=== PATIENT | female | born 1955 | race African-American/Black ===

== ENCOUNTER 2021-03-12 15:23 | Inpatient (IN) | payer OTHER, SELFPAY ==
[2021-03-12] VITALS (17 sets, daily range): BP systolic 103–144; BP diastolic 71–94; PULSE 89–109; RESP 20–36; TEMP 36.9–37.3; O2SAT 86–98; BMI 31.1
--- NOTE | ~2021-03-12 | US_ITS ---
EXAMINATION: US venous doppler UE DATE: 03/16/2021 15:08 INDICATION: Arm swelling TECHNIQUE: King scale images with and without compression and Doppler images of the right and left up per extremity veins were obtained. COMPARISON: None. FINDINGS: The internal jugular vein, subclavian vein, axillary vein, brachial veins, basilic vein, cephalic vei n, radial vein, and ulnar vein are patent.] IMPRESSION: 1. Patent bilateral upper extremity veins. No evidence of deep venous thrombosis. Reviewed, dictated and finalized at location A. IMPRESSION: 1. Patent bilateral upper extremity veins. No evidence of deep venous thrombosi s.
--- NOTE | ~2021-03-12 | XR_ITS ---
XR chest 1V portable 04/05/2021 06:33 Indication: Respiratory failure Procedure: AP portable chest Comparison: Comparison to multiple prior studies sequentially, with oldest reviewed study dated 03/30. Findings: Progression of diffuse bilateral airspace disease. Endotracheal tube tip 3.8 cm above the c compa. NG tube in the stomach. Right IJ central line tip mass cc. Small pleural effusions. No pneumot horax. No acute osseous abnormality. Impression: 1: Progression of diffuse bilateral airspace disease which may represent pneumonia and/or edema. Reviewed, dictated and finalized at location A. Impression: 1: Progression of diffuse bilateral airspace disease which may represent pneumo kasey and/or edema.
--- NOTE | ~2021-03-12 | XR_ITS ---
XR chest 1V portable 04/07/2021 06:36 Indication: Respiratory failure Procedure: AP portable chest Comparison: Comparison to multiple prior studies sequentially, with oldest reviewed study dated 04/02. Findings: 3.1 cm above the milton. NG tube in the stomach. Right IJ central line tip in the SVC. Prog ression of diffuse bilateral airspace disease. No significant effusion. No pneumothorax. Impression: 1: Progression of diffuse bilateral airspace disease which may represent pneumonia, edema and/or ARDS . Reviewed, dictated and finalized at location A. Impression: 1: Progression of diffuse bilateral airspace disease which may represent pneumo kasey, edema and/or ARDS.
--- NOTE | ~2021-03-12 | XR_ITS ---
XR chest 1V portable DATE: 04/02/2021 05:58 INDICATION: Acute respiratory failure TECHNIQUE: Portable AP chest on 04/02/2021 at 0535 hours COMPARISON: 03/31/2021 portable AP chest at 0522 hours FINDINGS: ET tube in satisfactory position 4.7 cm above milton. NG tube in stomach. Right internal jugular central venous catheter tip overlies the lower aspect of the superior vena cav a. No evidence of pneumothorax. Normal heart size. There is aortic unfolding. Diffuse bilateral pulmonary infiltrates relatively sparing the apices. The infiltrates are mildly imp roved since 03/31/2021. No pleural effusion or pneumothorax. IMPRESSION: Extensive bilateral pulmonary infiltrates, mildly improved since 03/31/2021 Reviewed, dictated and finalized at location A. IMPRESSION: Extensive bilateral pulmonary infiltrates, mildly improved since 06/2021
--- NOTE | ~2021-03-12 | XR_ITS ---
EXAMINATION: XR chest 1V portable DATE: 04/26/2021 09:38 INDICATION: Intubated. COVID pneumonia. TECHNIQUE: frontal view of the chest was obtained. COMPARISON: Chest radiograph dated 04/25/2021 FINDINGS: Endotracheal tube tip 4.4 cm above the milton. Nasogastric tube extends below the left hemidiaphragm with distal tip collimated off the study. Right internal jugular central venous catheter with distal tip at the cephalad superior vena cava. Again seen are airspace opacities throughout both lungs relative sparing the apices with some improve ment in aeration of both lungs. No pleural effusion or pneumothorax. The cardiomediastinal silhouette is within normal limits for AP technique. Calcified left hilar lymph node consistent with old granul omatous disease.. IMPRESSION: 1. Diffuse bilateral lung disease with some improvement in aeration of both lungs. Differential inclu jud pneumonia, pulmonary edema, ARDS or some combination thereof. Reviewed, dictated and finalized at location A. IMPRESSION: 1. Diffuse bilateral lung disease with some improvement in aeration of both glenna gs. Differential includes pneumonia, pulmonary edema, ARDS or some combination thereof.
--- NOTE | ~2021-03-12 | XR_ITS ---
EXAMINATION: XR chest 1V portable DATE: 03/22/2021 06:00 INDICATION: Respiratory failure. TECHNIQUE: frontal view of the chest was obtained. COMPARISON: Chest radiograph dated 03/21/2021 FINDINGS: Endotracheal tube tip 3.5 cm above the milton. Nasogastric tube extends below the left hemidiaphragm with distal tip collimated off the study. Right internal jugular central venous catheter with distal tip at the midsuperior vena cava. Unchanged diffuse groundglass opacities and increased interstitial pattern in the bilateral mid and l ower lung zones. No pleural effusion or pneumothorax. The cardiomediastinal silhouette is normal. Keenan cified left hilar lymph nodes consistent with old granulomatous disease. IMPRESSION: 1. Unchanged diffuse bilateral lung disease relatively sparing the apices with differential including pneumonia such as COVID pneumonia or pulmonary edema. Reviewed, dictated and finalized at location A.
--- NOTE | ~2021-03-12 | XR_ITS ---
EXAMINATION: XR chest 1V portable INDICATION: Cardiopulmonary arrest TECHNIQUE: Portable AP chest at 1720 hours COMPARISON: 0524 hours FINDINGS: The endotracheal tube ends approximately 1.6 cm above the milton. The nasogastric tube is f ollowed as far as the stomach. Its tip is beyond the inferior margin of the radiograph. A right inter nal jugular central venous catheter ends in the proximal superior vena cava. Diffuse opacities persis t throughout all lung zones without significant change. The cardiomediastinal silhouette is stable. N o pleural effusion or pneumothorax is identified. A calcified left hilar lymph nodes consistent with old granulomatous disease. IMPRESSION: 1. Stable diffuse lung disease, consistent with pneumonia and/or pulmonary edema and/or acute respira tory distress syndrome (ARDS). Reviewed, dictated and finalized at location A. IMPRESSION: 1. Stable diffuse lung disease, consistent with pneumonia and/or pulmonary madeline a and/or acute respiratory distress syndrome (ARDS).
--- NOTE | ~2021-03-12 | XR_ITS ---
EXAMINATION: XR chest 1V portable DATE: 04/12/2021 09:10 INDICATION: COVID. Intubation. TECHNIQUE: frontal view of the chest was obtained. COMPARISON: Chest radiograph dated 04/11/2021 FINDINGS: Endotracheal tube tip 3.3 cm above the milton. Right internal jugular central venous catheter with di stal tip in the midsuperior vena cava. Again seen are diffuse bilateral airspace opacities throughout both lungs relatively sparing the apic es. No pleural effusion or pneumothorax. The cardiomediastinal silhouette is normal. Large calcified left hilar lymph node consistent with old granulomatous disease. IMPRESSION: 1. Unchanged diffuse bilateral lung disease consistent with COVID pneumonia with differential includi ng pulmonary edema. Reviewed, dictated and finalized at location B. IMPRESSION: 1. Unchanged diffuse bilateral lung disease consistent with COVID pneumonia wit h differential including pulmonary edema.
--- NOTE | ~2021-03-12 | XR_ITS ---
XR chest 1V portable 03/16/2021 12:46 Indication: CovidPneumonia Procedure: AP portable chest Comparison: Comparison to multiple prior studies sequentially, with oldest reviewed study dated 02/08. Findings: Cardiomegaly. Diffuse bilateral airspace disease mid and lower lungs. Possible small left e ffusion. No pneumothorax. Calcified left infrahilar lymph node, consistent with chronic granulomatous infection. Impression: 1: Progression of diffuse bilateral airspace disease, consistent with pneumonia. Reviewed, dictated and finalized at location A. Impression: 1: Progression of diffuse bilateral airspace disease, consistent with pneumonia .
--- NOTE | ~2021-03-12 | XR_ITS ---
XR chest 1V portable 04/08/2021 05:34 Indication: Respiratory failure Procedure: AP portable chest Comparison: Comparison to multiple prior studies sequentially, with oldest reviewed study dated 04/04. Findings: Endotracheal tube tip 5.2 cm above the milton. Right IJ central line tip in SVC. NG tube in the stomach. No pneumothorax. Persistent diffuse bilateral airspace disease without significant connelly ge. Impression: 1: Persistent diffuse bilateral airspace disease without significant change, compatible with pneumoni a versus edema. Reviewed, dictated and finalized at location A. Impression: 1: Persistent diffuse bilateral airspace disease without significant change, co mpatible with pneumonia versus edema.
--- NOTE | ~2021-03-12 | XR_ITS ---
EXAMINATION: XR chest 1V portable DATE: 03/26/2021 05:50 INDICATION: Respiratory failure TECHNIQUE: frontal view of the chest was obtained. COMPARISON: Chest radiograph dated 03/25/2021 FINDINGS: Endotracheal tube tip 5.2 cm above the milton. Nasogastric tube extends below the left hemidiaphragm with distal tip collimated off the study. Right internal jugular central venous catheter with distal tip at the midsuperior vena cava. No significant change in diffuse groundglass opacities and increased interstitial pattern throughout both lungs relatively sparing the apices. No pleural effusion or pneumothorax. The cardiomediastinal silhouette is normal. Calcified left hilar lymph node consistent with old granulomatous disease. IMPRESSION: 1. No interval change in diffuse bilateral lung disease consistent with pneumonia, pulmonary edema, A RDS or some combination thereof. Reviewed, dictated and finalized at location A. IMPRESSION: 1. No interval change in diffuse bilateral lung disease consistent with pneumon ia, pulmonary edema, ARDS or some combination thereof.
--- NOTE | ~2021-03-12 | XR_ITS ---
XR chest 1V portable 04/06/2021 06:08 Indication: Respiratory failure Procedure: AP portable chest Comparison: Comparison to multiple prior studies sequentially, with oldest reviewed study dated 03/31. Findings: Endotracheal tube tip 4.5 cm above the milton. Right IJ central line tip in the SVC. NG tub e tip in the stomach. Diffuse bilateral airspace disease is unchanged. No pneumothorax. Impression: 1: Stable diffuse bilateral airspace disease compared with 04/05/2021. Differential diagnosis includes pneumonia, edema and/or ARDS. Reviewed, dictated and finalized at location A. Impression: 1: Stable diffuse bilateral airspace disease compared with 04/05/2021. Different ial diagnosis includes pneumonia, edema and/or ARDS.
--- NOTE | ~2021-03-12 | US_ITS ---
EXAMINATION: US renal BI EXAM DATE: 05/06/2021 15:05 INDICATION: Acute kidney injury. TECHNIQUE: Multiple grayscale and Doppler images of the kidneys were obtained (by a technologist who performed the scan) and subsequently reviewed. Comparison is made to prior examination from 02/08/2013 . FINDINGS: Right kidney: There is normal contour and echogenicity. It measures 11.6 x 6.0 x 5.6 centimeters. Th ere is anechoic lesion in the superior pole of this kidney with increased through transmission, consi stent with cyst measuring up to 5.5 cm. There is no hydronephrosis. Left kidney: There is normal contour and echogenicity. It measures 10.6 x 4.3 x 5.9 centimeters. Th ere are no focal renal lesions identified. There is no hydronephrosis. Bladder unremarkable. IMPRESSION: 1. Right renal cyst. 2. No hydronephrosis. Reviewed, dictated and finalized at location B.
--- NOTE | ~2021-03-12 | US_ITS ---
EXAMINATION:US venous doppler LE BI INDICATION:Leg swelling TECHNIQUE: Multiple grayscale, color flow and Doppler images of the right and left lower extremity de ep venous systems were obtained and reviewed. COMPARISON:No prior studies for comparison. FINDINGS: The common femoral, superficial femoral and popliteal veins demonstrate normal respiratory variation, augmentation and compressibility. Color flow is also seen within the posterior tibial, pe roneal, greater saphenous and profunda veins. IMPRESSION: 1: No lower extremity deep venous thrombosis. Reviewed, dictated and finalized at location A.
--- NOTE | ~2021-03-12 | XR_ITS ---
XR chest 1V portable 03/28/2021 05:37 Indication: Pneumonia. Acute respiratory failure. Procedure: AP portable chest Comparison: Comparison to multiple prior studies sequentially, with oldest reviewed study dated 11/2020. Findings: Endotracheal tube tip 2.6 cm above the milton. NG tube in the stomach. Right IJ central ana laura e tip in the SVC. Unchanged diffuse bilateral airspace disease. No significant effusion or pneumothor ax. Impression: 1: Stable diffuse bilateral airspace disease, compatible with pneumonia. Edema cannot be excluded. Reviewed, dictated and finalized at location A. Impression: 1: Stable diffuse bilateral airspace disease, compatible with pneumonia. Edema cannot be excluded.
--- NOTE | ~2021-03-12 | XR_ITS ---
EXAMINATION: XR chest 1V portable DATE: 04/18/2021 05:53 INDICATION: Respiratory failure TECHNIQUE: frontal view of the chest was obtained. COMPARISON: Chest radiograph dated 04/17/2021 FINDINGS: Endotracheal tube tip 4.6 cm above the milton. Nasogastric tube extends below the left hemidiaphragm with distal tip collimated off the study. Right internal jugular central venous catheter with distal tip in the region of the contents of the right brachiocephalic vein and superior vena cava. Diffuse bilateral indistinct interstitial and airspace opacities relatively sparing the apices. No pn eumothorax or pleural effusion. Cardiomegaly. Calcified left hilar lymph node consistent with old gra nulomatous disease. IMPRESSION: 1. No interval change in diffuse bilateral lung disease which could represent pneumonia, pulmonary ed elaine, ARDS or some combination thereof. Reviewed, dictated and finalized at location A. IMPRESSION: 1. No interval change in diffuse bilateral lung disease which could represent p neumonia, pulmonary edema, ARDS or some combination thereof.
--- NOTE | ~2021-03-12 | XR_ITS ---
EXAMINATION: XR chest 1V portable INDICATION: Respiratory failure TECHNIQUE: Portable AP chest at 0011 hours COMPARISON: 04/22/2021 FINDINGS: The endotracheal tube ends approximately 2.8 cm above the milton. The nasogastric tube is f ollowed as far as the stomach. Its tip is beyond the inferior margin of the radiograph. A right inter nal jugular catheter ends with its tip in the proximal superior vena cava. Diffuse airspace opacities persist in all lung zones with slight improvement. The cardiomediastinal silhouette is stable. No pl eural effusion or pneumothorax is identified. IMPRESSION: 1. Diffuse lung disease with interval improvement, consistent with pneumonia and/or pulmonary edema a nd/or acute respiratory distress syndrome (ARDS). Reviewed, dictated and finalized at location A. IMPRESSION: 1. Diffuse lung disease with interval improvement, consistent with pneumonia an d/or pulmonary edema and/or acute respiratory distress syndrome (ARDS).
--- NOTE | ~2021-03-12 | XR_ITS ---
EXAMINATION: XR chest 1V portable INDICATION: Respiratory failure TECHNIQUE: Portable AP chest at 0450 hours COMPARISON: 04/21/2021 FINDINGS: The endotracheal tube ends approximately 4.1 cm above the milton. The nasogastric tube is f ollowed as far as the stomach. Its tip is beyond the inferior margin of the radiograph. A right inter nal jugular catheter ends with its tip in the proximal superior vena cava. Diffuse opacities persist throughout all lung zones with interval worsening. No definite pleural effusion or pneumothorax is id entified. The cardiomediastinal silhouette is stable. IMPRESSION: 1. Diffuse lung disease with interval worsening, consistent with pneumonia and/or pulmonary edema and /or acute respiratory distress syndrome (ARDS). Reviewed, dictated and finalized at location A. IMPRESSION: 1. Diffuse lung disease with interval worsening, consistent with pneumonia and/ or pulmonary edema and/or acute respiratory distress syndrome (ARDS).
--- NOTE | ~2021-03-12 | XR_ITS ---
EXAMINATION: XR chest 1V portable DATE: 05/03/2021 05:56 INDICATION: Respiratory failure. COVID pneumonia. TECHNIQUE: frontal view of the chest was obtained. COMPARISON: Chest radiograph dated 05/02/21 FINDINGS: Endotracheal tube tip 5.9 cm above the milton. Nasogastric tube extends below the left hemidiaphragm with distal tip collimated off the study. Right internal jugular central venous catheter with distal tip at the cephalad superior vena cava. No significant interval change in diffuse bilateral airspace opacities. No pneumothorax or definitive pleural effusion. The right iliac silhouette is largely obscured but does not appear enlarged accoun ting for AP technique. Large calcified left hilar lymph node consistent with old granulomatous diseas e. IMPRESSION: 1. No significant change in diffuse bilateral lung disease which could represent pneumonia, pulmonary edema and/or ARDS. Reviewed, dictated and finalized at location A. IMPRESSION: 1. No significant change in diffuse bilateral lung disease which could represen t pneumonia, pulmonary edema and/or ARDS.
--- NOTE | ~2021-03-12 | XR_ITS ---
EXAMINATION: XR chest 1V portable INDICATION: Respiratory failure TECHNIQUE: Portable AP chest at 0453 hours COMPARISON: 04/20/2021 FINDINGS: The endotracheal tube ends approximately 2.9 cm above the milton. The nasogastric tube is f ollowed as far as the stomach. Its tip is beyond the inferior margin of the radiograph. A right inter nal jugular central venous catheter ends with its tip in the proximal superior vena cava. Diffuse opa cities persist in all lung zones with slight improvement in the upper lung zones. There is no pleural effusion or pneumothorax. The cardiomediastinal silhouette is stable. IMPRESSION: 1. Diffuse lung disease with interval improvement, consistent with pneumonia and/or pulmonary edema a nd/or acute respiratory distress syndrome (ARDS). Reviewed, dictated and finalized at location A. IMPRESSION: 1. Diffuse lung disease with interval improvement, consistent with pneumonia an d/or pulmonary edema and/or acute respiratory distress syndrome (ARDS).
--- NOTE | ~2021-03-12 | US_ITS ---
EXAMINATION: US venous doppler [facility] DATE: 04/14/2021 14:52 INDICATION: Lower limb edema. TECHNIQUE: Grayscale ultrasound images without and with compression and Doppler ultrasound images of the bilateral lower extremity veins were obtained. COMPARISON: Ultrasound 03/16/2021 FINDINGS: The visualized portions of right common femoral vein, profunda (deep) femoral vein, femoral vein, pop liteal vein, peroneal veins, posterior tibial veins, and greater saphenous vein outflow are patent. The visualized portions of left common femoral vein, profunda femoral vein, femoral vein, popliteal v ein, peroneal veins, posterior tibial veins, and greater saphenous vein outflow are patent. IMPRESSION: 1. No deep venous thrombosis. Reviewed, dictated and finalized at location A.
--- NOTE | ~2021-03-12 | XR_ITS ---
EXAMINATION: XR chest 1V portable EXAM DATE: 04/14/2021 05:53 INDICATION: Respiratory Failure TECHNIQUE: Portable AP frontal chest x-ray was obtained. Comparison is made to prior examination from 04/13, 04/12. FINDINGS: Endotracheal tube tip is 4 centimeters above the milton. There is a nasogastric tube seen with tip collimated off the study, but below the left hemidiaphragm. There is a right IJ venous line. Diffuse bilateral airspace disease consistent with COVID pneumonia, relative sparing of the left uppe r lobe. There are no sizable pleural effusions. There is no pneumothorax suspected. The cardiome diastinal silhouette is prominent but magnified on this AP technique. The bones and soft tissues ar e unremarkable. There is no significant interval change compared to prior exam. IMPRESSION: 1. Line and tube(s) in position. 2. Extensive COVID pneumonia. Reviewed, dictated and finalized at location A.
--- NOTE | ~2021-03-12 | XR_ITS ---
EXAMINATION: XR chest 1V portable INDICATION: Respiratory failure TECHNIQUE: Portable AP chest at 0847 hours COMPARISON: 04/26/2021 FINDINGS: A monitoring lead overlies the tip of the endotracheal tube. The tube appears and approxima tely 5.1 cm above the milton. The nasogastric tube is followed as far as the stomach. Its tip is beyo nd the inferior margin of the radiograph. A right internal jugular central venous catheter ends with its tip in the proximal superior vena cava. Diffuse opacities persist throughout all lung zones with interval worsening. There is no pleural effusion or pneumothorax. The cardiomediastinal silhouette is stable. IMPRESSION: 1. Diffuse lung disease with interval worsening, consistent with pneumonia and/or pulmonary edema and /or acute respiratory distress syndrome (ARDS). Reviewed, dictated and finalized at location B. IMPRESSION: 1. Diffuse lung disease with interval worsening, consistent with pneumonia and/ or pulmonary edema and/or acute respiratory distress syndrome (ARDS).
--- NOTE | ~2021-03-12 | XR_ITS ---
EXAMINATION: XR chest 1V portable DATE: 05/06/2021 05:45 INDICATION: Hypoxic respiratory failure. COVID. TECHNIQUE: frontal view of the chest was obtained. COMPARISON: Chest radiograph dated 05/05/2021 FINDINGS: Endotracheal tube tip 4.3 cm above the milton. Nasogastric tube extends below the left hemidiaphragm with distal tip collimated off the study. Right internal jugular central venous catheter with distal tip at the right brachiocephalic vein. Extensive bilateral airspace opacities. No pneumothorax or definitive pleural effusion. Cardiac silho uette is largely obscured. Densely calcified left hilar lymph node consistent with old granulomatous disease. IMPRESSION: 1. No significant change in diffuse bilateral lung disease which could represent pneumonia, pulmonary edema, ARDS or some combination thereof. Reviewed, dictated and finalized at location A. IMPRESSION: 1. No significant change in diffuse bilateral lung disease which could represen t pneumonia, pulmonary edema, ARDS or some combination thereof.
--- NOTE | ~2021-03-12 | CT_ITS ---
EXAMINATION: CTA chest PE protocol DATE: 03/18/2021 14:38 INDICATION: COVID pneumonia. Respiratory failure with hypoxia. TECHNIQUE: Computed tomography (CT) pulmonary angiogram of the chest was performed with 100 mL Omnipa que-350 intravenous contrast. Additional 3D reconstructions utilizing coronal maximum intensity proje ction (MIP) were performed. Automated exposure control and iterative reconstruction technique were em ployed. The dose-length product was 498.75 mGy-cm. COMPARISON: None FINDINGS: Excellent contrast opacification of the pulmonary arteries. There is mild streak artifact from dense contrast in the superior vena cava and right atrium. Mild scattered respiratory motion artifact. No p ulmonary embolism. Mild emphysema the apices of the lungs. There are extensive groundglass opacities throughout both lungs with a few scattered nodular and more focal subsegmental regions of more dense consolidation dominantly in the bilateral lower lobes, right middle lobe and lingula. Appearance woul d be most consistent with pneumonia particularly COVID pneumonia. Mild bronchiectatic changes throug hout both lungs with lower lobe predominance. No pleural effusion or pneumothorax. Borderline heart s ize. No pericardial effusion. Thoracic aorta is normal in caliber with no dissection. Enlargement of the central pulmonary arteries consistent with pulmonary arterial hypertension. Large calcified left hilar lymph node consistent with old granulomatous disease. No pathologically enlarged thoracic lymph adenopathy. Incompletely visualized at least 5.2 cm cyst at the upper pole of the right kidney. Mild thoracic spondylosis. IMPRESSION: 1. No pulmonary embolism. 2. Diffuse bilateral lung disease with appearance favoring pneumonia particularly COVID pneumonia. 3. Mild emphysema and diffuse mild bronchiectasis. 4. Borderline heart size and enlargement of the central pulmonary arteries the latter consistent with pulmonary arterial hypertension. Reviewed, dictated and finalized at location A. IMPRESSION: 1. No pulmonary embolism. 2. Diffuse bilateral lung disease with appearance favoring pneumonia particular ly COVID pneumonia. 3. Mild emphysema and diffuse mild bronchiectasis. 4. Borderline heart size and enlargement of the central pulmonary arteries the latter consistent with pulmonary arterial hypertension.
--- NOTE | ~2021-03-12 | US_ITS ---
EXAMINATION: US venous doppler UE DATE: 04/14/2021 14:51 INDICATION: Upper limb edema. TECHNIQUE: Grayscale ultrasound images without and with compression and Doppler ultrasound images of the bilateral upper extremity veins were obtained. COMPARISON: Ultrasound 03/16/2021 FINDINGS: The visualized portions of the right internal jugular vein, subclavian vein, axillary vein, brachial veins, basilic vein, cephalic vein, radial vein, and ulnar vein are patent. The visualized portions of the left internal jugular vein, subclavian vein, axillary vein, brachial v eins, basilic vein, cephalic vein, radial vein, and ulnar vein are patent. IMPRESSION: 1. No deep venous thrombosis. Reviewed, dictated and finalized at location A.
--- NOTE | ~2021-03-12 | XR_ITS ---
EXAMINATION: XR chest 1V portable INDICATION: Respiratory failure TECHNIQUE: Portable AP chest at 0509 hours COMPARISON: 04/19/2021 FINDINGS: The endotracheal tube ends approximately 2.5 cm above the milton. The nasogastric tube is f ollowed as far as the stomach. Its tip is beyond the inferior margin of the radiograph. A right inter nal jugular catheter ends in the proximal superior vena cava. Diffuse opacities persist in all lung z ones with interval worsening. There is no pleural effusion or pneumothorax. The cardiomediastinal lobito houette is stable. IMPRESSION: 1. Diffuse lung disease with interval worsening, consistent with pneumonia and/or pulmonary edema and /or acute respiratory distress syndrome (ARDS). Reviewed, dictated and finalized at location A. IMPRESSION: 1. Diffuse lung disease with interval worsening, consistent with pneumonia and/ or pulmonary edema and/or acute respiratory distress syndrome (ARDS).
--- NOTE | ~2021-03-12 | XR_ITS ---
EXAMINATION: XR chest 1V portable EXAM DATE: 04/16/2021 05:33 INDICATION: Respiratory failure. TECHNIQUE: Portable AP frontal chest x-ray was obtained. Comparison is made to prior examination from 04/14, 04/15. FINDINGS: Endotracheal tube tip is 5 centimeters above the milton. There is a nasogastric tube seen with tip collimated off the study, but below the left hemidiaphragm. There is a right IJ venous line. Diffuse bilateral airspace disease consistent with COVID pneumonia, relative sparing of the left uppe r lobe. There are no sizable pleural effusions. There is no pneumothorax suspected. The cardiome diastinal silhouette is prominent but magnified on this AP technique. The bones and soft tissues ar e unremarkable. There is no significant interval change compared to prior exam. IMPRESSION: 1. Line and tube(s) in position. 2. Extensive COVID pneumonia. Reviewed, dictated and finalized at location A.
--- NOTE | ~2021-03-12 | XR_ITS ---
EXAMINATION: XR chest 1V portable DATE: 04/24/2021 05:12 INDICATION: Respiratory failure TECHNIQUE: frontal view of the chest was obtained. COMPARISON: Chest radiograph dated 04/23/2021 FINDINGS: Endotracheal tube is retracted slightly with distal tip now 5.2 cm above the milton. Nasogastric tube with proximal side-port in the proximal body of the stomach and distal tip collimated off the study . Right internal jugular central venous catheter with distal tip at the proximal superior vena cava. No significant interval change in diffuse airspace opacities throughout both lungs. No pleural effusi on or pneumothorax. Cardiac silhouette is partially obscured but does not appear enlarged for AP tech nique and accounting for some rightward rotation of the patient. Calcified left hilar lymph node cons istent with old granulomatous disease. IMPRESSION: 1. No interval change in diffuse bilateral lung disease which could represent pneumonia, pulmonary ed elaine, ARDS or some combination thereof. Reviewed, dictated and finalized at location A. IMPRESSION: 1. No interval change in diffuse bilateral lung disease which could represent p neumonia, pulmonary edema, ARDS or some combination thereof.
--- NOTE | ~2021-03-12 | XR_ITS ---
EXAMINATION: XR chest 1V portable DATE: 05/04/2021 06:04 INDICATION: COVID. Hypoxic respiratory failure. TECHNIQUE: frontal view of the chest was obtained. COMPARISON: Chest radiograph dated 05/03/21 FINDINGS: Endotracheal tube tip 2.7 cm above the milton. Nasogastric tube extends below the left hemidiaphragm with distal tip collimated off the study. Right internal jugular central venous catheter with distal tip in the midsuperior vena cava. Extensive diffuse bilateral airspace opacities relatively sparing the apices of the lungs. No pleural effusion or pneumothorax. Cardiomediastinal silhouette is partially obscured but appears normal. Keenan cified left hilar lymph nodes consistent with old granulomatous disease. IMPRESSION: 1. No significant change in diffuse bilateral lung disease which could represent pneumonia, pulmonary edema and/or ARDS. Reviewed, dictated and finalized at location A. IMPRESSION: 1. No significant change in diffuse bilateral lung disease which could represen t pneumonia, pulmonary edema and/or ARDS.
--- NOTE | ~2021-03-12 | XR_ITS ---
EXAMINATION: XR chest 1V portable DATE: 04/17/2021 05:23 INDICATION: Respiratory failure TECHNIQUE: frontal view of the chest was obtained. COMPARISON: Chest radiograph dated 04/16/2021 FINDINGS: Endotracheal tube tip 4.5 cm above the milton. Nasogastric tube with proximal side-port in the proxi mal body of the stomach and distal tip collimated off the study. Right internal jugular central venou s catheter with distal tip at the cephalad-most superior vena cava. No significant interval change in diffuse interstitial and airspace opacities throughout both lungs r elatively sparing the apices. No pneumothorax or evident pleural effusion. The cardiomediastinal silh ouette is normal. Large calcified left hilar lymph node consistent with old granulomatous disease. IMPRESSION: 1. No interval change in diffuse bilateral lung disease which could represent pneumonia, pulmonary ed elaine, ARDS or some combination thereof. Reviewed, dictated and finalized at location A. IMPRESSION: 1. No interval change in diffuse bilateral lung disease which could represent p neumonia, pulmonary edema, ARDS or some combination thereof.
--- NOTE | ~2021-03-12 | XR_ITS ---
EXAMINATION: XR chest 1V portable DATE: 03/23/2021 05:45 INDICATION: Respiratory failure TECHNIQUE: frontal view of the chest was obtained. COMPARISON: Chest radiograph dated 03/22/2021 FINDINGS: Endotracheal tube tip 3.8 cm above the milton. Nasogastric tube tip in the body of the stomach. Right internal jugular central venous catheter with distal tip in the midsuperior vena cava. Diffuse groundglass opacities and increased interstitial pattern throughout both lungs which appears slightly increased since the prior study. No pleural effusion or pneumothorax. The cardiomediastinal silhouette is normal. Calcified left hilar lymph nodes consistent with old granulomatous disease. IMPRESSION: 1. Worsening diffuse bilateral lung disease which could represent pneumonia, pulmonary edema, ARDS or some combination thereof. Reviewed, dictated and finalized at location A. IMPRESSION: 1. Worsening diffuse bilateral lung disease which could represent pneumonia, pu lmonary edema, ARDS or some combination thereof.
--- NOTE | ~2021-03-12 | XR_ITS ---
EXAMINATION: XR chest port-a-cath/central DATE: 03/21/2021 13:20 INDICATION: Central line placement TECHNIQUE: frontal view of the chest was obtained. COMPARISON: Chest radiograph dated 03/21/2021 at 9:36 AM FINDINGS: New right internal jugular central venous catheter with distal tip at the caudal superior vena cava. Endotracheal tube tip 4.5 cm above the milton. Nasogastric tube extends below the left hemidiaphragm with distal tip collimated off the study. Unchanged diffuse groundglass opacities in the bilateral mid and lower lung zones consistent with pne umonia. No pleural effusion or pneumothorax. Calcified left hilar lymph node consistent with old gran ulomatous disease. The cardiomediastinal silhouette is normal. IMPRESSION: 1. New right internal jugular central venous catheter tip in the caudal superior vena cava. 2. Unchanged diffuse bilateral lung disease probably sparing the apices with differential including p neumonia such as computed pneumonia or pulmonary edema. Reviewed, dictated and finalized at location A. IMPRESSION: 1. New right internal jugular central venous catheter tip in the caudal superio r vena cava. 2. Unchanged diffuse bilateral lung disease probably sparing the apices with di fferential including pneumonia such as computed pneumonia or pulmonary edema.
--- NOTE | ~2021-03-12 | XR_ITS ---
XR chest 1V portable DATE: 04/11/2021 05:32 INDICATION: Covid pneumonia TECHNIQUE: Portable AP chest on 04/11/2021 at 0509 hours COMPARISON: 04/10/2021 portable AP chest at 0526 hours FINDINGS: ET tube in satisfactory position 4.5 cm above milton. NG tube in stomach. Right internal ju gular central venous catheter tip overlies the superior vena cava. No pneumothorax. There are extensive bilateral patchy consolidating pulmonary infiltrates, increased on the right sinc e 04/10/2021. Heart size is not optimally evaluated on AP projection because of medication. There is aortic arch ca lcification. IMPRESSION: Severe bilateral pulmonary infiltrates, increased on the right since 04/10/2021 Reviewed, dictated and finalized at location A. IMPRESSION: Severe bilateral pulmonary infiltrates, increased on the right sinc e 04/10/2021
--- NOTE | ~2021-03-12 | XR_ITS ---
EXAMINATION: XR chest 1V portable DATE: 04/30/2021 06:01 INDICATION: Respiratory failure. COVID-19 pneumonia. TECHNIQUE: A single frontal view of the chest was obtained. COMPARISON: Chest single view 04/29/2021 FINDINGS: The patient is rotated to her left. There are airspace opacities throughout the lungs bilat erally. No pleural effusion or pneumothorax. Calcified left hilar lymph nodes are consistent with old granulomatous disease. The heart size is obscured by the lung disease. The endotracheal tube tip is 6.3 cm above the milton. A right internal jugular central venous catheter is seen with tip in the rig ht brachiocephalic vein. The nasogastric tube tip is beyond the inferior margin of the radiograph, bu t at least to the stomach. IMPRESSION: 1. Worsened diffuse lung disease, consistent with pneumonia versus pulmonary edema versus acute respi ratory distress syndrome (ARDS). Reviewed, dictated and finalized at location A. IMPRESSION: 1. Worsened diffuse lung disease, consistent with pneumonia versus pulmonary ed elaine versus acute respiratory distress syndrome (ARDS).
--- NOTE | ~2021-03-12 | XR_ITS ---
EXAMINATION: XR chest 1V portable DATE: 03/21/2021 08:19 INDICATION: Respiratory failure TECHNIQUE: frontal view of the chest was obtained. COMPARISON: Chest radiograph dated 03/16/[address] dated 03/18/2021 FINDINGS: Again seen are diffuse groundglass opacities throughout both lungs relatively sparing the apices. The re is increased lucency and architectural distortion at the apices consistent with underlying emphyse ma. No pleural effusion or pneumothorax. Cardiomediastinal silhouette is within normal limits account ing for AP technique and some rightward rotation of the patient. Calcified left hilar lymph node cons istent with old granulomatous disease. IMPRESSION: 1. No significant change in diffuse groundglass opacities throughout both lungs most likely related t o COVID pneumonia with differential including other atypical pneumonia or mild pulmonary edema. 2. Mild emphysema. Reviewed, dictated and finalized at location A. IMPRESSION: 1. No significant change in diffuse groundglass opacities throughout both lungs most likely related to COVID pneumonia with differential including other atypi elizabeth pneumonia or mild pulmonary edema. 2. Mild emphysema.
--- NOTE | ~2021-03-12 | XR_ITS ---
EXAMINATION: XR chest 1V portable DATE: 05/05/2021 06:09 INDICATION: Hypoxic respiratory failure. COVID. TECHNIQUE: frontal view of the chest was obtained. COMPARISON: Chest radiograph dated 05/04/2021 FINDINGS: Endotracheal tube tip 4.9 cm above the milton. Nasogastric tube extends below the left hemidiaphragm with distal tip collimated off the study. Right internal jugular central venous catheter which appea rs to have withdrawn slightly with distal tip at the right brachiocephalic vein. No significant interval change in extensive bilateral interstitial and airspace opacities relatively sparing the apices. No pleural effusion or pneumothorax. The cardiac silhouette is largely obscured b ut does not appear definitively enlarged. Large calcified left hilar lymph node consistent with old g ranulomatous disease. IMPRESSION: 1. No significant change in diffuse bilateral lung disease which could represent pneumonia, pulmonary edema, ARDS or some combination thereof. Reviewed, dictated and finalized at location A. IMPRESSION: 1. No significant change in diffuse bilateral lung disease which could represen t pneumonia, pulmonary edema, ARDS or some combination thereof.
--- NOTE | ~2021-03-12 | XR_ITS ---
EXAMINATION: XR chest 1V portable EXAM DATE: 04/13/2021 05:39 INDICATION: COVID intubation. TECHNIQUE: Portable AP frontal chest x-ray was obtained. Comparison is made to prior examination from 04/12, 04/11, 04/10. FINDINGS: Endotracheal tube tip is 4 centimeters above the milton. There is a nasogastric tube seen with tip collimated off the study, but below the left hemidiaphragm. There is a right IJ venous line. Bilateral airspace disease consistent with COVID pneumonia, relative sparing of the left upper lobe. There are no sizable pleural effusions. There is no pneumothorax suspected. The cardiomediastina l silhouette is prominent but magnified on this AP technique. The bones and soft tissues are unrema rkable. There is no significant interval change compared to prior exam. IMPRESSION: 1. Line and tube(s) in position. 2. Extensive COVID pneumonia. Reviewed, dictated and finalized at location A.
--- NOTE | ~2021-03-12 | XR_ITS ---
EXAMINATION: XR chest 1V portable INDICATION: Respiratory failure TECHNIQUE: Portable AP chest at 0347 hours COMPARISON: 04/02/2021 FINDINGS: The endotracheal tube ends approximately 3.6 cm above the milton. The nasogastric tube is f ollowed as far as the stomach. Its tip is beyond the inferior margin of the radiograph. A right inter nal jugular catheter ends with its tip in the superior vena cava. Diffuse opacities persist in all pan ng zones without significant change. There is no pleural effusion or pneumothorax. The cardiomediasti nal silhouette is stable. IMPRESSION: 1. Stable diffuse lung disease, consistent with pneumonia and/or pulmonary edema and/or acute respira tory distress syndrome (ARDS). Reviewed, dictated and finalized at location A. IMPRESSION: 1. Stable diffuse lung disease, consistent with pneumonia and/or pulmonary madeline a and/or acute respiratory distress syndrome (ARDS).
--- NOTE | ~2021-03-12 | XR_ITS ---
EXAMINATION: XR chest 1V portable DATE: 04/15/2021 09:09 INDICATION: Respiratory failure. TECHNIQUE: A single frontal view of the chest was obtained. COMPARISON: Chest single view 04/14/2021, chest CT 03/18/2021 FINDINGS: There are airspace and interstitial opacities throughout the lungs bilaterally. No pleural effusion or pneumothorax. The heart size is normal. A calcified left hilar lymph node is consistent w ith old granulomatous disease. The endotracheal tube tip is 5.5 cm above the milton. The central line tip is in superior vena cava. The nasogastric tube tip is beyond the inferior margin of the radiogra ph, but at least to the stomach. IMPRESSION: 1. Stable diffuse lung disease, consistent with pneumonia versus acute respiratory distress syndrome (ARDS). Reviewed, dictated and finalized at location A. IMPRESSION: 1. Stable diffuse lung disease, consistent with pneumonia versus acute respirat ory distress syndrome (ARDS).
--- NOTE | ~2021-03-12 | XR_ITS ---
XR chest 1V portable 05/02/2021 17:53 Indication: Evaluate endotracheal tube placement. Respiratory failure. Procedure: AP portable view of the chest Comparison: Comparison to multiple prior studies sequentially, with oldest reviewed study dated 04/2021. Findings: Endotracheal tube tip 4.7 cm above the milton. NG tube in the stomach. Right IJ central ana laura e tip in the SVC. No pneumothorax identified. Extensive bilateral airspace consolidation. Impression: 1: Persistent extensive bilateral airspace consolidation which may represent pneumonia, edema and/or ARDS. Reviewed, dictated and finalized at location A. Impression: 1: Persistent extensive bilateral airspace consolidation which may represent pn eumonia, edema and/or ARDS.
--- NOTE | ~2021-03-12 | XR_ITS ---
EXAMINATION: XR chest 1V portable DATE: 03/25/2021 05:54 INDICATION: Respiratory failure TECHNIQUE: frontal view of the chest was obtained. COMPARISON: Chest radiograph dated 03/24/2021 FINDINGS: Endotracheal tube tip 4.5 cm above the milton. Right internal jugular central venous catheter with di stal tip at the midsuperior vena cava. Nasogastric tube extends below the left hemidiaphragm with di stal tip collimated off the study. Interval improvement in now less dense diffuse groundglass opacities throughout both lungs relatively sparing the apices. No pneumothorax or definitive pleural effusion. The cardiomediastinal silhouette is normal. Is calcified left hilar lymph node consistent with old granulomatous disease. IMPRESSION: 1. Interval decrease in the diffuse bilateral airspace opacities consistent with improving pneumonia, pulmonary edema, ARDS or some combination thereof. Reviewed, dictated and finalized at location A. IMPRESSION: 1. Interval decrease in the diffuse bilateral airspace opacities consistent wit h improving pneumonia, pulmonary edema, ARDS or some combination thereof.
--- NOTE | ~2021-03-12 | XR_ITS ---
XR chest 1V portable DATE: 03/14/2021 11:12 INDICATION: Dyspnea. Respiratory failure. TECHNIQUE: Portable upright AP chest on 03/14/2021 at 1103 hours COMPARISON: 03/12/2021 portable upright AP chest FINDINGS: There are increased bilateral pulmonary infiltrates since 03/12/2021, involving particularly the mid and lower lung zones. Cardiomegaly. Aortic unfolding. IMPRESSION: Prominent bilateral pulmonary infiltrates, increased since 03/12/2021 Cardiomegaly, aortic atherosclerosis Reviewed, dictated and finalized at location A. IMPRESSION: Prominent bilateral pulmonary infiltrates, increased since Cardiomegaly, aortic atherosclerosis
--- NOTE | ~2021-03-12 | XR_ITS ---
EXAMINATION: XR chest ET placement, XR abdomen NG/feed tube insert DATE: 03/21/2021 09:44 INDICATION: Intubation. Orogastric tube placement TECHNIQUE: 1. frontal view of the chest was obtained. 2. AP view of the abdomen was obtained. COMPARISON: Chest CT dated 03/18/2021 FINDINGS: CHEST: Endotracheal tube tip 3.3 cm above the milton. Unchanged diffuse groundglass opacities in the bilater al mid and lower lung zones consistent with pneumonia. No pleural effusion or pneumothorax. Calcified left hilar lymph node consistent with old granulomatous disease. The cardiomediastinal silhouette is normal. ABDOMEN: Orogastric tube tip in proximal side port in the body of the stomach. No dilated loops of gas-filled bowel to suggest obstruction. IMPRESSION: 1. Endotracheal tube and orogastric tube in expected positions. 2. Diffuse bilateral lung disease relative sparing the apices differential including pneumonia partic ularly COVID pneumonia or pulmonary edema. Reviewed, dictated and finalized at location A. IMPRESSION: 1. Endotracheal tube and orogastric tube in expected positions. 2. Diffuse bilateral lung disease relative sparing the apices differential incl uding pneumonia particularly COVID pneumonia or pulmonary edema.
--- NOTE | ~2021-03-12 | XR_ITS ---
EXAMINATION: XR chest 1V portable EXAM DATE: 03/12/2021 16:16 INDICATION: Fatigue, fever, cough and sob since monMarch 10. TECHNIQUE: Portable AP frontal chest x-ray was obtained. Comparison is made to prior examination from 12/20/2013. FINDINGS: Moderate amount of bilateral pneumonia or edema. Please clinically correlate. No pneumothor ax or pleural effusion. The cardiomediastinal silhouette is prominent but magnified on this AP techni que. There are no osseous abnormalities identified. IMPRESSION: 1. Moderate amount of bilateral pneumonia or edema. Reviewed, dictated and finalized at location A.
--- NOTE | ~2021-03-12 | XR_ITS ---
XR chest 1V portable 03/27/2021 05:59 Indication: Pneumonia. Acute respiratory failure. Procedure: AP portable chest Comparison: Comparison to multiple prior studies sequentially, with oldest reviewed study dated 10/2020. Findings: Endotracheal tube 4.5 cm above the milton. NG tube in the stomach. Right IJ central line ti p in the SVC. Diffuse bilateral airspace disease. No significant effusion or pneumothorax. No acute o sseous abnormality. Impression: 1: Unchanged diffuse bilateral airspace disease which may represent edema or pneumonia. Reviewed, dictated and finalized at location A. Impression: 1: Unchanged diffuse bilateral airspace disease which may represent edema or pn eumonia.
--- NOTE | ~2021-03-12 | XR_ITS ---
XR chest 1V portable DATE: 03/30/2021 05:59 INDICATION: Acute respiratory failure. Pneumonia. TECHNIQUE: Portable AP chest on at 0535 hours COMPARISON: 03/29/2021 portable AP chest at 0527 hours FINDINGS: There are extensive bilateral pulmonary infiltrates relatively sparing only the apices, wit h increased infiltrate or atelectasis at the right lung base and left lung since 03/29/2021. There is m inimal if any pleural effusion. No pneumothorax. ET tube 3.7 cm above milton. NG tube in stomach. Right internal jugular central venous catheter tip o verlies the superior vena cava. IMPRESSION: Increased bilateral infiltrates since 03/29/2021 Reviewed, dictated and finalized at location A.
--- NOTE | ~2021-03-12 | XR_ITS ---
XR chest 1V portable DATE: 03/31/2021 05:38 INDICATION: Acute respiratory failure. Covid 19 pneumonia. TECHNIQUE: Portable AP chest on 03/31/2021 0522 hours COMPARISON: 03/30/2021 portable AP chest at 0535 hours FINDINGS: ET tube is 1.7 cm above milton; ideal range is 2-5 cm. NG tube in stomach. Right internal jugular central venous catheter tip overlies the superior vena cava. No pneumothorax. There are persistent extensive diffuse bilateral pulmonary infiltrates with relative sparing only of the apices, most prominent in the lower lung zones, mildly increased since 03/30/2021. No pneumothorax . Heart size appears within normal range. Is aortic calcification and unfolding. Diffuse osteopenia. IMPRESSION: Persistent extensive bilateral pulmonary infiltrates, mildly increased since 03/30/2021. Reviewed, dictated and finalized at location A. IMPRESSION: Persistent extensive bilateral pulmonary infiltrates, mildly increa sed since 03/30/2021.
--- NOTE | ~2021-03-12 | XR_ITS ---
EXAMINATION: XR chest 1V portable EXAM DATE: 04/19/2021 08:58 INDICATION: Respiratory failure. TECHNIQUE: Portable AP frontal chest x-ray was obtained. Comparison is made to prior examination from 04/18/2021. FINDINGS: Endotracheal tube tip is 3 centimeters above the milton. There is a right-sided IJ central venous line. There is a nasogastric tube seen with tip collimated off the study, but below the left hemidiaphragm. Again there is diffuse bilateral ill-defined airspace disease, pneumonia and/or edema. Left hilar elizabeth cified granuloma. There are no sizable pleural effusions. There is no pneumothorax suspected. Th e cardiomediastinal silhouette is prominent but magnified on this AP technique. The bones and soft tissues are unremarkable. There is no significant interval change compared to prior exam. IMPRESSION: 1. Line and tube(s) in position. 2. Diffuse pneumonia and/or edema. Reviewed, dictated and finalized at location B.
--- NOTE | ~2021-03-12 | XR_ITS ---
EXAMINATION: XR chest 1V portable INDICATION: Respiratory failure, COVID pneumonia TECHNIQUE: Portable AP chest at 0936 hours COMPARISON: 04/28/2021 FINDINGS: The endotracheal tube ends approximately 3.7 cm above the milton. The nasogastric tube is f ollowed as far as the stomach. Its tip is beyond the inferior margin of the radiograph. A right inter nal jugular central venous catheter ends with its tip in the proximal superior vena cava. Diffuse opa cities persist throughout all lung zones without significant change. The cardiac silhouette is obscur ed. There is no pleural effusion or pneumothorax. IMPRESSION: 1. Stable diffuse lung disease, consistent with pneumonia and/or pulmonary edema and/or acute respira tory distress syndrome (ARDS). Reviewed, dictated and finalized at location B. IMPRESSION: 1. Stable diffuse lung disease, consistent with pneumonia and/or pulmonary madeline a and/or acute respiratory distress syndrome (ARDS).
--- NOTE | ~2021-03-12 | XR_ITS ---
EXAMINATION: XR chest 1V portable EXAM DATE: 05/01/2021 05:40 INDICATION: Respiratory failure, Covid pneumonia. TECHNIQUE: Portable AP frontal chest x-ray was obtained. Comparison is made to prior examination from 04/30/2021. FINDINGS: Endotracheal tube tip is 6 centimeters above the milton. There is a nasogastric tube seen with tip collimated off the study, but below the left hemidiaphragm. There is a right IJ venous line. Extensive bilateral acute airspace disease consistent with COVID pneumonia. There are no sizable ple ural effusions. There is no pneumothorax suspected. The cardiomediastinal silhouette is prominent but magnified on this AP technique. The bones and soft tissues are unremarkable. There is no significant interval change compared to prior exam. IMPRESSION: 1. Line and tube(s) in position. 2. Extensive COVID pneumonia unchanged. Reviewed, dictated and finalized at location A.
--- NOTE | ~2021-03-12 | XR_ITS ---
XR chest 1V portable DATE: 04/10/2021 05:43 INDICATION: Covid pneumonia. TECHNIQUE: Portable AP chest on 04/10/2021 at 0526 hours COMPARISON: 04/09/2021 portable AP chest at 0239 hours FINDINGS: ET tube tip in satisfactory position 5 cm above milton. NG tube in stomach. Right internal jugular central venous catheter tip overlies the proximal superior vena cava. No pneum othorax. There are diffuse patchy bilateral pulmonary infiltrates which appear relatively stable on the right, increased in severity in the left mid and lower lung zones. No pleural effusion or pneumothorax. IMPRESSION: Extensive bilateral pulmonary infiltrates Increased left-sided infiltrates since 04/09/2021 Reviewed, dictated and finalized at location A.
--- NOTE | ~2021-03-12 | XR_ITS ---
EXAMINATION: XR chest 1V portable DATE: 04/25/2021 08:35 INDICATION: Intubated TECHNIQUE: frontal view of the chest was obtained. COMPARISON: Chest radiograph dated 04/24/2021 FINDINGS: Endotracheal tube tip 4.0 cm above the milton. Nasogastric tube extends below the left hemidiaphragm with distal tip collimated off the study. Right internal jugular central venous catheter with distal tip at the cephalad superior vena cava. Diffuse bilateral lung disease relatively sparing the apices which is without significant interval ch judi attending for differences in technique. No pneumothorax or definitive pleural effusion. Cardiac silhouette remains large obscured but does not appear enlarged. Calcified left hilar lymph nodes cons istent with old granulomatous disease. IMPRESSION: 1. No interval change in diffuse bilateral lung disease which could represent pneumonia, pulmonary ed elaine, ARDS or some combination thereof. Reviewed, dictated and finalized at location A. IMPRESSION: 1. No interval change in diffuse bilateral lung disease which could represent p neumonia, pulmonary edema, ARDS or some combination thereof.
--- NOTE | ~2021-03-12 | XR_ITS ---
EXAMINATION: XR chest 1V portable EXAM DATE: 05/02/2021 06:05 INDICATION: Respiratory failure, COVID pneumonia. TECHNIQUE: Portable AP frontal chest x-ray was obtained. Comparison is made to prior examination [facility] 05/01/2021. FINDINGS: Endotracheal tube tip is 6.6 centimeters above the milton, just above the clavicular head l evel. There is a nasogastric tube seen with tip collimated off the study, but below the left hemidia phragm. There is a right IJ venous line. Extensive bilateral acute airspace disease consistent with COVID pneumonia. There are no sizable ple ural effusions. There is no pneumothorax suspected. Difficult to evaluate cardiac silhouette/hear t size due to the airspace disease. The bones and soft tissues are unremarkable. There is no significant interval change compared to prior exam. IMPRESSION: 1. ET tube could be safely advanced 2 cm. 2. Extensive COVID pneumonia unchanged. I discussed endotracheal tube position with with ICU nurse Judy at 05/02/2021 08:27 CDT Reviewed, dictated and finalized at location A. IMPRESSION: 1. ET tube could be safely advanced 2 cm. 2. Extensive COVID pneumonia unchanged. I discussed endotracheal tube position with with ICU nurse Judy at 05/02/2021 08: 27 CDT
--- NOTE | ~2021-03-12 | XR_ITS ---
XR chest 1V portable 04/09/2021 02:52 Indication: Respiratory distress. Pneumonia. Procedure: AP portable chest Comparison: Comparison to multiple prior studies sequentially, with oldest reviewed study dated 04/05. Findings: Endotracheal tube tip 3.6 cm above the milton. NG tube in the stomach. Right IJ central ana laura e tip in the SVC. Diffuse bilateral airspace disease, compatible with pneumonia. No significant effus ion. No pneumothorax. Impression: 1: No significant change to diffuse bilateral airspace disease, compatible with pneumonia. Edema less favored. Reviewed, dictated and finalized at location A. Impression: 1: No significant change to diffuse bilateral airspace disease, compatible with pneumonia. Edema less favored.
--- NOTE | ~2021-03-12 | XR_ITS ---
EXAMINATION: XR chest 1V portable DATE: 03/24/2021 05:49 INDICATION: Respiratory failure TECHNIQUE: frontal view of the chest was obtained. COMPARISON: Chest radiograph dated 03/23/2021 FINDINGS: Endotracheal tube tip 2.4 cm above the milton. Right internal jugular central venous catheter with di stal tip at the midsuperior vena cava. Nasogastric tube extends below the left hemidiaphragm with di stal tip collimated off the study. Patient is rotated towards the right. Significant interval increase in diffuse, now relatively dense groundglass opacities throughout both lungs. No pneumothorax or definitive pleural effusion. Cardiome diastinal silhouette is largely obscured with normal heart size. Calcified left hilar lymph nodes con sistent with old granulomatous disease. IMPRESSION: 1. Significant increase in diffuse bilateral lung disease consistent with pneumonia, pulmonary edema, ARDS or some combination thereof. Reviewed, dictated and finalized at location A. IMPRESSION: 1. Significant increase in diffuse bilateral lung disease consistent with pneum onia, pulmonary edema, ARDS or some combination thereof.
--- NOTE | ~2021-03-12 | XR_ITS ---
XR chest 1V portable DATE: 03/29/2021 05:55 INDICATION: Acute respiratory failure. Pneumonia. TECHNIQUE: Portable AP chest on 04/08/2021 at 0527 hours COMPARISON: 03/28/2021 portable AP chest at 0520 hours FINDINGS: ET tube 4.7 cm above milton. NG tube in stomach. Right internal jugular central venous catheter tip overlies the superior vena cava. Heart size is within normal range. There is aortic calcification and unfolding. There are diffuse interstitial infiltrates throughout the lungs with least involvement of the apices. IMPRESSION: Persistent diffuse bilateral pulmonary interstitial infiltrates, with little interval mi nge since 03/28/2021 Reviewed, dictated and finalized at location A. IMPRESSION: Persistent diffuse bilateral pulmonary interstitial infiltrates, wi th little interval change since 03/28/2021
--- NOTE | 2021-03-12 15:26 | ECG_ITS ---
Measurements Intervals [place] Rate: 100 P: 26 RI: 144 QRS: -20 QRSD: 93 T: 4 QT: 342 QTc: 442 Interpretive Statements SINUS TACHYCARDIA INFERIOR INFARCT, AGE INDETERMINATE BASELINE ARTIFACT- V4 ABNORMAL ECG Electronically Signed On 03-12-2021 16:41:09 CDT by Richard White D.O.
[2021-03-12 16:00] LABS: Alanine Aminotransferase 13 U/L (4-35); Albumin Level 4.1 g/dL (3.5-5.1); Alkaline Phosphatase 98 U/L (38-126); Anion Gap 13 mmol/L (8-16); Aspartate Amino Transferase 37 U/L (14-36); Bilirubin,Total 0.9 mg/dL (0.2-1.3); Blood Urea Nitrogen 24 mg/dL (7-17); Calcium 8.4 mg/dL (8.4-10.2); Carbon Dioxide 24 mmol/L (22-30); Chloride 95 mmol/L (98-107); Estimated CRCL calculation 47 ml/min; Estimated Glomerular Filt Rate 60; Glucose 445 mg/dL (65-110); Potassium 3.4 mmol/L (3.4-5.0); Sodium 132 mmol/L (137-145)
[2021-03-12 16:35] LABS: Basophils Percent Auto 0.2 % (0.2-1.2); Hematocrit 41.1 % (37.0-47.0); Hemoglobin 13.3 g/dL (12.0-15.0); Immature Granulocyte Absolute 0.01 K/mm3 (0.00-0.031); Immature Granulocyte Percent A 0.2 % (0-0.5); Lymphocytes Absolute Auto 0.74 K/mm3 (0.9-3.2); Lymphocytes Percent Auto 14.1 % (18.3-44.2); Mean Corpuscular HGB Conc 32.4 g/dl (32-36); Mean Corpuscular Hemoglobin 26.5 pg (26-34); Mean Corpuscular Volume 81.9 fl (80-100); Mean Platelet Volume 10.7 fl (7.4-10.4); Monocytes Absolute Auto 0.5 K/mm3 (0.1-0.6); Monocytes Percent Auto 10.1 % (2.6-8.5); Neutrophils Absolute Auto 3.9 K/mm3 (1.3-6.7); Neutrophils Percent Auto 75.4 % (45.5-73.1); Platelet Count Result 248 k/mm3 (150-375); Red Blood Count 5.02 M/mm3 (4.2-5.4); Red Cell Distribution Width 13.2 % (11.5-14.5); White Blood Count 5.2 K/mm3 (4.5-10.0)
[2021-03-12 18:06] LABS: Base Excess ABG 1.9 mEq/l (+/-2.0); Fractional Inspired Oxygen 44 %; HCO3 ABG 25.4 mEq/l (22.0-26.0); Oxygen Content ABG 17.5 %vol (16.0-22.0); Oxygen Saturation ABG 93.1 % (95.0-100.0); Oxyhemoglobin 90.7 % THb (90.0-100.0); PCO2 ABG 35.9 mmHg (35.0-45.0); PO2 ABG 61.8 mmHg (80.0-100.0); Total Hemoglobin 13.7 g/dL (12.0-18.0); pH ABG 7.467 (7.350-7.450)
[2021-03-12 18:07] LABS: Device NASAL CANNULA; Modified Allen's Test Pass; Site Drawn LEFT RADIAL
[2021-03-12] MEDS: SODIUM CHLORIDE 0.9% IV 1,000 ML 999 ML IV CONT ×2 (18:08→18:11)
[2021-03-12] MEDS: INSULIN HUMAN REGULAR (*BKC) 100 UNITS/ML 8 UNITS IV PUSH (18:09)
[2021-03-12 18:15] LABS: Beta-Hydroxybutyrate/Acetoacetate 0.55 mmol/L (0.02-0.27)
[2021-03-12 18:27] LABS: Magnesium 1.8 mg/dL (1.6-2.3); Phosphorus 3.8 mg/dL (2.5-4.5)
[2021-03-12 18:35] LABS: Add Urine Microscopic? YES; Appearance Urine Clear (Clear); Bacteria Urine Trace /hpf; Bilirubin Urine Negative (Negative); Blood Urine 1+ (Negative); Color Urine Yellow (Yellow); Glucose Urine UA 3+ mg/dL (Negative); Ketones Urine Trace mg/dL (Negative); Leukocyte Esterase Ur Negative LEU/UL (Negative); Mucus Urine Rare /lpf; Nitrate Urine Negative (Negative); Protein Urine 2+ mg/dL (Negative); Specific Grav Ur 1.022 (1.001-1.035); Squamous Epithelial Cell Urine Moderate /hpf (Few)
--- NOTE | 2021-03-12 18:49 | ED.GENADULT ---
HPI - General Adult General Chief complaint: Weakness Stated complaint: weakness Time Seen by Provider: 03/12/21 16:39 Source: patient and RN notes reviewed Limitations: no limitations History of Present Illness HPI narrative: Patient is 65 years old -B[place] female presented to the ED with with weakness, shaking, talking funny, in the last 24 hours. Patient lives alone, denies any history of COVID-19 infection or vaccination. Patient does not smoke or drink or uses drugs. Patient denies any fever, chills, nausea, vomiting, chest pain, shortness of breath. Patient denies exposure to anybody not having COVID-19. Patient reports nobody in the family have Covid symptoms. Related Data Home Medications Medication Instructions Recorded Confirmed amlodipine 03/12/21 losartan-hydrochlorothiazide tablet 03/12/21 montelukast mg 03/12/21 03/12/21 pravastatin 03/12/21 Allergies Allergy/AdvReac Type Severity Reaction Status Date / Time No Known Allergies Allergy Unknown Verified 05/21/17 13:18 Review of Systems Review of Systems: Narrative: CONSTITUTIONAL: Denies fever, chills, or sweats. EYES: Denies visual changes, redness, or discharge. ENT: Denies rhinorrhea, congestion, sore throat, or otalgia. CARDIOVASCULAR: Denies chest pain, palpitations, or edema. RESPIRATORY: Denies cough or dyspnea. GASTROINTESTINAL: Denies abdominal pain, nausea, vomiting, or diarrhea. GENITOURINARY: Denies dysuria or hematuria. SKIN: Denies rash or itching. MUSCULOSKELETAL: Denies back pain, joint pain, or myalgia. NEUROLOGIC: General weakness PSYCHIATRIC: Denies anxiety or depression. PMFSH Social History Social History Gender identity (if verbalized by the patient): Female Exam Narrative: Exam Narrative: General appearance: Well-developed, well-nourished Skin: Normal color Head: Normocephalic, nontraumatic Eyes: Clear conjunctiva ENT: Oropharynx normal, ears normal, nose normal Neck: Supple, nontender Chest and respiratory: Airway patent, no respiratory distress, no accessory muscle use Heart: Regular rate/rhythm Abdomen: Soft, nontender, no organomegaly, quiet bowel sounds Vascular: Normal peripheral pulses, normal capillary refill. Neurologic: Alert and oriented ?3, HVAC SERVICE MANAGER is normal as tested, no gross motor deficit Course Course Emergency Course: Stable Vital Signs Vital signs: Vital Signs Temperature 37.3 C 03/12/21 15:29 Pulse Rate 103 H 03/12/21 15:29 Respiratory Rate 20 03/12/21 15:29 Blood Pressure 128/71 03/12/21 15:29 Pulse Oximetry 86 L 03/12/21 15:29 Temperature 37.3 C 03/12/21 15:29 Pulse Rate 91 03/12/21 18:22 Respiratory Rate 34 H 03/12/21 16:14 Blood Pressure 128/73 03/12/21 18:22 Pulse Oximetry 98 03/12/21 18:22 Medical Decision Making MDM Narrative Medical decision making narrative: Patient presents with shaking and weakness, infection is a possibility. Labs, chest x-ray, UA ordered. Work-up showed pneumonia, Covid cannot be excluded at this time, Covid test ordered, diabetic hyperglycemia, high likely secondary to infection. Normal saline 2 L ordered, 8 units of insulin IV ordered, Rocephin and Zithromax IV ordered, currently patient on 6 L of oxygen by nasal cannula with saturation 93.2%. Differential Diagnosis Differential Diagnosis: Pneumonia, urinary tract infection, electrolyte imbalance, viral infection Vital Signs Vital Signs: Vital Signs Temperature 37.3 C 03/12/21 15:29 Pulse Rate 103 H 03/12/21 15:29 Respiratory Rate 20 03/12/21 15:29 Blood Pressure 128/71 03/12/21 15:29 Pulse Oximetry 86 L 03/12/21 15:29
[2021-03-12 19:08] LABS: Glucose Point of Care 321 mg/dl (65-105)
[2021-03-12 19:10] LABS: D Dimer 0.88 ug/mL (<0.48)
[2021-03-12] MEDS: SODIUM CHLORIDE 0.9% IV 1,000 ML 150 ML IV CONT (20:09)
--- NOTE | 2021-03-12 22:00 | PM.IMHP ---
H&P: HPI History of Present Illness Date/Time: 03/12/21 22:00 Chief Complaint: Cough and shortness of breath. Narrative: This is a 65-year-old female with hypertension, hyperlipidemia, diabetes, and asthma who presented to the emergency department earlier today via private vehicle from home for evaluation of cough and shortness of breath. She has not been feeling well for the past couple of days with cough occasionally productive of clear phlegm, myalgias, weakness, and shortness of breath with exertion. Family members report that she started acting funny the past 24 hours and brought her in for evaluation. She was hypoxic on arrival to the emergency department with an SpO2 of 86% and a chest x-ray showed a moderate amount of bilateral pneumonia or edema. With further questioning she mentions that either a nephew or grand nephew had cold symptoms last week and she spent some time with him. She has not had any other sick contacts to her knowledge. She was not vaccinated for COVID-19. She does not believe she has had fever and she also denies chills, sweats, sinus congestion, rhinorrhea, otalgia, odynophagia, chest pain, pleuritic pain, palpitations, nausea, vomiting, dysgeusia, anosmia, diarrhea, and dysuria. Review of Systems Review of Systems: Narrative: Twelve systems were reviewed with pertinent positives and negatives as per HPI. It looks like she was recently started on metformin but she does not check her glucose at home. Random glucose today was 445. no blurry vision, polydipsia, or polyuria. Except as documented, all other systems were reviewed and are negative. [facility] Past Medical History Medical History (Updated 03/12/21 @ 23:48 by Letty Cavazos PA-C) Asthma Hyperlipidemia Hypertension Type 2 diabetes mellitus Surgical History Surgical History (Updated 03/12/21 @ 23:42 by Letty Cavazos PA-C) History of appendectomy History of laparoscopy Removal of a benign tumor per patient report. Family History Family History (Updated 03/12/21 @ 23:42 by Letty Cavazos PA-C) Other Diabetes mellitus Hypertension Social History Social History (Updated 03/12/21 @ 23:43 by Letty Cavazos PA-C) Social History: Surrogate decision maker: Roxie Cam, daughter. Code status: Full code. Smoking status: Former smoker Second hand tobacco smoke exposure: No Alcohol intake: former Substance use: never Additional living arrangements comments: The patient lives alone in [place]. Additional occupation/education comments: Raised 4 children. Meds Home Medications and Allergies Home Medications Medication Instructions Recorded Confirmed Type amlodipine 03/12/21 History losartan-hydrochlorothiazide tablet 03/12/21 History montelukast mg 03/12/21 03/12/21 History pravastatin 03/12/21 History Allergies Allergy/AdvReac Type Severity Reaction Status Date / Time No Known Allergies Allergy Unknown Verified 05/21/17 13:18 Vital Signs Vital Signs - 24 hr 03/12/21 15:29 03/12/21 15:35 03/12/21 15:40 Temperature 99.2 F Pulse Rate 103 H Respiratory Rate 20 Blood Pressure 128/71 Pulse Oximetry 86 L 86 L 94 03/12/21 16:14 03/12/21 16:50 03/12/21 17:16 Temperature Pulse Rate 102 H 100 109 H Respiratory Rate 34 H 26 H Blood Pressure 129/71 122/86 Pulse Oximetry 86 L 92 03/12/21 17:31 03/12/21 17:46 03/12/21 18:09 Temperature Pulse Rate 101 H 94 96 Respiratory Rate 20 36 H 33 H Blood Pressure 136/77 144/83 H 124/77 Pulse Oximetry 93 92 93 03/12/21 18:16 03/12/21 18:22 03/12/21 18:24 Temperature Pulse Rate 98 91 99 Respiratory Rate 35 H 31 H Blood Pressure 130/84 128/73 128/73 Pulse Oximetry 93 98 93 03/12/21 18:31 03/12/21 20:25 03/12/21 21:00 Temperature 98.5 F Pulse Rate 98 91 89 Respiratory Rate 27 H 27 H 20 Blood Pressure 137/74 142/94 H 103/87 Pulse Oximetry 92 91 92 Exam Narrative: Exam Narrative:
--- NOTE | 2021-03-12 22:02 | ADMGEN ---
This patient, Unique Cam, was admitted to [facility] Surg Room 303-01. Patient/family oriented to hospital policies and general routines including ID bracelet, bed and alarms, visiting hours, pain management, procedures, bathroom and other care routines, personal items, smoking policy, room service/diet, and visiting hours. Information on how to activate the Rapid Response Team has been discussed. Patient/Family are encouraged to report perceived risks to care and to ask questions if they do not understand what they are told or what they should do.
[2021-03-13] VITALS (19 sets, daily range): BP systolic 118–149; BP diastolic 50–69; PULSE 93–114; RESP 20–32; TEMP 36.6–38.7; O2SAT 79–100
[2021-03-13] MEDS: SODIUM CHLORIDE 0.9% IV 1,000 ML 100 ML IV CONT (04:47)
[2021-03-13] MEDS: SODIUM CHLORIDE 0.9% IV 1,000 ML 150 ML IV CONT (04:48)
[2021-03-13 06:15] LABS: Basophils Percent Auto 0.2 % (0.2-1.2); Hematocrit 38.7 % (37.0-47.0); Hemoglobin 12.2 g/dL (12.0-15.0); Immature Granulocyte Absolute 0.03 K/mm3 (0.00-0.031); Immature Granulocyte Percent A 0.6 % (0-0.5); Lymphocytes Absolute Auto 0.71 K/mm3 (0.9-3.2); Lymphocytes Percent Auto 14.3 % (18.3-44.2); Mean Corpuscular HGB Conc 31.5 g/dl (32-36); Mean Corpuscular Hemoglobin 26.5 pg (26-34); Mean Corpuscular Volume 83.9 fl (80-100); Mean Platelet Volume 10.7 fl (7.4-10.4); Monocytes Absolute Auto 0.4 K/mm3 (0.1-0.6); Monocytes Percent Auto 7.3 % (2.6-8.5); Neutrophils Absolute Auto 3.8 K/mm3 (1.3-6.7); Neutrophils Percent Auto 77.6 % (45.5-73.1); Platelet Count Result 215 k/mm3 (150-375); Red Blood Count 4.61 M/mm3 (4.2-5.4); Red Cell Distribution Width 13.2 % (11.5-14.5)
[2021-03-13 06:32] LABS: Hemoglobin A1C 12.8 % (<5.7)
[2021-03-13 06:39] LABS: Alanine Aminotransferase 10 U/L (4-35); Albumin Level 3.5 g/dL (3.5-5.1); Alkaline Phosphatase 91 U/L (38-126); Anion Gap 11 mmol/L (8-16); Aspartate Amino Transferase 34 U/L (14-36); Bilirubin,Total 0.6 mg/dL (0.2-1.3); Blood Urea Nitrogen 16 mg/dL (7-17); Calcium 8.3 mg/dL (8.4-10.2); Carbon Dioxide 25 mmol/L (22-30); Chloride 100 mmol/L (98-107); Estimated CRCL calculation 57 ml/min; Estimated Glomerular Filt Rate > 60; Glucose 356 mg/dL (65-110); Lactate Dehydrogenase 671 U/L (313-618); Magnesium 1.8 mg/dL (1.6-2.3); Potassium 3.2 mmol/L (3.4-5.0); Sodium 136 mmol/L (137-145)
[2021-03-13 08:15] LABS: Glucose Point of Care 314 mg/dl (65-105)
[2021-03-13] MEDS: ALBUTEROL SULFATE NEB 2.5 MG/0.5 ML INH INHALATION (08:32)
[2021-03-13] MEDS: IPRATROPIUM BR 0.02% INH SOLN 0.5 MG/2.5 ML VIAL INHALATION (08:32)
[2021-03-13] MEDS: INSULIN ASPART (*BKC) 100 UNITS/ML SUB-Q ×3 (08:47→17:55)
[2021-03-13] MEDS: FUROSEMIDE INJ 40 MG/4 ML VIAL IV PUSH (08:47)
[2021-03-13] MEDS: PRAVASTATIN SODIUM 20 MG TABLET 40 MG PO (08:48)
[2021-03-13] MEDS: hydroCHLOROthiazide 12.5 MG CAPSULE PO (08:48)
[2021-03-13] MEDS: LOSARTAN POTASSIUM 100 MG TABLET PO (08:48)
--- NOTE | 2021-03-13 09:35 | PC.NURSE ---
Patient transferred via bed to IMU at 0935. Report given to LISA Field
--- NOTE | 2021-03-13 09:46 | PC.NURSE ---
This patient, Unique Cam, was received from [[id number] ] on 03/13/21 at 0935. Patient/family oriented to unit policies and routines
[2021-03-13] MEDS: amLODIPine BESYLATE 5 MG TABLET 10 MG PO (13:02)
[2021-03-13] MEDS: ENOXAPARIN 40 MG/0.4 ML SYRINGE SUB-Q (13:03)
[2021-03-13] MEDS: MONTELUKAST SODIUM 10 MG TABLET PO (13:03)
--- NOTE | 2021-03-13 13:12 | PM.IMPN ---
Progress Note: A&P Assessment and Plan (1) Acute respiratory failure with hypoxia: Code(s): J96.01 - Acute respiratory failure with hypoxia Status: Acute Assessment and Plan: TRANSFERRED TO IMU CONTINUE SUPPLEMENTAL OXYGEN BY NASAL CANNULA Continue to monitor (2) Pneumonia: Qualifiers: Laterality: bilateral Lung location: lower lobe of lung Pneumonia type: due to unspecified organism Qualified Code(s): J18.9 - Pneumonia, unspecified organism Code(s): J18.9 - Pneumonia, unspecified organism Status: Acute Assessment and Plan: On Rocephin and Zithromax. Awaiting COVID 19 PCR (3) Person under investigation for COVID-19: Code(s): Z20.822 - Contact with and (suspected) exposure to COVID-19 Status: Acute Assessment and Plan: awaiting PCR results (4) Elevated serum creatinine: Code(s): R79.89 - Other specified abnormal findings of blood chemistry Status: Acute Assessment and Plan: Improved (5) Type 2 diabetes mellitus with hyperglycemia: Code(s): E11.65 - Type 2 diabetes mellitus with hyperglycemia Status: Acute Assessment and Plan: CONTINUE TO MONITOR INSULIN SLIDING SCALE NEEDED (6) Hypertension: Code(s): I10 - Essential (primary) hypertension Status: Acute Assessment and Plan: CONTINUE HOME MEDS CONTINUE TO MONITOR NORMAL HIGH (7) Hyperlipidemia: Code(s): E78.5 - Hyperlipidemia, unspecified Status: Acute Assessment and Plan: ON PRAVASTATIN (8) Asthma: Code(s): J45.909 - Unspecified asthma, uncomplicated Status: Acute Assessment and Plan: BREATHING TREATMENTS Additional Plan The patient presented today for evaluation of cough and shortness of breath over the last 2 days. She was found to have pneumonia on chest x-ray and she has been started on antibiotics. She was also swabbed for COVID-19 and she will remain in isolation pending those results. Currently she is requiring 6 L nasal cannula to maintain oxygen saturations above 90%. D-dimer is only mildly elevated and by her history pulmonary embolism seems less likely though if she continues to have increasing oxygen requirements it may be prudent to obtain a chest CTA. No acute issues with regards to her asthma, no evidence of bronchospasm. Her serum creatinine level is a bit elevated, though I do not know her baseline. She looks perhaps a bit dry on exam thus will give her a L of normal saline overnight. Hydrochlorothiazide has been placed on hold for now.Sputum to be attempted for culture. Her glucose was 445 on arrival to the emergency department and that will be monitored closely. Check hemoglobin A1c in a.m. Initiate sliding scale insulin, Accu-Cheks, and hypoglycemic protocol. Blood pressures were reviewed and they are well controlled. Subjective Date/time seen: 03/13/21 13:12 I feel okay Exam Narrative: Exam Narrative: Patient is sitting in bed Const: General: comfortable, well developed, alert, awake, acute distress mild and ill appearing acutely Nutritional Appearance: average body habitus Orientation/consciousness: patient oriented x3 HENMT: Head: normal to inspection, normocephalic and atraumatic Ears: hearing grossly normal bilaterally Face and sinus: normal facial exam Eyes: General: appearance normal, both eyes and all related structures Pupils: Equal, round and reactive pupils present EOM: EOMs intact bilaterally Neck: Neck: full ROM, no lymphadenopathy and no JVD Thyroid: thyroid normal Lymphatic: no lymphadenopathy noted Resp: Effort & Inspection: normal respiratory effort and respiratory distress ( TACHYPNEIC) Auscultation: diminished lung sounds Cardio: Jugular venous distension: no JVD Rate: regular rate Rhythm: regular rhythm Heart sounds: S1 normal heart sound present and S2 normal heart sound present GI: GI Palp: Yes Soft to palpation and Yes No hepatosple
[2021-03-13 13:26] LABS: Glucose Point of Care 381 mg/dl (65-105)
[2021-03-13 16:43] LABS: SARS-CoV-2 RNA PCR Positive
[2021-03-13 18:46] LABS: Glucose Point of Care 376 mg/dl (65-105)
[2021-03-13 20:35] LABS: Glucose Point of Care 332 mg/dl (65-105)
[2021-03-14] VITALS (20 sets, daily range): BP systolic 98–133; BP diastolic 67–77; PULSE 80–106; RESP 20–36; TEMP 36.1–37.2; O2SAT 86–98
--- NOTE | 2021-03-14 04:55 | PM.EVENT ---
Event Note Event Note Event Note: Nursing staff called to notify me that the patient is now on Airvo maxed out with 15 L non-rebreather to maintain oxygen saturations between 88 and 91%. The patient is COVID testing returned positive late last night. Nursing staff does notified me of the positive COVID results. That started the patient on Decadron, Remdesivir and IL6 Inhibitor. I went to evaluate the patient and updated her as to her test results and plan of care. The patient verbalized understanding. She does not appear to be in any overt distress. She is mildly tachypneic. At the time my evaluation her sats were 93%. She is alert and oriented, speech is clear. The patient's glucoses are also markedly elevated. She is on moderate dose sliding scale insulin. Will add Lantus 15 units daily 1st dose now. Expression in the setting of addition of IV steroid therapy with Decadron. 30 minutes spent in critical care activities. This case had a high probability of a clinically significant, sudden, or life threatening deterioration of this patient's condition which required my full and direct attention, intervention and personal management.
[2021-03-14] MEDS: DEXAMETHASONE SOD PHOS INJ 4 MG/ML VIAL 6 MG IV PUSH (05:10)
[2021-03-14] MEDS: INSULIN GLARGINE (*BKC) 100 UNITS/ML 13 UNITS SUB-Q ×2 (05:11→20:14)
[2021-03-14 05:53] LABS: Hematocrit 38.6 % (37.0-47.0); Hemoglobin 12.3 g/dL (12.0-15.0); Mean Corpuscular HGB Conc 31.9 g/dl (32-36); Mean Corpuscular Hemoglobin 26.2 pg (26-34); Mean Corpuscular Volume 82.3 fl (80-100); Mean Platelet Volume 11.1 fl (7.4-10.4); Platelet Count Result 278 k/mm3 (150-375); Red Blood Count 4.69 M/mm3 (4.2-5.4); Red Cell Distribution Width 13.2 % (11.5-14.5); White Blood Count 5.5 K/mm3 (4.5-10.0)
[2021-03-14 06:01] LABS: Prothrombin Time 13.4 Seconds (11.1-14.7)
[2021-03-14 06:06] LABS: Alanine Aminotransferase 10 U/L (4-35); Albumin Level 3.7 g/dL (3.5-5.1); Alkaline Phosphatase 89 U/L (38-126); Anion Gap 11 mmol/L (8-16); Aspartate Amino Transferase 41 U/L (14-36); Bilirubin,Total 0.8 mg/dL (0.2-1.3); Blood Urea Nitrogen 16 mg/dL (7-17); Calcium 8.7 mg/dL (8.4-10.2); Carbon Dioxide 29 mmol/L (22-30); Chloride 94 mmol/L (98-107); Estimated CRCL calculation 57 ml/min; Estimated Glomerular Filt Rate > 60; Glucose 353 mg/dL (65-110); Lactate Dehydrogenase 875 U/L (313-618); Potassium 2.9 mmol/L (3.4-5.0); Sodium 134 mmol/L (137-145)
[2021-03-14] MEDS: REMDESIVIR 200 MG/NS 250 ML 200 MG/250 ML BAG 250 MG IVPB (07:52)
[2021-03-14] MEDS: amLODIPine BESYLATE 5 MG TABLET 10 MG PO (09:01)
[2021-03-14] MEDS: ENOXAPARIN 40 MG/0.4 ML SYRINGE SUB-Q ×2 (09:02→20:14)
[2021-03-14] MEDS: hydroCHLOROthiazide 12.5 MG CAPSULE PO (09:02)
[2021-03-14] MEDS: PRAVASTATIN SODIUM 20 MG TABLET 40 MG PO (09:02)
[2021-03-14] MEDS: MONTELUKAST SODIUM 10 MG TABLET PO (09:02)
[2021-03-14] MEDS: LOSARTAN POTASSIUM 100 MG TABLET PO (09:02)
[2021-03-14] MEDS: INSULIN ASPART (*BKC) 100 UNITS/ML SUB-Q ×5 (09:03→16:07)
[2021-03-14 09:10] LABS: Glucose Point of Care 365 mg/dl (65-105)
--- NOTE | 2021-03-14 12:13 | PM.IMPN ---
Progress Note: A&P Assessment and Plan (1) Acute respiratory failure with hypoxia: Code(s): J96.01 - Acute respiratory failure with hypoxia Status: Acute Assessment and Plan: WORSENING ON BIPAP CONTINUOUS WILL OBTAIN ABG (2) Pneumonia: Qualifiers: Laterality: bilateral Lung location: lower lobe of lung Pneumonia type: due to unspecified organism Qualified Code(s): J18.9 - Pneumonia, unspecified organism Code(s): J18.9 - Pneumonia, unspecified organism Status: Acute Assessment and Plan: On Rocephin and Zithromax. POSITIVE FOR COVID-19 REMDESIVIR AND DEXAMETHASONE CHEST X-RAY WITH WORSENING INFILTRATE (3) Person under investigation for COVID-19: Code(s): Z20.822 - Contact with and (suspected) exposure to COVID-19 Status: Acute Assessment and Plan: PCR POSITIVE FOR COVID-19 (4) Elevated serum creatinine: Code(s): R79.89 - Other specified abnormal findings of blood chemistry Status: Acute Assessment and Plan: Improved (5) Type 2 diabetes mellitus with hyperglycemia: Code(s): E11.65 - Type 2 diabetes mellitus with hyperglycemia Status: Acute Assessment and Plan: CONTINUE TO MONITOR INSULIN SLIDING SCALE NEEDED (6) Hypertension: Code(s): I10 - Essential (primary) hypertension Status: Acute Assessment and Plan: CONTINUE HOME MEDS CONTINUE TO MONITOR NORMAL HIGH (7) Hyperlipidemia: Code(s): E78.5 - Hyperlipidemia, unspecified Status: Acute Assessment and Plan: ON PRAVASTATIN (8) Asthma: Code(s): J45.909 - Unspecified asthma, uncomplicated Status: Acute Assessment and Plan: BREATHING TREATMENTS Additional Plan PATIENT WORSENING RESPIRATORY FAILURE PLACED ON AIRVO HIGH-FLOW NASAL CAN CURRENTLY ON BIPAP The patient presented today for evaluation of cough and shortness of breath over the last 2 days. She was found to have pneumonia on chest x-ray and she has been started on antibiotics. She was also swabbed for COVID-19 and she will remain in isolation pending those results. Currently she is requiring 6 L nasal cannula to maintain oxygen saturations above 90%. D-dimer is only mildly elevated and by her history pulmonary embolism seems less likely though if she continues to have increasing oxygen requirements it may be prudent to obtain a chest CTA. No acute issues with regards to her asthma, no evidence of bronchospasm. Her serum creatinine level is a bit elevated, though I do not know her baseline. She looks perhaps a bit dry on exam thus will give her a L of normal saline overnight. Hydrochlorothiazide has been placed on hold for now.Sputum to be attempted for culture. Her glucose was 445 on arrival to the emergency department and that will be monitored closely. Check hemoglobin A1c in a.m. Initiate sliding scale insulin, Accu-Cheks, and hypoglycemic protocol. Blood pressures were reviewed and they are well controlled. Subjective Date/time seen: 03/14/21 12:13 I FEEL OKAY Review of Systems Review of Systems: ROS unobtainable: Yes unobtainable due to medical condition ( RESPIRATORY FAILURE) Exam Narrative: Exam Narrative: Patient is sitting in bed Const: General: comfortable, well developed, alert, awake, acute distress mild and ill appearing acutely Nutritional Appearance: average body habitus Orientation/consciousness: patient oriented x3 HENMT: Head: normal to inspection, normocephalic and atraumatic Ears: hearing grossly normal bilaterally Face and sinus: normal facial exam Eyes: General: appearance normal, both eyes and all related structures Pupils: Equal, round and reactive pupils present EOM: EOMs intact bilaterally Neck: Neck: full ROM, no lymphadenopathy and no JVD Thyroid: thyroid normal Lymphatic: no lymphadenopathy noted Resp: Effort & Inspection: normal respiratory effort and respiratory distress ( TAC
[2021-03-14] MEDS: FUROSEMIDE INJ 40 MG/4 ML VIAL IV PUSH (12:21)
[2021-03-14 12:23] LABS: Glucose Point of Care 459 mg/dl (65-105)
[2021-03-14 14:23] LABS: Alveolar/Arterial O2 Gradient 581.2 mmHg; Base Excess ABG 4.2 mEq/l (+/-2.0); Fractional Inspired Oxygen 100 %; HCO3 ABG 28.1 mEq/l (22.0-26.0); Oxygen Content ABG 19.1 %vol (16.0-22.0); Oxygen Saturation ABG 97.5 % (95.0-100.0); PCO2 ABG 39.7 mmHg (35.0-45.0); PO2 ABG 92.1 mmHg (80.0-100.0); PO2 FiO2 Ratio Arterial Blood 0.92 %; Total Hemoglobin 14.1 g/dL (12.0-18.0); pH ABG 7.468 (7.350-7.450)
[2021-03-14 14:24] LABS: Device NON-INVASIVE VENT; Modified Allen's Test Pass; Site Drawn RIGHT RADIAL
[2021-03-14 14:25] LABS: Non-Invasive Expiratory Pressure 10 CMH2O; Non-Invasive Inspiratory Pressure 20 CMH2O; Non-Invasive Vent Rate 16 /MIN
[2021-03-14] MEDS: INSULIN ASPART (*BKC) 100 UNITS/ML 6 UNITS SUB-Q (16:11)
[2021-03-14 16:45] LABS: Glucose Point of Care 462 mg/dl (65-105)
[2021-03-14 20:11] LABS: Glucose Point of Care 334 mg/dl (65-105)
[2021-03-15] VITALS (29 sets, daily range): BP systolic 114–131; BP diastolic 60–77; PULSE 69–89; RESP 16–35; TEMP 36.5–37.2; O2SAT 86–98
[2021-03-15 05:54] LABS: Prothrombin Time 13.4 Seconds (11.1-14.7)
[2021-03-15 05:58] LABS: Alanine Aminotransferase 17 U/L (4-35); Estimated CRCL calculation 52 ml/min; Estimated Glomerular Filt Rate > 60
[2021-03-15 08:15] LABS: Glucose Point of Care 372 mg/dl (65-105)
[2021-03-15] MEDS: LOSARTAN POTASSIUM 100 MG TABLET PO (09:23)
[2021-03-15] MEDS: amLODIPine BESYLATE 5 MG TABLET 10 MG PO (09:23)
[2021-03-15] MEDS: DEXAMETHASONE SOD PHOS INJ 4 MG/ML VIAL 6 MG IV PUSH (09:23)
[2021-03-15] MEDS: hydroCHLOROthiazide 12.5 MG CAPSULE PO (09:23)
[2021-03-15] MEDS: ENOXAPARIN 40 MG/0.4 ML SYRINGE SUB-Q ×2 (09:23→20:50)
[2021-03-15] MEDS: PRAVASTATIN SODIUM 20 MG TABLET 40 MG PO (09:24)
[2021-03-15] MEDS: INSULIN ASPART (*BKC) 100 UNITS/ML SUB-Q ×3 (09:24→17:50)
[2021-03-15] MEDS: MONTELUKAST SODIUM 10 MG TABLET PO (09:24)
[2021-03-15] MEDS: REMDESIVIR 100 MG/NS 250 ML 100 MG/250 ML BAG 250 MG IVPB (10:08)
--- NOTE | 2021-03-15 11:32 | PM.IMPN ---
Progress Note: A&P Assessment and Plan (1) Acute respiratory failure with hypoxia: Code(s): J96.01 - Acute respiratory failure with hypoxia Status: Acute Assessment and Plan: O2 requirment worsened to 60L but has been stable on this regiment now past 24 hours. FiO2 decreased from 100% to 85% now. Continue supportive care. (2) Pneumonia due to COVID-19 virus: Code(s): U07.1 - COVID-19; J12.82 - Pneumonia due to coronavirus disease 2019 Status: Acute Assessment and Plan: Patient exposed to her nephew. She was unvaccinated. She presents with SOB with CXR showing moderate amount of bilateral pneumonia or edema. Lasix 40mg IV given once 03/13 and again 03/14. Started on Rocephin and Zithromax. CXR 03/14 showing worsening pulmonary infiltrates. COVID swab returned positive and Remdesivir and Dexamethasone started 03/14 (Day 2). Tocilizumab given once 03/14. Add neb treatments. Continue supportive care. (3) Type 2 diabetes mellitus with hyperglycemia: Code(s): E11.65 - Type 2 diabetes mellitus with hyperglycemia Status: Acute Assessment and Plan: A1c 12.8 to show poor control prior to admission. The patient's blood glucose was reviewed on 03/15 Glucose remains poorly controlled. [place] related to the steroids. Continue AccuCheks covering with sliding scale. Hypoglycemia protocol available as needed. Advance Lantus and Novolog (4) Hypertension: Code(s): I10 - Essential (primary) hypertension Status: Acute Assessment and Plan: Patient's blood pressure was reviewed on 03/15 Blood pressure remains well controlled. Will continue current medications with HCTZ, Cozaar and Norvasc. (5) Hyperlipidemia: Code(s): E78.5 - Hyperlipidemia, unspecified Status: Acute Assessment and Plan: LFTs normal. Continue Pravastatin. Monitor LFTs while on Remdesivir. (6) Asthma: Code(s): J45.909 - Unspecified asthma, uncomplicated Status: Acute Assessment and Plan: No wheezing. As above. (7) DVT prophylaxis: Code(s): Z29.9 - Encounter for prophylactic measures, unspecified Status: Acute Assessment and Plan: Lovenox Subjective Date/time seen: 03/15/21 11:32 Interval history: 65yo female with HTN, DM and asthma her for cough and SOB and found to be in acute respiratory failure from COVID PNA. assuming care. Chart reviewed. Patient has not been vaccinated. She was exposed by her nephew cold symptoms nausea vomiting. She denies any chest pain. She feels her shortness of breath is better. She was able to cough up significant amount of sputum which appeared to have improved her oxygenation. Currently on 60 L at 88%. Sputum is yellow in color. Exam Narrative: Exam Narrative: AF 97.8 123/70 86 22 90% 60L Gen - NARD Sitting up in bed Chest - bibasilar inspiratory crackles. Normal respiratory rate. CV - RRR S1/S2. Telemetry showing no significant dysrhythmias Abd - Soft, NT/ND, Positive BS Ext - No pedal edema. 2+ DP pulses bilaterally. Neuro - Alert, pleasant and cooperative Psych - Nml mood and affect Skin - Warm and dry Objective Data Vital Signs Vital Signs: Vital Signs - 24 hr 03/14/21 12:00 03/14/21 14:00 03/14/21 14:20 Temperature 98.2 F Pulse Rate 92 93 90 Respiratory Rate 24 H 35 H Blood Pressure 118/68 Pulse Oximetry 88 L 97 03/14/21 14:30 03/14/21 15:52 03/14/21 16:00 Temperature 97.2 F L Pulse Rate 91 90 Respiratory Rate 24 H Blood Pressure 98/77 L Pulse Oximetry 94 90 94 03/14/21 18:00 03/14/21 20:00 03/14/21 20:56 Temperature 97.0 F L Pulse Rate 91 88 94 Respiratory Rate 24 H 24 H Blood Pressure 125/73 Pulse Oximetry 90 96 03/14/21 22:00 03/14/21 23:57 03/15/21 00:00 Temperature 97.8 F Pulse Rate 82 80 79 Respiratory Rate 22 H Blood Pressure 129/73 Pulse Oximetry 91 91 03/15/21 00:17 03/15/21 02
[2021-03-15 11:52] LABS: Glucose Point of Care > 500 mg/dl (65-105)
[2021-03-15] MEDS: INSULIN ASPART (*BKC) 100 UNITS/ML 8 UNITS SUB-Q ×3 (12:49→17:50)
[2021-03-15] MEDS: ALBUTEROL SULFATE NEB 2.5 MG/0.5 ML INH INHALATION ×2 (14:24→20:55)
[2021-03-15] MEDS: IPRATROPIUM BR 0.02% INH SOLN 0.5 MG/2.5 ML VIAL INHALATION ×2 (14:24→20:55)
[2021-03-15 15:52] LABS: Glucose Point of Care 328 mg/dl (65-105)
[2021-03-15] MEDS: INSULIN GLARGINE (*BKC) 100 UNITS/ML 25 UNITS SUB-Q (20:49)
[2021-03-15 21:00] LABS: Glucose Point of Care 234 mg/dl (65-105)
[2021-03-16] VITALS (27 sets, daily range): BP systolic 109–132; BP diastolic 58–77; PULSE 71–91; RESP 12–28; TEMP 36.5–37.2; O2SAT 91–97
--- NOTE | 2021-03-16 | ECHO_ITS ---
Patient Info Name: Unique Cam Age: 65 years : 1955 Gender: Female Ht: 65 in Wt: 185 lbs BSA: 1.99 m2 HR: 87 bpm BP: 121 / 76 mmHg Heart Rhythm: Sinus Rhythm Exam Date: 03/16/2021 12:48 PM Exam Location: [facility] Patient Status: Inpatient Admit Date: 03/12/2021 Staff Ordering Physician: Kevin Fatima MD Trim Crew Supervisor: Remi Young RDCS, RT Attending Provider: Elie Gifford MD Referring Physician: Kushal BOSS; Exam Type: CA echo doppler color flow Study Info Indications J96.90 - Respiratory failure, unspecified, unspecified whether with hypoxia or hypercapnia Complete two-dimensional, color flow and Doppler transthoracic echocardiogram is performed. Strain analysis performed. Summary 1. Complete two-dimensional, color flow and Doppler transthoracic echocardiogram is performed. 2. Normal left ventricular size and thickness. Overall contractility of the left ventricle is hyperdynamic with a calculated ejection fraction of 74%. However in two views there appears to be hypokinesis of the basal inferior wall. Normal diastolic function. Global longitudinal strain is slightly diminished at-17% suggesting a degree of systolic dysfunction. 3. No significant valve disease. 4. Normal sinus rhythm. Left Ventricle Left ventricular chamber dimension is normal. Left ventricular systolic function is hyperdynamic, estimated at >70%. There is no increased left ventricular wall thickness. Left ventricular septal wall motion is normal. The left ventricular diastolic function is normal. Global longitudinal strain is mildly elevated at 17 %. Right Ventricle Right ventricular chamber dimension is normal. Right ventricular systolic function is normal. Left Atria Left atrial chamber dimension is normal. Right Atria Right atrial chamber dimension is normal. Aortic Valve The aortic valve is trileaflet. There is no aortic valve sclerosis. There is no aortic valve stenosis. There is no aortic valve regurgitation. Pulmonic Valve The pulmonic valve is normal. There is no pulmonic valve stenosis. There is no pulmonic regurgitation. Mitral Valve The mitral valve has normal leaflets. There is no mitral valve stenosis. There is trace mitral valve regurgitation. Tricuspid Valve The tricuspid valve leaflets are normal. There is no significant tricuspid valve stenosis. There is trace tricuspid valve regurgitation. No pulmonary hypertension, estimated pulmonary arterial systolic pressure is Empty. Pericardium/Pleural The pericardium appears normal. There is no pericardial effusion. Inferior Vena Cava Normal inferior vena cava with >50% collapse upon inspiration consistent with Empty right atrial pressure, Empty. Aorta The aortic root size at the sinus of Valsalva is normal. The prox ascending aorta size is normal. Left Ventricular Outflow Tract Name Value Normal LVOT 2D LVOT Diameter 2.0 cm LVOT Doppler LVOT Peak Gradient 4 mmHg LVOT Mean Gradient 2 mmHg LVOT VTI 16 cm
[2021-03-16] MEDS: IPRATROPIUM BR 0.02% INH SOLN 0.5 MG/2.5 ML VIAL INHALATION ×4 (02:11→21:04)
[2021-03-16] MEDS: ALBUTEROL SULFATE NEB 2.5 MG/0.5 ML INH INHALATION ×4 (02:11→21:04)
[2021-03-16 05:41] LABS: Basophils Percent Auto 0.3 % (0.2-1.2); Hematocrit 41.2 % (37.0-47.0); Hemoglobin 13.2 g/dL (12.0-15.0); Immature Granulocyte Absolute 0.01 K/mm3 (0.00-0.031); Immature Granulocyte Percent A 0.3 % (0-0.5); Lymphocytes Absolute Auto 0.51 K/mm3 (0.9-3.2); Mean Corpuscular Hemoglobin 26.6 pg (26-34); Mean Corpuscular Volume 82.9 fl (80-100); Mean Platelet Volume 10.7 fl (7.4-10.4); Monocytes Absolute Auto 0.7 K/mm3 (0.1-0.6); Monocytes Percent Auto 19.5 % (2.6-8.5); Neutrophils Absolute Auto 2.2 K/mm3 (1.3-6.7); Neutrophils Percent Auto 64.9 % (45.5-73.1); Platelet Count Result 446 k/mm3 (150-375); Red Blood Count 4.97 M/mm3 (4.2-5.4); Red Cell Distribution Width 13.2 % (11.5-14.5); White Blood Count 3.4 K/mm3 (4.5-10.0)
[2021-03-16 05:50] LABS: Prothrombin Time 13.5 Seconds (11.1-14.7)
[2021-03-16 05:57] LABS: Alanine Aminotransferase 13 U/L (4-35); Albumin Level 3.3 g/dL (3.5-5.1); Alkaline Phosphatase 86 U/L (38-126); Anion Gap 12 mmol/L (8-16); Aspartate Amino Transferase 34 U/L (14-36); Bilirubin,Total 0.6 mg/dL (0.2-1.3); Blood Urea Nitrogen 50 mg/dL (7-17); Calcium 9.1 mg/dL (8.4-10.2); Carbon Dioxide 28 mmol/L (22-30); Chloride 97 mmol/L (98-107); Estimated CRCL calculation 38 ml/min; Estimated Glomerular Filt Rate 45; Glucose 310 mg/dL (65-110); Magnesium 2.2 mg/dL (1.6-2.3); Phosphorus 5.4 mg/dL (2.5-4.5); Potassium 3.9 mmol/L (3.4-5.0); Sodium 137 mmol/L (137-145)
[2021-03-16 09:07] LABS: Glucose Point of Care 323 mg/dl (65-105)
[2021-03-16] MEDS: INSULIN ASPART (*BKC) 100 UNITS/ML SUB-Q ×2 (09:07→17:01)
[2021-03-16] MEDS: INSULIN ASPART (*BKC) 100 UNITS/ML 8 UNITS SUB-Q (09:07)
[2021-03-16] MEDS: LOSARTAN POTASSIUM 100 MG TABLET PO (09:08)
[2021-03-16] MEDS: ENOXAPARIN 40 MG/0.4 ML SYRINGE SUB-Q ×2 (09:08→20:46)
[2021-03-16] MEDS: hydroCHLOROthiazide 12.5 MG CAPSULE PO (09:08)
[2021-03-16] MEDS: DEXAMETHASONE SOD PHOS INJ 4 MG/ML VIAL 6 MG IV PUSH (09:08)
[2021-03-16] MEDS: amLODIPine BESYLATE 5 MG TABLET 10 MG PO (09:08)
[2021-03-16] MEDS: PRAVASTATIN SODIUM 20 MG TABLET 40 MG PO (09:08)
[2021-03-16] MEDS: MONTELUKAST SODIUM 10 MG TABLET PO (09:09)
[2021-03-16] MEDS: REMDESIVIR 100 MG/NS 250 ML 100 MG/250 ML BAG 250 MG IVPB (10:47)
--- NOTE | 2021-03-16 11:10 | PM.IMPN ---
Progress Note: A&P Assessment and Plan (1) Acute respiratory failure with hypoxia: Code(s): J96.01 - Acute respiratory failure with hypoxia Status: Acute Assessment and Plan: O2 requirement worse overnight but back to baseline this morning. Continue Airvo and wean as toelrated. Encourage incentive spirometry use. Continue supportive care. (2) Pneumonia due to COVID-19 virus: Code(s): U07.1 - COVID-19; J12.82 - Pneumonia due to coronavirus disease 2019 Status: Acute Assessment and Plan: Patient exposed to her nephew who was ill. She was unvaccinated. She presents with SOB with CXR showing moderate amount of bilateral pneumonia or edema. Lasix 40mg IV given once 03/13 and again 03/14. Started on Rocephin and Zithromax. CXR 03/14 showing worsening pulmonary infiltrates. COVID swab returned positive and Remdesivir and Dexamethasone started 03/14 (Day 3). Tocilizumab given once 03/14. WBC dropping from virus, possibly from meds. Continue neb treatments. Continue supportive care. Pulmonary consult. Monitor WBC. (3) [place] (acute kidney injury): Code(s): N17.9 - Acute kidney failure, unspecified Status: Acute Assessment and Plan: Cr slightly elevated at 1.1 on admission but improved despite lasix. Cr back up today at 1.4. Kaveh hold HCTZ and monitor. Start maintenance IV fluids since now eating much at all (4) Type 2 diabetes mellitus with hyperglycemia: Code(s): E11.65 - Type 2 diabetes mellitus with hyperglycemia Status: Acute Assessment and Plan: A1c 12.8 to show poor control prior to admission. The patient's blood glucose was reviewed on 03/16 Glucose remains poorly controlled related to the steroids and baseline poor control prior to admisison. Continue AccuCheks covering with sliding scale. Hypoglycemia protocol available as needed. Advance Lantus and Novolog again (5) Hypertension: Code(s): I10 - Essential (primary) hypertension Status: Acute Assessment and Plan: Patient's blood pressure was reviewed on 03/16 Blood pressure remains well controlled past 2 days. Will continue current medications with Cozaar and Norvasc. Stop HCTZ (6) Hyperlipidemia: Code(s): E78.5 - Hyperlipidemia, unspecified Status: Acute Assessment and Plan: LFTs normal. Continue Pravastatin. Monitor LFTs while on Remdesivir. (7) Asthma: Code(s): J45.909 - Unspecified asthma, uncomplicated Status: Acute Assessment and Plan: No wheezing. As above. (8) DVT prophylaxis: Code(s): Z29.9 - Encounter for prophylactic measures, unspecified Status: Acute Assessment and Plan: Lovenox Subjective Date/time seen: 03/16/21 11:10 Interval history: 65yo female with HTN, DM and asthma her for cough and SOB and found to be in acute respiratory failure from COVID PNA. More SOB overnight while on BiPAP but better this morning. She states she received a neb treatment that helped. She did wear the NIV overnight. Cough no change. No CP. Was able to get her to AirVo this morning. Exam Narrative: Exam Narrative: AF 98.7 121/76 87 26 93% bipap Gen - NARD lying semi-recumbent in bed on BiPAP Chest - faint bibasilar inspiratory crackles CV - RRR S1/S2. Telemetry showing no significant dysrhythmias but evidence of hypoxia Abd - Soft, NT/ND, Positive BS - [place] secured draining clear yellow urine Ext - No pedal edema. Psych - Nml mood and affect Skin - Warm and dry Objective Data Vital Signs Vital Signs: Vital Signs - 24 hr 03/15/21 12:00 03/15/21 13:30 03/15/21 13:32 Temperature 97.9 F Pulse Rate 88 84 Respiratory Rate 17 35 H Blood Pressure 117/72 Pulse Oximetry 91 86 L 90 03/15/21 14:00 03/15/21 14:32 03/15/21 14:33 Temperature Pulse Rate 77 77 77 Respiratory Rate 35 H 35 H Blood Pressure Pulse Oximetry 93 03/15/21 15:57 03/15/21
--- NOTE | 2021-03-16 12:12 | PM.CNPUL ---
Assessment and Plan Assessment and plan (1) Pneumonia due to COVID-19 virus: Code(s): U07.1 - COVID-19; J12.82 - Pneumonia due to coronavirus disease 2019 Status: Acute Assessment and Plan: Patient tested positive for COVID-19 on 03/12 and started on remdesivir, dexamethasone and taclizumab on 03/14. Convalescent plasma ordered 03/16. Emperically started on ceftriaxone and azithromycin started 03/12. - Remdesivir for 10 days Unless she should recover and tolerate room air with rest, ambulation and while sleeping. - Dexamethasone 6 mg IV for 10 days - Continuous pulse oximetry - Prone positioning as tolerated. - Avoid any fluid overload. Check BNP in morning - emperic azihtromycin and ceftraixone for CAP. Will DC As she has received 5 days and her blood cultures are negative. No evidence of a bacterial infection currently.. - Patient with asthma and I would continue albuterol and ipratropium nebulizers Q 6 hours scheduled. No wheezing currently. - I will check echocardiogram to assess LV function. - I will check upper and lower extremity Dopplers to exclude DVT at this time. 03/16 patient on BiPAp and high flow oxygen intermittantly. Goal saturations are 90-94% and will utilize high-flow oxygen, BiPAP, or mechanical ventilation. I discussed level of resuscitation with patient and she wishes to be full code including mechanical ventilation if she should need it at this time. Will follow with you. (2) Acute respiratory failure with hypoxia: Code(s): J96.01 - Acute respiratory failure with hypoxia Status: Acute Assessment and Plan: Etiology of hypoxic respiratory failure is likely COVID pneumonia. I will check an echocardiogram to ensure normal LV function and normal aortic valve function. 03/14 10:52 ABG pH of 7.47/40/92 on BiPAP 20/10 100% 03/16 08:00 BiPAP 20/10 60% with sats 93% 03/16 12:30 Airvo 60 L 94% plus 15 L NRB mask sats 95% History of Present Illness History of Present Illness Consult date: 03/16/21 Requesting physician: Paolo Ireland MD Reason for consult: hypoxemia and other (COVID pneumonia) Chief complaint: Pneumonia, Diabetic Hyperglycemia Narrative: This is a new pulmonary consult for COVID pneumonia with hypoxemic respiratory failure 65-year-old woman with a history of hypertension, hyperlipidemia, diabetes, asthma and now COVID pneumonia with hypoxemic respiratory failure. Patient presented to the emergency department on 03/12/2021 with 2-3 days history of URI symptoms and was found to have COVID pneumonia. Patient is on vaccinated. Patient was started on ceftriaxone and azithromycin on 03/12 for possible community-acquired pneumonia. Patient was started on Remdesivir, dexamethasone and taclizumab on 03/14. Patient had worsening hypoxemia requiring high-flow oxygen and subsequently BiPAP. I was consulted on 03/16. 03/16 Patient tells me that she feels better than she did when she arrived to the hospital and that her breathing is better. Patient is currently on high-flow nasal cannula 60 L at 94% with an overlying 15 L non-rebreather face mask with saturations of 95%. She wore BiPAP rate of 16, 20/10 and 60% last night. She does complain that the BiPAP mask hurts her face. Patient denies any chest pain or hemoptysis at this time. I have ordered convalescent plasma. Review of Systems Review of Systems: All systems reviewed & are unremarkable except as noted in HPI and below Eyes: Eyes: Reports no additional eye complaints ENT: Reports system reviewed and no additional complaints, except as documented Cardiovascular: Cardiovascular: Reports no additional cardiovascular complaints Respiratory: Respiratory: Reports no additional respiratory complaints Gastrointestinal: Gastrointestinal: Reports no additional gastrointestinal complaints Musculoskeletal: Musculoskeletal: Reports no additional musculoskeletal complaints Integumentary/Breasts: Skin/[place]
[2021-03-16] MEDS: DEXTROSE 5%/0.9% SOD CHL 1,000 ML 70 ML IV CONT ×2 (12:13→20:47)
[2021-03-16] MEDS: INSULIN ASPART (*BKC) 100 UNITS/ML 12 UNITS SUB-Q ×2 (12:19→17:02)
[2021-03-16 12:38] LABS: Glucose Point of Care 437 mg/dl (65-105)
[2021-03-16 17:41] LABS: Glucose Point of Care 370 mg/dl (65-105)
[2021-03-16] MEDS: SODIUM CHLORIDE 0.9% IV 250 ML 30 ML IV CONT (18:45)
[2021-03-16 20:20] LABS: Glucose Point of Care 338 mg/dl (65-105)
[2021-03-16] MEDS: INSULIN GLARGINE (*BKC) 100 UNITS/ML 32 UNITS SUB-Q (20:49)
[2021-03-17] VITALS (22 sets, daily range): BP systolic 125–146; BP diastolic 65–76; PULSE 66–92; RESP 16–26; TEMP 36.2–37.2; O2SAT 91–95
[2021-03-17] MEDS: ALBUTEROL SULFATE NEB 2.5 MG/0.5 ML INH INHALATION ×4 (02:58→20:40)
[2021-03-17] MEDS: IPRATROPIUM BR 0.02% INH SOLN 0.5 MG/2.5 ML VIAL INHALATION ×4 (02:58→20:40)
[2021-03-17 03:46] LABS: Basophils Percent Auto 0.3 % (0.2-1.2); Hematocrit 39.4 % (37.0-47.0); Hemoglobin 12.2 g/dL (12.0-15.0); Immature Granulocyte Absolute 0.02 K/mm3 (0.00-0.031); Immature Granulocyte Percent A 0.5 % (0-0.5); Lymphocytes Absolute Auto 0.51 K/mm3 (0.9-3.2); Lymphocytes Percent Auto 12.8 % (18.3-44.2); Mean Corpuscular Hemoglobin 26.1 pg (26-34); Mean Corpuscular Volume 84.4 fl (80-100); Mean Platelet Volume 10.5 fl (7.4-10.4); Monocytes Absolute Auto 0.7 K/mm3 (0.1-0.6); Neutrophils Absolute Auto 2.7 K/mm3 (1.3-6.7); Neutrophils Percent Auto 68.4 % (45.5-73.1); Platelet Count Result 447 k/mm3 (150-375); Red Blood Count 4.67 M/mm3 (4.2-5.4); Red Cell Distribution Width 13.2 % (11.5-14.5)
[2021-03-17 03:58] LABS: Albumin Level 3.3 g/dL (3.5-5.1); Anion Gap 7 mmol/L (8-16); Blood Urea Nitrogen 49 mg/dL (7-17); Calcium 8.8 mg/dL (8.4-10.2); Carbon Dioxide 30 mmol/L (22-30); Chloride 102 mmol/L (98-107); Estimated CRCL calculation 40 ml/min; Estimated Glomerular Filt Rate 50; Glucose 313 mg/dL (65-110); Magnesium 2.3 mg/dL (1.6-2.3); Phosphorus 3.8 mg/dL (2.5-4.5); Potassium 3.4 mmol/L (3.4-5.0); Sodium 139 mmol/L (137-145)
[2021-03-17 04:22] LABS: INR 1.1; Prothrombin Time 13.6 Seconds (11.1-14.7)
[2021-03-17 07:29] LABS: Alanine Aminotransferase 18 U/L (4-35)
[2021-03-17 09:10] LABS: Glucose Point of Care 260 mg/dl (65-105)
[2021-03-17] MEDS: INSULIN ASPART (*BKC) 100 UNITS/ML 12 UNITS SUB-Q (09:22)
[2021-03-17] MEDS: INSULIN ASPART (*BKC) 100 UNITS/ML SUB-Q ×3 (09:22→17:23)
[2021-03-17] MEDS: PRAVASTATIN SODIUM 20 MG TABLET 40 MG PO (09:23)
[2021-03-17] MEDS: ENOXAPARIN 40 MG/0.4 ML SYRINGE SUB-Q ×2 (09:23→20:18)
[2021-03-17] MEDS: amLODIPine BESYLATE 5 MG TABLET 10 MG PO (09:23)
[2021-03-17] MEDS: DEXAMETHASONE SOD PHOS INJ 4 MG/ML VIAL 6 MG IV PUSH (09:23)
[2021-03-17] MEDS: MONTELUKAST SODIUM 10 MG TABLET PO (09:24)
[2021-03-17] MEDS: LOSARTAN POTASSIUM 100 MG TABLET PO (09:24)
--- NOTE | 2021-03-17 09:41 | PM.PNPUL ---
Progress Note: A&P Assessment and Plan (1) Pneumonia due to COVID-19 virus: Code(s): U07.1 - COVID-19; J12.82 - Pneumonia due to coronavirus disease 2019 Status: Acute Assessment and Plan: Patient tested positive for COVID-19 on 03/12 and started on remdesivir, dexamethasone and taclizumab on 03/14. Convalescent plasma given 03/16. Emperically started on ceftriaxone and azithromycin started 03/12 and DC 03/17. . - Remdesivir for 10 days Unless she should recover and tolerate room air with rest, ambulation and while sleeping. - Dexamethasone 6 mg IV for 10 days - Continuous pulse oximetry - Prone positioning as tolerated. - Avoid any fluid overload. - emperic azihtromycin and ceftraixone for CAP. Will DC As she has received 5 days and her blood cultures are negative. No evidence of a bacterial infection currently.. - Patient with asthma and I would continue albuterol and ipratropium nebulizers Q 6 hours scheduled. No wheezing currently. - 03/16 echocardiogram with nl LV function, no valve abnoramlities, normal RA and RV size. - 03/16 negative upper and lower extremity Dopplers. 03/16 patient on BiPAp and high flow oxygen intermittantly. Goal saturations are 90-94% and will utilize high-flow oxygen, BiPAP, or mechanical ventilation. I discussed level of resuscitation with patient and she wishes to be full code including mechanical ventilation if she should need it at this time. 03/17 Patient denies BiPAP overnight. Will follow with you. (2) Acute respiratory failure with hypoxia: Code(s): J96.01 - Acute respiratory failure with hypoxia Status: Acute Assessment and Plan: Etiology of hypoxic respiratory failure is likely COVID pneumonia. I will check an echocardiogram to ensure normal LV function and normal aortic valve function. 03/14 10:52 ABG pH of 7.47/40/92 on BiPAP 20/10 100% 03/15 13:30 BiPAP 20/10 and 60% sats 90% 03/16 08:00 BiPAP 20/10 60% with sats 93% 03/16 12:30 Airvo 60 L 94% plus 15 L NRB mask sats 95% 03/17 08:00 Airvo 60 L 94% plus 15 L NRB mask sats 92% Subjective Date/time seen: 03/17/21 09:41 Interval history: 03/16 This is a new pulmonary consult for COVID pneumonia with hypoxemic respiratory failure 65-year-old woman with a history of hypertension, hyperlipidemia, diabetes, asthma and now COVID pneumonia with hypoxemic respiratory failure. Patient presented to the emergency department on 03/12/2021 with 2-3 days history of URI symptoms and was found to have COVID pneumonia. Patient is on vaccinated. Patient was started on ceftriaxone and azithromycin on 03/12 for possible community-acquired pneumonia. Patient was started on Remdesivir, dexamethasone and taclizumab on 03/14. Patient had worsening hypoxemia requiring high-flow oxygen and subsequently BiPAP. I was consulted on 03/16. 03/16 Patient tells me that she feels better than she did when she arrived to the hospital and that her breathing is better. Patient is currently on high-flow nasal cannula 60 L at 94% with an overlying 15 L non-rebreather face mask with saturations of 95%. She wore BiPAP rate of 16, 20/10 and 60% last night. She does complain that the BiPAP mask hurts her face. Patient denies any chest pain or hemoptysis at this time. S/P convalescent plasma. Upper and lower extremiyt dopplers negative. [place] ith EF 75%, normla RA and RV size, trace TR and no PASP given. 03/17 Patient says she is slowly improving since admission and denies any dyspnea on exertion at rest. Patient remains severely hypoxemic requiring high-flow nasal cannula at 60 L and 94% along with a 15 L non-rebreather mask to maintain saturations at 92%. Ceftraixone and azithromycin DC. DATA 03/16 Negative upper and lower extremity diopplers 03/16/21 Echo Summary 1. Complete two-dimensional, color flow and Doppler transthoracic echocardiogram is performed. 2. Normal left ventricular size a
--- NOTE | 2021-03-17 11:31 | PM.IMPN ---
Progress Note: A&P Assessment and Plan (1) Acute respiratory failure with hypoxia: Code(s): J96.01 - Acute respiratory failure with hypoxia Status: Acute Assessment and Plan: Patient presents with hypoxia with accelerating O2 requirement. CXR on admission showing moderate amount of bilateral pneumonia or edema. Echo with EF 74% and normal diastoic function. Venous doppler of all 4 extremities negative for DVT. Continue Airvo and wean as tolerated. Encourage incentive spirometry use. Continue supportive care. (2) Pneumonia due to COVID-19 virus: Code(s): U07.1 - COVID-19; J12.82 - Pneumonia due to coronavirus disease 2018 Status: Acute Assessment and Plan: Patient exposed to her nephew who was ill. She was unvaccinated. She presents with SOB with CXR showing moderate amount of bilateral pneumonia or edema. Lasix 40mg IV given once 03/13 and again 03/14. Started on Rocephin and Zithromax. CXR 03/14 showing worsening pulmonary infiltrates. COVID swab returned positive and Remdesivir and Dexamethasone started 03/14 (Day 4). Tocilizumab given once 03/14. WBC dropped from virus, possibly from meds. Abx stopped after 5 days of treatment. Continue neb treatments, Remdesivir and Dexamethasone. Continue supportive care. Pulmonary consulted and appreciate their input. (3) BROOKE (acute kidney injury): Code(s): N17.9 - Acute kidney failure, unspecified Status: Acute Assessment and Plan: Cr slightly elevated at 1.1 on admission but improved despite Lasix. Cr increased to 1.4 so we held HCTZ and started IV fluids since concern she is getting dehydrated from poor oral intake. Cr better today. Follow (4) Type 2 diabetes mellitus with hyperglycemia: Code(s): E11.65 - Type 2 diabetes mellitus with hyperglycemia Status: Acute Assessment and Plan: A1c 12.8 to show poor control prior to admission. The patient's blood glucose was reviewed on 03/17 Glucose remains poorly controlled related to the steroids and baseline poor control prior to admission. Continue AccuCheks covering with sliding scale. Hypoglycemia protocol available as needed. Continue to advance Lantus and Novolog (5) Hypertension: Code(s): I10 - Essential (primary) hypertension Status: Acute Assessment and Plan: Patient's blood pressure was reviewed on 03/17 Blood pressure remains well controlled. Will continue current medications with Cozaar and Norvasc. (6) Hyperlipidemia: Code(s): E78.5 - Hyperlipidemia, unspecified Status: Acute Assessment and Plan: LFTs normal. Continue Pravastatin. Monitor LFTs while on Remdesivir. (7) Asthma: Code(s): J45.909 - Unspecified asthma, uncomplicated Status: Acute Assessment and Plan: No wheezing. Continue nebs. As above. (8) DVT prophylaxis: Code(s): Z29.9 - Encounter for prophylactic measures, unspecified Status: Acute Assessment and Plan: Lovenox Subjective Date/time seen: 03/17/21 11:31 Interval history: 65yo female with HTN, DM and asthma her for cough and SOB and found to be in acute respiratory failure from COVID PNA. Did not wear BiPAP last night but wore Airvo and NRB. She denies feeling SOB. No CP. No n/v. No cough. Eating but only small amounts. Exam Narrative: Exam Narrative: AF 98.9 146/67 86 22 95% 60L/min at 90% FiO2 Gen - NARD lying semi-recumbent in bed Chest - faint bibasilar inspiratory crackles. no conversational dyspnea CV - RRR S1/S2. Telemetry showing no significant dysrhythmias Abd - Soft, NT/ND, Positive BS - Manriquez secured draining clear yellow urine Ext - No pedal edema. Psych - Nml mood and affect Skin - Warm and dry Objective Data Vital Signs Vital Signs: Vital Signs - 24 hr 03/16/21 12:00 03/16/21 14:00 03/16/21 15:45 Temperature 98.9 F Pulse Rate 89 80 89 Respiratory Rate 22 H 28 H Blood
[2021-03-17] MEDS: REMDESIVIR 100 MG/NS 250 ML 100 MG/250 ML BAG 250 MG IVPB (11:34)
[2021-03-17 13:23] LABS: Glucose Point of Care 226 mg/dl (65-105)
[2021-03-17] MEDS: INSULIN ASPART (*BKC) 100 UNITS/ML 17 UNITS SUB-Q ×2 (13:30→17:23)
[2021-03-17 17:12] LABS: Glucose Point of Care 306 mg/dl (65-105)
[2021-03-17] MEDS: DEXTROSE 5%/0.9% SOD CHL 1,000 ML 70 ML IV CONT (20:17)
[2021-03-17] MEDS: INSULIN GLARGINE (*BKC) 100 UNITS/ML 45 UNITS SUB-Q (20:19)
[2021-03-17 20:31] LABS: Glucose Point of Care 256 mg/dl (65-105)
[2021-03-18] VITALS (21 sets, daily range): BP systolic 120–142; BP diastolic 71–81; PULSE 74–98; RESP 15–31; TEMP 36.1–37.1; O2SAT 90–100
[2021-03-18 05:05] LABS: INR 1.1; Prothrombin Time 13.9 Seconds (11.1-14.7)
[2021-03-18 05:07] LABS: D Dimer 0.51 ug/mL (<0.48)
[2021-03-18 05:33] LABS: Alanine Aminotransferase 17 U/L (4-35); Albumin Level 2.6 g/dL (3.5-5.1); Alkaline Phosphatase 70 U/L (38-126); Anion Gap 9 mmol/L (8-16); Aspartate Amino Transferase 42 U/L (14-36); Bilirubin,Total 0.5 mg/dL (0.2-1.3); Blood Urea Nitrogen 29 mg/dL (7-17); CRP 2.6 mg/dL (<1.0); Calcium 8.1 mg/dL (8.4-10.2); Carbon Dioxide 26 mmol/L (22-30); Chloride 107 mmol/L (98-107); Estimated CRCL calculation 66 ml/min; Estimated Glomerular Filt Rate > 60; Glucose 543 mg/dL (65-110); Lactate Dehydrogenase 719 U/L (313-618); Potassium 3.1 mmol/L (3.4-5.0); Sodium 142 mmol/L (137-145)
[2021-03-18] MEDS: ALBUTEROL SULFATE NEB 2.5 MG/0.5 ML INH INHALATION ×3 (08:35→20:30)
[2021-03-18] MEDS: IPRATROPIUM BR 0.02% INH SOLN 0.5 MG/2.5 ML VIAL INHALATION ×2 (08:36→14:50)
--- NOTE | 2021-03-18 09:10 | PM.PNPUL ---
Progress Note: A&P Assessment and Plan (1) Pneumonia due to COVID-19 virus: Code(s): U07.1 - COVID-19; J12.82 - Pneumonia due to coronavirus disease 2019 Status: Acute Assessment and Plan: Patient tested positive for COVID-19 on 03/12 and started on remdesivir, dexamethasone and taclizumab on 03/14. Convalescent plasma given 03/16. Emperically started on ceftriaxone and azithromycin started 03/12 and DC 03/17. - Remdesivir for 10 days Unless she should recover and tolerate room air with rest, ambulation and while sleeping. - Dexamethasone 6 mg IV for 10 days - Continuous pulse oximetry - Prone positioning as tolerated. - Avoid any fluid overload. - emperic azihtromycin and ceftraixone for CAP. Will DC As she has received 5 days and her blood cultures are negative. No evidence of a bacterial infection currently.. - Patient with asthma and I would continue albuterol and ipratropium nebulizers Q 6 hours scheduled. No wheezing currently. on dexamethasone. - 03/16 echocardiogram with nl LV function, no valve abnoramlities, normal RA and RV size. - 03/16 negative upper and lower extremity Dopplers. 03/16 patient on BiPAp and high flow oxygen intermittantly. Goal saturations are 90-94% and will utilize high-flow oxygen, BiPAP, or mechanical ventilation. I discussed level of resuscitation with patient and she wishes to be full code including mechanical ventilation if she should need it at this time. 03/17 Patient off BiPAP since 03/16 16:00 03/18 D Dimer remains high 0.51 and creatinine 0.8, will perform CT angiogram to exclude PE. Will follow with you. (2) Acute respiratory failure with hypoxia: Code(s): J96.01 - Acute respiratory failure with hypoxia Status: Acute Assessment and Plan: Etiology of hypoxic respiratory failure is likely COVID pneumonia. Echocardiogram 03/16 with normal function and normal valve function. 03/14 10:52 ABG pH of 7.47/40/92 on BiPAP 20/10 100% 03/15 13:30 BiPAP 20/10 and 60% sats 90% 03/16 08:00 BiPAP 20/10 60% with sats 93% 03/16 12:30 Airvo 60 L 94% plus 15 L NRB mask sats 95% 03/17 08:00 Airvo 60 L 94% plus 15 L NRB mask sats 92% 03/18 08:00 Airvo 60 L 91% sats 93%. Subjective Date/time seen: 03/18/21 09:10 Interval history: 03/16 This is a new pulmonary consult for COVID pneumonia with hypoxemic respiratory failure 65-year-old woman with a history of hypertension, hyperlipidemia, diabetes, asthma and now COVID pneumonia with hypoxemic respiratory failure. Patient presented to the emergency department on 03/12/2021 with 2-3 days history of URI symptoms and was found to have COVID pneumonia. Patient is on vaccinated. Patient was started on ceftriaxone and azithromycin on 03/12 for possible community-acquired pneumonia. Patient was started on Remdesivir, dexamethasone and taclizumab on 03/14. Patient had worsening hypoxemia requiring high-flow oxygen and subsequently BiPAP. I was consulted on 03/16. 03/16 Patient tells me that she feels better than she did when she arrived to the hospital and that her breathing is better. Patient is currently on high-flow nasal cannula 60 L at 94% with an overlying 15 L non-rebreather face mask with saturations of 95%. She wore BiPAP rate of 16, 20/10 and 60% last night. She does complain that the BiPAP mask hurts her face. Patient denies any chest pain or hemoptysis at this time. S/P convalescent plasma. Upper and lower extremiyt dopplers negative. Echow ith EF 75%, normla RA and RV size, trace TR and no PASP given. 03/17 Patient says she is slowly improving since admission and denies any dyspnea on exertion at rest. Patient remains severely hypoxemic requiring high-flow nasal cannula at 60 L and 94% along with a 15 L non-rebreather mask to maintain saturations at 92%. Ceftraixone and azithromycin DC. 03/18 Patient continues to state she is slowly getting better and denies any dyspnea on exertion at rest. On arrival to the room
--- NOTE | 2021-03-18 09:22 | PM.IMPN ---
Progress Note: A&P Assessment and Plan (1) Acute respiratory failure with hypoxia: Code(s): J96.01 - Acute respiratory failure with hypoxia Status: Acute Assessment and Plan: Patient presents with hypoxia with accelerating O2 requirement. CXR on admission showing moderate amount of bilateral pneumonia or edema. Echo with EF 74%, normal diastolic function and no valvular disease. Venous doppler of all 4 extremities negative for DVT. Continue Nebs. Continue Airvo and wean as tolerated. Encourage incentive spirometry use. Continue supportive care. (2) Pneumonia due to COVID-19 virus: Code(s): U07.1 - COVID-19; J12.82 - Pneumonia due to coronavirus disease 2018 Status: Acute Assessment and Plan: Patient exposed to her nephew who was ill. She was unvaccinated. She presents with SOB with CXR showing moderate amount of bilateral pneumonia or edema. Started on Rocephin and Zithromax. Lasix 40mg IV given once 03/13 and again 03/14. CXR 03/14 showing worsening pulmonary infiltrates. COVID swab returned positive and Remdesivir and Dexamethasone started 03/14 (Day 5). Tocilizumab given once 03/14. WBC dropped from virus, possibly from meds. Abx were stopped after 5 days of treatment. Still with high O2 requirement. LDH, DDimer and Ferritin better. Continue neb treatments, Remdesivir and Dexamethasone. Remdesivir will be continued for another 5 days. Continue supportive care. Pulmonary consulted and appreciate their input. Try to have her up to a chair today (3) BROOKE (acute kidney injury): Code(s): N17.9 - Acute kidney failure, unspecified Status: Acute Assessment and Plan: Cr slightly elevated at 1.1 on admission but improved despite Lasix. Cr increased to 1.4 so we held HCTZ and started IV fluids since concern she is getting dehydrated from poor oral intake. Cr normal now. Stop IVF. Follow. Potassium at 3.1 so will replace. (4) Type 2 diabetes mellitus with hyperglycemia: Code(s): E11.65 - Type 2 diabetes mellitus with hyperglycemia Status: Acute Assessment and Plan: A1c 12.8 to show poor control prior to admission. The patient's blood glucose was reviewed on 03/18 Glucose remains poorly controlled related to the steroids and baseline poor control prior to admission. She is on D5NS due to poor oral intake and continues to eat only 5-25% of her meals. Continue AccuCheks covering with sliding scale. Hypoglycemia protocol available as needed. Continue Lantus and Novolog. Stop D5NS. (5) Hypertension: Code(s): I10 - Essential (primary) hypertension Status: Acute Assessment and Plan: Patient's blood pressure was reviewed on 03/18 Blood pressure remains well controlled. Continue current medications with Cozaar and Norvasc. (6) Hyperlipidemia: Code(s): E78.5 - Hyperlipidemia, unspecified Status: Acute Assessment and Plan: LFTs mostly normal with mild increase in AST at 42. TP 6.0 with Albumin 2.6 related to poor oral intake. Continue Pravastatin. Monitor LFTs while on Remdesivir. (7) Asthma: Code(s): J45.909 - Unspecified asthma, uncomplicated Status: Acute Assessment and Plan: No wheezing. Continue nebs. As above. (8) DVT prophylaxis: Code(s): Z29.9 - Encounter for prophylactic measures, unspecified Status: Acute Assessment and Plan: Lovenox Subjective Date/time seen: 03/18/21 09:22 Interval history: 65yo female with HTN, DM and asthma her for cough and SOB and found to be in acute respiratory failure from COVID PNA. Wore Airvo and NRB mask overnight and able to come off NRB this morning. SOB 'okay'. No CP or abd pain. No n/v but has decreased appetite. She has not being using the IS (this was encouraged). Minimal cough Exam Narrative: AF 98.8 142/79 84 20 93% 60L/min at 92% FiO2 Gen - NARD lying semi-recumbent in bed Chest - faint biba
[2021-03-18] MEDS: amLODIPine BESYLATE 5 MG TABLET 10 MG PO (09:50)
[2021-03-18] MEDS: POTASSIUM CHLORIDE 20 MEQ TABLET 40 MEQ PO (09:50)
[2021-03-18] MEDS: PRAVASTATIN SODIUM 20 MG TABLET 40 MG PO (09:51)
[2021-03-18] MEDS: LOSARTAN POTASSIUM 100 MG TABLET PO (09:51)
[2021-03-18] MEDS: ENOXAPARIN 40 MG/0.4 ML SYRINGE SUB-Q ×2 (09:51→20:41)
[2021-03-18] MEDS: MONTELUKAST SODIUM 10 MG TABLET PO (09:51)
[2021-03-18] MEDS: DEXAMETHASONE SOD PHOS INJ 4 MG/ML VIAL 6 MG IV PUSH (09:52)
[2021-03-18] MEDS: REMDESIVIR 100 MG/NS 250 ML 100 MG/250 ML BAG 250 MG IVPB (09:58)
[2021-03-18 10:10] LABS: Glucose Point of Care 126 mg/dl (65-105)
[2021-03-18] MEDS: INSULIN ASPART (*BKC) 100 UNITS/ML 17 UNITS SUB-Q ×2 (10:15→19:10)
[2021-03-18 11:46] LABS: Glucose Point of Care 117 mg/dl (65-105)
[2021-03-18] MEDS: SODIUM CHLORIDE 0.9% IV 1,000 ML 70 ML IV CONT (13:34)
[2021-03-18 16:34] LABS: Glucose Point of Care 88 mg/dl (65-105)
[2021-03-18] MEDS: ALBUTEROL SULFATE NEB 2.5 MG/0.5 ML INH (20:21)
[2021-03-18] MEDS: IPRATROPIUM BR 0.02% INH SOLN 0.5 MG/2.5 ML VIAL (20:22)
[2021-03-18 20:42] LABS: Glucose Point of Care 211 mg/dl (65-105)
[2021-03-18] MEDS: INSULIN GLARGINE (*BKC) 100 UNITS/ML 45 UNITS SUB-Q (20:44)
[2021-03-19] VITALS (21 sets, daily range): BP systolic 125–149; BP diastolic 49–88; PULSE 72–96; RESP 18–32; TEMP 36.1–36.4; O2SAT 86–94; BMI 26.9
[2021-03-19] MEDS: IPRATROPIUM BR 0.02% INH SOLN 0.5 MG/2.5 ML VIAL INHALATION ×5 (02:40→22:57)
[2021-03-19] MEDS: ALBUTEROL SULFATE NEB 2.5 MG/0.5 ML INH INHALATION ×4 (02:41→22:57)
[2021-03-19 05:19] LABS: Hematocrit 46.5 % (37.0-47.0); Hemoglobin 14.2 g/dL (12.0-15.0); Mean Corpuscular HGB Conc 30.5 g/dl (32-36); Mean Corpuscular Hemoglobin 26.5 pg (26-34); Mean Corpuscular Volume 86.8 fl (80-100); Mean Platelet Volume 10.3 fl (7.4-10.4); Platelet Count Result 332 k/mm3 (150-375); Red Blood Count 5.36 M/mm3 (4.2-5.4); Red Cell Distribution Width 13.5 % (11.5-14.5); White Blood Count 5.2 K/mm3 (4.5-10.0)
[2021-03-19 05:36] LABS: Alanine Aminotransferase 22 U/L (4-35); Albumin Level 3.3 g/dL (3.5-5.1); Alkaline Phosphatase 79 U/L (38-126); Anion Gap 11 mmol/L (8-16); Aspartate Amino Transferase 56 U/L (14-36); Bilirubin,Total 0.7 mg/dL (0.2-1.3); Blood Urea Nitrogen 31 mg/dL (7-17); Calcium 9.6 mg/dL (8.4-10.2); Carbon Dioxide 28 mmol/L (22-30); Chloride 103 mmol/L (98-107); Estimated CRCL calculation 53 ml/min; Estimated Glomerular Filt Rate > 60; Glucose 72 mg/dL (65-110); Sodium 142 mmol/L (137-145)
[2021-03-19 06:50] LABS: INR 1.1; Prothrombin Time 13.8 Seconds (11.1-14.7)
--- NOTE | 2021-03-19 08:06 | PM.PNPUL ---
Progress Note: A&P Assessment and Plan (1) Pneumonia due to COVID-19 virus: Code(s): U07.1 - COVID-19; J12.82 - Pneumonia due to coronavirus disease 2019 Status: Acute Assessment and Plan: Patient tested positive for COVID-19 on 03/12 and started on remdesivir, dexamethasone and taclizumab on 03/14. Convalescent plasma given 03/16. Emperically started on ceftriaxone and azithromycin started 03/12 and DC 03/17. - Remdesivir for 10 days Unless she should recover and tolerate room air with rest, ambulation and while sleeping. - Dexamethasone 6 mg IV for 10 days - Continuous pulse oximetry - Prone positioning as tolerated. - Avoid any fluid overload. - emperic azihtromycin and ceftraixone for CAP. Will DC As she has received 5 days and her blood cultures are negative. No evidence of a bacterial infection currently.. - Patient with asthma and I would continue albuterol and ipratropium nebulizers Q 6 hours scheduled. No wheezing currently. on dexamethasone. - 03/16 echocardiogram with nl LV function, no valve abnoramlities, normal RA and RV size. - 03/16 negative upper and lower extremity Dopplers. 03/16 patient on BiPAp and high flow oxygen intermittantly. Goal saturations are 90-94% and will utilize high-flow oxygen, BiPAP, or mechanical ventilation. I discussed level of resuscitation with patient and she wishes to be full code including mechanical ventilation if she should need it at this time. 03/17 Patient off BiPAP since 03/16 16:00 03/18 Off combination of high flow NC and NRB at 15L D Dimer remains high 0.51 and creatinine 0.8, CT angiogram negative for PE. 03/19 On just high flow NC now. (2) Acute respiratory failure with hypoxia: Code(s): J96.01 - Acute respiratory failure with hypoxia Status: Acute Assessment and Plan: Etiology of hypoxic respiratory failure is likely COVID pneumonia. Echocardiogram 03/16 with normal function and normal valve function. 03/14 10:52 ABG pH of 7.47/40/92 on BiPAP 20/10 100% 03/15 13:30 BiPAP 20/10 and 60% sats 90% 03/16 08:00 BiPAP 20/10 60% with sats 93% 03/16 12:30 Airvo 60 L 94% plus 15 L NRB mask sats 95% 03/16 16:00 last BiPAP use 03/17 08:00 Airvo 60 L 94% plus 15 L NRB mask sats 92% 03/18 08:00 Airvo 60 L 91% sats 93%. 03/19 08:00 Airvo 60 L 93% sats 91% I will resume in-patient follow up on 03/22 if needed otherwise call for any questions. Subjective Date/time seen: 03/19/21 08:06 Interval history: 03/16 This is a new pulmonary consult for COVID pneumonia with hypoxemic respiratory failure 65-year-old woman with a history of hypertension, hyperlipidemia, diabetes, asthma and now COVID pneumonia with hypoxemic respiratory failure. Patient presented to the emergency department on 03/12/2021 with 2-3 days history of URI symptoms and was found to have COVID pneumonia. Patient is on vaccinated. Patient was started on ceftriaxone and azithromycin on 03/12 for possible community-acquired pneumonia. Patient was started on Remdesivir, dexamethasone and taclizumab on 03/14. Patient had worsening hypoxemia requiring high-flow oxygen and subsequently BiPAP. I was consulted on 03/16. 03/16 Patient tells me that she feels better than she did when she arrived to the hospital and that her breathing is better. Patient is currently on high-flow nasal cannula 60 L at 94% with an overlying 15 L non-rebreather face mask with saturations of 95%. She wore BiPAP rate of 16, 20/10 and 60% last night. She does complain that the BiPAP mask hurts her face. Patient denies any chest pain or hemoptysis at this time. S/P convalescent plasma. Upper and lower extremiyt dopplers negative. Echow ith EF 75%, normla RA and RV size, trace TR and no PASP given. 03/17 Patient says she is slowly improving since admission and denies any dyspnea on exertion at rest. Patient remains severely hypoxemic requiring high-flow nasal cannula at 60 L and 94% along with a 15 L non-rebreather mask to barbara
[2021-03-19 08:58] LABS: Glucose Point of Care 87 mg/dl (65-105)
[2021-03-19] MEDS: MONTELUKAST SODIUM 10 MG TABLET PO (09:28)
[2021-03-19] MEDS: REMDESIVIR 100 MG/NS 250 ML 100 MG/250 ML BAG 250 MG IVPB (09:28)
[2021-03-19] MEDS: ENOXAPARIN 40 MG/0.4 ML SYRINGE SUB-Q ×2 (09:28→21:04)
[2021-03-19] MEDS: DEXAMETHASONE SOD PHOS INJ 4 MG/ML VIAL 6 MG IV PUSH (09:28)
[2021-03-19] MEDS: amLODIPine BESYLATE 5 MG TABLET 10 MG PO (09:28)
[2021-03-19] MEDS: LOSARTAN POTASSIUM 100 MG TABLET PO (09:28)
[2021-03-19] MEDS: INSULIN ASPART (*BKC) 100 UNITS/ML 12 UNITS SUB-Q ×3 (09:28→18:08)
[2021-03-19] MEDS: PRAVASTATIN SODIUM 20 MG TABLET 40 MG PO (09:28)
--- NOTE | 2021-03-19 10:01 | PM.IMPN ---
Progress Note: A&P Assessment and Plan (1) Acute respiratory failure with hypoxia: Code(s): J96.01 - Acute respiratory failure with hypoxia Status: Acute Assessment and Plan: Patient presents with hypoxia with accelerating O2 requirement. CXR on admission showing moderate amount of bilateral pneumonia or edema. Echo with EF 74%, normal diastolic function and no valvular disease. Venous doppler of all 4 extremities negative for DVT. CTA Chest negative for PE. Continue Nebs. Continue Airvo and wean as tolerated. Encourage incentive spirometry use. Continue supportive care. (2) Pneumonia due to COVID-19 virus: Code(s): U07.1 - COVID-19; J12.82 - Pneumonia due to coronavirus disease 2018 Status: Acute Assessment and Plan: Patient exposed to her nephew who was ill. She was unvaccinated. She presents with SOB with CXR showing moderate amount of bilateral pneumonia or edema. Started on Rocephin and Zithromax. Lasix 40mg IV given once 03/13 and again 03/14. CXR 03/14 showing worsening pulmonary infiltrates. COVID swab returned positive and Remdesivir and Dexamethasone started 03/14 (Day 6). Tocilizumab given once 03/14. WBC dropped from virus, possibly from meds but normal now. Abx were stopped after 5 days of treatment. Still with high O2 requirement. LDH, DDimer and Ferritin better yesterday. Continue neb treatments, Remdesivir and Dexamethasone. Remdesivir will be continued for another 5 days. Continue supportive care. Pulmonary consulted and appreciate their input. Increase activity as she tolerates. (3) BROOKE (acute kidney injury): Code(s): N17.9 - Acute kidney failure, unspecified Status: Acute Assessment and Plan: Cr slightly elevated at 1.1 on admission but improved despite Lasix. Cr increased to 1.4 so we held HCTZ and started IV fluids since concern she is getting dehydrated from poor oral intake. Cr normal now. Follow. (4) Type 2 diabetes mellitus with hyperglycemia: Code(s): E11.65 - Type 2 diabetes mellitus with hyperglycemia Status: Acute Assessment and Plan: A1c 12.8 to show poor control prior to admission. The patient's blood glucose was reviewed on 03/19 Glucose much better controlled. Hyperglycemia related to the steroids and baseline poor control prior to admission. She is eating only 5-25% of her meals (50% yesterday for breakfast but nothing else listed). Continue AccuCheks covering with sliding scale. Hypoglycemia protocol available as needed. Continue Lantus and Novolog but will decrease doses. (5) Hypertension: Code(s): I10 - Essential (primary) hypertension Status: Acute Assessment and Plan: Patient's blood pressure was reviewed on 03/19 Blood pressure remains well controlled. Continue current medications with Cozaar and Norvasc. (6) Hyperlipidemia: Code(s): E78.5 - Hyperlipidemia, unspecified Status: Acute Assessment and Plan: LFTs mostly normal with mild increase in AST at 56. Continue Pravastatin. Monitor LFTs while on Remdesivir. (7) Asthma: Code(s): J45.909 - Unspecified asthma, uncomplicated Status: Acute Assessment and Plan: No wheezing. Continue nebs. As above. (8) DVT prophylaxis: Code(s): Z29.9 - Encounter for prophylactic measures, unspecified Status: Acute Assessment and Plan: Lovenox Subjective Date/time seen: 03/19/21 10:01 Interval history: 65yo female with HTN, DM and asthma her for cough and SOB and found to be in acute respiratory failure from COVID PNA. no complaints of chest pain. Slept well last night. She only used the Airvo overnight. Did not require the non-rebreather. Denies feeling short of breath. She has not been out of bed yet. Exam Narrative: AF 97.2 143/72 82 22 92% HFNC 60L/min at 94% FiO2 Gen - NARD lying semi-recumbent in bed Chest - few bibasilar inspiratory crackles. no conv
[2021-03-19 12:24] LABS: Glucose Point of Care 119 mg/dl (65-105)
[2021-03-19 17:41] LABS: Glucose Point of Care 149 mg/dl (65-105)
[2021-03-19 20:01] LABS: Glucose Point of Care 181 mg/dl (65-105)
[2021-03-19] MEDS: INSULIN GLARGINE (*BKC) 100 UNITS/ML 40 UNITS SUB-Q (21:04)
[2021-03-20] VITALS (24 sets, daily range): BP systolic 134–150; BP diastolic 65–95; PULSE 71–98; RESP 16–36; TEMP 35.8–36.4; O2SAT 87–97
[2021-03-20] MEDS: IPRATROPIUM BR 0.02% INH SOLN 0.5 MG/2.5 ML VIAL INHALATION ×5 (03:03→21:00)
[2021-03-20] MEDS: ALBUTEROL SULFATE NEB 2.5 MG/0.5 ML INH INHALATION ×5 (03:03→21:00)
[2021-03-20 05:39] LABS: INR 1.1; Prothrombin Time 13.9 Seconds (11.1-14.7)
[2021-03-20 05:51] LABS: Alanine Aminotransferase 23 U/L (4-35); Anion Gap 11 mmol/L (8-16); Blood Urea Nitrogen 34 mg/dL (7-17); CRP 1.3 mg/dL (<1.0); Calcium 9.7 mg/dL (8.4-10.2); Carbon Dioxide 28 mmol/L (22-30); Chloride 101 mmol/L (98-107); Estimated CRCL calculation 54 ml/min; Estimated Glomerular Filt Rate > 60; Glucose 220 mg/dL (65-110); Lactate Dehydrogenase 960 U/L (313-618); Potassium 4.1 mmol/L (3.4-5.0); Sodium 140 mmol/L (137-145)
--- NOTE | 2021-03-20 07:56 | PM.IMPN ---
Progress Note: A&P Assessment and Plan (1) Acute respiratory failure with hypoxia: Code(s): J96.01 - Acute respiratory failure with hypoxia Status: Acute Assessment and Plan: Patient presents with hypoxia with accelerating O2 requirement. CXR on admission showing moderate amount of bilateral airspace disease. Echo with EF 74%, normal diastolic function and no valvular disease. Venous doppler of all 4 extremities negative for DVT. CTA Chest negative for PE. Continue Nebs. Continue Airvo and wean as tolerated. Encourage incentive spirometry use. Continue supportive care. BiPAP at nighttime and on p.r.n. basis has been ordered. She will be transferred to ICU for close monitoring and intubation / mechanical ventilation if with further worsening respiratory status and hypoxia. (2) Pneumonia due to COVID-19 virus: Code(s): U07.1 - COVID-19; J12.82 - Pneumonia due to coronavirus disease 2018 Status: Acute Assessment and Plan: Patient exposed to her nephew who was ill. She was unvaccinated. She presents with SOB with CXR showing Bilateral airspace disease.. Started on Rocephin and Zithromax. Lasix 40mg IV given once 03/13 and again 03/14. CXR 03/14 showing worsening pulmonary infiltrates. COVID swab returned positive and Remdesivir and Dexamethasone started 03/14 (Day 7). Tocilizumab given once 03/14. WBC dropped from virus, possibly from meds but normal now. Abx were stopped after 5 days of treatment. Still with high O2 requirement. LDH, DDimer and Ferritin better yesterday. Continue neb treatments, Remdesivir and Dexamethasone. I willincrease the dose of dexamethasone to 20 mg IV once a day for 5 days and taper the dose to 10 mg IV once a day for further 5 days. Stop remdisivir As she has received it for 7 days already with no good evidence to continue it beyond 5 days.. Continue supportive care. Pulmonary consulted and appreciate their input. (3) BROOKE (acute kidney injury): Code(s): N17.9 - Acute kidney failure, unspecified Status: Acute Assessment and Plan: Cr slightly elevated at 1.1 on admission but improved despite Lasix. Cr increased to 1.4 so we held HCTZ and started IV fluids since concern she is getting dehydrated from poor oral intake. Cr normal now. stop IV fluids. Strict intake output record and daily weight. Continue to monitor renal parameters and electrolytes. (4) Type 2 diabetes mellitus with hyperglycemia: Code(s): E11.65 - Type 2 diabetes mellitus with hyperglycemia Status: Acute Assessment and Plan: A1c 12.8 to show poor control prior to admission. The patient's blood glucose was reviewed on 03/20 Glucose much better controlled. Hyperglycemia related to the steroids and baseline poor control prior to admission. She is eating only 5-25% of her meals.. Continue AccuCheks covering with sliding scale. Hypoglycemia protocol available as needed. Continue Lantus and Novolog (5) Hypertension: Code(s): I10 - Essential (primary) hypertension Status: Acute Assessment and Plan: Patient's blood pressure was reviewed on 03/20 Blood pressure remains well controlled. Continue current medications with Cozaar and Norvasc. (6) Hyperlipidemia: Code(s): E78.5 - Hyperlipidemia, unspecified Status: Acute Assessment and Plan: LFTs mostly normal with mild increase in AST at 56. Continue Pravastatin. (7) Asthma: Code(s): J45.909 - Unspecified asthma, uncomplicated Status: Acute Assessment and Plan: No wheezing. Continue nebs. As above. (8) DVT prophylaxis: Code(s): Z29.9 - Encounter for prophylactic measures, unspecified Status: Acute Assessment and Plan: Lovenox Additional Plan Patient with worsening respiratory status. She will be transferred to ICU for close monitoring and intubation/ mechanical ventilation if with further worsening of respira
[2021-03-20] MEDS: INSULIN ASPART (*BKC) 100 UNITS/ML 12 UNITS SUB-Q (09:31)
[2021-03-20] MEDS: INSULIN ASPART (*BKC) 100 UNITS/ML SUB-Q ×2 (09:32→17:41)
[2021-03-20] MEDS: PRAVASTATIN SODIUM 20 MG TABLET 40 MG PO (09:35)
[2021-03-20] MEDS: LOSARTAN POTASSIUM 100 MG TABLET PO (09:35)
[2021-03-20] MEDS: amLODIPine BESYLATE 5 MG TABLET 10 MG PO (09:35)
[2021-03-20] MEDS: ENOXAPARIN 40 MG/0.4 ML SYRINGE SUB-Q ×2 (09:35→20:09)
[2021-03-20] MEDS: MONTELUKAST SODIUM 10 MG TABLET PO (09:36)
[2021-03-20 11:20] LABS: Glucose Point of Care 225 mg/dl (65-105)
--- NOTE | 2021-03-20 11:59 | WPDCNINT ---
Assessment and Plan Assessment and plan (1) Acute respiratory failure with hypoxia: Code(s): J96.01 - Acute respiratory failure with hypoxia Status: Acute Assessment and Plan: Acute respiratory failure secondary to COVID-19 pneumonia This morning patient desaturated on Airvo and was placed on BiPAP. her sats remained low until staff recognized that oxygen was not connected to the wall. once oxygen connection was secured her sats improved into 90. currently she is on BiPAP with saturation 92% respiratory rate is 26. She is alert awake and not in any distress I will continue BiPAP at this time and see if patient can be transitioned back to Airvo She will need intubation if deteriorates or becomes BiPAP dependent Echo with EF 74%, normal diastolic function and no valvular disease. Venous doppler of all 4 extremities negative for DVT. CTA Chest negative for PE. Continue Nebs. Encourage incentive spirometry use. Continue supportive care. (2) Pneumonia due to COVID-19 virus: Code(s): U07.1 - COVID-19; J12.82 - Pneumonia due to coronavirus disease 2018 Status: Acute Assessment and Plan: She was unvaccinated. Remdesivir and Dexamethasone started 03/14. Tocilizumab given once 03/14. Rocephin and azithromycin were stopped after 5 days of treatment. continue to monitor inflammatory markers (3) BROOKE (acute kidney injury): Code(s): N17.9 - Acute kidney failure, unspecified Status: Acute Assessment and Plan: Cr slightly elevated at 1.1 on admission but improved despite Lasix. Cr normal now. Follow. DC HCTZ (4) Type 2 diabetes mellitus with hyperglycemia: Code(s): E11.65 - Type 2 diabetes mellitus with hyperglycemia Status: Acute Assessment and Plan: A1c 12.8 to show poor control prior to admission. Hyperglycemia related to the steroids and baseline poor control prior to admission. Continue AccuCheks covering with sliding scale. Hypoglycemia protocol available as needed. Continue Lantus and sliding scale (5) Hypertension: Code(s): I10 - Essential (primary) hypertension Status: Acute Assessment and Plan: Continue current medications with Cozaar and Norvasc. hold HCTZ (6) Hyperlipidemia: Code(s): E78.5 - Hyperlipidemia, unspecified Status: Acute Assessment and Plan: LFTs mostly normal with mild increase in AST at 56. Continue Pravastatin. Monitor LFTs while on Remdesivir. (7) Asthma: Code(s): J45.909 - Unspecified asthma, uncomplicated Status: Acute Assessment and Plan: No wheezing. Continue nebs and steroids As above. (8) DVT prophylaxis: Code(s): Z29.9 - Encounter for prophylactic measures, unspecified Status: Acute Assessment and Plan: Lovenox Additional Plan DVT prophylaxis - Lovenox Stress ulcer prophylaxis - add PPI Nutrition - diet as tolerated Code Status - patient requests to be Full Code . She is okay with mechanical ventilation if needed. She wants us to contact her daughter Yarelis if she is unable to make decisions for herself. Total Critical Care Time - 35 minutes Due to a high probability of clinically significant, life threatening deterioration, the patient required my highest level of preparedness to intervene emergently and I personally spent this critical care time directly and personally managing the patient. This critical care time included obtaining a history; examining the patient; pulse oximetry; ordering and review of studies; arranging urgent treatment with development of a management plan; evaluation of patient's response to treatment; frequent reassessment; and discussions with other providers. It was exclusive of separately billable procedures and treating other patients and teaching time. Please see Assessment and Plan section and the rest of the note for further information on patient assessment a
--- NOTE | 2021-03-20 12:34 | PC.NURSE ---
This patient, Unique Cam, was transferred to [ ICU 7 ] on 03/20/21 at 1220. Personal belongings sent with patient. Report given to [ LISA Olivier. ]. Appropriate documentation sent with patient.
[2021-03-20 12:43] LABS: Glucose Point of Care 130 mg/dl (65-105)
--- NOTE | 2021-03-20 13:59 | PC.NURSE ---
This nurse called both daughters Leatha and Yarelis to notify them of their mothers transfer to ICU 7. Unable to speak to daughters, voicemail left with Yarelis, awaiting call back.
[2021-03-20 16:41] LABS: Glucose Point of Care 233 mg/dl (65-105)
[2021-03-20] MEDS: INSULIN GLARGINE (*BKC) 100 UNITS/ML 40 UNITS SUB-Q (20:09)
[2021-03-20 23:13] LABS: Glucose Point of Care 261 mg/dl (65-105)
[2021-03-21] VITALS (32 sets, daily range): BP systolic 57–161; BP diastolic 39–95; PULSE 61–97; RESP 20–28; TEMP 35.8–36.6; O2SAT 92–100
[2021-03-21] MEDS: IPRATROPIUM BR 0.02% INH SOLN 0.5 MG/2.5 ML VIAL INHALATION ×4 (01:53→20:14)
[2021-03-21] MEDS: ALBUTEROL SULFATE NEB 2.5 MG/0.5 ML INH INHALATION ×4 (01:53→20:14)
[2021-03-21 05:59] LABS: Basophils Percent Auto 0.3 % (0.2-1.2); Hematocrit 44.5 % (37.0-47.0); Hemoglobin 13.7 g/dL (12.0-15.0); Immature Granulocyte Absolute 0.21 K/mm3 (0.00-0.031); Immature Granulocyte Percent A 2.3 % (0-0.5); Lymphocytes Absolute Auto 0.62 K/mm3 (0.9-3.2); Lymphocytes Percent Auto 6.8 % (18.3-44.2); Mean Corpuscular HGB Conc 30.8 g/dl (32-36); Mean Corpuscular Hemoglobin 26.2 pg (26-34); Mean Corpuscular Volume 85.2 fl (80-100); Mean Platelet Volume 10.1 fl (7.4-10.4); Monocytes Absolute Auto 0.9 K/mm3 (0.1-0.6); Monocytes Percent Auto 9.6 % (2.6-8.5); Neutrophils Absolute Auto 7.4 K/mm3 (1.3-6.7); Platelet Count Result 563 k/mm3 (150-375); Red Blood Count 5.22 M/mm3 (4.2-5.4); Red Cell Distribution Width 13.5 % (11.5-14.5); White Blood Count 9.1 K/mm3 (4.5-10.0)
[2021-03-21 06:09] LABS: INR 1.1
[2021-03-21 06:14] LABS: Anion Gap 9 mmol/L (8-16); Blood Urea Nitrogen 32 mg/dL (7-17); Calcium 9.7 mg/dL (8.4-10.2); Carbon Dioxide 29 mmol/L (22-30); Chloride 104 mmol/L (98-107); Estimated CRCL calculation 71 ml/min; Estimated Glomerular Filt Rate > 60; Glucose 235 mg/dL (65-110); Magnesium 1.9 mg/dL (1.6-2.3); Potassium 4.6 mmol/L (3.4-5.0); Sodium 142 mmol/L (137-145)
[2021-03-21] MEDS: MIDAZOLAM 100MG/NS 100ML(*CRX) 100 MG/100 ML BAG IV CONT (09:30)
[2021-03-21] MEDS: MIDAZOLAM 100MG/NS 100ML(*CRX) 100 MG/100 ML BAG (09:30)
[2021-03-21] MEDS: FENTANYL 2,500MCG/NS250ML(*CRX 2,500 MCG/250 ML BAG 100 MCG (09:30)
[2021-03-21] MEDS: FENTANYL 2,500MCG/NS250ML(*CRX 2,500 MCG/250 ML BAG 10 MCG IV CONT (09:30)
--- NOTE | 2021-03-21 09:51 | WPDPROCEDUR ---
Procedures Intubation Intubation Date: 03/21/21 Intubation Time: 09:00 Consent: Verbal consent was obtained from patient. A pre-procedural Time-Out was completed immediately before starting the procedure and confirmed: Patient Identification, Site, Procedure, Patient Position and the Availability of Requisite Equipment: Yes Sedative: etomidate Mg given: 20 Paralytic: succinylcholine Mg given: 100 Laryngoscope: fiber optic video scope Assist device used: fiber optic device ET tube size: 7.5 Tube secured depth (cm): 24 Tube secured location: teeth Tube placement confirmation: visualized tube passing through cords, equal breath sounds bilaterally, no breath sounds over epigastrium and confirmation by capnometry Patient tolerated procedure: well Intubation complications: none Additional comments: patient was given 4 mg of Versed prior to procedure for anxiety. post intubation patient was bucking the ventilator and coughing and desaturating. she was given 100 mg of propofol bolus followed by 50 mg of rocuronium. And was started on Versed and fentanyl infusions.
--- NOTE | 2021-03-21 09:52 | WPDINTPN ---
Progress Note: A&P Assessment and Plan (1) Acute respiratory failure with hypoxia: Code(s): J96.01 - Acute respiratory failure with hypoxia Status: Acute Assessment and Plan: Acute respiratory failure secondary to COVID-19 pneumonia 03/12 Admitted 03/15 Intermittent Bipap 03/20 Bipap dependent 03/21 Intubated As above mentioned patient had become BiPAP dependent. Patient was intubated and placed on mechanical ventilation chest x-ray reviewed ABG pending Versed and fentanyl infusion for sedation low tidal volume ventilation once stabilized will plan to place patient in prone position today Echo with EF 74%, normal diastolic function and no valvular disease. Venous doppler of all 4 extremities negative for DVT. CTA Chest negative for PE. Continue Nebs. (2) Pneumonia due to COVID-19 virus: Code(s): U07.1 - COVID-19; J12.82 - Pneumonia due to coronavirus disease 2019 Status: Acute Assessment and Plan: She was unvaccinated. Remdesivir and Dexamethasone started 03/14. Tocilizumab given once 03/14. Rocephin and azithromycin were stopped after 5 days of treatment. continue to monitor inflammatory markers (3) BROOKE (acute kidney injury): Code(s): N17.9 - Acute kidney failure, unspecified Status: Acute Assessment and Plan: Cr slightly elevated at 1.1 on admission but improved despite Lasix. Cr normal now. Follow. DC HCTZ (4) Type 2 diabetes mellitus with hyperglycemia: Code(s): E11.65 - Type 2 diabetes mellitus with hyperglycemia Status: Acute Assessment and Plan: A1c 12.8 to show poor control prior to admission. Hyperglycemia related to the steroids and baseline poor control prior to admission. Continue AccuCheks covering with sliding scale. Hypoglycemia protocol available as needed. Continue Lantus and sliding scale (5) Hypertension: Code(s): I10 - Essential (primary) hypertension Status: Acute Assessment and Plan: hold p.o. medications at this time (6) Hyperlipidemia: Code(s): E78.5 - Hyperlipidemia, unspecified Status: Acute Assessment and Plan: LFTs mostly normal with mild increase in AST at 56. Continue Pravastatin. Monitor LFTs while on Remdesivir. (7) Asthma: Code(s): J45.909 - Unspecified asthma, uncomplicated Status: Acute Assessment and Plan: No wheezing. Continue nebs and steroids As above. (8) DVT prophylaxis: Code(s): Z29.9 - Encounter for prophylactic measures, unspecified Status: Acute Assessment and Plan: Lovenox Additional Plan DVT prophylaxis - Lovenox Stress ulcer prophylaxis - add PPI Nutrition - start tube feeds Code Status - patient requests to be Full Code . I again revisited this issue with her this morning. she was resistant but agreeable to intubation and CPR if the. She is okay with mechanical ventilation if needed. She wants us to contact her daughter Yarelis if she is unable to make decisions for herself. . I called and left voicemail on to Yarelis phone number yesterday and today. Also [facility] Total Critical Care Time - 45 minutes Due to a high probability of clinically significant, life threatening deterioration, the patient required my highest level of preparedness to intervene emergently and I personally spent this critical care time directly and personally managing the patient. This critical care time included obtaining a history; examining the patient; pulse oximetry; ordering and review of studies; arranging urgent treatment with development of a management plan; evaluation of patient's response to treatment; frequent reassessment; and discussions with other providers. It was exclusive of separately billable procedures and treating other patients and teaching time. Please see Assessment and Plan section and the rest of the note for further informati
[2021-03-21] MEDS: INSULIN GLARGINE (*BKC) 100 UNITS/ML 10 UNITS SUB-Q (10:07)
[2021-03-21] MEDS: ENOXAPARIN 40 MG/0.4 ML SYRINGE SUB-Q ×2 (10:08→20:34)
[2021-03-21] MEDS: INSULIN ASPART (*BKC) 100 UNITS/ML SUB-Q ×3 (10:08→20:47)
[2021-03-21] MEDS: RAPID SEQUENCE INTUBATION KIT 1 EACH (10:09)
[2021-03-21] MEDS: PANTOPRAZOLE SODIUM IV 40 MG VIAL IV PUSH (10:15)
[2021-03-21 11:29] LABS: Alveolar/Arterial O2 Gradient 573.9 mmHg; Base Excess ABG 2.7 mEq/l (+/-2.0); Fractional Inspired Oxygen 100 %; HCO3 ABG 28.1 mEq/l (22.0-26.0); Oxygen Content ABG 18.9 %vol (16.0-22.0); Oxygen Saturation ABG 97.1 % (95.0-100.0); Oxyhemoglobin 95.7 % THb (90.0-100.0); PCO2 ABG 45.8 mmHg (35.0-45.0); PO2 ABG 93.3 mmHg (80.0-100.0); PO2 FiO2 Ratio Arterial Blood 0.93 %; pH ABG 7.405 (7.350-7.450)
[2021-03-21 11:31] LABS: Device VENTILATOR; Site Drawn RIGHT BRACHIAL
[2021-03-21] MEDS: ROCURONIUM BROMIDE 50 MG/5 ML VIAL IV PUSH (11:31)
[2021-03-21] MEDS: PROPOFOL IV EMULSION 100 ML 2.43 MG IV CONT (11:31)
[2021-03-21 11:32] LABS: Arterial Blood Gas PEEP 12 cmH2O; Arterial Blood Gas Pressure Support 0 cmH2O; Arterial Blood Gas Tidal Volume 360 ml; Arterial Blood Gas Vent Mode CMV; Arterial Blood Gas Ventilator rate 22 /MIN; Peak Inspiratory Pressure 0 cmH2O
[2021-03-21] MEDS: MINERAL OIL/WHITE PETROLATUM OINTMENT 1 APPLIC EACH EYE ×2 (12:19→20:42)
[2021-03-21] MEDS: SODIUM CHLORIDE 0.9% IV 1,000 ML 999 ML IV CONT (12:20)
[2021-03-21] MEDS: ROCURONIUM BROMIDE 50 MG/5 ML VIAL (12:30)
[2021-03-21] MEDS: NOREPINEPHRINE 8 MG/D5W 250 ML 8 MG/250 ML BAG 9.38 MG IV CONT (12:34)
--- NOTE | 2021-03-21 12:48 | PC.NURSE ---
pt was tried on an arvo with oxygen maxed on it and her oxygen sats only came up to mid 80's, then placed on 100% NRB mask along with it and no changes in oxygen level, pt was then intubated and put on ventilator and og tube placed, verified placement of all, Dr. Shah intubated and ordered fentany and versed gtts and started at 100 and 5 per his orders, later hers sats was falling mid 80's, and over breathing the vent, propofol started then blood pressure dropped to sbp in 50's, bolous given and central line place at this time
[2021-03-21 13:24] LABS: Glucose Point of Care 250 mg/dl (65-105)
--- NOTE | 2021-03-21 13:37 | WPDPROCEDUR ---
Procedures Central Line Placement Right IJ: Central Line Date: 03/21/21 Central Line Time: 12:30 Performed Emergently - Given emergent patient condition, temporal constraints may have precluded informed consent.: Yes Consent: Patient was intubated became hypotensive. She had only peripheral IV 22 gauge. Patient was started on IV fluid bolus and sedation was held per blood pressure was not recovered. due to small peripheral IV IV fluid bolus was going in slow. Patient also was started on Levophed. Emergent right IJ central venous catheter was placed to obtain a central and secured access Time Out Performed: Yes Patient Position: supine Patient placed on monitor/pulse ox: Yes Provider Prep: mask, sterile gown, sterile gloves, Max. sterile barrier precautions and cap Central line prep: 2% Chlorhexidine scrub Sterile US Technique with sterile gel/sterile probe covers: Yes Central line lumen inserted: triple Length (cm): 16 Depth of Insertion (cm): 16 Post Procedure: sutured in place, good blood return, all ports aspirated, flushed, capped, transparent dressing, hemostatic product, antimicrobial product and aseptic technique maintained throughout procedure Post procedure x-ray: tip of catheter in good position and no pneumothorax seen Patient tolerated procedure: well Complications: none Additional comments: procedure required multiple attempts as patient wean was collapsing with breathing. Multiple times I was able to get flash in syringe but it would go away quickly or unable to advance guidewire
--- NOTE | 2021-03-21 13:53 | PM.IMPN ---
Progress Note: A&P Assessment and Plan (1) Acute respiratory failure with hypoxia: Code(s): J96.01 - Acute respiratory failure with hypoxia Status: Acute Assessment and Plan: Patient presents with hypoxia with accelerating O2 requirement. CXR on admission showing Significant bilateral airspace disease. Echo with EF 74%, normal diastolic function and no valvular disease. Venous doppler of all 4 extremities negative for DVT. CTA Chest negative for PE. She was alternating between BiPAP and high-flow oxygen but could not tolerate high-flow oxygen today. She was intubated today on 03/21. Continue mechanical ventilation with current settings. Wean FiO2 and PEEP tolerated. Low tidal volume strategies. Sedated with fentanyl and Versed. Daily sedation vacation trial. Follow chest x-ray and ABG. Wire Drawing Machine Operator following. Appreciate their inputs. (2) Pneumonia due to COVID-19 virus: Code(s): U07.1 - COVID-19; J12.82 - Pneumonia due to coronavirus disease 2018 Status: Acute Assessment and Plan: Patient exposed to her nephew who was ill. She was unvaccinated. She presents with SOB with CXR showing Bilateral airspace disease.. Started on Rocephin and Zithromax. Lasix 40mg IV given once 03/13 and again 03/14. CXR 03/14 showing worsening pulmonary infiltrates. COVID swab returned positive and Remdesivir and Dexamethasone started 03/14. Tocilizumab given once 03/14. WBC dropped from virus, possibly from meds but normal now. Abx were stopped after 5 days of treatment. Still with high O2 requirement. Continue dexamethasone to 20 mg IV once a day for 5 days and taper the dose to 10 mg IV once a day for further 5 days. Remdisivir was stopped after 7 days as there is no good evidence to continue it beyond 5 days. Continue supportive care. Pulmonary service is following. Appreciates their inputs. (3) BROOKE (acute kidney injury): Code(s): N17.9 - Acute kidney failure, unspecified Status: Acute Assessment and Plan: Cr slightly elevated at 1.1 on admission but improved despite Lasix. Cr increased to 1.4 so we held HCT was started on IV fluids. Strict intake output record and daily weight. Continue to monitor renal parameters and electrolytes. Judicious use of Lasix as per her fluid status to keep her euvolemic. (4) Type 2 diabetes mellitus with hyperglycemia: Code(s): E11.65 - Type 2 diabetes mellitus with hyperglycemia Status: Acute Assessment and Plan: A1c 12.8 to show poor control prior to admission. The patient's blood glucose was reviewed on 03/21 Hyperglycemia related to the steroids and baseline poor control prior to admission. Continue AccuCheks covering with sliding scale. Hypoglycemia protocol available as needed. Continue Lantus With dose increased today to 50 units and Novolog She will likely be started on tube feed in the a.m. if she remains stable from hemodynamic and respiratory perspective. (5) Hypertension: Code(s): I10 - Essential (primary) hypertension Status: Acute Assessment and Plan: Patient's blood pressure was reviewed on 03/21 Amlodipine and Cozaar will be put on hold is she is now intubated and will be on sedatives. Continue to monitor hemodynamics closely. (6) Hyperlipidemia: Code(s): E78.5 - Hyperlipidemia, unspecified Status: Acute Assessment and Plan: LFTs mostly normal with mild increase in AST at 56. Continue Pravastatin. (7) Asthma: Code(s): J45.909 - Unspecified asthma, uncomplicated Status: Acute Assessment and Plan: No wheezing. Continue nebs. As above. (8) DVT prophylaxis: Code(s): Z29.9 - Encounter for prophylactic measures, unspecified Status: Acute Assessment and Plan: Lovenox Additional Plan She was intubated today in the ICU. She agreed for intubation and mechanical ventilation.
[2021-03-21] MEDS: CENTRAL LINE FLUSH 10 ML IV PUSH ×3 (14:06→20:48)
[2021-03-21 17:28] LABS: Glucose Point of Care 197 mg/dl (65-105)
[2021-03-21] MEDS: INSULIN GLARGINE (*BKC) 100 UNITS/ML 50 UNITS SUB-Q (20:42)
[2021-03-21 21:38] LABS: Glucose Point of Care 213 mg/dl (65-105)
[2021-03-21 23:40] LABS: Glucose Point of Care 205 mg/dl (65-105)
[2021-03-22] VITALS (42 sets, daily range): BP systolic 90–141; BP diastolic 59–77; PULSE 52–86; RESP 22–26; TEMP 36.4–36.7; O2SAT 94–100; BMI 30.4
[2021-03-22] MEDS: MIDAZOLAM 100MG/NS 100ML(*CRX) 100 MG/100 ML BAG IV CONT (01:27)
[2021-03-22] MEDS: INSULIN ASPART (*BKC) 100 UNITS/ML SUB-Q ×7 (01:28→23:47)
[2021-03-22 02:11] LABS: Glucose Point of Care 232 mg/dl (65-105)
[2021-03-22] MEDS: IPRATROPIUM BR 0.02% INH SOLN 0.5 MG/2.5 ML VIAL INHALATION ×4 (02:16→21:16)
[2021-03-22] MEDS: ALBUTEROL SULFATE NEB 2.5 MG/0.5 ML INH INHALATION ×4 (02:19→21:15)
[2021-03-22] MEDS: NOREPINEPHRINE 8 MG/D5W 250 ML 8 MG/250 ML BAG 15 MG IV CONT (02:58)
[2021-03-22 05:59] LABS: Alveolar/Arterial O2 Gradient 335.6 mmHg; Base Excess ABG 0.4 mEq/l (+/-2.0); Carboxyhemoglobin 0.3 % THb (0-2.0); Fractional Inspired Oxygen 60 %; HCO3 ABG 26.6 mEq/l (22.0-26.0); Methemoglobin ABG 0.1 %THb (0-1.5); Oxygen Content ABG 11.7 %vol (16.0-22.0); Oxyhemoglobin 64.5 % THb (90.0-100.0); PCO2 ABG 49.3 mmHg (35.0-45.0); PO2 FiO2 Ratio Arterial Blood 0.63 %; Reduced Hemoglobin 35.1 %THb (0-5.0); Total Hemoglobin 12.9 g/dL (12.0-18.0)
[2021-03-22 06:03] LABS: Arterial Blood Gas Vent Mode CMV; Arterial Blood Gas Ventilator rate 22 /MIN; Device VENTILATOR; Oxygen Saturation ABG 68.8 % (95.0-100.0); Site Drawn RIGHT BRACHIAL
[2021-03-22 06:04] LABS: Arterial Blood Gas PEEP 12 cmH2O; Arterial Blood Gas Tidal Volume 360 ml
[2021-03-22] MEDS: FENTANYL 2,500MCG/NS250ML(*CRX 2,500 MCG/250 ML BAG 12.5 MCG IV CONT (06:33)
[2021-03-22] MEDS: CENTRAL LINE FLUSH 10 ML IV PUSH ×4 (06:35→22:20)
[2021-03-22 06:51] LABS: Glucose Point of Care 233 mg/dl (65-105)
[2021-03-22 06:53] LABS: Hematocrit 39.7 % (37.0-47.0); Hemoglobin 11.9 g/dL (12.0-15.0); Mean Corpuscular Hemoglobin 26.6 pg (26-34); Mean Corpuscular Volume 88.6 fl (80-100); Mean Platelet Volume 10.3 fl (7.4-10.4); Platelet Count Result 672 k/mm3 (150-375); Red Blood Count 4.48 M/mm3 (4.2-5.4); Red Cell Distribution Width 14.3 % (11.5-14.5); White Blood Count 12.1 K/mm3 (4.5-10.0)
[2021-03-22 07:14] LABS: INR 1.1; Prothrombin Time 14.1 Seconds (11.1-14.7)
[2021-03-22 07:17] LABS: Alanine Aminotransferase 18 U/L (4-35); Albumin Level 2.8 g/dL (3.5-5.1); Alkaline Phosphatase 80 U/L (38-126); Anion Gap 7 mmol/L (8-16); Aspartate Amino Transferase 31 U/L (14-36); Bilirubin,Total 0.4 mg/dL (0.2-1.3); Blood Urea Nitrogen 54 mg/dL (7-17); Carbon Dioxide 27 mmol/L (22-30); Chloride 106 mmol/L (98-107); Estimated CRCL calculation 21 ml/min; Estimated Glomerular Filt Rate 23; Glucose 234 mg/dL (65-110); Magnesium 2.2 mg/dL (1.6-2.3); Potassium 4.5 mmol/L (3.4-5.0); Sodium 140 mmol/L (137-145)
[2021-03-22] MEDS: SODIUM CHLORIDE 0.9% IV 500 ML IV CONT (09:14)
[2021-03-22] MEDS: MINERAL OIL/WHITE PETROLATUM OINTMENT 1 APPLIC EACH EYE ×2 (09:15→20:25)
[2021-03-22] MEDS: PANTOPRAZOLE SODIUM IV 40 MG VIAL IV PUSH (09:16)
[2021-03-22] MEDS: ENOXAPARIN 40 MG/0.4 ML SYRINGE SUB-Q ×2 (09:16→20:24)
[2021-03-22] MEDS: PRAVASTATIN SODIUM 20 MG TABLET 40 MG PO (09:16)
--- NOTE | 2021-03-22 09:28 | PM.IMPN ---
Progress Note: A&P Assessment and Plan (1) Acute respiratory failure with hypoxia: Code(s): J96.01 - Acute respiratory failure with hypoxia Status: Acute Assessment and Plan: Patient presents with hypoxia with accelerating O2 requirement. CXR on admission showing significant bilateral airspace disease. Echo with EF 74%, normal diastolic function and no valvular disease. Venous doppler of all 4 extremities negative for DVT. CTA Chest negative for PE. She was alternating between BiPAP and high-flow oxygen but could not tolerate high-flow oxygen requiring intubation on 03/21/21. Continue mechanical ventilation with current settings. Wean FiO2 and PEEP as tolerated. Low tidal volume strategies. Sedated with fentanyl and Versed. Daily sedation vacation trial. Follow chest x-ray and ABG. Commercial Lines Account Manager following. Appreciate their inputs. (2) Pneumonia due to COVID-19 virus: Code(s): U07.1 - COVID-19; J12.82 - Pneumonia due to coronavirus disease 2018 Status: Acute Assessment and Plan: Patient exposed to her nephew who was ill. She was unvaccinated. She presents with SOB with CXR showing bilateral airspace disease.. Started on Rocephin and Zithromax. Lasix 40mg IV given once 03/13 and again 03/14. CXR 03/14 showing worsening pulmonary infiltrates. COVID swab returned positive and Remdesivir and Dexamethasone started 03/14. Tocilizumab given once 03/14. WBC dropped from virus, possibly from meds but normal now. Abx were stopped after 5 days of treatment. Still with high O2 requirement and now intubated. Continue dexamethasone (now at 20 mg IV once a day for 5 days) and taper the dose to 10 mg IV once a day for further 5 days. Remdisivir was stopped after 7 days as there is no good evidence to continue it beyond 5 days. Continue supportive care. Pulmonary service is following and appreciates their inputs. (3) BROOKE (acute kidney injury): Code(s): N17.9 - Acute kidney failure, unspecified Status: Acute Assessment and Plan: Cr slightly elevated at 1.1 on admission but improved despite Lasix. Cr increased to 1.4 so we held HCT was started on IV fluids. Cr normallized and IV fluids stopped. Today, Cr up to 2.5. Probably related to dehydration from poor oral intake priro to intubation. Did receive contrast on 03/18 and was briefly HoTN. Strict intake output record and daily weight. Continue to monitor renal parameters and electrolytes. Continue IV fluids. (4) Type 2 diabetes mellitus with hyperglycemia: Code(s): E11.65 - Type 2 diabetes mellitus with hyperglycemia Status: Acute Assessment and Plan: A1c 12.8 to show poor control prior to admission. The patient's blood glucose was reviewed on 03/22. Hyperglycemia persistent related to the steroids and baseline poor control prior to admission. Continue AccuCheks covering with sliding scale. Hypoglycemia protocol available as needed. Lantus advanced. She will continue tube feedings. (5) Hypertension: Code(s): I10 - Essential (primary) hypertension Status: Acute Assessment and Plan: Patient's blood pressure was reviewed on 03/22. Amlodipine and Cozaar stopped. Continue to monitor hemodynamics closely. (6) Hyperlipidemia: Code(s): E78.5 - Hyperlipidemia, unspecified Status: Acute Assessment and Plan: LFTs normal. Continue Pravastatin. (7) Asthma: Code(s): J45.909 - Unspecified asthma, uncomplicated Status: Acute Assessment and Plan: No wheezing. Continue nebs. As above. (8) DVT prophylaxis: Code(s): Z29.9 - Encounter for prophylactic measures, unspecified Status: Acute Assessment and Plan: Lovenox Subjective Date/time seen: 03/22/21 09:28 Interval history: 65yo female with HTN, DM and asthma her for cough and SOB and found to be in acute respiratory failure from COVID PNA. She was intubated on 03/21 with worsening respirat
[2021-03-22 09:34] LABS: Glucose Point of Care 245 mg/dl (65-105)
[2021-03-22] MEDS: SODIUM CHLORIDE 0.45% 1,000 ML 100 ML IV CONT ×2 (10:29→20:29)
--- NOTE | 2021-03-22 11:18 | PCDIET ---
Nutrition Follow-Up Complete: Nutrition Diagnosis: Inadequate oral intake related to decreased appetite as evidenced by intakes 50% or less at most meals x 1 week. Nutrition Goal: Patient to meet estimated nutritional needs. Goal in progress. Patient tolerating Glucerna 1.2 at 40mL/hr which has been advancing toward goal of 50mL/hr. Given 22 hour daily infusion, this will provide 1320kcal, 66g protein and 885mL free water. Patient receiving IV fluids and 30mL water flush every 4 hours. Last recorded weight is 83.1 kg which is increased from last review. -I/O. Bowel Motility: Last documented BM on 03/21/21. Labs Reviewed: WBC (12.1), Hgb (11.9), Glu (234), BUN (54), Cr (2.5), Alb (2.8) Meds Noted: Albumin, Fentanyl, Novolog, Versed, Levophed, Protonix, Albuterol, Decadron, Lantus, Atrovent, 0.45NaCl at 100mL/hr Additional Notes: Additional 500mL NS bolus noted. No documented skin breakdown. Will continue to monitor with same goal. Nutrition Monitoring and Evaluation: Follow up every Monday/Monday.
[2021-03-22] MEDS: ROCURONIUM BROMIDE 50 MG/5 ML VIAL IV PUSH (11:59)
[2021-03-22 12:36] LABS: Glucose Point of Care 244 mg/dl (65-105)
--- NOTE | 2021-03-22 12:54 | WPDINTPN ---
Progress Note: A&P Assessment and Plan (1) Acute respiratory failure with hypoxia: Code(s): J96.01 - Acute respiratory failure with hypoxia Status: Acute Assessment and Plan: Acute respiratory failure secondary to COVID-19 pneumonia 03/12 Admitted 03/15 Intermittent Bipap 03/20 Bipap dependent 03/21 Intubated As above mentioned patient had become BiPAP dependent. Patient was intubated and placed on mechanical ventilation chest x-ray and ABG reviewed Versed and fentanyl infusion for sedation low tidal volume ventilation once stabilized will plan to place patient in prone position today Echo with EF 74%, normal diastolic function and no valvular disease. Venous doppler of all 4 extremities negative for DVT. CTA Chest negative for PE. Continue Nebs. (2) Pneumonia due to COVID-19 virus: Code(s): U07.1 - COVID-19; J12.82 - Pneumonia due to coronavirus disease 2019 Status: Acute Assessment and Plan: She was unvaccinated. Remdesivir was discontinued after 7 days Dexamethasone started 03/14. Tocilizumab given once 03/14. Rocephin and azithromycin were stopped after 5 days of treatment. continue to monitor inflammatory markers (3) Shock: Code(s): R57.9 - Shock, unspecified Status: Acute Assessment and Plan: patient became hypotensive post intubation likely secondary to sedation and hypovolemia conservative IV fluids continue Levophed titration (4) BROOKE (acute kidney injury): Code(s): N17.9 - Acute kidney failure, unspecified Status: Acute Assessment and Plan: Cr increase overnight to 2.5 patient appears to be intravascularly dry I did give her 1 L bolus yesterday started on Levophed will give additional IV fluids today as cautious add albumin (5) Type 2 diabetes mellitus with hyperglycemia: Code(s): E11.65 - Type 2 diabetes mellitus with hyperglycemia Status: Acute Assessment and Plan: A1c 12.8 to show poor control prior to admission. Hyperglycemia related to the steroids and baseline poor control prior to admission. Continue AccuCheks covering with sliding scale. Hypoglycemia protocol available as needed. Continue Lantus and sliding scale Increase Lantus dose (6) Hyperlipidemia: Code(s): E78.5 - Hyperlipidemia, unspecified Status: Acute Assessment and Plan: LFTs mostly normal with mild increase in AST at 56. Continue Pravastatin. Monitor LFTs while on Remdesivir. (7) Asthma: Code(s): J45.909 - Unspecified asthma, uncomplicated Status: Acute Assessment and Plan: No wheezing. Continue nebs and steroids As above. (8) DVT prophylaxis: Code(s): Z29.9 - Encounter for prophylactic measures, unspecified Status: Acute Assessment and Plan: Lovenox Additional Plan DVT prophylaxis - Lovenox Stress ulcer prophylaxis - add PPI Nutrition - Continue tube feeds Code Status - full code Total Critical Care Time - 355 minutes Due to a high probability of clinically significant, life threatening deterioration, the patient required my highest level of preparedness to intervene emergently and I personally spent this critical care time directly and personally managing the patient. This critical care time included obtaining a history; examining the patient; pulse oximetry; ordering and review of studies; arranging urgent treatment with development of a management plan; evaluation of patient's response to treatment; frequent reassessment; and discussions with other providers. It was exclusive of separately billable procedures and treating other patients and teaching time. Please see Assessment and Plan section and the rest of the note for further information on patient assessment and treatment Subjective Date/time seen: 03/22/21 12:54 Overnight events reviewed. Afebrile Continues to be on mechanical ventilation Continues to be
[2021-03-22] MEDS: PROPOFOL IV EMULSION 100 ML 14.6 MG IV CONT ×2 (17:03→23:51)
[2021-03-22] MEDS: ALBUMIN HUMAN 25% 25 GM/100 ML 100 ML IVPB ×2 (17:05→23:51)
[2021-03-22 17:13] LABS: Glucose Point of Care 346 mg/dl (65-105)
[2021-03-22 19:41] LABS: CRP 1.2 mg/dL (<1.0); Lactate Dehydrogenase 786 U/L (313-618)
[2021-03-22] MEDS: INSULIN GLARGINE (*BKC) 100 UNITS/ML 60 UNITS SUB-Q (20:25)
[2021-03-22] MEDS: FENTANYL 2,500MCG/NS250ML(*CRX 2,500 MCG/250 ML BAG 20 MCG IV CONT (22:10)
[2021-03-23] VITALS (58 sets, daily range): BP systolic 102–151; BP diastolic 4–79; PULSE 7–91; RESP 22–25; TEMP 35.4–36.5; O2SAT 89–98
[2021-03-23] MEDS: MIDAZOLAM 100MG/NS 100ML(*CRX) 100 MG/100 ML BAG IV CONT (00:23)
[2021-03-23 01:07] LABS: Glucose Point of Care 362 mg/dl (65-105)
[2021-03-23 01:07] LABS: Glucose Point of Care 390 mg/dl (65-105)
[2021-03-23] MEDS: IPRATROPIUM BR 0.02% INH SOLN 0.5 MG/2.5 ML VIAL INHALATION ×4 (02:11→20:25)
[2021-03-23] MEDS: ALBUTEROL SULFATE NEB 2.5 MG/0.5 ML INH INHALATION ×4 (02:11→20:25)
[2021-03-23] MEDS: INSULIN ASPART (*BKC) 100 UNITS/ML SUB-Q ×6 (04:55→23:37)
[2021-03-23] MEDS: PROPOFOL IV EMULSION 100 ML 14.6 MG IV CONT ×4 (04:58→23:49)
[2021-03-23] MEDS: CENTRAL LINE FLUSH 10 ML IV PUSH ×4 (05:14→22:04)
[2021-03-23 05:20] LABS: Alveolar/Arterial O2 Gradient 301.7 mmHg; Base Excess ABG -2.3 mEq/l (+/-2.0); Carboxyhemoglobin 0.2 % THb (0-2.0); Fractional Inspired Oxygen 60 %; HCO3 ABG 24.2 mEq/l (22.0-26.0); Methemoglobin ABG 0.3 %THb (0-1.5); Oxygen Content ABG 13.7 %vol (16.0-22.0); PO2 ABG 72.2 mmHg (80.0-100.0); Reduced Hemoglobin 7.5 %THb (0-5.0); Total Hemoglobin 10.5 g/dL (12.0-18.0); pH ABG 7.311 (7.350-7.450)
[2021-03-23 05:22] LABS: Arterial Blood Gas Ventilator rate 22 /MIN; Device VENTILATOR; Modified Allen's Test Pass; Site Drawn LEFT RADIAL
[2021-03-23 05:23] LABS: Arterial Blood Gas PEEP 12 cmH2O; Arterial Blood Gas Tidal Volume 360 ml; Arterial Blood Gas Vent Mode CMV
[2021-03-23 05:54] LABS: Alanine Aminotransferase 15 U/L (4-35); Albumin Level 3.4 g/dL (3.5-5.1); Alkaline Phosphatase 66 U/L (38-126); Anion Gap 11 mmol/L (8-16); Aspartate Amino Transferase 19 U/L (14-36); Bilirubin,Total 0.4 mg/dL (0.2-1.3); Blood Urea Nitrogen 45 mg/dL (7-17); Calcium 9.2 mg/dL (8.4-10.2); Carbon Dioxide 24 mmol/L (22-30); Chloride 105 mmol/L (98-107); Estimated CRCL calculation 43 ml/min; Estimated Glomerular Filt Rate 54; Glucose 355 mg/dL (65-110); Magnesium 2.3 mg/dL (1.6-2.3); Potassium 4.8 mmol/L (3.4-5.0); Sodium 140 mmol/L (137-145)
[2021-03-23] MEDS: ALBUMIN HUMAN 25% 25 GM/100 ML 100 ML IVPB ×4 (05:54→23:37)
[2021-03-23 05:55] LABS: Hematocrit 29.9 % (37.0-47.0); Hemoglobin 9.1 g/dL (12.0-15.0); Mean Corpuscular HGB Conc 30.4 g/dl (32-36); Mean Corpuscular Hemoglobin 26.8 pg (26-34); Mean Corpuscular Volume 87.9 fl (80-100); Mean Platelet Volume 10.7 fl (7.4-10.4); Platelet Count Result 366 k/mm3 (150-375); Red Cell Distribution Width 13.9 % (11.5-14.5); White Blood Count 6.9 K/mm3 (4.5-10.0)
[2021-03-23 06:13] LABS: Glucose Point of Care 346 mg/dl (65-105)
[2021-03-23] MEDS: ENOXAPARIN 40 MG/0.4 ML SYRINGE SUB-Q ×2 (09:18→20:02)
[2021-03-23] MEDS: PANTOPRAZOLE SODIUM IV 40 MG VIAL IV PUSH (09:18)
[2021-03-23] MEDS: MINERAL OIL/WHITE PETROLATUM OINTMENT 1 APPLIC EACH EYE ×2 (09:19→20:02)
[2021-03-23] MEDS: PRAVASTATIN SODIUM 20 MG TABLET 40 MG PO (09:19)
[2021-03-23] MEDS: FENTANYL 2,500MCG/NS250ML(*CRX 2,500 MCG/250 ML BAG 20 MCG IV CONT ×2 (09:32→22:17)
[2021-03-23] MEDS: INSULIN GLARGINE (*BKC) 100 UNITS/ML 30 UNITS SUB-Q (09:49)
[2021-03-23 10:00] LABS: Glucose Point of Care 319 mg/dl (65-105)
--- NOTE | 2021-03-23 10:39 | WPDINTPN ---
Progress Note: A&P Assessment and Plan (1) Acute respiratory failure with hypoxia: Code(s): J96.01 - Acute respiratory failure with hypoxia Status: Acute Assessment and Plan: Acute respiratory failure secondary to COVID-19 pneumonia 03/12 Admitted 03/15 Intermittent Bipap 03/20 Bipap dependent 03/21 Intubated As above mentioned patient had become BiPAP dependent. Patient was intubated and placed on mechanical ventilation chest x-ray and ABG reviewed Currently on 12 of PEEP and 60% FiO2. Peep changed to 10 Propofol Versed and fentanyl infusion for sedation low tidal volume ventilation Daily 18 hours prone ventilation as tolerated Echo with EF 74%, normal diastolic function and no valvular disease. Venous doppler of all 4 extremities negative for DVT. CTA Chest negative for PE. Continue Nebs. (2) Pneumonia due to COVID-19 virus: Code(s): U07.1 - COVID-19; J12.82 - Pneumonia due to coronavirus disease 2018 Status: Acute Assessment and Plan: She was unvaccinated. Remdesivir was discontinued after 7 days Dexamethasone started 03/14. Tocilizumab given once 03/14. Rocephin and azithromycin were stopped after 5 days of treatment. continue to monitor inflammatory markers (3) Shock: Code(s): R57.9 - Shock, unspecified Status: Acute Assessment and Plan: patient became hypotensive post intubation likely secondary to sedation and hypovolemia IV fluid bolus followed by conservative IV fluids continue Levophed titration (4) BROOKE (acute kidney injury): Code(s): N17.9 - Acute kidney failure, unspecified Status: Acute Assessment and Plan: Likely secondary to hypovolemia and hypotension Patient was given IV fluid bolus and cautious IV fluid maintenance Levophed to maintain map Albumin 25% Creatinine improved to 1.2 today Monitor urine output and electrolytes (5) Type 2 diabetes mellitus with hyperglycemia: Code(s): E11.65 - Type 2 diabetes mellitus with hyperglycemia Status: Acute Assessment and Plan: A1c 12.8 to show poor control prior to admission. Hyperglycemia related to the steroids and baseline poor control prior to admission. Continue AccuCheks covering with sliding scale. Hypoglycemia protocol available as needed. Continue Lantus and sliding scale Increase Lantus dose further today (6) Hyperlipidemia: Code(s): E78.5 - Hyperlipidemia, unspecified Status: Acute Assessment and Plan: LFTs mostly normal with mild increase in AST at 56. Continue Pravastatin. Monitor LFTs while on Remdesivir. (7) Asthma: Code(s): J45.909 - Unspecified asthma, uncomplicated Status: Acute Assessment and Plan: No wheezing. Continue nebs and steroids As above. (8) DVT prophylaxis: Code(s): Z29.9 - Encounter for prophylactic measures, unspecified Status: Acute Assessment and Plan: Lovenox Additional Plan DVT prophylaxis - Lovenox Stress ulcer prophylaxis - add PPI Nutrition - Continue tube feeds Code Status - full code Total Critical Care Time - 30 minutes Due to a high probability of clinically significant, life threatening deterioration, the patient required my highest level of preparedness to intervene emergently and I personally spent this critical care time directly and personally managing the patient. This critical care time included obtaining a history; examining the patient; pulse oximetry; ordering and review of studies; arranging urgent treatment with development of a management plan; evaluation of patient's response to treatment; frequent reassessment; and discussions with other providers. It was exclusive of separately billable procedures and treating other patients and teaching time. Please see Assessment and Plan section and the rest of the note for further information on patient assessment and treatment Subjective Date/time seen:
--- NOTE | 2021-03-23 11:37 | PCDIET ---
Nutrition Follow-Up Complete: Nutrition Diagnosis: Inadequate oral intake related to decreased appetite as evidenced by intakes 50% or less at most meals x 1 week. Nutrition Goal: Patient to meet estimated nutritional needs. Goal met. Patient tolerating Glucerna 1.2 at 50mL/hr with 30mL water flush every 4 hours. Given 22 hour daily infusion, this provides 1320kcal (1705kcal with Propofol at current rate), 66g protein and 1065mL free water. Last recorded weight is 86.6 kg which is increased from last review. +I/O. Bowel Motility: BM x 1 today. Labs Reviewed: RBC (3.40), Hgb (9.1), Hct (29.9), Glu (355), BUN (45), Cr (1.2), Alb (3.4) Meds Noted: Protonix, Albumin, Albuterol, Fentanyl, Atrovent, Versed, Zemuron, Novolog, Lantus, Levophed, Propofol (rate of 14.598mL/hr provides 385kcal per day) Additional Notes: No documented skin breakdown. Will continue to monitor with same goal. Nutrition Monitoring and Evaluation: Follow up every Monday/Monday.
[2021-03-23 15:00] LABS: Glucose Point of Care 292 mg/dl (65-105)
--- NOTE | 2021-03-23 16:00 | PM.IMPN ---
Progress Note: A&P Assessment and Plan (1) Shock: Code(s): R57.9 - Shock, unspecified Status: Acute Assessment and Plan: Patient developed HoTN around the time she was placed on MV. She may have been hypovolemic givent he poor oral intake prior to intubation and the BROOKE. Renal functiona nd BP improved with IV fluids. Able to come off of the Levophed last night. Monitor closely (2) Acute respiratory failure with hypoxia: Code(s): J96.01 - Acute respiratory failure with hypoxia Status: Acute Assessment and Plan: Patient presents with hypoxia with accelerating O2 requirement. CXR on admission showing significant bilateral airspace disease. Echo with EF 74%, normal diastolic function and no valvular disease. Venous doppler of all 4 extremities negative for DVT. CTA Chest negative for PE. She was alternating between BiPAP and high-flow oxygen but became BiPAP dependent requiring intubation on 03/21/21. Continue mechanical ventilation with current settings. Wean FiO2 and PEEP as tolerated. Low tidal volume strategies. Sedated with proprofol, fentanyl and Versed. Daily sedation vacation trial. Follow chest x-ray and ABG. Technical Artist following. Appreciate their inputs. (3) Pneumonia due to COVID-19 virus: Code(s): U07.1 - COVID-19; J12.82 - Pneumonia due to coronavirus disease 2019 Status: Acute Assessment and Plan: Patient exposed to her nephew who was ill. She was unvaccinated. She presented with SOB with CXR showing bilateral airspace disease.. Started on Rocephin and Zithromax. Lasix 40mg IV given once 03/13 and again 03/14. CXR 03/14 showing worsening pulmonary infiltrates. COVID swab returned positive and Remdesivir and Dexamethasone started 03/14. Tocilizumab given once 03/14. WBC dropped from virus, possibly from meds but WBC normal now. Abx were stopped after 5 days of treatment. Still with high O2 requirement and now intubated. Changed to dexamethasone 20 mg IV daily x 5 days with last dose today. Remdisivir was stopped after 7 days. Continue supportive care. Pulmonary service is following and appreciates their inputs. (4) BROOKE (acute kidney injury): Code(s): N17.9 - Acute kidney failure, unspecified Status: Acute Assessment and Plan: Cr slightly elevated at 1.1 on admission but improved despite Lasix. Cr increased to 1.4 so we held HCT was started on IV fluids. Cr normallized and IV fluids stopped. Today, Cr up to 2.5. Probably related to dehydration from poor oral intake prior to intubation. She did receive contrast on 03/18 and was briefly HoTN. IV fluids started and Cr better today at 1.2. Strict intake output record and daily weight. Continue to monitor renal parameters and electrolytes. IV fluids stopped. (5) Anemia: Code(s): D64.9 - Anemia, unspecified Status: Acute Assessment and Plan: Hgb has been normal in the 12-14 range since admission until today when Hgb now 9.1. Suspect lab draw error since no obvious blood loss and BP is stable. Repeat HH (6) Type 2 diabetes mellitus with hyperglycemia: Code(s): E11.65 - Type 2 diabetes mellitus with hyperglycemia Status: Acute Assessment and Plan: A1c 12.8 to show poor diabetic control prior to admission. The patient's blood glucose was reviewed on 03/23 Hyperglycemia persistent related to the steroids and baseline poor control prior to admission. Continue AccuCheks covering with sliding scale. Hypoglycemia protocol available as needed. Continue to advance Lantus as needed. Continue tube feedings. (7) Hypertension: Code(s): I10 - Essential (primary) hypertension Status: Acute Assessment and Plan: Patient's blood pressure was reviewed on 03/23. Amlodipine and Cozaar stopped due to HoTN. BP more stable now and able to come off of the Levophed. Continue to monitor hemodynamics closely. (8) Hyperlipidemia: Code(s): E78.5 - Hyp
[2021-03-23] MEDS: ROCURONIUM BROMIDE 50 MG/5 ML VIAL IV PUSH (16:37)
[2021-03-23 16:54] LABS: Hematocrit 29.6 % (37.0-47.0); Hemoglobin 8.8 g/dL (12.0-15.0)
[2021-03-23 17:10] LABS: Glucose Point of Care 264 mg/dl (65-105)
[2021-03-23 20:12] LABS: Glucose Point of Care 256 mg/dl (65-105)
[2021-03-23] MEDS: INSULIN GLARGINE (*BKC) 100 UNITS/ML 60 UNITS SUB-Q (20:24)
[2021-03-24] VITALS (49 sets, daily range): BP systolic 131–159; BP diastolic 65–80; PULSE 57–88; RESP 25–28; TEMP 34.9–37.7; O2SAT 90–99
[2021-03-24] MEDS: MIDAZOLAM 100MG/NS 100ML(*CRX) 100 MG/100 ML BAG IV CONT (01:26)
[2021-03-24] MEDS: ALBUTEROL SULFATE NEB 2.5 MG/0.5 ML INH INHALATION ×4 (02:44→21:05)
[2021-03-24] MEDS: IPRATROPIUM BR 0.02% INH SOLN 0.5 MG/2.5 ML VIAL INHALATION ×4 (02:44→21:05)
[2021-03-24] MEDS: INSULIN ASPART (*BKC) 100 UNITS/ML SUB-Q ×5 (03:28→22:34)
[2021-03-24 04:17] LABS: Hematocrit 30.1 % (37.0-47.0); Hemoglobin 8.9 g/dL (12.0-15.0); Mean Corpuscular HGB Conc 29.6 g/dl (32-36); Mean Corpuscular Hemoglobin 26.4 pg (26-34); Mean Corpuscular Volume 89.3 fl (80-100); Mean Platelet Volume 10.2 fl (7.4-10.4); Platelet Count Result 330 k/mm3 (150-375); Red Blood Count 3.37 M/mm3 (4.2-5.4); Red Cell Distribution Width 14.2 % (11.5-14.5); White Blood Count 7.7 K/mm3 (4.5-10.0)
[2021-03-24 04:59] LABS: Alanine Aminotransferase 12 U/L (4-35); Albumin Level 4.4 g/dL (3.5-5.1); Alkaline Phosphatase 64 U/L (38-126); Anion Gap 12 mmol/L (8-16); Aspartate Amino Transferase 24 U/L (14-36); Bilirubin,Total 0.3 mg/dL (0.2-1.3); Blood Urea Nitrogen 49 mg/dL (7-17); CRP 0.8 mg/dL (<1.0); Calcium 9.7 mg/dL (8.4-10.2); Carbon Dioxide 24 mmol/L (22-30); Chloride 104 mmol/L (98-107); Estimated CRCL calculation 44 ml/min; Estimated Glomerular Filt Rate 54; Glucose 245 mg/dL (65-110); Lactate Dehydrogenase 562 U/L (313-618); Magnesium 2.7 mg/dL (1.6-2.3); Potassium 4.7 mmol/L (3.4-5.0); Sodium 140 mmol/L (137-145)
[2021-03-24 05:09] LABS: Alveolar/Arterial O2 Gradient 314.1 mmHg; Base Excess ABG -1.9 mEq/l (+/-2.0); Carboxyhemoglobin 0.3 % THb (0-2.0); Fractional Inspired Oxygen 60 %; HCO3 ABG 24.8 mEq/l (22.0-26.0); Methemoglobin ABG 0.3 %THb (0-1.5); Oxygen Content ABG 14.6 %vol (16.0-22.0); Oxygen Saturation ABG 87.2 % (95.0-100.0); Oxyhemoglobin 87.2 % THb (90.0-100.0); PCO2 ABG 50.8 mmHg (35.0-45.0); PO2 ABG 57.8 mmHg (80.0-100.0); PO2 FiO2 Ratio Arterial Blood 0.96 %; Reduced Hemoglobin 12.2 %THb (0-5.0); Total Hemoglobin 11.9 g/dL (12.0-18.0); pH ABG 7.307 (7.350-7.450)
[2021-03-24 05:38] LABS: Device VENTILATOR; Modified Allen's Test Pass; Site Drawn LEFT RADIAL
[2021-03-24 05:39] LABS: Arterial Blood Gas PEEP 10 cmH2O; Arterial Blood Gas Tidal Volume 360 ml; Arterial Blood Gas Vent Mode CMV; Arterial Blood Gas Ventilator rate 25 /MIN
[2021-03-24] MEDS: CENTRAL LINE FLUSH 10 ML IV PUSH ×4 (06:08→20:33)
[2021-03-24] MEDS: ALBUMIN HUMAN 25% 25 GM/100 ML 100 ML IVPB (06:08)
[2021-03-24] MEDS: PROPOFOL IV EMULSION 100 ML 14.6 MG IV CONT ×3 (06:10→18:31)
[2021-03-24 06:22] LABS: Glucose Point of Care 267 mg/dl (65-105)
[2021-03-24 06:22] LABS: Glucose Point of Care 223 mg/dl (65-105)
[2021-03-24] MEDS: ENOXAPARIN 40 MG/0.4 ML SYRINGE SUB-Q ×2 (08:09→20:33)
[2021-03-24] MEDS: MINERAL OIL/WHITE PETROLATUM OINTMENT 1 APPLIC EACH EYE ×2 (08:10→20:33)
[2021-03-24] MEDS: PRAVASTATIN SODIUM 20 MG TABLET 40 MG PO (08:10)
[2021-03-24] MEDS: PANTOPRAZOLE SODIUM IV 40 MG VIAL IV PUSH (08:10)
[2021-03-24] MEDS: INSULIN GLARGINE (*BKC) 100 UNITS/ML 45 UNITS SUB-Q (08:14)
[2021-03-24 09:11] LABS: Glucose Point of Care 218 mg/dl (65-105)
[2021-03-24] MEDS: ROCURONIUM BROMIDE 50 MG/5 ML VIAL IV PUSH ×2 (10:02→16:38)
--- NOTE | 2021-03-24 11:31 | PCDIET ---
ICU Rounding Note: Patient tolerating Glucerna 1.2 at 50mL/hr goal rate with 30mL water flush every 4 hours. Last recorded weight is 88.5kg which is increased from last review. +I/O. Bowel Motility: Last documented BM on 03/23/21 x 1. Labs Reviewed: RBC (3.37), Hgb (8.9), Hct (30.1), Glu (245), BUN (49), Cr (1.20), Mg (2.7) Meds Noted: Albuterol, Decadron, Fentanyl, Protonix, Pravastatin, Novolog, Lantus, Atrovent, Versed, Propofol (rate of 14.6mL/hr providing 385kcal per day) Additional Notes: No documented skin breakdown. Tube feeding with Propofol at current rate providing 1705kcal per day (19kcal/kg). Following daily in ICU rounds. Assessing/reassessing every Monday/Monday.
--- NOTE | 2021-03-24 11:57 | WPDINTPN ---
Progress Note: A&P Assessment and Plan (1) Acute respiratory failure with hypoxia: Code(s): J96.01 - Acute respiratory failure with hypoxia Status: Acute Assessment and Plan: Acute respiratory failure secondary to COVID-19 pneumonia 03/12 Admitted 03/15 Intermittent Bipap 03/20 Bipap dependent 03/21 Intubated As above mentioned patient had become BiPAP dependent. Patient was intubated and placed on mechanical ventilation - chest x-ray worse this morning -ABG showed hypoxia and hypercapnia. Increased respiratory rate and FiO2. Peep of 10 Propofol Versed and fentanyl infusion for sedation low tidal volume ventilation Daily 18 hours prone ventilation as tolerated Echo with EF 74%, normal diastolic function and no valvular disease. Venous doppler of all 4 extremities negative for DVT. CTA Chest negative for PE. Continue Nebs. (2) Pneumonia due to COVID-19 virus: Code(s): U07.1 - COVID-19; J12.82 - Pneumonia due to coronavirus disease 2018 Status: Acute Assessment and Plan: She was unvaccinated. Remdesivir was discontinued after 7 days Dexamethasone 20 mg IV q.day for 5 days then dexamethasone 10 mg IV q.day for additional 5 days. Tocilizumab given once 03/14. Rocephin and azithromycin were stopped after 5 days of treatment. Inflammatory markers trending down, will continue to monitor inflammatory markers (3) Shock: Code(s): R57.9 - Shock, unspecified Status: Acute Assessment and Plan: patient became hypotensive post intubation likely secondary to sedation and hypovolemia IV fluid bolus followed by conservative IV fluids Off Levophed since 03/22/2021 (4) BROOKE (acute kidney injury): Code(s): N17.9 - Acute kidney failure, unspecified Status: Acute Assessment and Plan: Likely secondary to hypovolemia and hypotension Patient was given IV fluid bolus and cautious IV fluid maintenance Levophed to maintain map Will discontinue albumin Creatinine improved to 1.2 today Monitor urine output and electrolytes (5) Type 2 diabetes mellitus with hyperglycemia: Code(s): E11.65 - Type 2 diabetes mellitus with hyperglycemia Status: Acute Assessment and Plan: HbA1c 12.8 to show poor control prior to admission. Hyperglycemia related to the steroids and baseline poor control prior to admission. Continue AccuCheks covering with sliding scale. Hypoglycemia protocol available as needed. Continue Lantus and sliding scale Increase Lantus dose further today (6) Hyperlipidemia: Code(s): E78.5 - Hyperlipidemia, unspecified Status: Acute Assessment and Plan: LFTs mostly normal with mild increase in AST at 56. Continue Pravastatin. Monitor LFTs while on Remdesivir. (7) Asthma: Code(s): J45.909 - Unspecified asthma, uncomplicated Status: Acute Assessment and Plan: No wheezing. Continue nebs and steroids As above. (8) DVT prophylaxis: Code(s): Z29.9 - Encounter for prophylactic measures, unspecified Status: Acute Assessment and Plan: Lovenox Additional Plan DVT prophylaxis - Lovenox Stress ulcer prophylaxis - PPI Nutrition - Continue tube feeds Code Status - full code Total Critical Care Time - 35 minutes Due to a high probability of clinically significant, life threatening deterioration, the patient required my highest level of preparedness to intervene emergently and I personally spent this critical care time directly and personally managing the patient. This critical care time included obtaining a history; examining the patient; pulse oximetry; ordering and review of studies; arranging urgent treatment with development of a management plan; evaluation of patient's response to treatment; frequent reassessment; and discussions with other providers. It was exclusive of separately billable procedures and treating other patients and teaching time. Please
[2021-03-24] MEDS: FENTANYL 2,500MCG/NS250ML(*CRX 2,500 MCG/250 ML BAG 20 MCG IV CONT (12:10)
[2021-03-24 12:21] LABS: Glucose Point of Care 215 mg/dl (65-105)
[2021-03-24 12:37] LABS: Alveolar/Arterial O2 Gradient 387.9 mmHg; Base Excess ABG 0.1 mEq/l (+/-2.0); Fractional Inspired Oxygen 70 %; HCO3 ABG 24.9 mEq/l (22.0-26.0); Oxygen Content ABG 13.1 %vol (16.0-22.0); Oxygen Saturation ABG 93.4 % (95.0-100.0); Oxyhemoglobin 92.4 % THb (90.0-100.0); PCO2 ABG 41.1 mmHg (35.0-45.0); PO2 FiO2 Ratio Arterial Blood 0.96 %; pH ABG 7.401 (7.350-7.450)
[2021-03-24 12:38] LABS: Arterial Blood Gas PEEP 10 cmH2O; Arterial Blood Gas Tidal Volume 360 ml; Arterial Blood Gas Vent Mode CMV; Arterial Blood Gas Ventilator rate 28 /MIN; Device VENTILATOR; Modified Allen's Test Pass; Site Drawn LEFT RADIAL
--- NOTE | 2021-03-24 15:34 | PM.IMPN ---
Progress Note: A&P Assessment and Plan (1) Shock: Code(s): R57.9 - Shock, unspecified Status: Acute Assessment and Plan: Patient developed HoTN around the time she was placed on MV. She may have been hypovolemic givent he poor oral intake prior to intubation and the BROOKE. Renal functiona nd BP improved with IV fluids. Able to come off of the Levophed 03/22. Monitor closely (2) Acute respiratory failure with hypoxia: Code(s): J96.01 - Acute respiratory failure with hypoxia Status: Acute Assessment and Plan: Patient presents with hypoxia with accelerating O2 requirement. CXR on admission showing significant bilateral airspace disease. Echo with EF 74%, normal diastolic function and no valvular disease. Venous doppler of all 4 extremities negative for DVT. CTA Chest negative for PE. She was alternating between BiPAP and high-flow oxygen but became BiPAP dependent requiring intubation on 03/21/21. Continue mechanical ventilation with current settings. Wean FiO2 and PEEP as tolerated. Low tidal volume strategies. Sedated with proprofol, fentanyl and Versed. Daily sedation vacation trial. Follow chest x-ray and ABG. Janitorial Cleaner following. Appreciate their inputs. (3) Pneumonia due to COVID-19 virus: Code(s): U07.1 - COVID-19; J12.82 - Pneumonia due to coronavirus disease 2019 Status: Acute Assessment and Plan: Patient exposed to her nephew who was ill. She was unvaccinated. She presented with SOB with CXR showing bilateral airspace disease.. Started on Rocephin and Zithromax. Lasix 40mg IV given once 03/13 and again 03/14. CXR 03/14 showing worsening pulmonary infiltrates. COVID swab returned positive and Remdesivir and Dexamethasone started 03/14. Tocilizumab given once 03/14. WBC dropped from virus, possibly from meds but WBC normal now. Abx were stopped after 5 days of treatment. She had high O2 requirement and now intubated. Changed to dexamethasone 20 mg IV daily x 5 days then 10mg IV daily x 5 days. Remdisivir was stopped after 7 days. Continue supportive care. Pulmonary service is following and appreciates their inputs. (4) BROOKE (acute kidney injury): Code(s): N17.9 - Acute kidney failure, unspecified Status: Acute Assessment and Plan: Cr slightly elevated at 1.1 on admission but improved despite Lasix. Cr increased to 1.4 so we held HCTZ and was started on IV fluids. Cr normalized and IV fluids stopped. Cr up to 2.5 on 03/22 probably related to dehydration from poor oral intake prior to intubation. She did receive contrast on 03/18 and was briefly HoTN. IV fluids started and Cr better at 1.2. CXR worse and IV fluids stopped. Strict intake output record and daily weight. Continue to monitor renal parameters and electrolytes. (5) Anemia: Code(s): D64.9 - Anemia, unspecified Status: Acute Assessment and Plan: Hgb has been normal in the 12-14 range since admission until yesterday when Hgb dropped 9.1. Repeat HH now 8.9. No evidence of acute blood loss. Remains on lovenox. Follow closely. (6) Type 2 diabetes mellitus with hyperglycemia: Code(s): E11.65 - Type 2 diabetes mellitus with hyperglycemia Status: Acute Assessment and Plan: A1c 12.8 to show poor diabetic control prior to admission. The patient's blood glucose was reviewed on 03/24 Hyperglycemia persistent related to the steroids and baseline poor control prior to admission. Continue AccuCheks covering with sliding scale. Hypoglycemia protocol available as needed. Continue to advance Lantus as needed. Continue tube feedings. (7) Hypertension: Code(s): I10 - Essential (primary) hypertension Status: Acute Assessment and Plan: Patient's blood pressure was reviewed on 03/24. Amlodipine and Cozaar stopped due to HoTN. BP remaining stable. She was able to come off of the Levophed 03/22. Continue to monitor hemodynamics closely. (8) Hyperl
[2021-03-24 17:08] LABS: Glucose Point of Care 264 mg/dl (65-105)
[2021-03-24] MEDS: INSULIN GLARGINE (*BKC) 100 UNITS/ML 60 UNITS SUB-Q (20:33)
[2021-03-24 22:45] LABS: Glucose Point of Care 241 mg/dl (65-105)
[2021-03-25] VITALS (34 sets, daily range): BP systolic 107–182; BP diastolic 49–98; PULSE 55–92; RESP 28–258; TEMP 35.4–36.9; O2SAT 94–99
[2021-03-25] MEDS: INSULIN ASPART (*BKC) 100 UNITS/ML SUB-Q ×3 (01:03→17:01)
[2021-03-25] MEDS: PROPOFOL IV EMULSION 100 ML 14.6 MG IV CONT ×4 (01:04→18:00)
[2021-03-25] MEDS: FENTANYL 2,500MCG/NS250ML(*CRX 2,500 MCG/250 ML BAG 20 MCG IV CONT ×2 (01:05→13:32)
[2021-03-25] MEDS: MIDAZOLAM 100MG/NS 100ML(*CRX) 100 MG/100 ML BAG IV CONT (01:06)
[2021-03-25 01:12] LABS: Glucose Point of Care 250 mg/dl (65-105)
[2021-03-25] MEDS: IPRATROPIUM BR 0.02% INH SOLN 0.5 MG/2.5 ML VIAL INHALATION ×4 (03:04→19:52)
[2021-03-25] MEDS: ALBUTEROL SULFATE NEB 2.5 MG/0.5 ML INH INHALATION ×4 (03:04→19:52)
[2021-03-25] MEDS: CENTRAL LINE FLUSH 10 ML IV PUSH ×4 (05:34→21:17)
[2021-03-25 05:59] LABS: Alveolar/Arterial O2 Gradient 330.9 mmHg; Base Excess ABG 1.6 mEq/l (+/-2.0); Carboxyhemoglobin 0.3 % THb (0-2.0); Device VENTILATOR; Fractional Inspired Oxygen 65 %; HCO3 ABG 26.9 mEq/l (22.0-26.0); Methemoglobin ABG 0.2 %THb (0-1.5); Modified Allen's Test Pass; Oxygen Content ABG 13.9 %vol (16.0-22.0); Oxyhemoglobin 94.6 % THb (90.0-100.0); PCO2 ABG 45.5 mmHg (35.0-45.0); PO2 ABG 83.1 mmHg (80.0-100.0); PO2 FiO2 Ratio Arterial Blood 1.28 %; Reduced Hemoglobin 4.9 %THb (0-5.0); Site Drawn RIGHT RADIAL; Total Hemoglobin 10.4 g/dL (12.0-18.0); pH ABG 7.389 (7.350-7.450)
[2021-03-25 06:00] LABS: Arterial Blood Gas PEEP 10 cmH2O; Arterial Blood Gas Tidal Volume 360 ml; Arterial Blood Gas Vent Mode CMV; Arterial Blood Gas Ventilator rate 28 /MIN
[2021-03-25 06:18] LABS: Hematocrit 31.4 % (37.0-47.0); Hemoglobin 9.1 g/dL (12.0-15.0); Mean Corpuscular Hemoglobin 26.1 pg (26-34); Mean Platelet Volume 11.5 fl (7.4-10.4); Platelet Count Result 348 k/mm3 (150-375); Red Blood Count 3.49 M/mm3 (4.2-5.4); Red Cell Distribution Width 14.6 % (11.5-14.5); White Blood Count 9.7 K/mm3 (4.5-10.0)
[2021-03-25 06:22] LABS: Glucose Point of Care 215 mg/dl (65-105)
[2021-03-25 06:45] LABS: Alanine Aminotransferase 11 U/L (4-35); Albumin Level 3.9 g/dL (3.5-5.1); Alkaline Phosphatase 72 U/L (38-126); Anion Gap 9 mmol/L (8-16); Aspartate Amino Transferase 26 U/L (14-36); Bilirubin,Total 0.3 mg/dL (0.2-1.3); Blood Urea Nitrogen 60 mg/dL (7-17); Calcium 9.7 mg/dL (8.4-10.2); Carbon Dioxide 26 mmol/L (22-30); Chloride 106 mmol/L (98-107); Estimated CRCL calculation 47 ml/min; Estimated Glomerular Filt Rate 60; Glucose 206 mg/dL (65-110); Magnesium 2.9 mg/dL (1.6-2.3); Potassium 4.7 mmol/L (3.4-5.0); Sodium 141 mmol/L (137-145)
[2021-03-25] MEDS: FUROSEMIDE INJ 40 MG/4 ML VIAL 20 MG IV PUSH (08:38)
[2021-03-25] MEDS: INSULIN GLARGINE (*BKC) 100 UNITS/ML 45 UNITS SUB-Q (08:42)
[2021-03-25] MEDS: ENOXAPARIN 40 MG/0.4 ML SYRINGE SUB-Q ×2 (08:42→21:16)
[2021-03-25] MEDS: PRAVASTATIN SODIUM 20 MG TABLET 40 MG PO (08:44)
[2021-03-25 09:09] LABS: Glucose Point of Care 172 mg/dl (65-105)
--- NOTE | 2021-03-25 09:18 | PM.IMPN ---
Progress Note: A&P Assessment and Plan (1) Shock: Code(s): R57.9 - Shock, unspecified Status: Acute Assessment and Plan: Patient developed HoTN around the time she was placed on MV. She may have been hypovolemic givent he poor oral intake prior to intubation and the BROOKE. Renal function and BP improved with IV fluids. Able to come off of the Levophed 03/22. Monitor closely (2) Acute respiratory failure with hypoxia: Code(s): J96.01 - Acute respiratory failure with hypoxia Status: Acute Assessment and Plan: Patient presents with hypoxia with accelerating O2 requirement. CXR on admission showing significant bilateral airspace disease. Echo with EF 74%, normal diastolic function and no valvular disease. Venous doppler of all 4 extremities negative for DVT. CTA Chest negative for PE. She was alternating between BiPAP and high-flow oxygen but became BiPAP dependent requiring intubation on 03/21/21. Continue mechanical ventilation support. Wean FiO2 and PEEP as tolerated. Low tidal volume strategies. Sedated with proprofol, fentanyl and Versed. Daily sedation vacation trial. Follow chest x-ray and ABG. Minesweeping Officer following. Appreciate their inputs. (3) Pneumonia due to COVID-19 virus: Code(s): U07.1 - COVID-19; J12.82 - Pneumonia due to coronavirus disease 2019 Status: Acute Assessment and Plan: Patient exposed to her nephew who was ill. She was unvaccinated. She presented with SOB with CXR showing bilateral airspace disease.. Started on Rocephin and Zithromax. Lasix 40mg IV given once 03/13 and again 03/14. CXR 03/14 showing worsening pulmonary infiltrates. COVID swab returned positive and Remdesivir and Dexamethasone started 03/14. Tocilizumab given once 03/14. WBC dropped from virus, possibly from meds but WBC normal now. Abx were stopped after 5 days of treatment. She had high O2 requirement and now intubated. Changed to dexamethasone 20 mg IV daily x 5 days then 10mg IV daily x 5 days. Remdisivir was stopped after 7 days. Continue supportive care. Pulmonary service is following and appreciates their inputs. (4) BROOKE (acute kidney injury): Code(s): N17.9 - Acute kidney failure, unspecified Status: Acute Assessment and Plan: Cr slightly elevated at 1.1 on admission but improved despite Lasix. Cr increased to 1.4 so we held HCTZ and was started on IV fluids. Cr normalized and IV fluids stopped. Cr up to 2.5 on 03/22 probably related to dehydration from poor oral intake prior to intubation. She did receive contrast on 03/18 and was briefly HoTN. IV fluids started and Cr better at 1.2. CXR worse and IV fluids stopped. Cr remaining stable. Strict intake output record and daily weight. Continue to monitor renal parameters and electrolytes. (5) Anemia: Code(s): D64.9 - Anemia, unspecified Status: Acute Assessment and Plan: Hgb has been normal in the 12-14 range since admission until 03/23 when Hgb dropped 9.1. Repeat HH stable in the 8-9 range. No evidence of acute blood loss. Remains on lovenox. Continue Protonix. Follow closely. (6) Type 2 diabetes mellitus with hyperglycemia: Code(s): E11.65 - Type 2 diabetes mellitus with hyperglycemia Status: Acute Assessment and Plan: A1c 12.8 to show poor diabetic control prior to admission. The patient's blood glucose was reviewed on 03/25 Hyperglycemia persistent related to the steroids and baseline poor control prior to admission. Continue AccuCheks covering with sliding scale. Hypoglycemia protocol available as needed. Continue to advance Lantus as needed. Continue tube feedings. (7) Hypertension: Code(s): I10 - Essential (primary) hypertension Status: Acute Assessment and Plan: Patient's blood pressure was reviewed on 03/25. Amlodipine and Cozaar stopped due to HoTN. BP remaining stable. She was able to come off of the Levophed 03/22. Continue to monitor h
--- NOTE | 2021-03-25 12:07 | PCDIET ---
Nutrition Follow-Up Complete: Nutrition Diagnosis: Inadequate oral intake related to decreased appetite as evidenced by intakes 50% or less at most meals x 1 week. Nutrition Goal: Patient to meet estimated nutritional needs. Goal met. Patient tolerating Glucerna 1.2 at 50mL/hr goal rate with 30mL water flush every 4 hours. Last recorded weight is 83.7 kg which is down from last review. Bowel Motility: Last documented BM on 03/23/21 x 1. Labs Reviewed: RBC (3.49), Hgb (9.1), Hct (31.4), Glu (206), BUN (60), Cr (1.1) Meds Noted: Albuterol, Decadron, Atrovent, Fentanyl, Novolog, Lantus, Versed, Protonix, Pravastatin Sodium, Zemuron, Lasix, Propofol (rate of 14.6mL/hr provides 385kcal per day) Additional Notes: No documented skin breakdown. Will continue to monitor with same goal Nutrition Monitoring and Evaluation: Follow up every Monday/Monday.
[2021-03-25 12:08] LABS: Glucose Point of Care 188 mg/dl (65-105)
--- NOTE | 2021-03-25 12:58 | WPDINTPN ---
Progress Note: A&P Assessment and Plan (1) Acute respiratory failure with hypoxia: Code(s): J96.01 - Acute respiratory failure with hypoxia Status: Acute Assessment and Plan: Acute respiratory failure secondary to COVID-19 pneumonia 03/12 Admitted 03/15 Intermittent Bipap 03/20 Bipap dependent 03/21 Intubated As above mentioned patient had become BiPAP dependent. Patient was intubated and placed on mechanical ventilation -chest x-ray with slight improvement this morning, decreased bilateral diffuse airspace opacities -ABGs much improved, mean oxygen to maintain O2 sats greater than 92% -Propofol Versed and fentanyl infusion for sedation - low tidal volume ventilation Daily 16- 18 hours prone ventilation as tolerated Echo with EF 74%, normal diastolic function and no valvular disease. Venous doppler of all 4 extremities negative for DVT. CTA Chest negative for PE. Continue Nebs. -will diurese patient (2) Pneumonia due to COVID-19 virus: Code(s): U07.1 - COVID-19; J12.82 - Pneumonia due to coronavirus disease 2018 Status: Acute Assessment and Plan: She was unvaccinated. Remdesivir was discontinued after 7 days Dexamethasone 20 mg IV q.day for 5 days then dexamethasone 10 mg IV q.day for additional 5 days. Tocilizumab given once 03/14. Rocephin and azithromycin were stopped after 5 days of treatment. Inflammatory markers trending down, will continue to monitor inflammatory markers (3) Shock: Code(s): R57.9 - Shock, unspecified Status: Acute Assessment and Plan: patient became hypotensive post intubation likely secondary to sedation and hypovolemia IV fluid bolus followed by conservative IV fluids Off Levophed since 03/22/2021 (4) BROOKE (acute kidney injury): Code(s): N17.9 - Acute kidney failure, unspecified Status: Acute Assessment and Plan: Likely secondary to hypovolemia and hypotension Patient was given IV fluid bolus and cautious IV fluid maintenance Levophed to maintain map Will discontinue albumin Creatinine improved to 1.10 today Monitor urine output and electrolytes (5) Type 2 diabetes mellitus with hyperglycemia: Code(s): E11.65 - Type 2 diabetes mellitus with hyperglycemia Status: Acute Assessment and Plan: HbA1c 12.8 to show poor control prior to admission. Hyperglycemia related to the steroids and baseline poor control prior to admission. Continue AccuCheks covering with sliding scale. Hypoglycemia protocol available as needed. Continue Lantus and sliding scale Increase Lantus dose further today (6) Hyperlipidemia: Code(s): E78.5 - Hyperlipidemia, unspecified Status: Acute Assessment and Plan: LFTs mostly normal with mild increase in AST at 56. Continue Pravastatin. Monitor LFTs while on Remdesivir. (7) Asthma: Code(s): J45.909 - Unspecified asthma, uncomplicated Status: Acute Assessment and Plan: No wheezing. Continue nebs and steroids As above. (8) DVT prophylaxis: Code(s): Z29.9 - Encounter for prophylactic measures, unspecified Status: Acute Assessment and Plan: Lovenox Additional Plan DVT prophylaxis - Lovenox Stress ulcer prophylaxis - PPI Nutrition - Continue tube feeds Code Status - full code Total Critical Care Time - 33 minutes Due to a high probability of clinically significant, life threatening deterioration, the patient required my highest level of preparedness to intervene emergently and I personally spent this critical care time directly and personally managing the patient. This critical care time included obtaining a history; examining the patient; pulse oximetry; ordering and review of studies; arranging urgent treatment with development of a management plan; evaluation of patient's response to treatment; frequent reassessment; and discussions with other providers. It was exclusive of separ
[2021-03-25] MEDS: MINERAL OIL/WHITE PETROLATUM OINTMENT 1 APPLIC EACH EYE ×2 (14:00→21:17)
[2021-03-25] MEDS: PANTOPRAZOLE SODIUM IV 40 MG VIAL IV PUSH (16:58)
[2021-03-25 17:31] LABS: Glucose Point of Care 222 mg/dl (65-105)
[2021-03-25] MEDS: hydrALAZINE HCL 20 MG/ML VIAL 10 MG IV PUSH (18:05)
[2021-03-25] MEDS: INSULIN GLARGINE (*BKC) 100 UNITS/ML 60 UNITS SUB-Q (21:15)
[2021-03-25 22:18] LABS: Glucose Point of Care 175 mg/dl (65-105)
[2021-03-25] MEDS: METOCLOPRAMIDE HCL INJ 10 MG/2 ML VIAL IV PUSH (23:57)
[2021-03-26] VITALS (42 sets, daily range): BP systolic 91–112; BP diastolic 49–71; PULSE 56–86; RESP 28; TEMP 35.7–38.2; O2SAT 92–98
[2021-03-26] MEDS: MIDAZOLAM 100MG/NS 100ML(*CRX) 100 MG/100 ML BAG IV CONT (00:02)
[2021-03-26] MEDS: PROPOFOL IV EMULSION 100 ML 17.03 MG IV CONT (00:03)
[2021-03-26] MEDS: FENTANYL 2,500MCG/NS250ML(*CRX 2,500 MCG/250 ML BAG 20 MCG IV CONT ×2 (00:05→13:21)
[2021-03-26 04:42] LABS: Base Excess ABG 2.3 mEq/l (+/-2.0); HCO3 ABG 27.2 mEq/l (22.0-26.0); Oxygen Saturation ABG 92.3 % (95.0-100.0); PCO2 ABG 43.2 mmHg (35.0-45.0); PO2 ABG 62.8 mmHg (80.0-100.0); Total Hemoglobin 12.3 g/dL (12.0-18.0); pH ABG 7.417 (7.350-7.450)
[2021-03-26 04:44] LABS: Alveolar/Arterial O2 Gradient 1.1 mmHg; Carboxyhemoglobin 0.2 % THb (0-2.0); Methemoglobin ABG 0.3 %THb (0-1.5); Oxygen Content ABG 15.8 %vol (16.0-22.0); Oxyhemoglobin 12.3 % THb (90.0-100.0); Reduced Hemoglobin 8.5 %THb (0-5.0)
[2021-03-26 04:45] LABS: Device VENTILATOR; Fractional Inspired Oxygen 60 %; Modified Allen's Test Pass; Site Drawn LEFT RADIAL
[2021-03-26 04:46] LABS: Arterial Blood Gas Vent Mode CMV; Arterial Blood Gas Ventilator rate 28 /MIN
[2021-03-26 04:47] LABS: Arterial Blood Gas PEEP 10 cmH2O; Arterial Blood Gas Tidal Volume 360 ml
[2021-03-26 04:56] LABS: Glucose Point of Care 136 mg/dl (65-105)
[2021-03-26 05:02] LABS: Hematocrit 32.3 % (37.0-47.0); Hemoglobin 9.6 g/dL (12.0-15.0); Mean Corpuscular HGB Conc 29.7 g/dl (32-36); Mean Corpuscular Hemoglobin 26.8 pg (26-34); Mean Corpuscular Volume 90.2 fl (80-100); Mean Platelet Volume 10.5 fl (7.4-10.4); Platelet Count Result 329 k/mm3 (150-375); Red Blood Count 3.58 M/mm3 (4.2-5.4); White Blood Count 9.5 K/mm3 (4.5-10.0)
[2021-03-26 05:18] LABS: Alanine Aminotransferase 13 U/L (4-35); Albumin Level 3.6 g/dL (3.5-5.1); Alkaline Phosphatase 71 U/L (38-126); Anion Gap 5 mmol/L (8-16); Aspartate Amino Transferase 29 U/L (14-36); Bilirubin,Total 0.5 mg/dL (0.2-1.3); Blood Urea Nitrogen 68 mg/dL (7-17); CRP < 0.5 mg/dL (<1.0); Calcium 9.9 mg/dL (8.4-10.2); Carbon Dioxide 28 mmol/L (22-30); Chloride 111 mmol/L (98-107); Estimated CRCL calculation 40 ml/min; Estimated Glomerular Filt Rate 50; Glucose 107 mg/dL (65-110); Lactate Dehydrogenase 638 U/L (313-618); Magnesium 2.7 mg/dL (1.6-2.3); Potassium 4.4 mmol/L (3.4-5.0); Sodium 144 mmol/L (137-145)
[2021-03-26] MEDS: CENTRAL LINE FLUSH 10 ML IV PUSH ×4 (05:42→20:16)
[2021-03-26] MEDS: METOCLOPRAMIDE HCL INJ 10 MG/2 ML VIAL IV PUSH ×3 (05:42→17:07)
[2021-03-26] MEDS: PROPOFOL IV EMULSION 100 ML 14.6 MG IV CONT (05:54)
[2021-03-26] MEDS: ENOXAPARIN 40 MG/0.4 ML SYRINGE SUB-Q ×2 (08:12→20:16)
[2021-03-26] MEDS: PRAVASTATIN SODIUM 20 MG TABLET 40 MG PO (08:12)
[2021-03-26] MEDS: MINERAL OIL/WHITE PETROLATUM OINTMENT 1 APPLIC EACH EYE ×2 (08:12→20:16)
[2021-03-26] MEDS: PANTOPRAZOLE SODIUM IV 40 MG VIAL IV PUSH (08:12)
[2021-03-26 08:26] LABS: Glucose Point of Care 86 mg/dl (65-105)
[2021-03-26] MEDS: IPRATROPIUM BR 0.02% INH SOLN 0.5 MG/2.5 ML VIAL INHALATION ×3 (09:59→21:10)
[2021-03-26] MEDS: ALBUTEROL SULFATE NEB 2.5 MG/0.5 ML INH INHALATION ×3 (09:59→21:09)
--- NOTE | 2021-03-26 11:19 | PCDIET ---
Nutrition Follow-Up Complete: Nutrition Diagnosis: Inadequate oral intake related to decreased appetite as evidenced by intakes 50% or less at most meals x 1 week. Nutrition Goal: Patient to meet estimated nutritional needs. Goal in progress. Tube feedings held overnight for 250mL residual. Reglan initiated, and Glucerna 1.2 now infusing at 50mL/hr without issues. Water flush of 30mL every 4 hours continues. Last recorded weight is 83.5 kg which is stable with last review. Bowel Motility: Last documented BM on 03/23/21. Discussed during rounds. Labs Reviewed: RBC (3.58), Hgb (9.6), Hct (32.3), BUN (68), Cr (1.3) Meds Noted: Albuterol, Fentanyl, Atrovent, Reglan, Decadron, Hydralazine, Lantus, Versed, Protonix, Zemuron, Pravastatin Sodium, Propofol (rate of 14.6mL/hr provides 385kcal per day) Additional Notes: No skin breakdown reported. Patient currently proning. Will continue to monitor with same goal. No new recommendations at this time. Nutrition Monitoring and Evaluation: Follow up every Monday/Monday.
--- NOTE | 2021-03-26 12:38 | WPDINTPN ---
Progress Note: A&P Assessment and Plan (1) Acute respiratory failure with hypoxia: Code(s): J96.01 - Acute respiratory failure with hypoxia Status: Acute Assessment and Plan: Acute respiratory failure secondary to COVID-19 pneumonia 03/12 Admitted 03/15 Intermittent Bipap 03/20 Bipap dependent 03/21 Intubated -chest x-ray with slight improvement this morning, decreased bilateral diffuse airspace opacities -ABGs much improved, wean oxygen to maintain O2 sats greater than 92% -Propofol Versed and fentanyl infusion for sedation - low tidal volume ventilation Daily 16- 18 hours prone ventilation as tolerated 03/16/2021: Echo with EF 74%, normal diastolic function and no valvular disease. 03/16/2021: Venous doppler of all 4 extremities negative for DVT. 03/18/2021: CTA Chest negative for PE. - Continue bronchodilators -patient diuresed with Lasix on 03/25/2021 and responded well (2) Pneumonia due to COVID-19 virus: Code(s): U07.1 - COVID-19; J12.82 - Pneumonia due to coronavirus disease 2019 Status: Acute Assessment and Plan: She has not been vaccinated for COVID Status post Remdesivir Dexamethasone 20 mg IV q.day for 5 days then dexamethasone 10 mg IV q.day for additional 5 days. Tocilizumab given once 03/14. Rocephin and azithromycin were stopped after 5 days of treatment. Inflammatory markers trending down, will continue to monitor inflammatory markers (3) Shock: Code(s): R57.9 - Shock, unspecified Status: Acute Assessment and Plan: patient became hypotensive post intubation likely secondary to sedation and hypovolemia IV fluid bolus followed by conservative IV fluids Off Levophed since 03/22/2021 (4) BROOKE (acute kidney injury): Code(s): N17.9 - Acute kidney failure, unspecified Status: Acute Assessment and Plan: Likely secondary to hypovolemia and hypotension Patient was given IV fluid bolus and cautious IV fluid maintenance Creatinine is remains stable, will continue to monitor Monitor urine output and electrolytes (5) Type 2 diabetes mellitus with hyperglycemia: Code(s): E11.65 - Type 2 diabetes mellitus with hyperglycemia Status: Acute Assessment and Plan: HbA1c 12.8 to show poor control prior to admission. Patient had low blood sugar this morning, likely related decrease in steroids, . Continue AccuCheks covering with sliding scale. Hypoglycemia protocol available as needed. Continue sliding scale insulin -will decrease Lantus (6) Hyperlipidemia: Code(s): E78.5 - Hyperlipidemia, unspecified Status: Acute Assessment and Plan: LFTs mostly normal with mild increase in AST at 56. Continue Pravastatin. Monitor LFTs while on Remdesivir. (7) Asthma: Code(s): J45.909 - Unspecified asthma, uncomplicated Status: Acute Assessment and Plan: No wheezing. Continue nebs and steroids As above. (8) DVT prophylaxis: Code(s): Z29.9 - Encounter for prophylactic measures, unspecified Status: Acute Assessment and Plan: Lovenox Additional Plan DVT prophylaxis - Lovenox Stress ulcer prophylaxis - PPI Nutrition - Continue tube feeds Code Status - full code Total Critical Care Time - 34 minutes Due to a high probability of clinically significant, life threatening deterioration, the patient required my highest level of preparedness to intervene emergently and I personally spent this critical care time directly and personally managing the patient. This critical care time included obtaining a history; examining the patient; pulse oximetry; ordering and review of studies; arranging urgent treatment with development of a management plan; evaluation of patient's response to treatment; frequent reassessment; and discussions with other providers. It was exclusive of separately billable procedures and treating other patients and teaching ron
[2021-03-26 14:16] LABS: Glucose Point of Care 157 mg/dl (65-105)
[2021-03-26] MEDS: PROPOFOL IV EMULSION 100 ML 12.17 MG IV CONT ×2 (14:30→22:47)
--- NOTE | 2021-03-26 16:51 | P.PNIM_ITS ---
Progress Note: A&P Assessment and Plan (1) Shock: Code(s): R57.9 - Shock, unspecified Status: Acute Assessment and Plan: Patient developed HoTN around the time she was placed on MV. She may have been hypovolemic given the poor oral intake prior to intubation and the BROOKE. Renal function and BP improved with IV fluids. Able to come off of the Levophed 03/22. Monitor closely (2) Acute respiratory failure with hypoxia: Code(s): J96.01 - Acute respiratory failure with hypoxia Status: Acute Assessment and Plan: Patient presents with hypoxia with accelerating O2 requirement. CXR on admission showing significant bilateral airspace disease. Echo with EF 74%, normal diastolic function and no valvular disease. Venous doppler of all 4 extremities negative for DVT. CTA Chest negative for PE. She was alternating between BiPAP and high-flow oxygen but became BiPAP dependent requiring intubation on 03/21/21. CXR showing no change today. Continue mechanical ventilation support. Wean FiO2 and PEEP as tolerated. Low tidal volume strategies. Sedated with proprofol, fentanyl and Versed. Daily sedation vacation trial. Follow chest x-ray and ABG. Industrial Accountant following. Appreciate their inputs. (3) Pneumonia due to COVID-19 virus: Code(s): U07.1 - COVID-19; J12.82 - Pneumonia due to coronavirus disease 2019 Status: Acute Assessment and Plan: Patient exposed to her nephew who was ill. She was unvaccinated. She presented with SOB with CXR showing bilateral airspace disease.. Started on Rocephin and Zithromax. Lasix 40mg IV given once 03/13 and again 03/14. CXR 03/14 showing worsening pulmonary infiltrates. COVID swab returned positive and Remdesivir and Dexamethasone started 03/14. Tocilizumab given once 03/14. WBC dropped from virus, possibly from meds but WBC normal now. Abx were stopped after 5 days of treatment. She had high O2 requirement and now intubated. Changed to dexamethasone 20 mg IV daily x 5 days then 10mg IV daily x 5 days. Remdisivir was stopped after 7 days. Continue supportive care. Pulmonary service is following and appreciates their inputs. (4) BROOKE (acute kidney injury): Code(s): N17.9 - Acute kidney failure, unspecified Status: Acute Assessment and Plan: Cr slightly elevated at 1.1 on admission but improved despite Lasix. Cr increased to 1.4 so we held HCTZ and was started on IV fluids. Cr normalized and IV fluids stopped. Cr up to 2.5 on 03/22 probably related to dehydration from poor oral intake prior to intubation. She did receive contrast on 03/18 and was briefly HoTN. IV fluids started and Cr better at 1.2. CXR worse and IV fluids stopped. Cr remaining stable 1.1-1.3 now. Strict intake output record and daily weight. Continue to monitor renal parameters and electrolytes. (5) Anemia: Code(s): D64.9 - Anemia, unspecified Status: Acute Assessment and Plan: Hgb has been normal in the 12-14 range since admission until 03/23 when Hgb dropped 9.1. Repeat HH stable in the 8-9 range. No evidence of acute blood loss. Remains on lovenox. Continue Protonix. Follow closely. (6) Type 2 diabetes mellitus with hyperglycemia: Code(s): E11.65 - Type 2 diabetes mellitus with hyperglycemia Status: Acute Assessment and Plan: A1c 12.8 to show poor diabetic control prior to admission. The patient's blood glucose was reviewed on 03/26 Hyperglycemia better and related to the steroids and baseline poor control prior to admission. Continue AccuCheks covering with sliding scale. Hypoglycemia pro tocol available as needed. Continue Lantus at current dose. Contin
[2021-03-26] MEDS: INSULIN ASPART (*BKC) 100 UNITS/ML SUB-Q ×2 (17:08→20:14)
[2021-03-26 17:46] LABS: Glucose Point of Care 235 mg/dl (65-105)
[2021-03-26] MEDS: INSULIN GLARGINE (*BKC) 100 UNITS/ML 20 UNITS SUB-Q (20:12)
[2021-03-26 20:48] LABS: Glucose Point of Care 230 mg/dl (65-105)
[2021-03-27] VITALS (45 sets, daily range): BP systolic 94–122; BP diastolic 52–72; PULSE 8–88; RESP 16–28; TEMP 36–37.1; O2SAT 94–99
[2021-03-27] MEDS: METOCLOPRAMIDE HCL INJ 10 MG/2 ML VIAL IV PUSH ×5 (00:13→23:21)
[2021-03-27] MEDS: MIDAZOLAM 100MG/NS 100ML(*CRX) 100 MG/100 ML BAG IV CONT ×2 (00:15→23:23)
[2021-03-27 00:55] LABS: Glucose Point of Care 140 mg/dl (65-105)
[2021-03-27] MEDS: ALBUTEROL SULFATE NEB 2.5 MG/0.5 ML INH INHALATION ×4 (01:43→20:10)
[2021-03-27] MEDS: IPRATROPIUM BR 0.02% INH SOLN 0.5 MG/2.5 ML VIAL INHALATION ×4 (01:44→20:10)
[2021-03-27] MEDS: FENTANYL 2,500MCG/NS250ML(*CRX 2,500 MCG/250 ML BAG 20 MCG IV CONT ×2 (02:19→14:00)
[2021-03-27 03:56] LABS: Glucose Point of Care 149 mg/dl (65-105)
[2021-03-27 05:19] LABS: Alveolar/Arterial O2 Gradient 320.5 mmHg; Base Excess ABG 1.4 mEq/l (+/-2.0); Carboxyhemoglobin 0.3 % THb (0-2.0); Fractional Inspired Oxygen 60 %; HCO3 ABG 26.3 mEq/l (22.0-26.0); Methemoglobin ABG 0.3 %THb (0-1.5); Oxygen Saturation ABG 91.5 % (95.0-100.0); Oxyhemoglobin 89.4 % THb (90.0-100.0); PCO2 ABG 42.4 mmHg (35.0-45.0); PO2 ABG 60.7 mmHg (80.0-100.0); PO2 FiO2 Ratio Arterial Blood 1.01 %; Total Hemoglobin 11.1 g/dL (12.0-18.0)
[2021-03-27 05:20] LABS: Arterial Blood Gas Ventilator rate 28 /MIN; Device VENTILATOR; Modified Allen's Test Pass; Site Drawn LEFT RADIAL
[2021-03-27 05:21] LABS: Arterial Blood Gas PEEP 10 cmH2O; Arterial Blood Gas Tidal Volume 360 ml; Arterial Blood Gas Vent Mode CMV
[2021-03-27] MEDS: CENTRAL LINE FLUSH 10 ML IV PUSH ×4 (05:34→20:21)
[2021-03-27] MEDS: PROPOFOL IV EMULSION 100 ML 12.17 MG IV CONT ×3 (05:44→20:44)
[2021-03-27 06:08] LABS: Hematocrit 32.6 % (37.0-47.0); Hemoglobin 9.8 g/dL (12.0-15.0); Mean Corpuscular HGB Conc 30.1 g/dl (32-36); Mean Corpuscular Volume 89.8 fl (80-100); Mean Platelet Volume 11.2 fl (7.4-10.4); Platelet Count Result 273 k/mm3 (150-375); Red Blood Count 3.63 M/mm3 (4.2-5.4); Red Cell Distribution Width 15.4 % (11.5-14.5); White Blood Count 9.3 K/mm3 (4.5-10.0)
[2021-03-27 06:16] LABS: Alanine Aminotransferase 14 U/L (4-35); Albumin Level 3.2 g/dL (3.5-5.1); Alkaline Phosphatase 83 U/L (38-126); Anion Gap 7 mmol/L (8-16); Aspartate Amino Transferase 33 U/L (14-36); Bilirubin,Total 0.4 mg/dL (0.2-1.3); Blood Urea Nitrogen 76 mg/dL (7-17); Calcium 9.5 mg/dL (8.4-10.2); Carbon Dioxide 27 mmol/L (22-30); Chloride 107 mmol/L (98-107); Estimated CRCL calculation 45 ml/min; Estimated Glomerular Filt Rate 54; Glucose 150 mg/dL (65-110); Magnesium 2.7 mg/dL (1.6-2.3); Phosphorus 4.2 mg/dL (2.5-4.5); Potassium 4.1 mmol/L (3.4-5.0); Sodium 141 mmol/L (137-145)
[2021-03-27] MEDS: ENOXAPARIN 40 MG/0.4 ML SYRINGE SUB-Q ×2 (08:29→20:21)
[2021-03-27] MEDS: PRAVASTATIN SODIUM 20 MG TABLET 40 MG PO (08:30)
[2021-03-27] MEDS: PANTOPRAZOLE SODIUM IV 40 MG VIAL IV PUSH (08:30)
[2021-03-27] MEDS: INSULIN GLARGINE (*BKC) 100 UNITS/ML 10 UNITS SUB-Q (08:30)
[2021-03-27] MEDS: MINERAL OIL/WHITE PETROLATUM OINTMENT 1 APPLIC EACH EYE ×2 (08:30→20:21)
--- NOTE | 2021-03-27 09:01 | WPDINTPN ---
Progress Note: A&P Assessment and Plan (1) Acute respiratory failure with hypoxia: Code(s): J96.01 - Acute respiratory failure with hypoxia Status: Acute Assessment and Plan: Acute respiratory failure secondary to COVID-19 pneumonia 03/12 Admitted 03/15 Intermittent Bipap 03/20 Bipap dependent 03/21 Intubated -03/27: chest x-ray with no changes since yesterday -ABGs reviewed, wean oxygen to maintain O2 sats greater than 92% -Propofol Versed and fentanyl infusion for sedation - low tidal volume ventilation -Daily 16- 18 hours prone ventilation as tolerated 03/16/2021: Echo with EF 74%, normal diastolic function and no valvular disease. 03/16/2021: Venous doppler of all 4 extremities negative for DVT. 03/18/2021: CTA Chest negative for PE. - Continue bronchodilators -patient diuresed with Lasix on 03/25/2021 and responded well -will diurese again today (2) Pneumonia due to COVID-19 virus: Code(s): U07.1 - COVID-19; J12.82 - Pneumonia due to coronavirus disease 2019 Status: Acute Assessment and Plan: She has NOT been vaccinated for COVID Status post Remdesivir Dexamethasone 20 mg IV q.day for 5 days then dexamethasone 10 mg IV q.day for additional 5 days. Tocilizumab given once 03/14. Rocephin and azithromycin were stopped after 5 days of treatment. Inflammatory markers trending down, will continue to monitor inflammatory markers (3) Shock: Code(s): R57.9 - Shock, unspecified Status: Acute Assessment and Plan: patient became hypotensive post intubation likely secondary to sedation and hypovolemia IV fluid bolus followed by conservative IV fluids Off Levophed since 03/22/2021 (4) BROOKE (acute kidney injury): Code(s): N17.9 - Acute kidney failure, unspecified Status: Acute Assessment and Plan: Likely secondary to hypovolemia and hypotension Patient was given IV fluid bolus and cautious IV fluid maintenance Creatinine is remains stable, will continue to monitor Monitor urine output and electrolytes (5) Type 2 diabetes mellitus with hyperglycemia: Code(s): E11.65 - Type 2 diabetes mellitus with hyperglycemia Status: Acute Assessment and Plan: HbA1c 12.8 to show poor control prior to admission. Patient had low blood sugar this morning, likely related decrease in steroids, . Continue AccuCheks covering with sliding scale. Hypoglycemia protocol available as needed. Continue sliding scale insulin -will decrease Lantus (6) Hyperlipidemia: Code(s): E78.5 - Hyperlipidemia, unspecified Status: Acute Assessment and Plan: LFTs mostly normal with mild increase in AST at 56. Continue Pravastatin. Monitor LFTs while on Remdesivir. (7) Asthma: Code(s): J45.909 - Unspecified asthma, uncomplicated Status: Acute Assessment and Plan: No wheezing. Continue nebs and steroids As above. (8) DVT prophylaxis: Code(s): Z29.9 - Encounter for prophylactic measures, unspecified Status: Acute Assessment and Plan: Lovenox Additional Plan DVT prophylaxis - Lovenox Stress ulcer prophylaxis - PPI Nutrition - Continue tube feeds Will update family Code Status - full code Critical Care Time - 33 minutes Due to a high probability of clinically significant, life threatening deterioration, the patient required my highest level of preparedness to intervene emergently and I personally spent this critical care time directly and personally managing the patient. This critical care time included obtaining a history; examining the patient; pulse oximetry; ordering and review of studies; arranging urgent treatment with development of a management plan; evaluation of patient's response to treatment; frequent reassessment; and discussions with other providers. It was exclusive of separately billable procedures and treating other patients and teaching time. Chrissy
[2021-03-27] MEDS: FUROSEMIDE INJ 40 MG/4 ML VIAL 20 MG IV PUSH (11:27)
[2021-03-27] MEDS: INSULIN ASPART (*BKC) 100 UNITS/ML SUB-Q ×4 (11:29→23:19)
[2021-03-27 12:36] LABS: Glucose Point of Care 211 mg/dl (65-105)
--- NOTE | 2021-03-27 14:55 | PM.IMPN ---
Progress Note: A&P Assessment and Plan (1) Shock: Code(s): R57.9 - Shock, unspecified Status: Acute Assessment and Plan: Patient developed HoTN around the time she was placed on MV. She may have been hypovolemic given the poor oral intake prior to intubation and the BROOKE. Renal function and BP improved with IV fluids. Able to come off of the Levophed 03/22. Monitor closely (2) Acute respiratory failure with hypoxia: Code(s): J96.01 - Acute respiratory failure with hypoxia Status: Acute Assessment and Plan: Patient presents with hypoxia with accelerating O2 requirement. CXR on admission showing significant bilateral airspace disease. Echo with EF 74%, normal diastolic function and no valvular disease. Venous doppler of all 4 extremities negative for DVT. CTA Chest negative for PE. She was alternating between BiPAP and high-flow oxygen but became BiPAP dependent requiring intubation on 03/21/21. CXR showing no change today. Continue mechanical ventilation support. Wean FiO2 and PEEP as tolerated. Low tidal volume strategies. Sedated with proprofol, fentanyl and Versed. Daily sedation vacation trial. Follow chest x-ray and ABG. Production Control Pegboard Clerk following. Appreciate their inputs. (3) Pneumonia due to COVID-19 virus: Code(s): U07.1 - COVID-19; J12.82 - Pneumonia due to coronavirus disease 2019 Status: Acute Assessment and Plan: Patient exposed to her nephew who was ill. She was unvaccinated. She presented with SOB with CXR showing bilateral airspace disease.. Started on Rocephin and Zithromax. Lasix 40mg IV given once 03/13 and again 03/14. CXR 03/14 showing worsening pulmonary infiltrates. COVID swab returned positive and Remdesivir and Dexamethasone started 03/14. Tocilizumab given once 03/14. WBC dropped from virus, possibly from meds but WBC normal now. Abx were stopped after 5 days of treatment. She had high O2 requirement and now intubated. Changed to dexamethasone 20 mg IV daily x 5 days then 10mg IV daily x 5 days. Remdisivir was stopped after 7 days. Continue supportive care. Pulmonary service is following and appreciates their inputs. (4) BROOKE (acute kidney injury): Code(s): N17.9 - Acute kidney failure, unspecified Status: Acute Assessment and Plan: Cr slightly elevated at 1.1 on admission but improved despite Lasix. Cr increased to 1.4 so we held HCTZ and was started on IV fluids. Cr normalized and IV fluids stopped. Cr up to 2.5 on 03/22 probably related to dehydration from poor oral intake prior to intubation. She did receive contrast on 03/18 and was briefly HoTN. IV fluids started and Cr better at 1.2. CXR worse and IV fluids stopped. Cr remaining stable 1.1-1.3 now. Strict intake output record and daily weight. Continue to monitor renal parameters and electrolytes. (5) Anemia: Code(s): D64.9 - Anemia, unspecified Status: Acute Assessment and Plan: Hgb has been normal in the 12-14 range since admission until 03/23 when Hgb dropped 9.1. Repeat HH stable in the 8-9 range. No evidence of acute blood loss. Remains on lovenox. Continue Protonix. Follow closely. (6) Type 2 diabetes mellitus with hyperglycemia: Code(s): E11.65 - Type 2 diabetes mellitus with hyperglycemia Status: Acute Assessment and Plan: A1c 12.8 to show poor diabetic control prior to admission. The patient's blood glucose was reviewed on 03/26 Hyperglycemia better and related to the steroids and baseline poor control prior to admission. Continue AccuCheks covering with sliding scale. Hypoglycemia protocol available as needed. Continue Lantus at current dose. Continue tube feedings. (7) Hypertension: Code(s): I10 - Essential (primary) hypertension Status: Acute Assessment and Plan: Patient's blood pressure was reviewed on 03/26. She was able to come off of the Levophed 03/22. Amlodipine and Cozaar stopped due to HoTN. BP soft at
[2021-03-27 17:41] LABS: Glucose Point of Care 301 mg/dl (65-105)
[2021-03-27] MEDS: INSULIN GLARGINE (*BKC) 100 UNITS/ML 20 UNITS SUB-Q (20:23)
[2021-03-27 21:20] LABS: Glucose Point of Care 306 mg/dl (65-105)
[2021-03-28] VITALS (40 sets, daily range): BP systolic 94–107; BP diastolic 56–68; PULSE 54–89; RESP 26; TEMP 36.4–37; O2SAT 91–99
--- NOTE | 2021-03-28 00:19 | PCRCNOTE ---
Pt prone, ET tube tapped @ 25 at lip. Suction catheter was able to pass. Airway clear and patent. Pt Sp02 94%. Skin protective padding applied to both sides of pt checks before tapping ET tube.
[2021-03-28 00:42] LABS: Glucose Point of Care 284 mg/dl (65-105)
[2021-03-28] MEDS: FENTANYL 2,500MCG/NS250ML(*CRX 2,500 MCG/250 ML BAG 20 MCG IV CONT ×2 (01:42→13:09)
[2021-03-28] MEDS: ALBUTEROL SULFATE NEB 2.5 MG/0.5 ML INH INHALATION ×4 (02:53→21:10)
[2021-03-28] MEDS: IPRATROPIUM BR 0.02% INH SOLN 0.5 MG/2.5 ML VIAL INHALATION ×4 (02:53→21:11)
[2021-03-28 04:17] LABS: Alveolar/Arterial O2 Gradient 307.1 mmHg; Base Excess ABG 1.6 mEq/l (+/-2.0); Fractional Inspired Oxygen 60 %; HCO3 ABG 26.4 mEq/l (22.0-26.0); Methemoglobin ABG 0.3 %THb (0-1.5); Oxygen Content ABG 13.8 %vol (16.0-22.0); Oxyhemoglobin 93.3 % THb (90.0-100.0); PCO2 ABG 42.4 mmHg (35.0-45.0); PO2 ABG 74.1 mmHg (80.0-100.0); PO2 FiO2 Ratio Arterial Blood 1.24 %; Reduced Hemoglobin 6.4 %THb (0-5.0); Total Hemoglobin 10.5 g/dL (12.0-18.0); pH ABG 7.412 (7.350-7.450)
[2021-03-28 04:18] LABS: Device VENTILATOR; Modified Allen's Test Pass; Site Drawn RIGHT RADIAL
[2021-03-28 04:19] LABS: Arterial Blood Gas PEEP 10 cmH2O; Arterial Blood Gas Tidal Volume 360 ml; Arterial Blood Gas Vent Mode CMV; Arterial Blood Gas Ventilator rate 26 /MIN
[2021-03-28] MEDS: CENTRAL LINE FLUSH 10 ML IV PUSH ×4 (05:05→21:00)
[2021-03-28] MEDS: METOCLOPRAMIDE HCL INJ 10 MG/2 ML VIAL IV PUSH ×3 (05:05→17:10)
[2021-03-28] MEDS: PROPOFOL IV EMULSION 100 ML 12.17 MG IV CONT ×3 (05:05→19:25)
[2021-03-28 05:30] LABS: Glucose Point of Care 182 mg/dl (65-105)
[2021-03-28 05:30] LABS: Hematocrit 31.7 % (37.0-47.0); Hemoglobin 9.5 g/dL (12.0-15.0); Mean Corpuscular Hemoglobin 26.5 pg (26-34); Mean Corpuscular Volume 88.5 fl (80-100); Mean Platelet Volume 11.1 fl (7.4-10.4); Platelet Count Result 252 k/mm3 (150-375); Red Blood Count 3.58 M/mm3 (4.2-5.4); Red Cell Distribution Width 15.7 % (11.5-14.5); White Blood Count 8.5 K/mm3 (4.5-10.0)
[2021-03-28 05:45] LABS: D Dimer 0.77 ug/mL (<0.48)
[2021-03-28 06:18] LABS: Alanine Aminotransferase 15 U/L (4-35); Albumin Level 3.3 g/dL (3.5-5.1); Alkaline Phosphatase 89 U/L (38-126); Anion Gap 6 mmol/L (8-16); Aspartate Amino Transferase 29 U/L (14-36); Bilirubin,Total 0.5 mg/dL (0.2-1.3); Blood Urea Nitrogen 73 mg/dL (7-17); CRP < 0.5 mg/dL (<1.0); Calcium 9.3 mg/dL (8.4-10.2); Carbon Dioxide 28 mmol/L (22-30); Chloride 111 mmol/L (98-107); Estimated CRCL calculation 47 ml/min; Estimated Glomerular Filt Rate 60; Glucose 176 mg/dL (65-110); Lactate Dehydrogenase 685 U/L (313-618); Magnesium 2.5 mg/dL (1.6-2.3); Phosphorus 3.8 mg/dL (2.5-4.5); Sodium 145 mmol/L (137-145)
[2021-03-28] MEDS: INSULIN GLARGINE (*BKC) 100 UNITS/ML 20 UNITS SUB-Q (09:20)
[2021-03-28] MEDS: PRAVASTATIN SODIUM 20 MG TABLET 40 MG PO (09:21)
[2021-03-28] MEDS: ENOXAPARIN 40 MG/0.4 ML SYRINGE SUB-Q ×2 (09:22→20:46)
[2021-03-28] MEDS: PANTOPRAZOLE SODIUM IV 40 MG VIAL IV PUSH (09:22)
[2021-03-28] MEDS: MINERAL OIL/WHITE PETROLATUM OINTMENT 1 APPLIC EACH EYE ×2 (09:22→20:46)
--- NOTE | 2021-03-28 09:27 | WPDINTPN ---
Progress Note: A&P Assessment and Plan (1) Acute respiratory failure with hypoxia: Code(s): J96.01 - Acute respiratory failure with hypoxia Status: Acute Assessment and Plan: Acute respiratory failure secondary to COVID-19 pneumonia 03/12 Admitted 03/15 Intermittent Bipap 03/20 Bipap dependent 03/21 Intubated -03/28: chest x-ray: stable diffuse bilateral airspace disease compatible with pneumonia, edema cannot be excluded -ABGs reviewed, wean oxygen to maintain O2 sats greater than 92% -Propofol Versed and fentanyl infusion for sedation - low tidal volume ventilation -Daily 16- 18 hours prone ventilation as tolerated 03/16/2021: Echo with EF 74%, normal diastolic function and no valvular disease. 03/16/2021: Venous doppler of all 4 extremities negative for DVT. 03/18/2021: CTA Chest negative for PE. - Continue bronchodilators -patient diuresed with Lasix on 03/25 and 03/27 (2) Pneumonia due to COVID-19 virus: Code(s): U07.1 - COVID-19; J12.82 - Pneumonia due to coronavirus disease 2018 Status: Acute Assessment and Plan: She has NOT been vaccinated for COVID Status post Remdesivir Dexamethasone 20 mg IV q.day for 5 days then dexamethasone 10 mg IV q.day for additional 5 days. Tocilizumab given once 03/14. Rocephin and azithromycin were stopped after 5 days of treatment. Inflammatory markers trending down, will continue to monitor inflammatory markers (3) Shock: Code(s): R57.9 - Shock, unspecified Status: Acute Assessment and Plan: patient became hypotensive post intubation likely secondary to sedation and hypovolemia IV fluid bolus followed by conservative IV fluids Off Levophed since 03/22/2021 (4) BROOKE (acute kidney injury): Code(s): N17.9 - Acute kidney failure, unspecified Status: Acute Assessment and Plan: Likely secondary to hypovolemia and hypotension Patient was given IV fluid bolus and cautious IV fluid maintenance Creatinine is remains stable, will continue to monitor Monitor urine output and electrolytes (5) Type 2 diabetes mellitus with hyperglycemia: Code(s): E11.65 - Type 2 diabetes mellitus with hyperglycemia Status: Acute Assessment and Plan: HbA1c 12.8 to show poor control prior to admission. Continue AccuCheks covering with sliding scale. Hypoglycemia protocol available as needed. Continue sliding scale insulin -will increase e Lantus (6) Hyperlipidemia: Code(s): E78.5 - Hyperlipidemia, unspecified Status: Acute Assessment and Plan: Normal LFTs. Continue Pravastatin. Monitor LFTs while on Remdesivir. (7) Asthma: Code(s): J45.909 - Unspecified asthma, uncomplicated Status: Acute Assessment and Plan: No wheezing. Continue nebs and steroids As above. (8) DVT prophylaxis: Code(s): Z29.9 - Encounter for prophylactic measures, unspecified Status: Acute Assessment and Plan: Lovenox Additional Plan Stress ulcer prophylaxis - PPI Nutrition -tolerating tube feeds Called and left a messages for patient's daughters Yarelis Cam and Leatha Cam Code Status - full code Critical Care Time - 36 minutes Due to a high probability of clinically significant, life threatening deterioration, the patient required my highest level of preparedness to intervene emergently and I personally spent this critical care time directly and personally managing the patient. This critical care time included obtaining a history; examining the patient; pulse oximetry; ordering and review of studies; arranging urgent treatment with development of a management plan; evaluation of patient's response to treatment; frequent reassessment; and discussions with other providers. It was exclusive of separately billable procedures and treating other patients and teaching time. Please see Assessment and Plan section and the rest of the
[2021-03-28 11:20] LABS: Glucose Point of Care 215 mg/dl (65-105)
[2021-03-28] MEDS: INSULIN ASPART (*BKC) 100 UNITS/ML SUB-Q ×3 (12:42→20:44)
[2021-03-28 18:37] LABS: Glucose Point of Care 356 mg/dl (65-105)
[2021-03-28] MEDS: INSULIN GLARGINE (*BKC) 100 UNITS/ML 30 UNITS SUB-Q (20:45)
[2021-03-28 21:07] LABS: Glucose Point of Care 302 mg/dl (65-105)
[2021-03-29] VITALS (37 sets, daily range): BP systolic 90–133; BP diastolic 58–75; PULSE 70–91; RESP 26; TEMP 36.8–37.2; O2SAT 91–97
[2021-03-29] MEDS: INSULIN ASPART (*BKC) 100 UNITS/ML SUB-Q ×3 (00:38→21:36)
[2021-03-29] MEDS: MIDAZOLAM 100MG/NS 100ML(*CRX) 100 MG/100 ML BAG IV CONT (00:39)
[2021-03-29] MEDS: METOCLOPRAMIDE HCL INJ 10 MG/2 ML VIAL IV PUSH ×4 (00:39→17:58)
[2021-03-29 00:55] LABS: Glucose Point of Care 261 mg/dl (65-105)
[2021-03-29] MEDS: FENTANYL 2,500MCG/NS250ML(*CRX 2,500 MCG/250 ML BAG 20 MCG IV CONT ×2 (01:16→14:02)
[2021-03-29] MEDS: IPRATROPIUM BR 0.02% INH SOLN 0.5 MG/2.5 ML VIAL INHALATION ×4 (01:48→20:54)
[2021-03-29] MEDS: ALBUTEROL SULFATE NEB 2.5 MG/0.5 ML INH INHALATION ×4 (01:48→20:54)
[2021-03-29] MEDS: PROPOFOL IV EMULSION 100 ML 12.17 MG IV CONT (04:13)
[2021-03-29 05:06] LABS: Alveolar/Arterial O2 Gradient 352.4 mmHg; Base Excess ABG 3.2 mEq/l (+/-2.0); Carboxyhemoglobin 0.3 % THb (0-2.0); Fractional Inspired Oxygen 60 %; HCO3 ABG 28.2 mEq/l (22.0-26.0); Methemoglobin ABG 0.4 %THb (0-1.5); Oxygen Content ABG 14.6 %vol (16.0-22.0); Oxygen Saturation ABG 93.8 % (95.0-100.0); Oxyhemoglobin 92.3 % THb (90.0-100.0); PCO2 ABG 44.9 mmHg (35.0-45.0); PO2 ABG 68.3 mmHg (80.0-100.0); PO2 FiO2 Ratio Arterial Blood 1.14 %; Total Hemoglobin 11.2 g/dL (12.0-18.0); pH ABG 7.416 (7.350-7.450)
[2021-03-29 05:07] LABS: Device VENTILATOR; Modified Allen's Test Pass; Site Drawn LEFT RADIAL
[2021-03-29 05:08] LABS: Arterial Blood Gas PEEP 10 cmH2O; Arterial Blood Gas Tidal Volume 360 ml; Arterial Blood Gas Vent Mode CMV; Arterial Blood Gas Ventilator rate 26 /MIN
[2021-03-29 05:14] LABS: Hematocrit 31.6 % (37.0-47.0); Hemoglobin 9.6 g/dL (12.0-15.0); Mean Corpuscular HGB Conc 30.4 g/dl (32-36); Mean Corpuscular Volume 88.8 fl (80-100); Mean Platelet Volume 11.5 fl (7.4-10.4); Platelet Count Result 227 k/mm3 (150-375); Red Blood Count 3.56 M/mm3 (4.2-5.4); Red Cell Distribution Width 15.7 % (11.5-14.5); White Blood Count 9.2 K/mm3 (4.5-10.0)
[2021-03-29 05:31] LABS: Alanine Aminotransferase 13 U/L (4-35); Albumin Level 3.1 g/dL (3.5-5.1); Alkaline Phosphatase 90 U/L (38-126); Anion Gap 6 mmol/L (8-16); Aspartate Amino Transferase 26 U/L (14-36); Bilirubin,Total 0.4 mg/dL (0.2-1.3); Blood Urea Nitrogen 66 mg/dL (7-17); Calcium 9.7 mg/dL (8.4-10.2); Carbon Dioxide 29 mmol/L (22-30); Chloride 114 mmol/L (98-107); Estimated CRCL calculation 57 ml/min; Estimated Glomerular Filt Rate > 60; Glucose 116 mg/dL (65-110); Magnesium 2.4 mg/dL (1.6-2.3); Phosphorus 3.6 mg/dL (2.5-4.5); Potassium 3.8 mmol/L (3.4-5.0); Sodium 149 mmol/L (137-145)
[2021-03-29 05:37] LABS: Glucose Point of Care 119 mg/dl (65-105)
[2021-03-29] MEDS: CENTRAL LINE FLUSH 10 ML IV PUSH ×4 (06:25→21:37)
[2021-03-29] MEDS: ENOXAPARIN 40 MG/0.4 ML SYRINGE SUB-Q ×2 (08:43→21:37)
[2021-03-29] MEDS: PANTOPRAZOLE SODIUM IV 40 MG VIAL IV PUSH (08:44)
[2021-03-29] MEDS: PRAVASTATIN SODIUM 20 MG TABLET 40 MG PO (08:44)
[2021-03-29] MEDS: MINERAL OIL/WHITE PETROLATUM OINTMENT 1 APPLIC EACH EYE ×2 (08:44→21:37)
[2021-03-29] MEDS: INSULIN GLARGINE (*BKC) 100 UNITS/ML 20 UNITS SUB-Q (08:45)
[2021-03-29 09:38] LABS: Glucose Point of Care 126 mg/dl (65-105)
[2021-03-29] MEDS: PROPOFOL IV EMULSION 100 ML 7.3 MG IV CONT (11:32)
[2021-03-29] MEDS: polyethylene glycoL 3350 17 GM POWD.PACK PO (11:33)
--- NOTE | 2021-03-29 12:03 | PCDIET ---
ICU Rounding Note: Patient tolerating Glucerna 1.2 at 50mL/hr goal rate. Water flush increased to 100mL every 4 hours. Last recorded weight is 89.9kg which is increased from last review. +I/O. Bowel Motility: Last documented BM on 03/23/21. Labs Reviewed: RBC (3.56), Hgb (9.6), Hct (31.6), BUN (66), Cl (114), Na (149), Alb (3.1), Mg (2.4) Meds Noted: Albuterol, Fentanyl, Apresoline, Lantus, Protonix, Atrovent, Reglan, Versed, Propofol (rate of 9.73mL/hr providing 257kcal per day) Additional Notes: MD adding Miralax. +Bowel sounds, per RN. Right upper lip abrasion. Left cheek skin tear. Following daily in ICU rounds. Assessing/reassessing every Monday/Monday.
[2021-03-29 12:20] LABS: Glucose Point of Care 186 mg/dl (65-105)
--- NOTE | 2021-03-29 12:49 | WPDINTPN ---
Progress Note: A&P Assessment and Plan (1) Acute respiratory failure with hypoxia: Code(s): J96.01 - Acute respiratory failure with hypoxia Status: Acute Assessment and Plan: Acute respiratory failure secondary to COVID-19 pneumonia 03/12 Admitted 03/15 Intermittent Bipap 03/20 Bipap dependent 03/21 Intubated -03/28: chest x-ray: stable diffuse bilateral airspace disease compatible with pneumonia, edema cannot be excluded -ABGs reviewed, wean oxygen to maintain O2 sats greater than 92% -Propofol Versed and fentanyl infusion for sedation - low tidal volume ventilation -Daily 16- 18 hours prone ventilation as tolerated 03/16/2021: Echo with EF 74%, normal diastolic function and no valvular disease. 03/16/2021: Venous doppler of all 4 extremities negative for DVT. 03/18/2021: CTA Chest negative for PE. - Continue bronchodilators -patient diuresed with Lasix on 03/25 and 03/27 (2) Pneumonia due to COVID-19 virus: Code(s): U07.1 - COVID-19; J12.82 - Pneumonia due to coronavirus disease 2018 Status: Acute Assessment and Plan: She has NOT been vaccinated for COVID Status post Remdesivir Dexamethasone 20 mg IV q.day for 5 days then dexamethasone 10 mg IV q.day for additional 5 days. Tocilizumab given once 03/14. Rocephin and azithromycin were stopped after 5 days of treatment. Inflammatory markers trending down, will continue to monitor inflammatory markers (3) Shock: Code(s): R57.9 - Shock, unspecified Status: Acute Assessment and Plan: patient became hypotensive post intubation likely secondary to sedation and hypovolemia IV fluid bolus followed by conservative IV fluids Off Levophed since 03/22/2021 (4) BROOKE (acute kidney injury): Code(s): N17.9 - Acute kidney failure, unspecified Status: Acute Assessment and Plan: Likely secondary to hypovolemia and hypotension Patient was given IV fluid bolus and cautious IV fluid maintenance 03/29: Hypernatremia, sodium of 149, increased free water flushes, continue to monitor Creatinine is remains stable, will continue to monitor Monitor urine output and electrolytes (5) Type 2 diabetes mellitus with hyperglycemia: Code(s): E11.65 - Type 2 diabetes mellitus with hyperglycemia Status: Acute Assessment and Plan: HbA1c 12.8 to show poor control prior to admission. Continue AccuCheks covering with sliding scale. Hypoglycemia protocol available as needed. Continue sliding scale insulin -continue Lantus (6) Hyperlipidemia: Code(s): E78.5 - Hyperlipidemia, unspecified Status: Acute Assessment and Plan: Normal LFTs. Continue Pravastatin. Monitor LFTs while on Remdesivir. (7) Asthma: Code(s): J45.909 - Unspecified asthma, uncomplicated Status: Acute Assessment and Plan: No wheezing. Continue nebs and steroids As above. (8) DVT prophylaxis: Code(s): Z29.9 - Encounter for prophylactic measures, unspecified Status: Acute Assessment and Plan: Lovenox Additional Plan Stress ulcer prophylaxis - PPI Nutrition -tolerating tube feeds I discussed with daughter, Leatha jiménez with patient's condition and plan of care. I answered all questions Code Status - full code Critical Care Time - 33 minutes Due to a high probability of clinically significant, life threatening deterioration, the patient required my highest level of preparedness to intervene emergently and I personally spent this critical care time directly and personally managing the patient. This critical care time included obtaining a history; examining the patient; pulse oximetry; ordering and review of studies; arranging urgent treatment with development of a management plan; evaluation of patient's response to treatment; frequent reassessment; and discussions with other providers. It was exclusive of separately billable proced
--- NOTE | 2021-03-29 15:33 | PM.IMPN ---
Progress Note: A&P Assessment and Plan (1) Acute respiratory failure with hypoxia: Code(s): J96.01 - Acute respiratory failure with hypoxia Status: Acute Assessment and Plan: Patient presents with hypoxia with accelerating O2 requirement. CXR on admission showing significant bilateral airspace disease. Echo with EF 74%, normal diastolic function and no valvular disease. Venous doppler of all 4 extremities negative for DVT. CTA Chest negative for PE. She was alternating between BiPAP and high-flow oxygen but became BiPAP dependent requiring intubation on 03/21/21. CXR showing diffuse airspace disease. Concern for lung scarring. Continue mechanical ventilation support. Wean FiO2 and PEEP as tolerated. Low tidal volume strategies. Sedated with fentanyl and Versed. Daily sedation vacation trial. Follow chest x-ray and ABG. Fast Food Supervisor following. Appreciate their inputs. (2) Pneumonia due to COVID-19 virus: Code(s): U07.1 - COVID-19; J12.82 - Pneumonia due to coronavirus disease 2019 Status: Acute Assessment and Plan: Patient exposed to her nephew who was ill. She was unvaccinated. She presented with SOB with CXR showing bilateral airspace disease. Started on Rocephin and Zithromax. Lasix 40mg IV given once 03/13 and again 03/14. CXR 03/14 showing worsening pulmonary infiltrates. COVID swab returned positive and Remdesivir and Dexamethasone started 03/14. Tocilizumab given once 03/14. WBC dropped from virus, possibly from meds but WBC normal now. Abx were stopped after 5 days of treatment. She had high O2 requirement and now intubated. Changed to dexamethasone 20 mg IV daily x 5 days then 10mg IV daily x 5 days (steroids stopped 03/29). Remdisivir was stopped after 7 days. Continue supportive care. stem mounter is following and appreciates their inputs. (3) BROOKE (acute kidney injury): Code(s): N17.9 - Acute kidney failure, unspecified Status: Acute Assessment and Plan: Cr slightly elevated at 1.1 on admission but improved despite Lasix. Cr increased to 1.4 so we held HCTZ and was started on IV fluids. Cr normalized and IV fluids stopped. Cr up to 2.5 on 03/22 probably related to dehydration from poor oral intake prior to intubation. She did receive contrast on 03/18 and was briefly HoTN. Cr normal at 0.9 now. Continue to monitor renal parameters and electrolytes. (4) Anemia: Code(s): D64.9 - Anemia, unspecified Status: Acute Assessment and Plan: Hgb has been normal in the 12-14 range since admission until 03/23 when Hgb dropped 9.1. Repeat HH stable in the 8-9 range. No evidence of acute blood loss. Remains on lovenox. Continue Protonix. Follow closely. (5) Shock: Code(s): R57.9 - Shock, unspecified Status: Acute Assessment and Plan: Patient developed HoTN around the time she was placed on MV. She may have been hypovolemic given the poor oral intake prior to intubation and the BROOKE. Renal function and BP improved with IV fluids. Able to come off of the Levophed 03/22. Monitor closely (6) Type 2 diabetes mellitus with hyperglycemia: Code(s): E11.65 - Type 2 diabetes mellitus with hyperglycemia Status: Acute Assessment and Plan: A1c 12.8 to show poor diabetic control prior to admission. The patient's blood glucose was reviewed on 03/29 Hyperglycemia related to the steroids and baseline poor control prior to admission. Glucose better controlled overall. Continue AccuCheks covering with sliding scale. Hypoglycemia protocol available as needed. Continue Lantus at current dose. Continue tube feedings. (7) Hypertension: Code(s): I10 - Essential (primary) hypertension Status: Acute Assessment and Plan: Patient's blood pressure was reviewed on 03/29 She was able to come off of the Levophed 03/22. Amlodipine and Cozaar stopped due to HoTN. BP still soft at times possibly related to the sedation. Continue to monitor hem
[2021-03-29 18:11] LABS: Glucose Point of Care 302 mg/dl (65-105)
[2021-03-29] MEDS: INSULIN GLARGINE (*BKC) 100 UNITS/ML 30 UNITS SUB-Q (21:36)
[2021-03-29 21:52] LABS: Glucose Point of Care 258 mg/dl (65-105)
[2021-03-30] VITALS (35 sets, daily range): BP systolic 102–155; BP diastolic 67–88; PULSE 70–96; RESP 2–26; TEMP 36.7–37.4; O2SAT 91–97
[2021-03-30] MEDS: MIDAZOLAM 100MG/NS 100ML(*CRX) 100 MG/100 ML BAG IV CONT (01:39)
[2021-03-30] MEDS: METOCLOPRAMIDE HCL INJ 10 MG/2 ML VIAL IV PUSH ×4 (01:41→17:03)
[2021-03-30 01:52] LABS: Glucose Point of Care 186 mg/dl (65-105)
[2021-03-30] MEDS: ALBUTEROL SULFATE NEB 2.5 MG/0.5 ML INH INHALATION ×4 (02:25→20:29)
[2021-03-30] MEDS: IPRATROPIUM BR 0.02% INH SOLN 0.5 MG/2.5 ML VIAL INHALATION ×4 (02:25→20:29)
[2021-03-30] MEDS: FENTANYL 2,500MCG/NS250ML(*CRX 2,500 MCG/250 ML BAG 20 MCG IV CONT ×2 (02:54→15:50)
[2021-03-30 05:30] LABS: Alveolar/Arterial O2 Gradient 304.8 mmHg; Base Excess ABG 4.1 mEq/l (+/-2.0); Carboxyhemoglobin 0.3 % THb (0-2.0); Fractional Inspired Oxygen 60 %; HCO3 ABG 28.8 mEq/l (22.0-26.0); Methemoglobin ABG 0.4 %THb (0-1.5); Oxygen Content ABG 14.4 %vol (16.0-22.0); Oxygen Saturation ABG 95.4 % (95.0-100.0); Oxyhemoglobin 93.4 % THb (90.0-100.0); PCO2 ABG 43.8 mmHg (35.0-45.0); PO2 ABG 74.8 mmHg (80.0-100.0); PO2 FiO2 Ratio Arterial Blood 1.25 %; Reduced Hemoglobin 5.9 %THb (0-5.0); Total Hemoglobin 10.9 g/dL (12.0-18.0); pH ABG 7.436 (7.350-7.450)
[2021-03-30 05:31] LABS: Device VENTILATOR; Modified Allen's Test Pass; Site Drawn LEFT RADIAL
[2021-03-30 05:32] LABS: Arterial Blood Gas PEEP 10 cmH2O; Arterial Blood Gas Vent Mode CMV; Arterial Blood Gas Ventilator rate 26 /MIN
[2021-03-30 05:33] LABS: Arterial Blood Gas Tidal Volume 360 ml
[2021-03-30] MEDS: CENTRAL LINE FLUSH 10 ML IV PUSH ×4 (05:59→22:43)
[2021-03-30 06:24] LABS: Hematocrit 33.1 % (37.0-47.0); Hemoglobin 9.5 g/dL (12.0-15.0); Mean Corpuscular HGB Conc 28.7 g/dl (32-36); Mean Corpuscular Hemoglobin 26.3 pg (26-34); Mean Corpuscular Volume 91.7 fl (80-100); Mean Platelet Volume 11.8 fl (7.4-10.4); Platelet Count Result 210 k/mm3 (150-375); Red Blood Count 3.61 M/mm3 (4.2-5.4); Red Cell Distribution Width 16.6 % (11.5-14.5); White Blood Count 7.1 K/mm3 (4.5-10.0)
[2021-03-30 06:49] LABS: Alanine Aminotransferase 14 U/L (4-35); Alkaline Phosphatase 99 U/L (38-126); Anion Gap 4 mmol/L (8-16); Aspartate Amino Transferase 28 U/L (14-36); Bilirubin,Total 0.5 mg/dL (0.2-1.3); Blood Urea Nitrogen 52 mg/dL (7-17); CRP 1.6 mg/dL (<1.0); Calcium 9.5 mg/dL (8.4-10.2); Carbon Dioxide 29 mmol/L (22-30); Chloride 115 mmol/L (98-107); Estimated CRCL calculation 74 ml/min; Estimated Glomerular Filt Rate > 60; Glucose 132 mg/dL (65-110); Lactate Dehydrogenase 765 U/L (313-618); Magnesium 2.3 mg/dL (1.6-2.3); Phosphorus 3.3 mg/dL (2.5-4.5); Sodium 148 mmol/L (137-145)
[2021-03-30 06:51] LABS: D Dimer 0.68 ug/mL (<0.48)
[2021-03-30 08:20] LABS: Glucose Point of Care 140 mg/dl (65-105)
[2021-03-30] MEDS: FUROSEMIDE INJ 40 MG/4 ML VIAL IV PUSH (09:30)
[2021-03-30] MEDS: PRAVASTATIN SODIUM 20 MG TABLET 40 MG PO (09:30)
[2021-03-30] MEDS: PANTOPRAZOLE SODIUM IV 40 MG VIAL IV PUSH (09:31)
[2021-03-30] MEDS: ENOXAPARIN 40 MG/0.4 ML SYRINGE SUB-Q ×2 (09:31→20:57)
[2021-03-30] MEDS: MINERAL OIL/WHITE PETROLATUM OINTMENT 1 APPLIC EACH EYE ×2 (09:31→20:58)
[2021-03-30] MEDS: polyethylene glycoL 3350 17 GM POWD.PACK PO (09:31)
--- NOTE | 2021-03-30 09:44 | PM.IMPN ---
Progress Note: A&P Assessment and Plan (1) Acute respiratory failure with hypoxia: Code(s): J96.01 - Acute respiratory failure with hypoxia Status: Acute Assessment and Plan: Patient presents with hypoxia with accelerating O2 requirement. CXR on admission showing significant bilateral airspace disease. Echo with EF 74%, normal diastolic function and no valvular disease. Venous doppler of all 4 extremities negative for DVT. CTA Chest negative for PE. She was alternating between BiPAP and high-flow oxygen but became BiPAP dependent requiring intubation on 03/21/21. CXR showing diffuse airspace disease but improved exam findings. Continue mechanical ventilation support. Wean FiO2 and PEEP as tolerated. Low tidal volume strategies. Sedated with fentanyl and Versed. Daily sedation vacation trial. Follow chest x-ray and ABG. Rehabilitation Therapy Aide following. Appreciate their input. (2) Pneumonia due to COVID-19 virus: Code(s): U07.1 - COVID-19; J12.82 - Pneumonia due to coronavirus disease 2019 Status: Acute Assessment and Plan: Patient exposed to her nephew who was ill. She was unvaccinated. She presented with SOB with CXR showing bilateral airspace disease. Started on Rocephin and Zithromax. Lasix 40mg IV given once 03/13 and again 03/14. CXR 03/14 showing worsening pulmonary infiltrates. COVID swab returned positive and Remdesivir and Dexamethasone started 03/14. Tocilizumab given once 03/14. WBC dropped from virus, possibly from meds but WBC normal now. Abx were stopped after 5 days of treatment. She had high O2 requirement and now intubated. Changed to dexamethasone 20 mg IV daily x 5 days then 10mg IV daily x 5 days (steroids stopped 03/29). Remdisivir was stopped after 7 days. Continue supportive care. Rehabilitation Therapy Aide is following and appreciates their inputs. (3) BROOKE (acute kidney injury): Code(s): N17.9 - Acute kidney failure, unspecified Status: Acute Assessment and Plan: Cr slightly elevated at 1.1 on admission but improved despite Lasix. Cr increased to 1.4 so we held HCTZ and was started on IV fluids. Cr normalized and IV fluids stopped. Cr up to 2.5 on 03/22 probably related to dehydration from poor oral intake prior to intubation. She did receive contrast on 03/18 and was briefly HoTN. Cr normal at 0.7 now. Continue to monitor renal parameters and electrolytes. (4) Anemia: Code(s): D64.9 - Anemia, unspecified Status: Acute Assessment and Plan: Hgb has been normal in the 12-14 range since admission until 03/23 when Hgb dropped 9.1. Repeat HH stable in the 8-9 range. No evidence of acute blood loss. Remains on lovenox. Continue Protonix. Follow closely. (5) Shock: Code(s): R57.9 - Shock, unspecified Status: Acute Assessment and Plan: Patient developed HoTN around the time she was placed on MV. She may have been hypovolemic given the poor oral intake prior to intubation and the BROOKE. Renal function and BP improved with IV fluids. Able to come off of the Levophed 03/22. Monitor closely. (6) Type 2 diabetes mellitus with hyperglycemia: Code(s): E11.65 - Type 2 diabetes mellitus with hyperglycemia Status: Acute Assessment and Plan: A1c 12.8 to show poor diabetic control prior to admission. The patient's blood glucose was reviewed on 03/30 Hyperglycemia related to the steroids and baseline poor control prior to admission. Glucose better controlled overall off the steroids. Continue AccuCheks covering with sliding scale. Hypoglycemia protocol available as needed. Adjust Lantus as needed. Continue tube feedings. (7) Hypertension: Code(s): I10 - Essential (primary) hypertension Status: Acute Assessment and Plan: Patient's blood pressure was reviewed on 03/30 She was able to come off of the Levophed 03/22. Amlodipine and Cozaar stopped due to HoTN. BP well controlled now off the Propofol. Continue to monitor hemodynam
[2021-03-30] MEDS: INSULIN ASPART (*BKC) 100 UNITS/ML SUB-Q ×2 (11:17→17:04)
[2021-03-30 11:42] LABS: Glucose Point of Care 201 mg/dl (65-105)
--- NOTE | 2021-03-30 12:19 | PCDIET ---
Nutrition Follow-Up Complete: Nutrition Diagnosis: Inadequate oral intake related to decreased appetite as evidenced by intakes 50% or less at most meals x 1 week. Nutrition Goal: Patient to meet estimated nutritional needs. Goal met. Patient tolerating Glucerna 1.2 at 50mL/hr goal rate with 100mL water flush every 4 hours. May consider further increasing water flush if no improvement in sodium over the next 24 hours. Last recorded weight is 88.4 kg which has decreased from last review. +I/O. Bowel Motility: Last documented BM on 03/23/21. Patient received Miralax again today, and Reglan continues. Labs Reviewed: RBC (3.61), Hgb (9.5), Hct (33.1), Glu (132), BUN (52), Na (148), Alb (3.0) Meds Noted: Albuterol, Fentanyl, Apresoline, Novolog, Lantus, Atrovent, Reglan, Versed, Protonix, Miralax, Pravastatin Sodium, Lasix Additional Notes: Right lower lip abrasion and left cheek skin tear documented. Will continue to monitor with same goal. Nutrition Monitoring and Evaluation: Follow up every Monday/Monday.
--- NOTE | 2021-03-30 14:36 | WPDINTPN ---
Progress Note: A&P Assessment and Plan (1) Acute respiratory failure with hypoxia: Code(s): J96.01 - Acute respiratory failure with hypoxia Status: Acute Assessment and Plan: Acute respiratory failure secondary to COVID-19 pneumonia 03/12 Admitted 03/15 Intermittent Bipap 03/20 Bipap dependent 03/21 Intubated -03/30: chest x-ray: Increased bilateral infiltrates since 03/29/2021 -ABGs reviewed, wean oxygen to maintain O2 sats greater than 92% -Propofol Versed and fentanyl infusion for sedation - low tidal volume ventilation -Daily 16- 18 hours prone ventilation as tolerated 03/16/2021: Echo with EF 74%, normal diastolic function and no valvular disease. 03/16/2021: Venous doppler of all 4 extremities negative for DVT. 03/18/2021: CTA Chest negative for PE. - Continue bronchodilators -patient diuresed with Lasix on 03/25 and 03/27 -will diurese again today as a blood pressures are much improved (2) Pneumonia due to COVID-19 virus: Code(s): U07.1 - COVID-19; J12.82 - Pneumonia due to coronavirus disease 2019 Status: Acute Assessment and Plan: She has NOT been vaccinated for COVID Status post Remdesivir Dexamethasone 20 mg IV q.day for 5 days then dexamethasone 10 mg IV q.day for additional 5 days. Tocilizumab given once 03/14. Rocephin and azithromycin were stopped after 5 days of treatment. Inflammatory markers trending down, will continue to monitor inflammatory markers (3) Shock: Code(s): R57.9 - Shock, unspecified Status: Acute Assessment and Plan: RESOLVED patient became hypotensive post intubation likely secondary to sedation and hypovolemia IV fluid bolus followed by conservative IV fluids Off Levophed since 03/22/2021 (4) BROOKE (acute kidney injury): Code(s): N17.9 - Acute kidney failure, unspecified Status: Acute Assessment and Plan: RESOLVED Likely secondary to hypovolemia and hypotension Patient was given IV fluid bolus and cautious IV fluid maintenance 03/29: Hypernatremia, sodium of 149, increased free water flushes, continue to monitor Creatinine is remains stable, will continue to monitor Monitor urine output and electrolytes (5) Type 2 diabetes mellitus with hyperglycemia: Code(s): E11.65 - Type 2 diabetes mellitus with hyperglycemia Status: Acute Assessment and Plan: HbA1c 12.8 to show poor control prior to admission. Continue AccuCheks covering with sliding scale. Hypoglycemia protocol available as needed. Continue sliding scale insulin -decrease Lantus (6) Hyperlipidemia: Code(s): E78.5 - Hyperlipidemia, unspecified Status: Acute Assessment and Plan: Normal LFTs. Continue Pravastatin. Monitor LFTs while on Remdesivir. (7) Asthma: Code(s): J45.909 - Unspecified asthma, uncomplicated Status: Acute Assessment and Plan: No wheezing. Continue nebs and steroids As above. (8) DVT prophylaxis: Code(s): Z29.9 - Encounter for prophylactic measures, unspecified Status: Acute Assessment and Plan: Lovenox Additional Plan Stress ulcer prophylaxis - PPI Nutrition -tolerating tube feeds I discussed with daughter, Leatha jiménez with patient's condition and plan of care. I answered all questions Code Status - full code Critical Care Time - 33 minutes Due to a high probability of clinically significant, life threatening deterioration, the patient required my highest level of preparedness to intervene emergently and I personally spent this critical care time directly and personally managing the patient. This critical care time included obtaining a history; examining the patient; pulse oximetry; ordering and review of studies; arranging urgent treatment with development of a management plan; evaluation of patient's response to treatment; frequent reassessment; and discussions with other providers. It was
[2021-03-30 17:19] LABS: Glucose Point of Care 228 mg/dl (65-105)
[2021-03-30] MEDS: INSULIN GLARGINE (*BKC) 100 UNITS/ML 20 UNITS SUB-Q (20:58)
[2021-03-30 21:16] LABS: Glucose Point of Care 191 mg/dl (65-105)
[2021-03-31] VITALS (25 sets, daily range): BP systolic 106–147; BP diastolic 67–85; PULSE 78–106; RESP 26; TEMP 37.2–37.5; O2SAT 92–97
[2021-03-31] MEDS: INSULIN ASPART (*BKC) 100 UNITS/ML SUB-Q ×4 (00:31→21:14)
[2021-03-31] MEDS: METOCLOPRAMIDE HCL INJ 10 MG/2 ML VIAL IV PUSH ×4 (00:31→17:26)
[2021-03-31 00:41] LABS: Glucose Point of Care 203 mg/dl (65-105)
[2021-03-31] MEDS: IPRATROPIUM BR 0.02% INH SOLN 0.5 MG/2.5 ML VIAL INHALATION ×4 (01:54→20:41)
[2021-03-31] MEDS: ALBUTEROL SULFATE NEB 2.5 MG/0.5 ML INH INHALATION ×4 (01:54→20:41)
[2021-03-31] MEDS: MIDAZOLAM 100MG/NS 100ML(*CRX) 100 MG/100 ML BAG IV CONT (03:27)
[2021-03-31] MEDS: FENTANYL 2,500MCG/NS250ML(*CRX 2,500 MCG/250 ML BAG 20 MCG IV CONT ×2 (03:28→16:36)
[2021-03-31 05:06] LABS: Glucose Point of Care 108 mg/dl (65-105)
[2021-03-31 05:28] LABS: Hematocrit 33.4 % (37.0-47.0); Hemoglobin 9.7 g/dL (12.0-15.0); Mean Corpuscular Hemoglobin 26.4 pg (26-34); Mean Platelet Volume 11.4 fl (7.4-10.4); Platelet Count Result 186 k/mm3 (150-375); Red Blood Count 3.67 M/mm3 (4.2-5.4); Red Cell Distribution Width 16.5 % (11.5-14.5); White Blood Count 8.2 K/mm3 (4.5-10.0)
[2021-03-31 05:44] LABS: Alanine Aminotransferase 14 U/L (4-35); Albumin Level 3.1 g/dL (3.5-5.1); Alkaline Phosphatase 92 U/L (38-126); Anion Gap 3 mmol/L (8-16); Aspartate Amino Transferase 26 U/L (14-36); Bilirubin,Total 0.5 mg/dL (0.2-1.3); Blood Urea Nitrogen 39 mg/dL (7-17); Carbon Dioxide 32 mmol/L (22-30); Chloride 113 mmol/L (98-107); Estimated CRCL calculation 65 ml/min; Estimated Glomerular Filt Rate > 60; Glucose 100 mg/dL (65-110); Magnesium 2.1 mg/dL (1.6-2.3); Phosphorus 3.5 mg/dL (2.5-4.5); Potassium 3.4 mmol/L (3.4-5.0); Sodium 148 mmol/L (137-145)
[2021-03-31] MEDS: CENTRAL LINE FLUSH 10 ML IV PUSH ×4 (05:49→21:15)
[2021-03-31 07:13] LABS: Alveolar/Arterial O2 Gradient 309.8 mmHg; Base Excess ABG 6.4 mEq/l (+/-2.0); Carboxyhemoglobin 0.3 % THb (0-2.0); Fractional Inspired Oxygen 60 %; HCO3 ABG 29.9 mEq/l (22.0-26.0); Methemoglobin ABG 0.5 %THb (0-1.5); Oxygen Content ABG 14.3 %vol (16.0-22.0); Oxygen Saturation ABG 96.2 % (95.0-100.0); Oxyhemoglobin 93.7 % THb (90.0-100.0); PCO2 ABG 38.8 mmHg (35.0-45.0); PO2 ABG 75.3 mmHg (80.0-100.0); PO2 FiO2 Ratio Arterial Blood 1.25 %; Reduced Hemoglobin 5.5 %THb (0-5.0); Total Hemoglobin 10.8 g/dL (12.0-18.0)
[2021-03-31 07:15] LABS: Device VENTILATOR; Modified Allen's Test Unable to perform; Site Drawn RIGHT RADIAL; pH ABG 7.505 (7.350-7.450)
[2021-03-31 07:16] LABS: Arterial Blood Gas PEEP 10 cmH2O; Arterial Blood Gas Tidal Volume 360 ml; Arterial Blood Gas Vent Mode CMV; Arterial Blood Gas Ventilator rate 26 /MIN
[2021-03-31] MEDS: polyethylene glycoL 3350 17 GM POWD.PACK PO (08:23)
[2021-03-31] MEDS: ENOXAPARIN 40 MG/0.4 ML SYRINGE SUB-Q ×2 (08:23→21:13)
[2021-03-31] MEDS: PRAVASTATIN SODIUM 20 MG TABLET 40 MG PO (08:23)
[2021-03-31] MEDS: MINERAL OIL/WHITE PETROLATUM OINTMENT 1 APPLIC EACH EYE ×2 (08:23→21:15)
[2021-03-31] MEDS: FUROSEMIDE INJ 40 MG/4 ML VIAL IV PUSH ×2 (08:23→17:26)
[2021-03-31] MEDS: PANTOPRAZOLE SODIUM IV 40 MG VIAL IV PUSH (08:24)
[2021-03-31 08:34] LABS: Glucose Point of Care 115 mg/dl (65-105)
--- NOTE | 2021-03-31 09:03 | PM.IMPN ---
Progress Note: A&P Assessment and Plan (1) Acute respiratory failure with hypoxia: Code(s): J96.01 - Acute respiratory failure with hypoxia Status: Acute Assessment and Plan: Patient presents with hypoxia with accelerating O2 requirement. CXR on admission showing significant bilateral airspace disease. Echo with EF 74%, normal diastolic function and no valvular disease. Venous doppler of all 4 extremities 03/16 negative for DVT. CTA Chest 03/18 negative for PE. She was alternating between BiPAP and high-flow oxygen but became BiPAP dependent and ultimately requiring intubation on 03/21/21. CXR today showing diffuse airspace disease but improved exam findings. Lasix started but still with positive fluid balance overall. Continue mechanical ventilation support. Wean FiO2 and PEEP as tolerated. Low tidal volume strategies. Sedated with fentanyl and Versed. Daily sedation vacation trial. Prone positioning as tolerated. Follow chest x-ray and ABG. Electric Wheelchair Repairer following. (2) Pneumonia due to COVID-19 virus: Code(s): U07.1 - COVID-19; J12.82 - Pneumonia due to coronavirus disease 2019 Status: Acute Assessment and Plan: Patient exposed to her nephew who was ill. She was unvaccinated. She presented 03/12 with SOB with CXR showing bilateral airspace disease. Started on Rocephin and Zithromax. Lasix 40mg IV given once 03/13 and again 03/14. CXR 03/14 showing worsening pulmonary infiltrates. COVID swab returned positive and Remdesivir and Dexamethasone started 03/14. Tocilizumab given once 03/14. WBC dropped from virus, possibly from meds but WBC normal now. Abx were stopped after 5 days of treatment. She had high O2 requirement and now intubated. Changed to dexamethasone 20 mg IV daily x 5 days then 10mg IV daily x 5 days (steroids stopped 03/29). Remdisivir was stopped after 7 days. Tolerating laying prone. Continue supportive care. Electric Wheelchair Repairer is following and appreciates his input. (3) BROOKE (acute kidney injury): Code(s): N17.9 - Acute kidney failure, unspecified Status: Acute Assessment and Plan: Cr slightly elevated at 1.1 on admission but improved despite Lasix. Cr increased to 1.4 so we held HCTZ and was started on IV fluids. Cr normalized and IV fluids stopped. Cr up to 2.5 on 03/22 probably related to dehydration from poor oral intake prior to intubation. She did receive contrast on 03/18 and was briefly HoTN. Cr normal now. Continue to monitor renal parameters and electrolytes. (4) Anemia: Code(s): D64.9 - Anemia, unspecified Status: Acute Assessment and Plan: Hgb has been normal in the 12-14 range since admission until 03/23 when Hgb dropped 9.1. Repeat HH stable in the 8-9 range. No evidence of acute blood loss. Remains on lovenox. Continue Protonix. Follow closely. (5) Shock: Code(s): R57.9 - Shock, unspecified Status: Acute Assessment and Plan: Patient developed HoTN around the time she was placed on MV. She may have been hypovolemic given the poor oral intake prior to intubation and the BROOKE. Renal function and BP improved with IV fluids. Able to come off of the Levophed 03/22. Monitor closely. (6) Type 2 diabetes mellitus with hyperglycemia: Code(s): E11.65 - Type 2 diabetes mellitus with hyperglycemia Status: Acute Assessment and Plan: A1c 12.8 to show poor diabetic control prior to admission. The patient's blood glucose was reviewed on 03/31 Hyperglycemia related to the steroids and baseline poor control prior to admission. Glucose better controlled overall off the steroids. Continue AccuCheks covering with sliding scale. Hypoglycemia protocol available as needed. Adjust Lantus as needed. Continue tube feedings. (7) Hypertension: Code(s): I10 - Essential (primary) hypertension Status: Acute Assessment and Plan: Patient's blood pressure was reviewed on 03/31 She was able to come off of the Levo
--- NOTE | 2021-03-31 11:18 | WPDINTPN ---
Progress Note: A&P Assessment and Plan (1) Acute respiratory failure with hypoxia: Code(s): J96.01 - Acute respiratory failure with hypoxia Status: Acute Assessment and Plan: Acute respiratory failure secondary to COVID-19 pneumonia 03/12 Admitted 03/15 Intermittent Bipap 03/20 Bipap dependent 03/21 Intubated -03/30: chest x-ray: Increased bilateral infiltrates since 03/29/2021 -ABGs reviewed, wean oxygen to maintain O2 sats greater than 92% -Versed and fentanyl infusion for sedation. OFF Propofol - low tidal volume ventilation - Daily 16- 18 hours prone ventilation as tolerated 03/16/2021: Echo with EF 74%, normal diastolic function and no valvular disease. 03/16/2021: Venous doppler of all 4 extremities negative for DVT. 03/18/2021: CTA Chest negative for PE. - Continue bronchodilators -patient diuresed with Lasix on 03/25 and 03/27 -03/31: will diurese again today as a blood pressures are much improved (2) Pneumonia due to COVID-19 virus: Code(s): U07.1 - COVID-19; J12.82 - Pneumonia due to coronavirus disease 2018 Status: Acute Assessment and Plan: She has NOT been vaccinated for COVID Status post Remdesivir S/p Dexamethasone (20 mg IV q.day for 5 days then dexamethasone 10 mg IV q.day for additional 5 days.) Tocilizumab given once 03/14. Rocephin and azithromycin were stopped after 5 days of treatment. Inflammatory markers trending down, will continue to monitor inflammatory markers (3) Shock: Code(s): R57.9 - Shock, unspecified Status: Acute Assessment and Plan: RESOLVED patient became hypotensive post intubation likely secondary to sedation and hypovolemia IV fluid bolus followed by conservative IV fluids Off Levophed since 03/22/2021 (4) BROOKE (acute kidney injury): Code(s): N17.9 - Acute kidney failure, unspecified Status: Acute Assessment and Plan: RESOLVED Likely secondary to hypovolemia and hypotension Patient was given IV fluid bolus and cautious IV fluid maintenance 03/29: Hypernatremia, sodium of 149, increased free water flushes, continue to monitor Creatinine is remains stable, will continue to monitor Monitor urine output and electrolytes (5) Type 2 diabetes mellitus with hyperglycemia: Code(s): E11.65 - Type 2 diabetes mellitus with hyperglycemia Status: Acute Assessment and Plan: HbA1c 12.8 to show poor control prior to admission. Continue AccuCheks covering with sliding scale. Hypoglycemia protocol available as needed. Continue sliding scale insulin -continue Lantus (6) Hyperlipidemia: Code(s): E78.5 - Hyperlipidemia, unspecified Status: Acute Assessment and Plan: Normal LFTs. Continue Pravastatin. Monitor LFTs while on Remdesivir. (7) Asthma: Code(s): J45.909 - Unspecified asthma, uncomplicated Status: Acute Assessment and Plan: No wheezing. Continue nebs and steroids As above. (8) DVT prophylaxis: Code(s): Z29.9 - Encounter for prophylactic measures, unspecified Status: Acute Assessment and Plan: Lovenox Additional Plan Stress ulcer prophylaxis - PPI Nutrition -tolerating tube feeds I discussed with daughter, Leatha jiménez with patient's condition and plan of care. I answered all questions Code Status - full code Critical Care Time - 33 minutes Due to a high probability of clinically significant, life threatening deterioration, the patient required my highest level of preparedness to intervene emergently and I personally spent this critical care time directly and personally managing the patient. This critical care time included obtaining a history; examining the patient; pulse oximetry; ordering and review of studies; arranging urgent treatment with development of a management plan; evaluation of patient's response to treatment; frequent reassessment; and discussions with otlan
[2021-03-31 12:05] LABS: Glucose Point of Care 206 mg/dl (65-105)
--- NOTE | 2021-03-31 12:21 | PCDIET ---
ICU Rounding Note: Patient tolerating Glucerna 1.2 at 50mL/hr goal rate with 100mL water flush every 4 hours. Last recorded weight is 85.9kg which is down from last review. -I/O. Bowel Motility: +BM on 03/30/21. Labs Reviewed: RBC (3.67), Hgb (9.7), Hct (33.7), Glu (115), BUN (39), Na (148), Cl (113), Alb (3.1) Meds Noted: Miralax, Pravastatin Sodium, Albuterol, Novolog, Lantus, Protonix, Fentanyl, Lasix, Atrovent, Reglan, Versed Additional Notes: Left cheek with skin tear. Right lower lip abrasion. Following daily in ICU rounds. Assessing/reassessing every Monday/Monday.
[2021-03-31 17:48] LABS: Glucose Point of Care 239 mg/dl (65-105)
[2021-03-31 20:54] LABS: Glucose Point of Care 269 mg/dl (65-105)
[2021-03-31] MEDS: INSULIN GLARGINE (*BKC) 100 UNITS/ML 20 UNITS SUB-Q (21:14)
[2021-03-31] MEDS: MIDAZOLAM 100MG/NS 100ML(*CRX) 100 MG/100 ML BAG 6 MG IV CONT (23:35)
[2021-04-01] VITALS (30 sets, daily range): BP systolic 97–157; BP diastolic 64–101; PULSE 76–106; RESP 22–26; TEMP 36.8–37.6; O2SAT 93–98
[2021-04-01] MEDS: INSULIN ASPART (*BKC) 100 UNITS/ML SUB-Q ×4 (00:28→17:09)
[2021-04-01] MEDS: METOCLOPRAMIDE HCL INJ 10 MG/2 ML VIAL IV PUSH ×5 (00:29→23:55)
[2021-04-01 00:40] LABS: Glucose Point of Care 217 mg/dl (65-105)
[2021-04-01] MEDS: ALBUTEROL SULFATE NEB 2.5 MG/0.5 ML INH INHALATION ×4 (04:03→21:02)
[2021-04-01] MEDS: IPRATROPIUM BR 0.02% INH SOLN 0.5 MG/2.5 ML VIAL INHALATION ×4 (04:04→21:02)
[2021-04-01 04:28] LABS: Glucose Point of Care 174 mg/dl (65-105)
[2021-04-01 05:37] LABS: Basophils Percent Auto 0.1 % (0.2-1.2); Eosinophils Absolute Auto 0.3 K/mm3 (0-0.3); Eosinophils Percent Auto 3.8 % (0-4.4); Hematocrit 32.5 % (37.0-47.0); Hemoglobin 9.9 g/dL (12.0-15.0); Immature Granulocyte Absolute 0.04 K/mm3 (0.00-0.031); Immature Granulocyte Percent A 0.5 % (0-0.5); Lymphocytes Absolute Auto 0.81 K/mm3 (0.9-3.2); Lymphocytes Percent Auto 9.5 % (18.3-44.2); Mean Corpuscular HGB Conc 30.5 g/dl (32-36); Mean Corpuscular Hemoglobin 26.8 pg (26-34); Mean Corpuscular Volume 88.1 fl (80-100); Mean Platelet Volume 11.9 fl (7.4-10.4); Monocytes Absolute Auto 0.9 K/mm3 (0.1-0.6); Neutrophils Absolute Auto 6.5 K/mm3 (1.3-6.7); Neutrophils Percent Auto 76.1 % (45.5-73.1); Platelet Count Result 173 k/mm3 (150-375); Red Blood Count 3.69 M/mm3 (4.2-5.4); Red Cell Distribution Width 16.7 % (11.5-14.5); White Blood Count 8.5 K/mm3 (4.5-10.0)
[2021-04-01 05:51] LABS: D Dimer 0.59 ug/mL (<0.48)
[2021-04-01 05:52] LABS: Alanine Aminotransferase 12 U/L (4-35); Albumin Level 2.9 g/dL (3.5-5.1); Alkaline Phosphatase 104 U/L (38-126); Anion Gap 4 mmol/L (8-16); Aspartate Amino Transferase 24 U/L (14-36); Bilirubin,Total 0.5 mg/dL (0.2-1.3); Blood Urea Nitrogen 38 mg/dL (7-17); CRP 5.3 mg/dL (<1.0); Calcium 9.2 mg/dL (8.4-10.2); Carbon Dioxide 34 mmol/L (22-30); Chloride 109 mmol/L (98-107); Estimated CRCL calculation 84 ml/min; Estimated Glomerular Filt Rate > 60; Glucose 170 mg/dL (65-110); Lactate Dehydrogenase 757 U/L (313-618); Phosphorus 3.5 mg/dL (2.5-4.5); Potassium 3.4 mmol/L (3.4-5.0); Sodium 147 mmol/L (137-145)
[2021-04-01] MEDS: CENTRAL LINE FLUSH 10 ML IV PUSH ×4 (07:51→21:17)
[2021-04-01] MEDS: ENOXAPARIN 40 MG/0.4 ML SYRINGE SUB-Q ×2 (08:15→21:16)
[2021-04-01] MEDS: PANTOPRAZOLE SODIUM IV 40 MG VIAL IV PUSH (08:15)
[2021-04-01] MEDS: PRAVASTATIN SODIUM 20 MG TABLET 40 MG PO (08:16)
[2021-04-01] MEDS: MINERAL OIL/WHITE PETROLATUM OINTMENT 1 APPLIC EACH EYE ×2 (08:16→21:17)
[2021-04-01] MEDS: polyethylene glycoL 3350 17 GM POWD.PACK PO (08:16)
[2021-04-01] MEDS: FENTANYL 2,500MCG/NS250ML(*CRX 2,500 MCG/250 ML BAG 20 MCG IV CONT ×2 (08:35→21:17)
[2021-04-01 08:55] LABS: Glucose Point of Care 253 mg/dl (65-105)
[2021-04-01 12:13] LABS: Glucose Point of Care 229 mg/dl (65-105)
--- NOTE | 2021-04-01 13:52 | P.PNINT_ITS ---
Progress Note: A&P Assessment and Plan (1) Acute respiratory failure with hypoxia: Code(s): J96.01 - Acute respiratory failure with hypoxia Status: Acute Assessment and Plan: Acute respiratory failure secondary to COVID-19 pneumonia 03/12 Admitted 03/15 Intermittent Bipap 03/20 Bipap dependent 03/21 Intubated -03/30: chest x-ray: Increased bilateral infiltrates since 03/29/2021 -ABGs reviewed, wean oxygen to maintain O2 sats greater than 92% -Versed and fentanyl infusion for sedation. OFF Propofol - low tidal volume ventilation - Daily 16- 18 hours prone ventilation as tolerated 03/16/2021: Echo with EF 74%, normal diastolic function and no valvular disease. 03/16/2021: Venous doppler of all 4 extremities negative for DVT. 03/18/2021: CTA Chest negative for PE. - Continue bronchodilators -patient diuresed with Lasix on 03/25 and 03/27 -03/31: will diurese again today as a blood pressures are much improved (2) Pneumonia due to COVID-19 virus: Code(s): U07.1 - COVID-19; J12.82 - Pneumonia due to coronavirus disease 2018 Status: Acute Assessment and Plan: She has NOT been vaccinated for COVID Status post Remdesivir S/p Dexamethasone (20 mg IV q.day for 5 days then dexamethasone 10 mg IV q.day for additional 5 days.) Tocilizumab given once 03/14. Rocephin and azithromycin were stopped after 5 days of treatment. Inflammatory markers trending down, will continue to monitor inflammatory markers (3) Shock: Code(s): R57.9 - Shock, unspecified Status: Acute Assessment and Plan: RESOLVED patient became hypotensive post intubation likely secondary to sedation and hypovolemia IV fluid bolus followed by conservative IV fluids Off Levophed since 03/22/2021 (4) BROOKE (acute kidney injury): Code(s): N17.9 - Acute kidney failure, unspecified Status: Acute Assessment and Plan: RESOLVED Likely secondary to hypovolemia and hypotension Patient was given IV fluid bolus and cautious IV fluid maintenance 03/29: Hypernatremia, sodium of 149, increased free water flushes, continue to monitor Creatinine is remains stable, will continue to monitor Monitor urine output and electrolytes (5) Type 2 diabetes mellitus with hyperglycemia: Code(s): E11.65 - Type 2 diabetes mellitus with hyperglycemia Status: Acute Assessment and Plan: HbA1c 12.8 to show poor control prior to admission. Continue AccuCheks covering with sliding scale. Hypoglycemia protocol available as needed. Continue sliding scale insulin -continue Lantus (6) Hyperlipidemia: Code(s): E78.5 - Hyperlipidemia, unspecified Status: Acute Assessment and Plan: Normal LFTs. Continue Pravastatin. Monitor LFTs while on Remdesivir. (7) Asthma: Code(s): J45.909 - Unspecified asthma, uncomplicated Status: Acute Assessment and Plan: No wheezing. Continue nebs and steroids As above. (8) DVT prophylaxis: Code(s): Z29.9 - Encounter for prophylactic measures, unspecified Status: Acute Assessment and Plan: Lovenox Additional Plan Stress ulcer prophylaxis - PPI Nutrition -tolerating tube feeds I discussed with daughter, Leatha jiménez with patient's condition and plan of care. I answered all questions Code Status - full code Critical Care Time - 33 minutes Due to a high probability of clinically significant, life threatening deteriorat
--- NOTE | 2021-04-01 14:03 | PCDIET ---
Nutrition Follow-Up Complete: Nutrition Diagnosis: Inadequate oral intake related to decreased appetite as evidenced by intakes 50% or less at most meals x 1 week. Nutrition Goal: Patient to meet estimated nutritional needs. Goal met. Patient tolerating Glucerna 1.2 at 50mL/hr goal rate with 100mL water flush every 4 hours. Sodium and chloride trending down slowly. Last recorded weight is 84 kg which is down from last review. Bowel Motility: Documented BM on 03/31/21. Labs Reviewed: RBC (3.69), Hgb (9.9), Hct (32.5), Glu (170), BUN (38), Cr (0.6), Na (147), Alb (2.9), Cl (109) Meds Noted: Albuterol, Apresoline, Atrovent, Reglan, Versed, Fentanyl, Novolog, Lantus, Protonix, Miralax, Pravastatin Sodium Additional Notes: Right lower lip abrasion. Left cheek skin tear. Will continue to monitor with same goal. Nutrition Monitoring and Evaluation: Follow up every Monday/Monday.
[2021-04-01] MEDS: FUROSEMIDE INJ 40 MG/4 ML VIAL IV PUSH (14:37)
[2021-04-01] MEDS: POTASSIUM CHLORIDE 20 MEQ PACKET (FOR LIQUID) 40 MEQ PO (14:37)
[2021-04-01 17:46] LABS: Glucose Point of Care 202 mg/dl (65-105)
[2021-04-01] MEDS: MIDAZOLAM 100MG/NS 100ML(*CRX) 100 MG/100 ML BAG 6 MG IV CONT (18:30)
--- NOTE | 2021-04-01 18:44 | PM.IMPN ---
Progress Note: A&P Assessment and Plan (1) Acute respiratory failure with hypoxia: Code(s): J96.01 - Acute respiratory failure with hypoxia Status: Acute Assessment and Plan: Patient presents with hypoxia with accelerating O2 requirement. CXR on admission showing significant bilateral airspace disease. Echo with EF 74%, normal diastolic function and no valvular disease. Venous doppler of all 4 extremities 03/16 negative for DVT. CTA Chest 03/18 negative for PE. She was alternating between BiPAP and high-flow oxygen but became BiPAP dependent and ultimately requiring intubation on 03/21/21. CXR yesterday showing diffuse airspace disease but improved exam findings. Lasix IV intermittently. Continue mechanical ventilation support. Wean FiO2 and PEEP as tolerated. Low tidal volume strategies. Sedated with fentanyl and Versed. Daily sedation vacation trial. Prone positioning as tolerated. Follow chest x-ray and ABG. Photographic Machine Operator following. (2) Pneumonia due to COVID-19 virus: Code(s): U07.1 - COVID-19; J12.82 - Pneumonia due to coronavirus disease 2019 Status: Acute Assessment and Plan: Patient exposed to her nephew who was ill. She was unvaccinated. She presented 03/12 with SOB with CXR showing bilateral airspace disease. Started on Rocephin and Zithromax. Lasix 40mg IV given once 03/13 and again 03/14. CXR 03/14 showing worsening pulmonary infiltrates. COVID swab returned positive and Remdesivir and Dexamethasone started 03/14. Tocilizumab given once 03/14. WBC dropped due to the virus, possibly from meds but WBC normal now. Abx were stopped after 5 days of treatment. She had high O2 requirement and now intubated. Changed to dexamethasone 20 mg IV daily x 5 days then 10mg IV daily x 5 days (steroids stopped 03/29). Remdisivir was stopped after 7 days. Tolerating laying prone. Continue supportive care. Photographic Machine Operator is following and appreciates his input. (3) Anemia: Code(s): D64.9 - Anemia, unspecified Status: Acute Assessment and Plan: Hgb has been normal in the 12-14 range since admission until 03/23 when Hgb dropped 9.1. Repeat HH stable in the 10 range now. No evidence of acute blood loss. Remains on lovenox. Continue Protonix. Follow closely. (4) Shock: Code(s): R57.9 - Shock, unspecified Status: Acute Assessment and Plan: Patient developed HoTN around the time she was placed on MV. She may have been hypovolemic given the poor oral intake prior to intubation and the BROOKE. Renal function and BP improved with IV fluids. Able to come off of the Levophed 03/22. Monitor closely. (5) Type 2 diabetes mellitus with hyperglycemia: Code(s): E11.65 - Type 2 diabetes mellitus with hyperglycemia Status: Acute Assessment and Plan: A1c 12.8 to show poor diabetic control prior to admission. The patient's blood glucose was reviewed on 04/01 Hyperglycemia related to the steroids and baseline poor control prior to admission. Glucose better controlled overall off the steroids but still mildly elevated. Continue AccuCheks covering with sliding scale. Hypoglycemia protocol available as needed. Adjust Lantus as needed. Continue tube feedings. (6) Hypertension: Code(s): I10 - Essential (primary) hypertension Status: Acute Assessment and Plan: Patient's blood pressure was reviewed on 04/01 She was able to come off of the Levophed 03/22. Amlodipine and Cozaar stopped due to HoTN. BP remains well controlled. Continue to monitor hemodynamics closely. (7) Hyperlipidemia: Code(s): E78.5 - Hyperlipidemia, unspecified Status: Acute Assessment and Plan: LFTs normal. Continue Pravastatin. (8) Asthma: Code(s): J45.909 - Unspecified asthma, uncomplicated Status: Acute Assessment and Plan: No wheezing. Improved air exchange. Continue nebs. As above. (9) DVT prophylaxis: Code(s): Z29.9 - [place]
[2021-04-01] MEDS: INSULIN GLARGINE (*BKC) 100 UNITS/ML 20 UNITS SUB-Q (21:16)
[2021-04-02] VITALS (38 sets, daily range): BP systolic 92–152; BP diastolic 61–95; PULSE 74–108; RESP 17–26; TEMP 37.1–37.7; O2SAT 91–96
[2021-04-02 00:42] LABS: Glucose Point of Care 195 mg/dl (65-105)
[2021-04-02] MEDS: ALBUTEROL SULFATE NEB 2.5 MG/0.5 ML INH INHALATION ×4 (02:29→20:22)
[2021-04-02] MEDS: IPRATROPIUM BR 0.02% INH SOLN 0.5 MG/2.5 ML VIAL INHALATION ×4 (02:30→20:23)
[2021-04-02 05:06] LABS: Basophils Percent Auto 0.1 % (0.2-1.2); Eosinophils Absolute Auto 0.3 K/mm3 (0-0.3); Eosinophils Percent Auto 2.8 % (0-4.4); Hematocrit 32.1 % (37.0-47.0); Hemoglobin 9.6 g/dL (12.0-15.0); Immature Granulocyte Absolute 0.05 K/mm3 (0.00-0.031); Immature Granulocyte Percent A 0.5 % (0-0.5); Lymphocytes Absolute Auto 0.69 K/mm3 (0.9-3.2); Lymphocytes Percent Auto 7.4 % (18.3-44.2); Mean Corpuscular HGB Conc 29.9 g/dl (32-36); Mean Corpuscular Hemoglobin 26.4 pg (26-34); Mean Corpuscular Volume 88.2 fl (80-100); Mean Platelet Volume 11.6 fl (7.4-10.4); Monocytes Absolute Auto 0.9 K/mm3 (0.1-0.6); Monocytes Percent Auto 9.4 % (2.6-8.5); Neutrophils Absolute Auto 7.4 K/mm3 (1.3-6.7); Neutrophils Percent Auto 79.8 % (45.5-73.1); Platelet Count Result 157 k/mm3 (150-375); Red Blood Count 3.64 M/mm3 (4.2-5.4); Red Cell Distribution Width 16.5 % (11.5-14.5); White Blood Count 9.3 K/mm3 (4.5-10.0)
[2021-04-02 05:26] LABS: Alanine Aminotransferase 14 U/L (4-35); Albumin Level 2.9 g/dL (3.5-5.1); Alkaline Phosphatase 117 U/L (38-126); Anion Gap 4 mmol/L (8-16); Aspartate Amino Transferase 26 U/L (14-36); Bilirubin,Total 0.6 mg/dL (0.2-1.3); Blood Urea Nitrogen 37 mg/dL (7-17); Calcium 8.9 mg/dL (8.4-10.2); Carbon Dioxide 32 mmol/L (22-30); Chloride 108 mmol/L (98-107); Estimated CRCL calculation 72 ml/min; Estimated Glomerular Filt Rate > 60; Glucose 257 mg/dL (65-110); Magnesium 2.1 mg/dL (1.6-2.3); Phosphorus 3.4 mg/dL (2.5-4.5); Potassium 3.5 mmol/L (3.4-5.0); Sodium 144 mmol/L (137-145)
[2021-04-02 05:42] LABS: Alveolar/Arterial O2 Gradient 350.8 mmHg; Carboxyhemoglobin 0.2 % THb (0-2.0); Fractional Inspired Oxygen 65 %; HCO3 ABG 31.2 mEq/l (22.0-26.0); Methemoglobin ABG 0.2 %THb (0-1.5); Oxygen Content ABG 15.6 %vol (16.0-22.0); Oxygen Saturation ABG 94.3 % (95.0-100.0); PCO2 ABG 42.7 mmHg (35.0-45.0); PO2 ABG 66.2 mmHg (80.0-100.0); PO2 FiO2 Ratio Arterial Blood 1.02 %; Reduced Hemoglobin 7.6 %THb (0-5.0); pH ABG 7.482 (7.350-7.450)
[2021-04-02 05:43] LABS: Arterial Blood Gas PEEP 10 cmH2O; Arterial Blood Gas Vent Mode CMV; Arterial Blood Gas Ventilator rate 26 /MIN; Device VENTILATOR; Modified Allen's Test Pass; Site Drawn LEFT RADIAL
[2021-04-02 05:44] LABS: Arterial Blood Gas Tidal Volume 360 ml
[2021-04-02] MEDS: METOCLOPRAMIDE HCL INJ 10 MG/2 ML VIAL IV PUSH ×3 (06:17→17:34)
[2021-04-02] MEDS: CENTRAL LINE FLUSH 10 ML IV PUSH ×4 (06:18→20:26)
[2021-04-02] MEDS: INSULIN ASPART (*BKC) 100 UNITS/ML SUB-Q ×2 (07:22→13:06)
[2021-04-02] MEDS: ENOXAPARIN 40 MG/0.4 ML SYRINGE SUB-Q ×2 (08:43→20:26)
[2021-04-02] MEDS: polyethylene glycoL 3350 17 GM POWD.PACK PO (08:43)
[2021-04-02] MEDS: PRAVASTATIN SODIUM 20 MG TABLET 40 MG PO (08:43)
[2021-04-02] MEDS: MINERAL OIL/WHITE PETROLATUM OINTMENT 1 APPLIC EACH EYE ×2 (08:43→20:26)
[2021-04-02] MEDS: PANTOPRAZOLE SODIUM IV 40 MG VIAL IV PUSH (08:43)
--- NOTE | 2021-04-02 11:04 | WPDINTPN ---
Progress Note: A&P Assessment and Plan (1) Acute respiratory failure with hypoxia: Code(s): J96.01 - Acute respiratory failure with hypoxia Status: Acute Assessment and Plan: Acute respiratory failure secondary to COVID-19 pneumonia 03/12 Admitted 03/15 Intermittent Bipap 03/20 Bipap dependent 03/21 Intubated. Patient was placed in prone position daily for multiple days post intubation -03/30: chest x-ray: Increased bilateral infiltrates since 03/29/2021 -ABGs reviewed, wean oxygen to maintain O2 sats greater than 92% -Versed and fentanyl infusion for sedation. OFF Propofol - low tidal volume ventilation 03/16/2021: Echo with EF 74%, normal diastolic function and no valvular disease. 03/16/2021: Venous doppler of all 4 extremities negative for DVT. 03/18/2021: CTA Chest negative for PE. - Continue bronchodilators -patient diuresed with Lasix on 03/25, 03/27, 03/31 will further diuresis as patient has developed contraction alkalosis is also fairly balanced or intake and output (2) Pneumonia due to COVID-19 virus: Code(s): U07.1 - COVID-19; J12.82 - Pneumonia due to coronavirus disease 2019 Status: Acute Assessment and Plan: She has NOT been vaccinated for COVID Status post Remdesivir S/p Dexamethasone (20 mg IV q.day for 5 days then dexamethasone 10 mg IV q.day for additional 5 days.) Tocilizumab given once 03/14. Rocephin and azithromycin were stopped after 5 days of treatment. Inflammatory markers trending down, will continue to monitor inflammatory markers (3) Shock: Code(s): R57.9 - Shock, unspecified Status: Acute Assessment and Plan: RESOLVED patient became hypotensive post intubation likely secondary to sedation and hypovolemia IV fluid bolus followed by conservative IV fluids Off Levophed since 03/22/2021 (4) BROOKE (acute kidney injury): Code(s): N17.9 - Acute kidney failure, unspecified Status: Acute Assessment and Plan: RESOLVED Likely secondary to hypovolemia and hypotension Patient was given IV fluid bolus and cautious IV fluid maintenance 03/29: Hypernatremia, improved with increased free water flushes Creatinine is remains stable, will continue to monitor Monitor urine output and electrolytes (5) Type 2 diabetes mellitus with hyperglycemia: Code(s): E11.65 - Type 2 diabetes mellitus with hyperglycemia Status: Acute Assessment and Plan: HbA1c 12.8 to show poor control prior to admission. Continue AccuCheks covering with sliding scale. Hypoglycemia protocol available as needed. Continue sliding scale insulin -continue Lantus (6) Hyperlipidemia: Code(s): E78.5 - Hyperlipidemia, unspecified Status: Acute Assessment and Plan: Normal LFTs. Continue Pravastatin. Monitor LFTs while on Remdesivir. (7) Asthma: Code(s): J45.909 - Unspecified asthma, uncomplicated Status: Acute Assessment and Plan: No wheezing. Continue nebs and steroids As above. (8) DVT prophylaxis: Code(s): Z29.9 - Encounter for prophylactic measures, unspecified Status: Acute Assessment and Plan: Lovenox Additional Plan Stress ulcer prophylaxis - PPI Nutrition -tolerating tube feeds I discussed with daughter, Leatha Cam about patient's current condition and respiratory failure. I discussed options of tracheostomy and PEG tube placement as patient is close to 2 weeks on mechanical ventilation and no where close to weaning. I also discussed option of DNR. She is going to discuss with the family members and get back to me. Code Status - full code Critical Care Time - 40 minutes Due to a high probability of clinically significant, life threatening deterioration, the patient required my highest level of preparedness to intervene emergently and I personally spent this critical care time directly and personally managing the patient. This cri
--- NOTE | 2021-04-02 11:21 | PCDIET ---
Nutrition Follow-Up Complete: Nutrition Diagnosis: Inadequate oral intake related to decreased appetite as evidenced by intakes 50% or less at most meals x 1 week. Nutrition Goal: Patient to meet estimated nutritional needs. Goal met. Patient tolerating Glucerna 1.2 at 50mL/hr goal rate with 100mL water flush every 4 hours. Last recorded weight is 82.9 kg which is down from last review. -I/O. Bowel Motility: Last documented BM on 03/31/21. Labs Reviewed: RBC (3.64), Hgb (9.6), Hct (32.1), Glu (257), BUN (37), Na (144), Cl (108), Alb (2.9) Meds Noted: Albuterol, Novolog, Reglan, Protonix, Miralax, Fentanyl, Lantus, Versed, Pravastatin, Apresoline, Atrovent, Zemuron Additional Notes: Right lower lip abrasion and left cheek skin tear documented. Will continue to monitor with same goal. Nutrition Monitoring and Evaluation: Follow up every Monday/Monday.
[2021-04-02 13:30] LABS: Glucose Point of Care 202 mg/dl (65-105)
--- NOTE | 2021-04-02 14:05 | PM.IMPN ---
Progress Note: A&P Assessment and Plan (1) Acute respiratory failure with hypoxia: Code(s): J96.01 - Acute respiratory failure with hypoxia Status: Acute Assessment and Plan: Patient presents with hypoxia with accelerating O2 requirement. CXR on admission showing significant bilateral airspace disease. Echo with EF 74%, normal diastolic function and no valvular disease. Venous doppler of all 4 extremities 03/16 negative for DVT. CTA Chest 03/18 negative for PE. She was alternating between BiPAP and high-flow oxygen but became BiPAP dependent and ultimately requiring intubation on 03/21/21. CXR today showing diffuse airspace disease but improved from 03/31. Continue mechanical ventilation support. Wean FiO2 and PEEP as tolerated. Low tidal volume strategies. Sedated with fentanyl and Versed. Daily sedation vacation trial. Prone positioning as tolerated. Follow chest x-ray and ABG. Soccer Referee following. (2) Pneumonia due to COVID-19 virus: Code(s): U07.1 - COVID-19; J12.82 - Pneumonia due to coronavirus disease 2019 Status: Acute Assessment and Plan: Patient exposed to her nephew who was ill. She was unvaccinated. She presented 03/12 with SOB with CXR showing bilateral airspace disease. Started on Rocephin and Zithromax. Lasix 40mg IV given once 03/13 and again 03/14. CXR 03/14 showing worsening pulmonary infiltrates. COVID swab returned positive and Remdesivir and Dexamethasone started 03/14. Tocilizumab given once 03/14. Abx were stopped after 5 days of treatment. She had high O2 requirement that progresssed to intubation 03/21/21. Changed to dexamethasone 20 mg IV daily x 5 days then 10mg IV daily x 5 days (steroids stopped 03/29). Remdisivir was stopped after 7 days. Tolerating laying prone. Continue supportive care. Soccer Referee is following and appreciates his input. Plan now for Trach and PEG if family is agreeable. Code status also was discussed. (3) Anemia: Code(s): D64.9 - Anemia, unspecified Status: Acute Assessment and Plan: Hgb has been normal in the 12-14 range since admission until 03/23 when Hgb dropped 9.1. Repeat HH stable in the 9-10 range now. No evidence of acute blood loss. Remains on lovenox. Continue Protonix. Follow closely. (4) Shock: Code(s): R57.9 - Shock, unspecified Status: Acute Assessment and Plan: Patient developed HoTN around the time she was placed on MV. She may have been hypovolemic given the poor oral intake prior to intubation and the BROOKE. Renal function and BP improved with IV fluids. Able to come off of the Levophed 03/22. Monitor closely. (5) Type 2 diabetes mellitus with hyperglycemia: Code(s): E11.65 - Type 2 diabetes mellitus with hyperglycemia Status: Acute Assessment and Plan: A1c 12.8 to show poor diabetic control prior to admission. The patient's blood glucose was reviewed on 04/02 Hyperglycemia related to the steroids and baseline poor control prior to admission. Glucose better controlled overall now that she is off the steroids but still mildly elevated. Continue AccuCheks covering with sliding scale. Hypoglycemia protocol available as needed. Adjust Lantus as needed. Continue tube feedings. (6) Hypertension: Code(s): I10 - Essential (primary) hypertension Status: Acute Assessment and Plan: Patient's blood pressure was reviewed on 04/02 Amlodipine and Cozaar stopped due to HoTN. Levophed started 03/21 but able to wean off the next day. BP soft today. Continue to monitor hemodynamics closely. (7) Hyperlipidemia: Code(s): E78.5 - Hyperlipidemia, unspecified Status: Acute Assessment and Plan: LFTs normal. Continue Pravastatin. (8) Asthma: Code(s): J45.909 - Unspecified asthma, uncomplicated Status: Acute Assessment and Plan: No wheezing. Improved air exchange. Continue nebs. As above. (9) DVT prophylaxis: Code(s):
[2021-04-02] MEDS: FENTANYL 2,500MCG/NS250ML(*CRX 2,500 MCG/250 ML BAG 15 MCG IV CONT (17:32)
[2021-04-02 17:54] LABS: Glucose Point of Care 171 mg/dl (65-105)
[2021-04-02] MEDS: INSULIN GLARGINE (*BKC) 100 UNITS/ML 20 UNITS SUB-Q (20:25)
[2021-04-02] MEDS: MIDAZOLAM 100MG/NS 100ML(*CRX) 100 MG/100 ML BAG IV CONT (20:27)
[2021-04-02 23:58] LABS: Glucose Point of Care 178 mg/dl (65-105)
[2021-04-03] VITALS (36 sets, daily range): BP systolic 85–115; BP diastolic 58–71; PULSE 77–113; RESP 24–34; TEMP 36.5–37.3; O2SAT 87–97
[2021-04-03] MEDS: METOCLOPRAMIDE HCL INJ 10 MG/2 ML VIAL IV PUSH ×4 (00:08→17:08)
[2021-04-03] MEDS: ALBUTEROL SULFATE NEB 2.5 MG/0.5 ML INH INHALATION ×4 (02:49→21:19)
[2021-04-03] MEDS: IPRATROPIUM BR 0.02% INH SOLN 0.5 MG/2.5 ML VIAL INHALATION ×4 (02:49→21:19)
[2021-04-03 06:03] LABS: Alveolar/Arterial O2 Gradient 331.1 mmHg; Device VENTILATOR; Fractional Inspired Oxygen 60 %; HCO3 ABG 29.9 mEq/l (22.0-26.0); Methemoglobin ABG 0.2 %THb (0-1.5); Oxygen Content ABG 11.9 %vol (16.0-22.0); Oxygen Saturation ABG 89.2 % (95.0-100.0); PCO2 ABG 40.7 mmHg (35.0-45.0); PO2 ABG 51.9 mmHg (80.0-100.0); PO2 FiO2 Ratio Arterial Blood 0.87 %; Reduced Hemoglobin 13.8 %THb (0-5.0); Site Drawn RIGHT BRACHIAL; Total Hemoglobin 9.8 g/dL (12.0-18.0); pH ABG 7.484 (7.350-7.450)
[2021-04-03 06:04] LABS: Arterial Blood Gas PEEP 10 cmH2O; Arterial Blood Gas Tidal Volume 360 ml; Arterial Blood Gas Vent Mode CMV; Arterial Blood Gas Ventilator rate 26 /MIN
[2021-04-03 06:11] LABS: Basophils Percent Auto 0.1 % (0.2-1.2); Eosinophils Absolute Auto 0.4 K/mm3 (0-0.3); Eosinophils Percent Auto 5.5 % (0-4.4); Hematocrit 28.8 % (37.0-47.0); Hemoglobin 8.7 g/dL (12.0-15.0); Immature Granulocyte Absolute 0.04 K/mm3 (0.00-0.031); Immature Granulocyte Percent A 0.6 % (0-0.5); Lymphocytes Absolute Auto 0.99 K/mm3 (0.9-3.2); Lymphocytes Percent Auto 13.7 % (18.3-44.2); Mean Corpuscular HGB Conc 30.2 g/dl (32-36); Mean Corpuscular Hemoglobin 26.9 pg (26-34); Mean Corpuscular Volume 89.2 fl (80-100); Mean Platelet Volume 11.7 fl (7.4-10.4); Monocytes Absolute Auto 0.8 K/mm3 (0.1-0.6); Monocytes Percent Auto 10.4 % (2.6-8.5); Neutrophils Absolute Auto 5.1 K/mm3 (1.3-6.7); Neutrophils Percent Auto 69.7 % (45.5-73.1); Nucleated Red Blood Cells Perc 0.3 % (0.0-0.2); Platelet Count Result 146 k/mm3 (150-375); Red Blood Count 3.23 M/mm3 (4.2-5.4); Red Cell Distribution Width 16.8 % (11.5-14.5); White Blood Count 7.2 K/mm3 (4.5-10.0)
[2021-04-03 06:26] LABS: D Dimer 0.74 ug/mL (<0.48)
[2021-04-03] MEDS: CENTRAL LINE FLUSH 10 ML IV PUSH ×4 (06:35→21:12)
[2021-04-03 06:37] LABS: Albumin Level 2.6 g/dL (3.5-5.1); Anion Gap 4 mmol/L (8-16); Blood Urea Nitrogen 37 mg/dL (7-17); Calcium 8.4 mg/dL (8.4-10.2); Carbon Dioxide 31 mmol/L (22-30); Chloride 104 mmol/L (98-107); Estimated CRCL calculation 74 ml/min; Estimated Glomerular Filt Rate > 60; Glucose 188 mg/dL (65-110); Magnesium 2.3 mg/dL (1.6-2.3); Phosphorus 3.9 mg/dL (2.5-4.5); Potassium 3.1 mmol/L (3.4-5.0); Sodium 139 mmol/L (137-145)
[2021-04-03 07:22] LABS: CRP 16.6 mg/dL (<1.0)
[2021-04-03 07:23] LABS: Lactate Dehydrogenase 803 U/L (313-618)
[2021-04-03] MEDS: PRAVASTATIN SODIUM 20 MG TABLET 40 MG PO (07:59)
[2021-04-03] MEDS: PANTOPRAZOLE SODIUM IV 40 MG VIAL IV PUSH (08:00)
[2021-04-03] MEDS: ENOXAPARIN 40 MG/0.4 ML SYRINGE SUB-Q ×2 (08:00→21:12)
[2021-04-03] MEDS: MINERAL OIL/WHITE PETROLATUM OINTMENT 1 APPLIC EACH EYE ×2 (08:00→21:12)
[2021-04-03] MEDS: polyethylene glycoL 3350 17 GM POWD.PACK PO (08:00)
[2021-04-03] MEDS: FENTANYL 2,500MCG/NS250ML(*CRX 2,500 MCG/250 ML BAG 15 MCG IV CONT (09:29)
[2021-04-03] MEDS: POTASSIUM CHLORIDE 20 MEQ PACKET (FOR LIQUID) 40 MEQ FEED TUBE (09:29)
--- NOTE | 2021-04-03 11:18 | WPDINTPN ---
Progress Note: A&P Assessment and Plan (1) Acute respiratory failure with hypoxia: Code(s): J96.01 - Acute respiratory failure with hypoxia Status: Acute Assessment and Plan: Acute respiratory failure secondary to COVID-19 pneumonia 03/12 Admitted 03/15 Intermittent Bipap 03/20 Bipap dependent 03/21 Intubated. Patient was placed in prone position daily for multiple days post intubation -chest x-ray shows persistent bilateral infiltrates -ABGs reviewed, wean oxygen to maintain O2 sats greater than 92% -Versed and fentanyl infusion for sedation. OFF Propofol - low tidal volume ventilation 03/16/2021: Echo with EF 74%, normal diastolic function and no valvular disease. 03/16/2021: Venous doppler of all 4 extremities negative for DVT. 03/18/2021: CTA Chest negative for PE. - Continue bronchodilators -diuresis discontinued as patient has developed contraction alkalosis and she is fairly balanced on her intake and output -currently on 60% FiO2 and 10 of PEEP -decrease respiratory rate to 24 after review of ABG (2) Pneumonia due to COVID-19 virus: Code(s): U07.1 - COVID-19; J12.82 - Pneumonia due to coronavirus disease 2018 Status: Acute Assessment and Plan: She has NOT been vaccinated for COVID Status post Remdesivir S/p Dexamethasone (20 mg IV q.day for 5 days then dexamethasone 10 mg IV q.day for additional 5 days.) Tocilizumab given once 03/14. Rocephin and azithromycin were stopped after 5 days of treatment. Inflammatory markers trending down but still elevated, will discontinue serial monitoring for now (3) Shock: Code(s): R57.9 - Shock, unspecified Status: Acute Assessment and Plan: RESOLVED patient became hypotensive post intubation likely secondary to sedation and hypovolemia IV fluid bolus followed by conservative IV fluids Off Levophed since 03/22/2021 (4) BROOKE (acute kidney injury): Code(s): N17.9 - Acute kidney failure, unspecified Status: Acute Assessment and Plan: RESOLVED Likely secondary to hypovolemia and hypotension Patient was given IV fluid bolus and cautious IV fluid maintenance 03/29: Hypernatremia, improved with increased free water flushes Creatinine is remains stable, will continue to monitor Monitor urine output and electrolytes (5) Type 2 diabetes mellitus with hyperglycemia: Code(s): E11.65 - Type 2 diabetes mellitus with hyperglycemia Status: Acute Assessment and Plan: HbA1c 12.8 to show poor control prior to admission. Continue AccuCheks covering with sliding scale. Hypoglycemia protocol available as needed. Continue sliding scale insulin -continue Lantus (6) Hyperlipidemia: Code(s): E78.5 - Hyperlipidemia, unspecified Status: Acute Assessment and Plan: Normal LFTs. Continue Pravastatin. Monitor LFTs while on Remdesivir. (7) Asthma: Code(s): J45.909 - Unspecified asthma, uncomplicated Status: Acute Assessment and Plan: No wheezing. Continue nebs and steroids As above. (8) DVT prophylaxis: Code(s): Z29.9 - Encounter for prophylactic measures, unspecified Status: Acute Assessment and Plan: Lovenox (9) Electrolyte abnormality: Code(s): E87.8 - Other disorders of electrolyte and fluid balance, not elsewhere classified Status: Acute Assessment and Plan: Replace low potassium Additional Plan Stress ulcer prophylaxis - PPI Nutrition -tolerating tube feeds I discussed with daughter, Leatha Cam yesterday about patient's current condition and respiratory failure. I discussed options of tracheostomy and PEG tube placement as patient is close to 2 weeks on mechanical ventilation and no where close to weaning. I also discussed option of DNR. She is going to discuss with the family members and get back to me. Code Status - full code Critical Care Time - 32 minutes Due
[2021-04-03 12:37] LABS: Glucose Point of Care 170 mg/dl (65-105)
[2021-04-03 17:19] LABS: Glucose Point of Care 164 mg/dl (65-105)
[2021-04-03] MEDS: MIDAZOLAM 100MG/NS 100ML(*CRX) 100 MG/100 ML BAG IV CONT (18:54)
[2021-04-03] MEDS: INSULIN GLARGINE (*BKC) 100 UNITS/ML 20 UNITS SUB-Q (21:12)
[2021-04-03 21:36] LABS: Glucose Point of Care 174 mg/dl (65-105)
[2021-04-04] VITALS (31 sets, daily range): BP systolic 84–106; BP diastolic 58–72; PULSE 73–108; RESP 16–30; TEMP 36.4–38; O2SAT 88–96
[2021-04-04] MEDS: FENTANYL 2,500MCG/NS250ML(*CRX 2,500 MCG/250 ML BAG 20 MCG IV CONT ×2 (00:02→13:12)
[2021-04-04] MEDS: METOCLOPRAMIDE HCL INJ 10 MG/2 ML VIAL IV PUSH ×4 (00:02→23:55)
[2021-04-04 00:16] LABS: Glucose Point of Care 190 mg/dl (65-105)
[2021-04-04] MEDS: IPRATROPIUM BR 0.02% INH SOLN 0.5 MG/2.5 ML VIAL INHALATION ×4 (02:28→21:34)
[2021-04-04] MEDS: ALBUTEROL SULFATE NEB 2.5 MG/0.5 ML INH INHALATION ×4 (02:28→21:34)
[2021-04-04 03:43] LABS: Hematocrit 27.6 % (37.0-47.0); Hemoglobin 7.9 g/dL (12.0-15.0); Mean Corpuscular HGB Conc 28.6 g/dl (32-36); Mean Corpuscular Hemoglobin 26.5 pg (26-34); Mean Corpuscular Volume 92.6 fl (80-100); Mean Platelet Volume 11.6 fl (7.4-10.4); Platelet Count Result 141 k/mm3 (150-375); Red Blood Count 2.98 M/mm3 (4.2-5.4); Red Cell Distribution Width 16.9 % (11.5-14.5); White Blood Count 7.2 K/mm3 (4.5-10.0)
[2021-04-04 03:49] LABS: Alanine Aminotransferase 11 U/L (4-35); Albumin Level 2.5 g/dL (3.5-5.1); Alkaline Phosphatase 105 U/L (38-126); Anion Gap 3 mmol/L (8-16); Aspartate Amino Transferase 19 U/L (14-36); Bilirubin,Total 0.3 mg/dL (0.2-1.3); Blood Urea Nitrogen 30 mg/dL (7-17); Calcium 8.1 mg/dL (8.4-10.2); Carbon Dioxide 32 mmol/L (22-30); Chloride 104 mmol/L (98-107); Estimated CRCL calculation 74 ml/min; Estimated Glomerular Filt Rate > 60; Glucose 201 mg/dL (65-110); Magnesium 2.4 mg/dL (1.6-2.3); Potassium 4.2 mmol/L (3.4-5.0); Sodium 139 mmol/L (137-145)
[2021-04-04] MEDS: ROCURONIUM BROMIDE 50 MG/5 ML VIAL IV PUSH ×2 (04:25→16:43)
[2021-04-04 05:17] LABS: Alveolar/Arterial O2 Gradient 351.5 mmHg; Base Excess ABG 6.6 mEq/l (+/-2.0); Carboxyhemoglobin 0.2 % THb (0-2.0); Fractional Inspired Oxygen 65 %; HCO3 ABG 30.9 mEq/l (22.0-26.0); Methemoglobin ABG 0.3 %THb (0-1.5); Oxygen Content ABG 11.9 %vol (16.0-22.0); Oxygen Saturation ABG 93.5 % (95.0-100.0); Oxyhemoglobin 91.8 % THb (90.0-100.0); PCO2 ABG 43.9 mmHg (35.0-45.0); PO2 ABG 64.2 mmHg (80.0-100.0); PO2 FiO2 Ratio Arterial Blood 0.99 %; Reduced Hemoglobin 7.7 %THb (0-5.0); Total Hemoglobin 9.2 g/dL (12.0-18.0); pH ABG 7.466 (7.350-7.450)
[2021-04-04 05:18] LABS: Device VENTILATOR; Site Drawn RIGHT BRACHIAL
[2021-04-04 05:19] LABS: Arterial Blood Gas PEEP 10 cmH2O; Arterial Blood Gas Tidal Volume 360 ml; Arterial Blood Gas Vent Mode CMV; Arterial Blood Gas Ventilator rate 24 /MIN
[2021-04-04] MEDS: CENTRAL LINE FLUSH 10 ML IV PUSH ×3 (05:20→19:54)
[2021-04-04] MEDS: INSULIN ASPART (*BKC) 100 UNITS/ML SUB-Q ×2 (05:28→23:54)
--- NOTE | 2021-04-04 08:45 | WPDINTPN ---
Progress Note: A&P Assessment and Plan (1) Acute respiratory failure with hypoxia: Code(s): J96.01 - Acute respiratory failure with hypoxia Status: Acute Assessment and Plan: Acute respiratory failure secondary to COVID-19 pneumonia 03/12 Admitted 03/15 Intermittent Bipap 03/20 Bipap dependent 03/21 Intubated. Patient was placed in prone position daily for multiple days post intubation -chest x-ray shows persistent bilateral infiltrates -overnight deterioration with increased oxygen requirement she is now at 100% again. Her bite block was readjusted. Additional air was added to the balloon to treat a cuff leak -peep increased to 12 -ABGs reviewed, decrease rate to 20 -Versed and fentanyl infusion for sedation. Resume Propofol to prevent patient ventilator asynchrony. May need neuromuscular blockers. Will again attempt prone relation - low tidal volume ventilation 03/16/2021: Echo with EF 74%, normal diastolic function and no valvular disease. 03/16/2021: Venous doppler of all 4 extremities negative for DVT. 03/18/2021: CTA Chest negative for PE. - Continue bronchodilators (2) Pneumonia due to COVID-19 virus: Code(s): U07.1 - COVID-19; J12.82 - Pneumonia due to coronavirus disease 2018 Status: Acute Assessment and Plan: She has NOT been vaccinated for COVID Status post Remdesivir S/p Dexamethasone (20 mg IV q.day for 5 days then dexamethasone 10 mg IV q.day for additional 5 days.) Tocilizumab given once 03/14. Rocephin and azithromycin were stopped after 5 days of treatment. Inflammatory markers trending down but still elevated, will discontinue serial monitoring for now (3) Shock: Code(s): R57.9 - Shock, unspecified Status: Acute Assessment and Plan: RESOLVED patient became hypotensive post intubation likely secondary to sedation and hypovolemia IV fluid bolus followed by conservative IV fluids Off Levophed since 03/22/2021 (4) BROOKE (acute kidney injury): Code(s): N17.9 - Acute kidney failure, unspecified Status: Acute Assessment and Plan: RESOLVED Likely secondary to hypovolemia and hypotension Patient was given IV fluid bolus and cautious IV fluid maintenance 03/29: Hypernatremia, improved with increased free water flushes Creatinine is remains stable, will continue to monitor Monitor urine output and electrolytes (5) Type 2 diabetes mellitus with hyperglycemia: Code(s): E11.65 - Type 2 diabetes mellitus with hyperglycemia Status: Acute Assessment and Plan: HbA1c 12.8 to show poor control prior to admission. Continue AccuCheks covering with sliding scale. Hypoglycemia protocol available as needed. Continue sliding scale insulin -continue Lantus (6) Hyperlipidemia: Code(s): E78.5 - Hyperlipidemia, unspecified Status: Acute Assessment and Plan: Normal LFTs. Continue Pravastatin. Monitor LFTs while on Remdesivir. (7) Asthma: Code(s): J45.909 - Unspecified asthma, uncomplicated Status: Acute Assessment and Plan: No wheezing. Continue nebs and steroids As above. (8) DVT prophylaxis: Code(s): Z29.9 - Encounter for prophylactic measures, unspecified Status: Acute Assessment and Plan: Lovenox Additional Plan Stress ulcer prophylaxis - PPI Nutrition -tolerating tube feeds I discussed with daughter, Leatha Cam yesterday about patient's current condition and respiratory failure. I discussed options of tracheostomy and PEG tube placement as patient is close to 2 weeks on mechanical ventilation and no where close to weaning. I also discussed option of DNR. She is going to discuss with the family members and get back to me. I again called both numbers listed in the chart today and left a voicemail message Code Status - full code Critical Care Time - 35 minutes Due to a high probability of clinically significa
[2021-04-04] MEDS: PROPOFOL IV EMULSION 100 ML 4.87 MG IV CONT (09:11)
[2021-04-04] MEDS: MINERAL OIL/WHITE PETROLATUM OINTMENT 1 APPLIC EACH EYE ×2 (09:14→19:54)
[2021-04-04] MEDS: PRAVASTATIN SODIUM 20 MG TABLET 40 MG PO (09:14)
[2021-04-04] MEDS: PANTOPRAZOLE SODIUM IV 40 MG VIAL IV PUSH (09:14)
[2021-04-04] MEDS: polyethylene glycoL 3350 17 GM POWD.PACK PO (09:14)
[2021-04-04] MEDS: ENOXAPARIN 40 MG/0.4 ML SYRINGE SUB-Q ×2 (09:14→19:52)
[2021-04-04] MEDS: SODIUM CHLORIDE 0.9% IV 500 ML IV CONT (10:53)
[2021-04-04] MEDS: MIDAZOLAM 100MG/NS 100ML(*CRX) 100 MG/100 ML BAG 6 MG IV CONT (12:25)
[2021-04-04 13:02] LABS: Glucose Point of Care 194 mg/dl (65-105)
[2021-04-04 18:30] LABS: Glucose Point of Care 181 mg/dl (65-105)
[2021-04-04] MEDS: INSULIN GLARGINE (*BKC) 100 UNITS/ML 20 UNITS SUB-Q (19:49)
[2021-04-04] MEDS: PROPOFOL IV EMULSION 100 ML 9.73 MG IV CONT (19:50)
[2021-04-04 21:40] LABS: Glucose Point of Care 197 mg/dl (65-105)
[2021-04-05] VITALS (48 sets, daily range): BP systolic 92–137; BP diastolic 58–86; PULSE 70–105; RESP 20–24; TEMP 35.4–38.3; O2SAT 90–97
[2021-04-05 00:06] LABS: Glucose Point of Care 208 mg/dl (65-105)
[2021-04-05] MEDS: FENTANYL 2,500MCG/NS250ML(*CRX 2,500 MCG/250 ML BAG 20 MCG IV CONT ×2 (02:28→15:01)
[2021-04-05] MEDS: ALBUTEROL SULFATE NEB 2.5 MG/0.5 ML INH INHALATION ×4 (03:02→20:11)
[2021-04-05] MEDS: IPRATROPIUM BR 0.02% INH SOLN 0.5 MG/2.5 ML VIAL INHALATION ×4 (03:02→20:12)
[2021-04-05] MEDS: METOCLOPRAMIDE HCL INJ 10 MG/2 ML VIAL IV PUSH ×3 (05:07→17:57)
[2021-04-05] MEDS: CENTRAL LINE FLUSH 10 ML IV PUSH ×3 (05:07→21:11)
[2021-04-05 05:47] LABS: Hematocrit 26.6 % (37.0-47.0); Hemoglobin 7.6 g/dL (12.0-15.0); Mean Corpuscular HGB Conc 28.6 g/dl (32-36); Mean Corpuscular Hemoglobin 26.8 pg (26-34); Mean Corpuscular Volume 93.7 fl (80-100); Mean Platelet Volume 11.9 fl (7.4-10.4); Platelet Count Result 135 k/mm3 (150-375); Red Blood Count 2.84 M/mm3 (4.2-5.4); Red Cell Distribution Width 16.4 % (11.5-14.5); White Blood Count 5.4 K/mm3 (4.5-10.0)
[2021-04-05 05:49] LABS: Alveolar/Arterial O2 Gradient 497.1 mmHg; Base Excess ABG 2.9 mEq/l (+/-2.0); Carboxyhemoglobin 0.3 % THb (0-2.0); Device VENTILATOR; Fractional Inspired Oxygen 90 %; HCO3 ABG 28.4 mEq/l (22.0-26.0); Methemoglobin ABG 0.2 %THb (0-1.5); Modified Allen's Test Unable to perform; Oxygen Content ABG 14.2 %vol (16.0-22.0); Oxygen Saturation ABG 97.1 % (95.0-100.0); PCO2 ABG 48.4 mmHg (35.0-45.0); PO2 FiO2 Ratio Arterial Blood 1.06 %; Reduced Hemoglobin 3.5 %THb (0-5.0); Site Drawn LEFT RADIAL; Total Hemoglobin 10.4 g/dL (12.0-18.0); pH ABG 7.387 (7.350-7.450)
[2021-04-05 05:50] LABS: Arterial Blood Gas PEEP 12 cmH2O; Arterial Blood Gas Tidal Volume 360 ml; Arterial Blood Gas Vent Mode CMV; Arterial Blood Gas Ventilator rate 20 /MIN
[2021-04-05 05:59] LABS: Alanine Aminotransferase 10 U/L (4-35); Albumin Level 2.4 g/dL (3.5-5.1); Alkaline Phosphatase 103 U/L (38-126); Anion Gap -1 mmol/L (8-16); Aspartate Amino Transferase 19 U/L (14-36); Bilirubin,Total 0.3 mg/dL (0.2-1.3); Blood Urea Nitrogen 27 mg/dL (7-17); Calcium 8.2 mg/dL (8.4-10.2); Carbon Dioxide 31 mmol/L (22-30); Chloride 108 mmol/L (98-107); Estimated CRCL calculation 84 ml/min; Estimated Glomerular Filt Rate > 60; Glucose 174 mg/dL (65-110); Magnesium 2.5 mg/dL (1.6-2.3); Potassium 3.9 mmol/L (3.4-5.0); Sodium 138 mmol/L (137-145)
[2021-04-05] MEDS: PROPOFOL IV EMULSION 100 ML 9.73 MG IV CONT ×3 (06:06→21:13)
[2021-04-05] MEDS: MIDAZOLAM 100MG/NS 100ML(*CRX) 100 MG/100 ML BAG 6 MG IV CONT (06:08)
[2021-04-05] MEDS: PANTOPRAZOLE SODIUM IV 40 MG VIAL IV PUSH (09:30)
[2021-04-05] MEDS: MINERAL OIL/WHITE PETROLATUM OINTMENT 1 APPLIC EACH EYE ×2 (09:30→21:10)
[2021-04-05] MEDS: polyethylene glycoL 3350 17 GM POWD.PACK PO (09:30)
[2021-04-05] MEDS: PRAVASTATIN SODIUM 20 MG TABLET 40 MG PO (09:30)
[2021-04-05] MEDS: ENOXAPARIN 40 MG/0.4 ML SYRINGE SUB-Q ×2 (09:30→21:08)
--- NOTE | 2021-04-05 10:53 | PCDIET ---
Nutrition Follow-Up Complete: Nutrition Diagnosis: Inadequate oral intake related to decreased appetite as evidenced by intakes 50% or less at most meals x 1 week. Nutrition Goal: Patient to meet estimated nutritional needs. Goal met. Patient tolerating Glucerna 1.2 at 50mL/hr goal rate with 100mL water flush every 4 hours. Last recorded weight is 87.5 kg which is increased from last review. +I/O. Decreased urine output noted. Will monitor closely; may need to consider decreasing water flushes. Bowel Motility: Last documented BM on 04/04/21 x 1. Labs Reviewed: RBC (2.84), Hgb (7.6), Hct (26.6), Glu (174), BUN (27), Cr (0.6), Cl (108), Alb (2.4), Tyler Ca (9.48), Mg (2.5) Meds Noted: Protonix, Albuterol, Fentanyl, Atrovent, Reglan, Versed, Levophed, Miralax, Pravastatin Sodium, Lantus, Zemuron, Propofol (rate of 9.732mL/hr provides 257kcal per day) Additional Notes: Lower lip with scab. Chin tear to left cheek. Will continue to monitor with same goal. Nutrition Monitoring and Evaluation: Follow up every Monday/Monday.
[2021-04-05] MEDS: INSULIN ASPART (*BKC) 100 UNITS/ML SUB-Q ×2 (12:23→17:57)
--- NOTE | 2021-04-05 12:58 | WPDINTPN ---
Progress Note: A&P Assessment and Plan (1) Acute respiratory failure with hypoxia: Code(s): J96.01 - Acute respiratory failure with hypoxia Status: Acute Assessment and Plan: Acute respiratory failure secondary to COVID-19 pneumonia 03/12 Admitted 03/15 Intermittent Bipap 03/20 Bipap dependent 03/21 Intubated. Patient was placed in prone position daily for multiple days post intubation -chest x-ray shows persistent bilateral infiltrates - currently on PEEP of 12 and FiO2 of 80%. wean FiO2 as possible -ABGs and chest x-ray reviewed -Versed and fentanyl infusion for sedation. Resume Propofol to prevent patient ventilator asynchrony. May need neuromuscular blockers - continue daily prone ing - will give a dose of Lasix - low tidal volume ventilation 03/16/2021: Echo with EF 74%, normal diastolic function and no valvular disease. 03/16/2021: Venous doppler of all 4 extremities negative for DVT. 03/18/2021: CTA Chest negative for PE. - Continue bronchodilators (2) Pneumonia due to COVID-19 virus: Code(s): U07.1 - COVID-19; J12.82 - Pneumonia due to coronavirus disease 2018 Status: Acute Assessment and Plan: She has NOT been vaccinated for COVID Status post Remdesivir S/p Dexamethasone (20 mg IV q.day for 5 days then dexamethasone 10 mg IV q.day for additional 5 days.) Tocilizumab given once 03/14. Rocephin and azithromycin were stopped after 5 days of treatment. Inflammatory markers trending down but still elevated, will discontinue serial monitoring for now (3) Shock: Code(s): R57.9 - Shock, unspecified Status: Acute Assessment and Plan: RESOLVED patient became hypotensive post intubation likely secondary to sedation and hypovolemia IV fluid bolus followed by conservative IV fluids Off Levophed since 03/22/2021 (4) BROOKE (acute kidney injury): Code(s): N17.9 - Acute kidney failure, unspecified Status: Acute Assessment and Plan: RESOLVED Likely secondary to hypovolemia and hypotension Patient was given IV fluid bolus and cautious IV fluid maintenance 03/29: Hypernatremia, improved with increased free water flushes Creatinine is remains stable, will continue to monitor Monitor urine output and electrolytes (5) Type 2 diabetes mellitus with hyperglycemia: Code(s): E11.65 - Type 2 diabetes mellitus with hyperglycemia Status: Acute Assessment and Plan: HbA1c 12.8 to show poor control prior to admission. Continue AccuCheks covering with sliding scale. Hypoglycemia protocol available as needed. Continue sliding scale insulin -continue Lantus (6) Hyperlipidemia: Code(s): E78.5 - Hyperlipidemia, unspecified Status: Acute Assessment and Plan: Normal LFTs. Continue Pravastatin. Monitor LFTs while on Remdesivir. (7) Asthma: Code(s): J45.909 - Unspecified asthma, uncomplicated Status: Acute Assessment and Plan: No wheezing. Continue nebs and steroids As above. (8) DVT prophylaxis: Code(s): Z29.9 - Encounter for prophylactic measures, unspecified Status: Acute Assessment and Plan: Lovenox Additional Plan Stress ulcer prophylaxis - PPI Nutrition -tolerating tube feeds I discussed with daughter, Leatha Cam again yesterday and discussed patient's current status and option of tracheostomy and PEG. Patient wanted a family meeting on monday with other family members before making any decision Code Status - full code Critical Care Time - 30 minutes Due to a high probability of clinically significant, life threatening deterioration, the patient required my highest level of preparedness to intervene emergently and I personally spent this critical care time directly and personally managing the patient. This critical care time included obtaining a history; examining the patient; pulse oximetry; ordering and review of studie
[2021-04-05] MEDS: FUROSEMIDE INJ 40 MG/4 ML VIAL IV PUSH (13:08)
[2021-04-05 13:14] LABS: Glucose Point of Care 226 mg/dl (65-105)
[2021-04-05 18:02] LABS: Glucose Point of Care 209 mg/dl (65-105)
--- NOTE | 2021-04-05 18:10 | PM.IMPN ---
Progress Note: A&P Assessment and Plan (1) Acute respiratory failure with hypoxia: Code(s): J96.01 - Acute respiratory failure with hypoxia Status: Acute Assessment and Plan: Patient presents with hypoxia with accelerating O2 requirement. CXR on admission showing significant bilateral airspace disease. Echo with EF 74%, normal diastolic function and no valvular disease. Venous doppler of all 4 extremities 03/16 negative for DVT. CTA Chest 03/18 negative for PE. She was alternating between BiPAP and high-flow oxygen but became BiPAP dependent and ultimately requiring intubation on 03/21/21. CXR today showing progression. Continue mechanical ventilation support. Wean FiO2 and PEEP as tolerated. Low tidal volume strategies. Sedated with propofol, fentanyl and Versed. Daily sedation vacation trial. Prone positioning as tolerated. Follow chest x-ray and ABG. [employer] following. (2) Pneumonia due to COVID-19 virus: Code(s): U07.1 - COVID-19; J12.82 - Pneumonia due to coronavirus disease 2019 Status: Acute Assessment and Plan: Patient exposed to her nephew who was ill. She was unvaccinated. She presented 03/12 with SOB with CXR showing bilateral airspace disease. Started on Rocephin and Zithromax. Lasix 40mg IV given once 03/13 and again 03/14. CXR 03/14 showing worsening pulmonary infiltrates. COVID swab returned positive and Remdesivir and Dexamethasone started 03/14. Tocilizumab given once 03/14. Abx were stopped after 5 days of treatment. She had high O2 requirement that progresssed to intubation 03/21/21. Changed to dexamethasone 20 mg IV daily x 5 days then 10mg IV daily x 5 days (steroids stopped 03/29). Remdisivir was stopped after 7 days. Tolerating laying prone. Continue supportive care. [employer] is following and appreciates his input. Plan now for Trach and PEG if family is agreeable. Code status also was discussed. (3) Anemia: Code(s): D64.9 - Anemia, unspecified Status: Acute Assessment and Plan: Hgb has been normal in the 12-14 range since admission until 03/23 when Hgb dropped 9.1. Hgb was stable in the 9-10 range but now has dropped again to the 7 range. No evidence of acute blood loss. Nml BMs now. Remains on lovenox. Continue Protonix. Follow closely. May improve with Lasix if dilutional (4) Shock: Code(s): R57.9 - Shock, unspecified Status: Acute Assessment and Plan: Patient developed HoTN around the time she was placed on MV. She may have been hypovolemic given the poor oral intake prior to intubation and the BROOKE. Renal function and BP improved with IV fluids. Able to come off of the Levophed 03/22. BP soft at times still. Monitor closely. (5) Type 2 diabetes mellitus with hyperglycemia: Code(s): E11.65 - Type 2 diabetes mellitus with hyperglycemia Status: Acute Assessment and Plan: A1c 12.8 to show poor diabetic control prior to admission. The patient's blood glucose was reviewed on 04/05 Hyperglycemia related to the steroids and baseline poor control prior to admission. Glucose better controlled overall off the steroids but still mildly elevated. Continue AccuCheks covering with sliding scale. Hypoglycemia protocol available as needed. Adjust Lantus as needed. Continue tube feedings. (6) Hypertension: Code(s): I10 - Essential (primary) hypertension Status: Acute Assessment and Plan: Patient's blood pressure was reviewed on 04/05 She was able to come off of the Levophed 03/22. Amlodipine and Cozaar stopped due to HoTN. As above. (7) Hyperlipidemia: Code(s): E78.5 - Hyperlipidemia, unspecified Status: Acute Assessment and Plan: LFTs normal. Continue Pravastatin. (8) Asthma: Code(s): J45.909 - Unspecified asthma, uncomplicated Status: Acute Assessment and Plan: No wheezing. Continue nebs. As above. (9) DVT prophylaxis: Code(s): Z29.9 - [place]
[2021-04-05] MEDS: INSULIN GLARGINE (*BKC) 100 UNITS/ML 20 UNITS SUB-Q (21:08)
[2021-04-06] VITALS (40 sets, daily range): BP systolic 98–148; BP diastolic 65–77; PULSE 74–98; RESP 15–26; TEMP 35.6–38; O2SAT 90–98
[2021-04-06] MEDS: METOCLOPRAMIDE HCL INJ 10 MG/2 ML VIAL IV PUSH ×4 (00:20→16:33)
[2021-04-06] MEDS: INSULIN ASPART (*BKC) 100 UNITS/ML SUB-Q ×4 (00:21→16:29)
[2021-04-06] MEDS: MIDAZOLAM 100MG/NS 100ML(*CRX) 100 MG/100 ML BAG 6 MG IV CONT ×2 (00:25→16:33)
[2021-04-06] MEDS: FENTANYL 2,500MCG/NS250ML(*CRX 2,500 MCG/250 ML BAG 20 MCG IV CONT (03:05)
[2021-04-06] MEDS: PROPOFOL IV EMULSION 100 ML 9.73 MG IV CONT ×2 (03:25→12:34)
[2021-04-06] MEDS: ALBUTEROL SULFATE NEB 2.5 MG/0.5 ML INH INHALATION ×4 (03:47→20:51)
[2021-04-06] MEDS: IPRATROPIUM BR 0.02% INH SOLN 0.5 MG/2.5 ML VIAL INHALATION ×4 (03:48→20:51)
[2021-04-06] MEDS: CENTRAL LINE FLUSH 10 ML IV PUSH ×3 (06:46→21:59)
[2021-04-06 07:02] LABS: Glucose Point of Care 204 mg/dl (65-105)
[2021-04-06 07:02] LABS: Glucose Point of Care 236 mg/dl (65-105)
[2021-04-06 07:24] LABS: Hematocrit 27.1 % (37.0-47.0); Hemoglobin 7.8 g/dL (12.0-15.0); Mean Corpuscular HGB Conc 28.8 g/dl (32-36); Mean Corpuscular Hemoglobin 26.6 pg (26-34); Mean Corpuscular Volume 92.5 fl (80-100); Mean Platelet Volume 11.4 fl (7.4-10.4); Platelet Count Result 161 k/mm3 (150-375); Red Blood Count 2.93 M/mm3 (4.2-5.4); Red Cell Distribution Width 16.2 % (11.5-14.5)
[2021-04-06 07:52] LABS: Alanine Aminotransferase 10 U/L (4-35); Albumin Level 2.4 g/dL (3.5-5.1); Alkaline Phosphatase 116 U/L (38-126); Anion Gap 2 mmol/L (8-16); Aspartate Amino Transferase 20 U/L (14-36); Bilirubin,Total 0.4 mg/dL (0.2-1.3); Blood Urea Nitrogen 21 mg/dL (7-17); Calcium 8.2 mg/dL (8.4-10.2); Carbon Dioxide 33 mmol/L (22-30); Chloride 105 mmol/L (98-107); Estimated CRCL calculation 74 ml/min; Estimated Glomerular Filt Rate > 60; Glucose 240 mg/dL (65-110); Magnesium 2.3 mg/dL (1.6-2.3); Potassium 3.8 mmol/L (3.4-5.0); Sodium 140 mmol/L (137-145)
[2021-04-06] MEDS: FUROSEMIDE INJ 40 MG/4 ML VIAL IV PUSH (08:36)
[2021-04-06] MEDS: ENOXAPARIN 40 MG/0.4 ML SYRINGE SUB-Q ×2 (08:36→20:47)
[2021-04-06] MEDS: MINERAL OIL/WHITE PETROLATUM OINTMENT 1 APPLIC EACH EYE ×2 (08:37→20:47)
[2021-04-06] MEDS: PRAVASTATIN SODIUM 20 MG TABLET 40 MG PO (08:37)
[2021-04-06] MEDS: INSULIN GLARGINE (*BKC) 100 UNITS/ML 15 UNITS SUB-Q ×2 (08:37→21:58)
[2021-04-06] MEDS: PANTOPRAZOLE SODIUM IV 40 MG VIAL IV PUSH (08:38)
[2021-04-06] MEDS: POTASSIUM CHLORIDE 20 MEQ PACKET (FOR LIQUID) FEED TUBE (09:43)
--- NOTE | 2021-04-06 11:13 | PCDIET ---
Nutrition Follow-Up Complete: Nutrition Diagnosis: Inadequate oral intake related to decreased appetite as evidenced by intakes 50% or less at most meals x 1 week. Nutrition Goal: Patient to meet estimated nutritional needs. Goal met. Patient tolerating Glucerna 1.2 at 50mL/hr with 100mL water flush every 4 hours. MD ordered to continue water flush as ordered. Could consider stopping Reglan if patient continues to have multiple BMs. Last recorded weight is 89.6 kg which is up from last review. +I/O. Bowel Motility: BM x 3 today. Labs Reviewed: RBC (2.93), Hgb (7.8), Hct (27.1), Glu (240), BUN (21), Alb (2.4), Tyler Ca (9.48) Meds Noted: Propofol (rate of 9.73mL/hr provides 256kcal per day), Lasix, KCl, Albuterol, Fentanyl, Apresoline, Novolog, Lantus, Atrovent, Reglan, Versed, Protonix, Pravastatin Sodium Additional Notes: Urine output increased yesterday. Lower lip scab documented, as well as left cheek abrasion. Will continue to monitor with same goal. Nutrition Monitoring and Evaluation: Follow up every Monday/Monday.
--- NOTE | 2021-04-06 11:24 | WPDINTPN ---
Progress Note: A&P Assessment and Plan (1) Acute respiratory failure with hypoxia: Code(s): J96.01 - Acute respiratory failure with hypoxia Status: Acute Assessment and Plan: Acute respiratory failure secondary to COVID-19 pneumonia 03/12 Admitted 03/15 Intermittent Bipap 03/20 Bipap dependent 03/21 Intubated. Patient was placed in prone position daily for multiple days post intubation -chest x-ray shows persistent bilateral infiltrates - currently on PEEP of 12 and FiO2 decreased to 75%%. wean FiO2 as possible -ABGs and chest x-ray reviewed -Versed, propofoland fentanyl infusion for sedation. May need neuromuscular blockers - continue daily proning - patient was given Lasix yesterday will repeat again today - low tidal volume ventilation 03/16/2021: Echo with EF 74%, normal diastolic function and no valvular disease. 03/16/2021: Venous doppler of all 4 extremities negative for DVT. 03/18/2021: CTA Chest negative for PE. - Continue bronchodilators (2) Pneumonia due to COVID-19 virus: Code(s): U07.1 - COVID-19; J12.82 - Pneumonia due to coronavirus disease 2018 Status: Acute Assessment and Plan: She has NOT been vaccinated for COVID Status post Remdesivir S/p Dexamethasone (20 mg IV q.day for 5 days then dexamethasone 10 mg IV q.day for additional 5 days.) Tocilizumab given once 03/14. Rocephin and azithromycin were stopped after 5 days of treatment. Inflammatory markers trending down but still elevated, will discontinue serial monitoring for now (3) Shock: Code(s): R57.9 - Shock, unspecified Status: Acute Assessment and Plan: RESOLVED patient became hypotensive post intubation likely secondary to sedation and hypovolemia IV fluid bolus followed by conservative IV fluids Off Levophed since 03/22/2021 (4) BROOKE (acute kidney injury): Code(s): N17.9 - Acute kidney failure, unspecified Status: Acute Assessment and Plan: RESOLVED Likely secondary to hypovolemia and hypotension Patient was given IV fluid bolus and cautious IV fluid maintenance 03/29: Hypernatremia, improved with increased free water flushes Creatinine is remains stable, will continue to monitor Monitor urine output and electrolytes (5) Type 2 diabetes mellitus with hyperglycemia: Code(s): E11.65 - Type 2 diabetes mellitus with hyperglycemia Status: Acute Assessment and Plan: HbA1c 12.8 to show poor control prior to admission. Continue AccuCheks covering with sliding scale. Hypoglycemia protocol available as needed. Continue sliding scale insulin -continue Lantus but will increase dose (6) Hyperlipidemia: Code(s): E78.5 - Hyperlipidemia, unspecified Status: Acute Assessment and Plan: Normal LFTs. Continue Pravastatin. Monitor LFTs while on Remdesivir. (7) Asthma: Code(s): J45.909 - Unspecified asthma, uncomplicated Status: Acute Assessment and Plan: No wheezing. Continue nebs and steroids As above. (8) DVT prophylaxis: Code(s): Z29.9 - Encounter for prophylactic measures, unspecified Status: Acute Assessment and Plan: Lovenox Additional Plan Stress ulcer prophylaxis - PPI Nutrition -tolerating tube feeds I discussed with daughter, Leatha Cam again today and discussed patient's current status. it seems the patient's daughter is not very clear And does not fully understand the critical nature of patient's illness and pneumonia. I explained her the reasoning behind patient's facial edema and skin damage that she has sustained from pressure injury from proning. I again discussed options of tracheostomy and PEG and clarified that those are not treatment for COVID-19 pneumonia and respiratory failure but only way to provide patient continued ventilatory support. she did not seem ready at this point to make any decision and I also did not seek
[2021-04-06 12:25] LABS: Glucose Point of Care 299 mg/dl (65-105)
[2021-04-06] MEDS: ALTEPLASE 2 MG VIAL (CATHFLO) IV PUSH (12:25)
--- NOTE | 2021-04-06 15:58 | PM.IMPN ---
Progress Note: A&P Assessment and Plan (1) Acute respiratory failure with hypoxia: Code(s): J96.01 - Acute respiratory failure with hypoxia Status: Acute Assessment and Plan: Patient presents with hypoxia with accelerating O2 requirement. CXR on admission showing significant bilateral airspace disease. Echo with EF 74%, normal diastolic function and no valvular disease. Venous doppler of all 4 extremities 03/16 negative for DVT. CTA Chest 03/18 negative for PE. She was alternating between BiPAP and high-flow oxygen but became BiPAP dependent and ultimately requiring intubation on 03/21/21. CXR today reviewed showing diffuse airspace disease. Continue mechanical ventilation support. Wean FiO2 and PEEP as tolerated. Low tidal volume strategies. Sedated with propofol, fentanyl and Versed. Daily sedation vacation trial. Prone positioning as tolerated. Follow chest x-ray and ABG. Train Operations Manager following. (2) Pneumonia due to COVID-19 virus: Code(s): U07.1 - COVID-19; J12.82 - Pneumonia due to coronavirus disease 2019 Status: Acute Assessment and Plan: Patient exposed to her nephew who was ill. She was unvaccinated. She presented 03/12 with SOB with CXR showing bilateral airspace disease. Started on Rocephin and Zithromax. Lasix 40mg IV given once 03/13 and again 03/14. CXR 03/14 showing worsening pulmonary infiltrates. COVID swab returned positive and Remdesivir and Dexamethasone started 03/14. Tocilizumab given once 03/14. Abx were stopped after 5 days of treatment. She had high O2 requirement that progresssed to intubation 03/21/21. Changed to dexamethasone 20 mg IV daily x 5 days then 10mg IV daily x 5 days (steroids stopped 03/29). Remdisivir was stopped after 7 days. Tolerating laying prone. Continue supportive care. Train Operations Manager is following and appreciates his input. Plan now for Trach and PEG if family is agreeable and when vent settings improve. Remains Full Code (3) Anemia: Code(s): D64.9 - Anemia, unspecified Status: Acute Assessment and Plan: Hgb has been normal in the 12-14 range since admission until 03/23 when Hgb dropped 9.1. Hgb was stable in the 9-10 range but now has dropped again to the 7 range. No evidence of acute blood loss. Nml BMs now. Remains on lovenox. Continue Protonix. Follow closely. (4) Shock: Code(s): R57.9 - Shock, unspecified Status: Acute Assessment and Plan: Patient developed HoTN around the time she was placed on MV. She may have been hypovolemic given the poor oral intake prior to intubation and the BROOKE. Renal function and BP improved with IV fluids. Able to come off of the Levophed 03/22. BP soft at times still. Monitor closely. (5) Type 2 diabetes mellitus with hyperglycemia: Code(s): E11.65 - Type 2 diabetes mellitus with hyperglycemia Status: Acute Assessment and Plan: A1c 12.8 to show poor diabetic control prior to admission. The patient's blood glucose was reviewed on 04/06 Hyperglycemia related to the steroids and baseline poor diabetic control prior to admission. Glucose better controlled overall off the steroids but still mildly elevated. Continue AccuCheks covering with sliding scale. Hypoglycemia protocol available as needed. Lantus advanced. Continue tube feedings. (6) Hypertension: Code(s): I10 - Essential (primary) hypertension Status: Acute Assessment and Plan: Patient's blood pressure was reviewed on 04/06 She was able to come off of the Levophed 03/22. Amlodipine and Cozaar stopped due to HoTN. As above. (7) Hyperlipidemia: Code(s): E78.5 - Hyperlipidemia, unspecified Status: Acute Assessment and Plan: LFTs normal. Continue Pravastatin. (8) Asthma: Code(s): J45.909 - Unspecified asthma, uncomplicated Status: Acute Assessment and Plan: No wheezing. Continue nebs. As above. (9) DVT prophylaxis: Code(s): Z29.9 -
[2021-04-06] MEDS: FENTANYL 2,500MCG/NS250ML(*CRX 2,500 MCG/250 ML BAG 10 MCG IV CONT (16:35)
[2021-04-06 16:52] LABS: Glucose Point of Care 276 mg/dl (65-105)
[2021-04-06] MEDS: PROPOFOL IV EMULSION 100 ML 12.17 MG IV CONT (20:45)
[2021-04-07] VITALS (34 sets, daily range): BP systolic 90–157; BP diastolic 67–101; PULSE 84–106; RESP 20–30; TEMP 36.6–38; O2SAT 88–98
[2021-04-07] MEDS: METOCLOPRAMIDE HCL INJ 10 MG/2 ML VIAL IV PUSH ×4 (00:20→17:43)
[2021-04-07 00:38] LABS: Glucose Point of Care 184 mg/dl (65-105)
[2021-04-07] MEDS: IPRATROPIUM BR 0.02% INH SOLN 0.5 MG/2.5 ML VIAL INHALATION ×3 (02:41→20:38)
[2021-04-07] MEDS: ALBUTEROL SULFATE NEB 2.5 MG/0.5 ML INH INHALATION ×3 (02:41→20:38)
[2021-04-07] MEDS: PROPOFOL IV EMULSION 100 ML 12.17 MG IV CONT ×3 (03:00→17:55)
[2021-04-07 06:00] LABS: Base Excess ABG 7.2 mEq/l (+/-2.0); HCO3 ABG 33.5 mEq/l (22.0-26.0); PCO2 ABG 56.9 mmHg (35.0-45.0); pH ABG 7.388 (7.350-7.450)
[2021-04-07 06:01] LABS: Alveolar/Arterial O2 Gradient 406.3 mmHg; Total Hemoglobin 10.3 g/dL (12.0-18.0)
[2021-04-07 06:02] LABS: Carboxyhemoglobin 0.3 % THb (0-2.0); Methemoglobin ABG 0.4 %THb (0-1.5); Oxyhemoglobin 91.6 % THb (90.0-100.0); Reduced Hemoglobin 7.7 %THb (0-5.0)
[2021-04-07 06:03] LABS: Device VENTILATOR; Fractional Inspired Oxygen 75 %; PO2 FiO2 Ratio Arterial Blood 0.91 %; Site Drawn RIGHT RADIAL
[2021-04-07 06:04] LABS: Arterial Blood Gas PEEP 12 cmH2O; Arterial Blood Gas Tidal Volume 360 ml; Arterial Blood Gas Vent Mode CMV; Arterial Blood Gas Ventilator rate 20 /MIN
[2021-04-07 06:06] LABS: Hemoglobin 8.4 g/dL (12.0-15.0); Mean Corpuscular Hemoglobin 26.6 pg (26-34); Mean Corpuscular Volume 91.8 fl (80-100); Platelet Count Result 169 k/mm3 (150-375); Red Blood Count 3.16 M/mm3 (4.2-5.4); Red Cell Distribution Width 15.9 % (11.5-14.5); White Blood Count 6.8 K/mm3 (4.5-10.0)
[2021-04-07] MEDS: CENTRAL LINE FLUSH 10 ML IV PUSH ×3 (06:14→21:44)
[2021-04-07 06:30] LABS: Alanine Aminotransferase 12 U/L (4-35); Albumin Level 2.5 g/dL (3.5-5.1); Alkaline Phosphatase 125 U/L (38-126); Anion Gap 2 mmol/L (8-16); Aspartate Amino Transferase 27 U/L (14-36); Bilirubin,Total 0.4 mg/dL (0.2-1.3); Blood Urea Nitrogen 19 mg/dL (7-17); Calcium 8.3 mg/dL (8.4-10.2); Carbon Dioxide 34 mmol/L (22-30); Chloride 101 mmol/L (98-107); Estimated CRCL calculation 86 ml/min; Estimated Glomerular Filt Rate > 60; Glucose 173 mg/dL (65-110); Magnesium 2.2 mg/dL (1.6-2.3); Potassium 3.9 mmol/L (3.4-5.0); Sodium 137 mmol/L (137-145)
[2021-04-07] MEDS: MIDAZOLAM 100MG/NS 100ML(*CRX) 100 MG/100 ML BAG 6 MG IV CONT ×2 (08:37→23:14)
--- NOTE | 2021-04-07 09:04 | PM.IMPN ---
Progress Note: A&P Assessment and Plan (1) Acute respiratory failure with hypoxia: Code(s): J96.01 - Acute respiratory failure with hypoxia Status: Acute Assessment and Plan: Patient presents with hypoxia with accelerating O2 requirement. CXR on admission showing significant bilateral airspace disease. Echo with EF 74%, normal diastolic function and no valvular disease. Venous doppler of all 4 extremities 03/16 negative for DVT. CTA Chest 03/18 negative for PE. She was alternating between BiPAP and high-flow oxygen but became BiPAP dependent and ultimately requiring intubation on 03/21/21. CXR today reviewed personally showing progression of diffuse airspace disease. Continue mechanical ventilation support. Wean FiO2 and PEEP as tolerated. Low tidal volume strategies. Sedated with propofol, fentanyl and Versed. Sedation vacation trial. Prone positioning as tolerated. Follow chest x-ray and ABG. Direct Care Staffer following. (2) Pneumonia due to COVID-19 virus: Code(s): U07.1 - COVID-19; J12.82 - Pneumonia due to coronavirus disease 2019 Status: Acute Assessment and Plan: Patient exposed to her nephew who was ill. She was unvaccinated. She presented 03/12 with SOB with CXR showing bilateral airspace disease. Started on Rocephin and Zithromax. Lasix 40mg IV given once 03/13 and again 03/14. CXR 03/14 showing worsening pulmonary infiltrates. COVID swab returned positive and Remdesivir and Dexamethasone started 03/14. Tocilizumab given once 03/14. Abx were stopped after 5 days of treatment. She had high O2 requirement that progresssed to intubation 03/21/21. Changed to dexamethasone 20 mg IV daily x 5 days then 10mg IV daily x 5 days (steroids stopped 03/29). Remdisivir was stopped after 7 days. Tolerating laying prone. Continue supportive care. Direct Care Staffer is following and appreciates his input. Plan now for Trach and PEG if family is agreeable and when vent settings improve. Remains Full Code (3) Anemia: Code(s): D64.9 - Anemia, unspecified Status: Acute Assessment and Plan: Hgb has been normal in the 12-14 range since admission until 03/23 when Hgb dropped 9.1. Hgb was stable in the 9-10 range but now has dropped again to the 7-8 range. No evidence of acute blood loss. Nml BMs now. Remains on lovenox. Continue Protonix. Follow closely. (4) Shock: Code(s): R57.9 - Shock, unspecified Status: Acute Assessment and Plan: Patient developed HoTN around the time she was placed on MV. She may have been hypovolemic given the poor oral intake prior to intubation and the BROOKE. Renal function and BP improved with IV fluids. Able to come off of the Levophed 03/22. BP soft at times still. Monitor closely. (5) Type 2 diabetes mellitus with hyperglycemia: Code(s): E11.65 - Type 2 diabetes mellitus with hyperglycemia Status: Acute Assessment and Plan: A1c 12.8 to show poor diabetic control prior to admission. The patient's blood glucose was reviewed on 04/07 Hyperglycemia related to the steroids and baseline poor control prior to admission. Glucose better controlled overall off the steroids but still mildly elevated. Continue AccuCheks covering with sliding scale. Hypoglycemia protocol available as needed. Adjust Lantus as needed. Continue tube feedings. (6) Hypertension: Code(s): I10 - Essential (primary) hypertension Status: Acute Assessment and Plan: Patient's blood pressure was reviewed on 04/07 She was able to come off of the Levophed 03/22. Amlodipine and Cozaar stopped due to HoTN. As above. (7) Hyperlipidemia: Code(s): E78.5 - Hyperlipidemia, unspecified Status: Acute Assessment and Plan: LFTs normal. Continue Pravastatin. (8) Asthma: Code(s): J45.909 - Unspecified asthma, uncomplicated Status: Acute Assessment and Plan: No wheezing. Continue nebs. As above. (9) DVT prophylaxis:
[2021-04-07] MEDS: ENOXAPARIN 40 MG/0.4 ML SYRINGE SUB-Q ×2 (10:50→21:43)
[2021-04-07] MEDS: PANTOPRAZOLE SODIUM IV 40 MG VIAL IV PUSH (10:51)
[2021-04-07] MEDS: MINERAL OIL/WHITE PETROLATUM OINTMENT 1 APPLIC EACH EYE ×2 (10:51→21:44)
[2021-04-07] MEDS: PRAVASTATIN SODIUM 20 MG TABLET 40 MG PO (10:51)
[2021-04-07] MEDS: INSULIN GLARGINE (*BKC) 100 UNITS/ML 15 UNITS SUB-Q ×2 (10:57→21:44)
[2021-04-07 11:49] LABS: Glucose Point of Care 165 mg/dl (65-105)
--- NOTE | 2021-04-07 12:22 | PCDIET ---
ICU Rounding Note: Patient tolerating Glucerna 1.2 at 50mL/hr goal rate with 100mL water flush every 4 hours. Recommend adding Pro-Stat (100kcal, 15g protein) BID due to skin damage on face from proning. MD agreeable. With current Propofol dose, this will provide 1841kcal and 96g protein over 22 hour daily tube feeding infusion. Last recorded weight is 89.6kg which is stable. Bowel Motility: BM x 4 yesterday. No BM documented yet today. Labs Reviewed: RBC (3.16), Hgb (8.4), Hct (29.0), Glu (173), BUN (19), Cr (0.6), Alb (2.5), Tyler Ca (9.5) Meds Noted: Propofol (rate of 12.17mL/hr provides 321kcal per day), Albuterol, Lantus, Atrovent, Reglan, Versed, Levophed, Protonix, Miralax, Pravastatin, Zemuron Additional Notes: Lower lip scab and left cheek skin tear. RN reports worsening of skin integrity on face. Following daily in ICU rounds. Assessing/reassessing every Monday/Monday.
--- NOTE | 2021-04-07 14:18 | WPDINTPN ---
Progress Note: A&P Assessment and Plan (1) Acute respiratory failure with hypoxia: Code(s): J96.01 - Acute respiratory failure with hypoxia Status: Acute Assessment and Plan: Acute respiratory failure secondary to COVID-19 pneumonia 03/12 Admitted 03/15 Intermittent Bipap 03/20 Bipap dependent 03/21 Intubated. Patient was placed in prone position daily for multiple days post intubation -since 04/04/2021: Patient's oxygen and PEEP requirements have increased. Chest x-ray has been worsening. - currently on PEEP of 12 and FiO2 of 75%%. wean FiO2 as possible to maintain O2 sats > 92% -ABGs and chest x-ray reviewed -Versed, propofoland fentanyl infusion for sedation. - continue daily proning -patient has been diuresing well in response to Lasix , blood pressures are borderline this morning so will hold Lasix - low tidal volume ventilation 03/16/2021: Echo with EF 74%, normal diastolic function and no valvular disease. 03/16/2021: Venous doppler of all 4 extremities negative for DVT. 03/18/2021: CTA Chest negative for PE. - Continue bronchodilators (2) Pneumonia due to COVID-19 virus: Code(s): U07.1 - COVID-19; J12.82 - Pneumonia due to coronavirus disease 2019 Status: Acute Assessment and Plan: She has NOT been vaccinated for COVID Status post Remdesivir S/p Dexamethasone (20 mg IV q.day for 5 days then dexamethasone 10 mg IV q.day for additional 5 days.) Tocilizumab given once 03/14. Rocephin and azithromycin were stopped after 5 days of treatment. Inflammatory markers trending down but still elevated, will discontinue serial monitoring for now (3) Shock: Code(s): R57.9 - Shock, unspecified Status: Acute Assessment and Plan: RESOLVED patient became hypotensive post intubation likely secondary to sedation and hypovolemia IV fluid bolus followed by conservative IV fluids Off Levophed since 03/22/2021 (4) BROOKE (acute kidney injury): Code(s): N17.9 - Acute kidney failure, unspecified Status: Acute Assessment and Plan: RESOLVED Likely secondary to hypovolemia and hypotension Patient was given IV fluid bolus and cautious IV fluid maintenance 03/29: Hypernatremia, improved with increased free water flushes Creatinine is normal and stable, will continue to monitor. Monitor urine output and electrolytes (5) Type 2 diabetes mellitus with hyperglycemia: Code(s): E11.65 - Type 2 diabetes mellitus with hyperglycemia Status: Acute Assessment and Plan: HbA1c 12.8 to show poor control prior to admission. Continue AccuCheks covering with sliding scale. Hypoglycemia protocol available as needed. Continue sliding scale insulin -continue Lantus (6) Hyperlipidemia: Code(s): E78.5 - Hyperlipidemia, unspecified Status: Acute Assessment and Plan: Normal LFTs. Continue Pravastatin. (7) Asthma: Code(s): J45.909 - Unspecified asthma, uncomplicated Status: Acute Assessment and Plan: No wheezing. Continue nebs and steroids As above. (8) DVT prophylaxis: Code(s): Z29.9 - Encounter for prophylactic measures, unspecified Status: Acute Assessment and Plan: Lovenox Additional Plan Stress ulcer prophylaxis - PPI Nutrition -tolerating tube feeds 04/07/2021 I discussed with Leatha, patient's daughter and updated with patient's condition and plan of care. She wanted to know if her mother will pull through this. I did tell her that the patient has been having increased PEEP and oxygen requirements since 04/04. She asked me to continue doing what it doing and if she does not improve in the next few days will sit down and talk again. She asked me about tracheostomy, said at this time given increased PEEP and oxygen requirements it may be difficult to get a tracheostomy done now. But if her oxygen requirements and PEEP decrease, that could be an option
[2021-04-07] MEDS: FENTANYL 2,500MCG/NS250ML(*CRX 2,500 MCG/250 ML BAG 10 MCG IV CONT (17:56)
[2021-04-07 18:04] LABS: Glucose Point of Care 158 mg/dl (65-105)
[2021-04-07] MEDS: ACETAMINOPHEN 325 MG TABLET 650 MG (23:14)
[2021-04-08] VITALS (31 sets, daily range): BP systolic 96–141; BP diastolic 61–93; PULSE 75–100; RESP 20–31; TEMP 35.7–37.6; O2SAT 89–100
[2021-04-08 00:14] LABS: Glucose Point of Care 132 mg/dl (65-105)
[2021-04-08] MEDS: IPRATROPIUM BR 0.02% INH SOLN 0.5 MG/2.5 ML VIAL INHALATION ×4 (03:03→19:37)
[2021-04-08] MEDS: ALBUTEROL SULFATE NEB 2.5 MG/0.5 ML INH INHALATION ×4 (03:03→19:37)
--- NOTE | 2021-04-08 03:07 | PCRCNOTE ---
ETT retaped oral left, 25 at the lip, and pt proned at 0200. Tolerated well.
[2021-04-08 05:03] LABS: Hematocrit 27.6 % (37.0-47.0); Hemoglobin 8.1 g/dL (12.0-15.0); Mean Corpuscular HGB Conc 29.3 g/dl (32-36); Mean Corpuscular Hemoglobin 26.5 pg (26-34); Mean Corpuscular Volume 90.2 fl (80-100); Mean Platelet Volume 10.4 fl (7.4-10.4); Platelet Count Result 176 k/mm3 (150-375); Red Blood Count 3.06 M/mm3 (4.2-5.4); Red Cell Distribution Width 15.9 % (11.5-14.5)
[2021-04-08 05:14] LABS: Alanine Aminotransferase 11 U/L (4-35); Albumin Level 2.8 g/dL (3.5-5.1); Alkaline Phosphatase 104 U/L (38-126); Anion Gap 3 mmol/L (8-16); Aspartate Amino Transferase 25 U/L (14-36); Bilirubin,Total 0.4 mg/dL (0.2-1.3); Blood Urea Nitrogen 16 mg/dL (7-17); Calcium 8.2 mg/dL (8.4-10.2); Carbon Dioxide 32 mmol/L (22-30); Chloride 100 mmol/L (98-107); Estimated CRCL calculation 86 ml/min; Estimated Glomerular Filt Rate > 60; Glucose 130 mg/dL (65-110); Magnesium 2.4 mg/dL (1.6-2.3); Phosphorus 4.2 mg/dL (2.5-4.5); Potassium 3.6 mmol/L (3.4-5.0); Sodium 135 mmol/L (137-145)
[2021-04-08 05:18] LABS: Alveolar/Arterial O2 Gradient 377.8 mmHg; Base Excess ABG 9.7 mEq/l (+/-2.0); Carboxyhemoglobin 0.2 % THb (0-2.0); Fractional Inspired Oxygen 75 %; Methemoglobin ABG 0.3 %THb (0-1.5); Oxygen Content ABG 16.5 %vol (16.0-22.0); Oxygen Saturation ABG 97.9 % (95.0-100.0); Oxyhemoglobin 96.8 % THb (90.0-100.0); PCO2 ABG 50.7 mmHg (35.0-45.0); PO2 ABG 103.1 mmHg (80.0-100.0); PO2 FiO2 Ratio Arterial Blood 1.37 %; Reduced Hemoglobin 2.7 %THb (0-5.0); pH ABG 7.457 (7.350-7.450)
[2021-04-08 05:20] LABS: Device VENTILATOR; Modified Allen's Test Pass; Site Drawn LEFT RADIAL
[2021-04-08 05:21] LABS: Arterial Blood Gas PEEP 12 cmH2O; Arterial Blood Gas Tidal Volume 360 ml; Arterial Blood Gas Vent Mode CMV; Arterial Blood Gas Ventilator rate 20 /MIN
[2021-04-08] MEDS: CENTRAL LINE FLUSH 10 ML IV PUSH ×3 (06:03→21:30)
[2021-04-08] MEDS: PROPOFOL IV EMULSION 100 ML 12.17 MG IV CONT ×3 (08:30→16:16)
--- NOTE | 2021-04-08 09:27 | PM.IMPN ---
Progress Note: A&P Assessment and Plan (1) Acute respiratory failure with hypoxia: Code(s): J96.01 - Acute respiratory failure with hypoxia Status: Acute Assessment and Plan: Patient presents with hypoxia with accelerating O2 requirement. CXR on admission showing significant bilateral airspace disease. Echo with EF 74%, normal diastolic function and no valvular disease. Venous doppler of all 4 extremities 03/16 negative for DVT. CTA Chest 03/18 negative for PE.She was alternating between BiPAP and high-flow oxygen but became BiPAP dependent and ultimately requiring intubation on 03/21/21. CXR today reviewed personally showing diffuse airspace disease w/o much change. Continue mechanical ventilation support. Wean FiO2 and PEEP as tolerated. Low tidal volume strategies. Sedated with propofol, fentanyl and Versed. Sedation vacation trial. Prone positioning as tolerated. Follow chest x-ray and ABG. Senior Writer following. (2) Pneumonia due to COVID-19 virus: Code(s): U07.1 - COVID-19; J12.82 - Pneumonia due to coronavirus disease 2019 Status: Acute Assessment and Plan: Patient exposed to her nephew who was ill. She was unvaccinated. She presented 03/12 with SOB with CXR showing bilateral airspace disease. Started on Rocephin and Zithromax. Lasix 40mg IV given once 03/13 and again 03/14. CXR 03/14 showing worsening pulmonary infiltrates. COVID swab returned positive and Remdesivir and Dexamethasone started 03/14. Tocilizumab given once 03/14. Abx were stopped after 5 days of treatment. She had high O2 requirement that progresssed to intubation 03/21/21. Changed to dexamethasone 20 mg IV daily x 5 days then 10mg IV daily x 5 days (steroids stopped 03/29). Remdisivir was stopped after 7 days. Tolerating laying prone. Continue supportive care. Senior Writer is following and appreciates his input. Plan now for Trach and PEG if family is agreeable and when vent settings improve. Remains Full Code (3) Anemia: Code(s): D64.9 - Anemia, unspecified Status: Acute Assessment and Plan: Hgb was normal in the 12-14 range since admission until 03/23 when Hgb dropped 9.1. Hgb was stable in the 9-10 range but now has dropped again to the 7-8 range. No evidence of acute blood loss. Nml BMs now. Remains on lovenox. Continue Protonix. Follow closely. (4) Shock: Code(s): R57.9 - Shock, unspecified Status: Acute Assessment and Plan: Patient developed HoTN around the time she was placed on MV. She may have been hypovolemic given the poor oral intake prior to intubation and the BROOKE. Renal function and BP improved with IV fluids. Able to come off of the Levophed 03/22. BP stable. Monitor closely. (5) Type 2 diabetes mellitus with hyperglycemia: Code(s): E11.65 - Type 2 diabetes mellitus with hyperglycemia Status: Acute Assessment and Plan: A1c 12.8 to show poor diabetic control prior to admission. The patient's blood glucose was reviewed on 04/08 Hyperglycemia related to the steroids and baseline poor control prior to admission. Glucose better controlled overall in the 130-180 range. Continue AccuCheks covering with sliding scale. Hypoglycemia protocol available as needed. Continue Lantus. Continue tube feedings. (6) Hypertension: Code(s): I10 - Essential (primary) hypertension Status: Acute Assessment and Plan: Patient's blood pressure was reviewed on 04/08 Amlodipine and Cozaar stopped due to HoTN. She was able to come off of the Levophed 03/22. BP remaining stable. As above. (7) Hyperlipidemia: Code(s): E78.5 - Hyperlipidemia, unspecified Status: Acute Assessment and Plan: LFTs normal. Continue Pravastatin. (8) Asthma: Code(s): J45.909 - Unspecified asthma, uncomplicated Status: Acute Assessment and Plan: No wheezing. Continue nebs. As above. (9) DVT prophylaxis: Code(s): Z29.9 - Encount
[2021-04-08] MEDS: ENOXAPARIN 40 MG/0.4 ML SYRINGE SUB-Q ×2 (09:34→21:30)
[2021-04-08] MEDS: PRAVASTATIN SODIUM 20 MG TABLET 40 MG PO (09:34)
[2021-04-08] MEDS: PANTOPRAZOLE SODIUM IV 40 MG VIAL IV PUSH (09:34)
[2021-04-08] MEDS: MINERAL OIL/WHITE PETROLATUM OINTMENT 1 APPLIC EACH EYE ×2 (09:34→21:30)
[2021-04-08] MEDS: INSULIN GLARGINE (*BKC) 100 UNITS/ML 15 UNITS SUB-Q ×2 (09:34→21:31)
--- NOTE | 2021-04-08 11:38 | PCDIET ---
ICU Rounding Note: Patient tolerating Glucerna 1.2 at 50mL/hr with 100mL water flush every 4 hours and Pro-Stat flush BID. MD order to decrease water flush to 30mL every 4 hours. Last recorded weight is 87.2kg which is down from last review. +I/O. Bowel Motility: BM x 1 today. Labs Reviewed: RBC (3.06), Hgb (8.1), Hct (27.6), Glu (130), Cr (0.6), Na (135), Alb (2.8), Mg (2.4) Meds Noted: Albuterol, Fentanyl, Atrovent, Protonix, Pravastatin Sodium, Novolog, Lantus, Versed, Zemuron, Propofol (rate of 12.165mL/hr which provides 321kcal per day) Additional Notes: Breakdown on face from proning. No other skin issues reported. Following daily in ICU rounds. Assessing/reassessing every Monday/Monday.
[2021-04-08 12:05] LABS: Glucose Point of Care 98 mg/dl (65-105)
--- NOTE | 2021-04-08 12:27 | P.PNINT_ITS ---
Progress Note: A&P Assessment and Plan (1) Acute respiratory failure with hypoxia: Code(s): J96.01 - Acute respiratory failure with hypoxia Status: Acute Assessment and Plan: Acute respiratory failure secondary to COVID-19 pneumonia 03/12 Admitted 03/15 Intermittent Bipap 03/20 Bipap dependent 03/21 Intubated. Patient was placed in prone position daily for multiple days post intubation -since 04/04/2021: Patient's oxygen and PEEP requirements have increased. Chest x-ray has been worsening. - currently on PEEP of 12 and FiO2 of 75%%. wean FiO2 as possible to maintain O2 sats > 92% -ABGs and chest x-ray reviewed -Versed, propofoland fentanyl infusion for sedation. - continue daily proning -patient has been diuresing well in response to Lasix , blood pressures are borderline this morning so will hold Lasix - low tidal volume ventilation 03/16/2021: Echo with EF 74%, normal diastolic function and no valvular disease. 03/16/2021: Venous doppler of all 4 extremities negative for DVT. 03/18/2021: CTA Chest negative for PE. - Continue bronchodilators (2) Pneumonia due to COVID-19 virus: Code(s): U07.1 - COVID-19; J12.82 - Pneumonia due to coronavirus disease 2019 Status: Acute Assessment and Plan: She has NOT been vaccinated for COVID Status post Remdesivir S/p Dexamethasone (20 mg IV q.day for 5 days then dexamethasone 10 mg IV q.day for additional 5 days.) Tocilizumab given once 03/14. Rocephin and azithromycin were stopped after 5 days of treatment. Inflammatory markers trending down but still elevated, will discontinue serial monitoring for now (3) Shock: Code(s): R57.9 - Shock, unspecified Status: Acute Assessment and Plan: RESOLVED patient became hypotensive post intubation likely secondary to sedation and hypovolemia IV fluid bolus followed by conservative IV fluids Off Levophed since 03/22/2021 (4) BROOKE (acute kidney injury): Code(s): N17.9 - Acute kidney failure, unspecified Status: Acute Assessment and Plan: RESOLVED Likely secondary to hypovolemia and hypotension Patient was given IV fluid bolus and cautious IV fluid maintenance 03/29: Hypernatremia, improved with increased free water flushes Creatinine is normal and stable, will continue to monitor. Monitor urine output and electrolytes (5) Type 2 diabetes mellitus with hyperglycemia: Code(s): E11.65 - Type 2 diabetes mellitus with hyperglycemia Status: Acute Assessment and Plan: HbA1c 12.8 to show poor control prior to admission. Continue AccuCheks covering with sliding scale. Hypoglycemia protocol available as needed. Continue sliding scale insulin -continue Lantus (6) Hyperlipidemia: Code(s): E78.5 - Hyperlipidemia, unspecified Status: Acute Assessment and Plan: Normal LFTs. Continue Pravastatin. (7) Asthma: Code(s): J45.909 - Unspecified asthma, uncomplicated Status: Acute Assessment and Plan: No wheezing. Continue nebs and steroids As above. (8) DVT prophylaxis: Code(s): Z29.9 - Encounter for prophylactic measures, unspecified Status: Acute Assessment and Plan: Lovenox Additional Plan Stress ulcer prophylaxis - PPI Nutrition -tolerating tube feeds 04/07/2021 I discussed with Leatha, patient's daughter and updated with patient's condition and plan of care. She wanted to know if her mother will pull through this. I
--- NOTE | 2021-04-08 12:57 | PCWOUND ---
WOCN NOTE spoke with Lillian RN for patient. States patient has pressure on her face due to proning. Does not need wound care consult at this time.
[2021-04-08] MEDS: MIDAZOLAM 100MG/NS 100ML(*CRX) 100 MG/100 ML BAG 6 MG IV CONT (16:17)
[2021-04-08] MEDS: FENTANYL 2,500MCG/NS250ML(*CRX 2,500 MCG/250 ML BAG 10 MCG IV CONT (17:45)
[2021-04-08 18:17] LABS: Glucose Point of Care 141 mg/dl (65-105)
[2021-04-09] VITALS (34 sets, daily range): BP systolic 107–153; BP diastolic 68–86; PULSE 76–113; RESP 17–187; TEMP 36.4–37.6; O2SAT 91–100
[2021-04-09 00:31] LABS: Glucose Point of Care 151 mg/dl (65-105)
[2021-04-09] MEDS: ALBUTEROL SULFATE NEB 2.5 MG/0.5 ML INH INHALATION ×4 (02:16→21:09)
[2021-04-09] MEDS: IPRATROPIUM BR 0.02% INH SOLN 0.5 MG/2.5 ML VIAL INHALATION ×4 (02:16→21:09)
[2021-04-09 05:19] LABS: Hematocrit 28.5 % (37.0-47.0); Hemoglobin 8.5 g/dL (12.0-15.0); Mean Corpuscular HGB Conc 29.8 g/dl (32-36); Mean Corpuscular Hemoglobin 26.7 pg (26-34); Mean Corpuscular Volume 89.6 fl (80-100); Mean Platelet Volume 11.3 fl (7.4-10.4); Platelet Count Result 208 k/mm3 (150-375); Red Blood Count 3.18 M/mm3 (4.2-5.4); Red Cell Distribution Width 15.6 % (11.5-14.5); White Blood Count 6.2 K/mm3 (4.5-10.0)
[2021-04-09 06:23] LABS: Potassium 3.5 mmol/L (3.4-5.0); Sodium 130 mmol/L (137-145)
[2021-04-09 06:24] LABS: Alanine Aminotransferase 13 U/L (4-35); Albumin Level 2.8 g/dL (3.5-5.1); Alkaline Phosphatase 129 U/L (38-126); Anion Gap 3 mmol/L (8-16); Aspartate Amino Transferase 35 U/L (14-36); Bilirubin,Total 0.3 mg/dL (0.2-1.3); Blood Urea Nitrogen 14 mg/dL (7-17); Calcium 8.4 mg/dL (8.4-10.2); Carbon Dioxide 32 mmol/L (22-30); Chloride 95 mmol/L (98-107); Estimated CRCL calculation 99 ml/min; Estimated Glomerular Filt Rate > 60; Glucose 180 mg/dL (65-110); Magnesium 2.2 mg/dL (1.6-2.3); Phosphorus 3.8 mg/dL (2.5-4.5); Total Protein 6.2 g/dL (6.3-8.2)
[2021-04-09] MEDS: CENTRAL LINE FLUSH 10 ML IV PUSH ×3 (07:14→22:44)
[2021-04-09] MEDS: MIDAZOLAM 100MG/NS 100ML(*CRX) 100 MG/100 ML BAG 6 MG IV CONT ×2 (08:10→22:41)
[2021-04-09] MEDS: FUROSEMIDE INJ 40 MG/4 ML VIAL IV PUSH (08:10)
[2021-04-09] MEDS: MINERAL OIL/WHITE PETROLATUM OINTMENT 1 APPLIC EACH EYE ×2 (09:26→22:43)
[2021-04-09] MEDS: ENOXAPARIN 40 MG/0.4 ML SYRINGE SUB-Q ×2 (09:26→22:42)
[2021-04-09] MEDS: PANTOPRAZOLE SODIUM IV 40 MG VIAL IV PUSH (09:26)
[2021-04-09] MEDS: PRAVASTATIN SODIUM 20 MG TABLET 40 MG PO (09:27)
[2021-04-09] MEDS: INSULIN GLARGINE (*BKC) 100 UNITS/ML 15 UNITS SUB-Q ×2 (09:27→22:59)
--- NOTE | 2021-04-09 11:47 | PCDIET ---
Nutrition Follow-Up Complete: Nutrition Diagnosis: Inadequate oral intake related to decreased appetite as evidenced by intakes 50% or less at most meals x 1 week. Nutrition Goal: Patient to meet estimated nutritional needs. Goal met. Patient tolerating Glucerna 1.2 at 50mL/hr goal rate with 30mL water flush every 4 hours and Pro-Stat flush BID. Residuals 100mL and below. Last recorded weight is 87.9 kg which is stable. Bowel Motility: BM x 1 today. Labs Reviewed: RBC (3.18), Hgb (8.5), Hct (28.5), Glu (180), Cr (0.5), Na (130), Alb (2.8) Meds Noted: Albuterol, Fentanyl, Lantus, Atrovent, Pravastatin, Apresoline, Novolog, Versed, Levophed, Protonix, Zemuron, Lasix, Propofol (rate of 12.165mL/hr provides 321kcal per day) Additional Notes: Left cheek skin tear. Lower lip scab. Will continue to monitor with same goal. Nutrition Monitoring and Evaluation: Follow up every Monday/Monday.
[2021-04-09 12:24] LABS: Glucose Point of Care 205 mg/dl (65-105)
--- NOTE | 2021-04-09 12:40 | WPDINTPN ---
Progress Note: A&P Assessment and Plan (1) Acute respiratory failure with hypoxia: Code(s): J96.01 - Acute respiratory failure with hypoxia Status: Acute Assessment and Plan: Acute respiratory failure secondary to COVID-19 pneumonia 03/12 Admitted 03/15 Intermittent Bipap 03/20 Bipap dependent 03/21 Intubated. Patient was placed in prone position daily for multiple days post intubation -since 04/04/2021: Patient's oxygen and PEEP requirements have increased. Chest x-ray has been worsening. - currently on PEEP of 12 and FiO2 of 75%%. wean FiO2 as possible to maintain O2 sats > 92% -ABGs and chest x-ray reviewed -Versed, propofol and fentanyl infusion for sedation. - continue daily proning - patient has been diuresing well in response to Lasix. Will diurese again since blood pressures are better today - low tidal volume ventilation 03/16/2021: Echo with EF 74%, normal diastolic function and no valvular disease. 03/16/2021: Venous doppler of all 4 extremities negative for DVT. 03/18/2021: CTA Chest negative for PE. - Continue bronchodilators (2) Pneumonia due to COVID-19 virus: Code(s): U07.1 - COVID-19; J12.82 - Pneumonia due to coronavirus disease 2019 Status: Acute Assessment and Plan: She has NOT been vaccinated for COVID Status post Remdesivir S/p Dexamethasone (20 mg IV q.day for 5 days then dexamethasone 10 mg IV q.day for additional 5 days.) Tocilizumab given once 03/14. Rocephin and azithromycin were stopped after 5 days of treatment. Inflammatory markers trending down but still elevated, will discontinue serial monitoring for now (3) Shock: Code(s): R57.9 - Shock, unspecified Status: Acute Assessment and Plan: RESOLVED patient became hypotensive post intubation likely secondary to sedation and hypovolemia IV fluid bolus followed by conservative IV fluids Off Levophed since 03/22/2021 (4) BROOKE (acute kidney injury): Code(s): N17.9 - Acute kidney failure, unspecified Status: Acute Assessment and Plan: RESOLVED Likely secondary to hypovolemia and hypotension Patient was given IV fluid bolus and cautious IV fluid maintenance 03/29: Hypernatremia, improved with increased free water flushes Creatinine is normal and stable, will continue to monitor. Monitor urine output and electrolytes (5) Type 2 diabetes mellitus with hyperglycemia: Code(s): E11.65 - Type 2 diabetes mellitus with hyperglycemia Status: Acute Assessment and Plan: HbA1c 12.8 to show poor control prior to admission. Continue AccuCheks covering with sliding scale. Hypoglycemia protocol available as needed. Continue sliding scale insulin -continue Lantus (6) Hyperlipidemia: Code(s): E78.5 - Hyperlipidemia, unspecified Status: Acute Assessment and Plan: Normal LFTs. Continue Pravastatin. (7) Asthma: Code(s): J45.909 - Unspecified asthma, uncomplicated Status: Acute Assessment and Plan: No wheezing. Continue nebs and steroids As above. (8) DVT prophylaxis: Code(s): Z29.9 - Encounter for prophylactic measures, unspecified Status: Acute Assessment and Plan: Lovenox Additional Plan Stress ulcer prophylaxis - PPI Nutrition -tolerating tube feeds 04/07/2021 I discussed with Leatha, patient's daughter and updated with patient's condition and plan of care. She wanted to know if her mother will pull through this. I did tell her that the patient has been having increased PEEP and oxygen requirements since 04/04. She asked me to continue doing what it doing and if she does not improve in the next few days will sit down and talk again. She asked me about tracheostomy, said at this time given increased PEEP and oxygen requirements it may be difficult to get a tracheostomy done now. But if her oxygen requirements and PEEP decrease, that could be an option O
[2021-04-09] MEDS: INSULIN ASPART (*BKC) 100 UNITS/ML SUB-Q (12:44)
[2021-04-09 18:33] LABS: Glucose Point of Care 178 mg/dl (65-105)
[2021-04-09] MEDS: PROPOFOL IV EMULSION 100 ML 12.17 MG IV CONT (19:41)
[2021-04-09] MEDS: FENTANYL 2,500MCG/NS250ML(*CRX 2,500 MCG/250 ML BAG 12.5 MCG IV CONT (19:41)
[2021-04-10] VITALS (29 sets, daily range): BP systolic 99–143; BP diastolic 66–87; PULSE 85–105; RESP 20–30; TEMP 36.1–37.2; O2SAT 92–100
[2021-04-10] MEDS: IPRATROPIUM BR 0.02% INH SOLN 0.5 MG/2.5 ML VIAL INHALATION ×4 (01:37→21:13)
[2021-04-10] MEDS: ALBUTEROL SULFATE NEB 2.5 MG/0.5 ML INH INHALATION ×4 (01:37→21:13)
[2021-04-10] MEDS: PROPOFOL IV EMULSION 100 ML 12.17 MG IV CONT ×3 (03:03→15:08)
[2021-04-10 04:32] LABS: Alveolar/Arterial O2 Gradient 439.9 mmHg; Base Excess ABG 8.6 mEq/l (+/-2.0); Carboxyhemoglobin 0.3 % THb (0-2.0); Fractional Inspired Oxygen 80 %; HCO3 ABG 33.4 mEq/l (22.0-26.0); Methemoglobin ABG 0.2 %THb (0-1.5); Oxygen Content ABG 12.4 %vol (16.0-22.0); Oxygen Saturation ABG 96.3 % (95.0-100.0); Oxyhemoglobin 94.8 % THb (90.0-100.0); PCO2 ABG 47.8 mmHg (35.0-45.0); PO2 ABG 80.3 mmHg (80.0-100.0); Reduced Hemoglobin 4.7 %THb (0-5.0); Total Hemoglobin 9.2 g/dL (12.0-18.0); pH ABG 7.462 (7.350-7.450)
[2021-04-10 04:34] LABS: Device VENTILATOR; Modified Allen's Test Pass; Site Drawn LEFT RADIAL
[2021-04-10 04:35] LABS: Arterial Blood Gas PEEP 10 cmH2O; Arterial Blood Gas Tidal Volume 360 ml; Arterial Blood Gas Vent Mode CMV; Arterial Blood Gas Ventilator rate 20 /MIN
[2021-04-10] MEDS: CENTRAL LINE FLUSH 10 ML IV PUSH ×3 (05:43→21:15)
[2021-04-10 06:09] LABS: Hematocrit 27.5 % (37.0-47.0); Hemoglobin 8.1 g/dL (12.0-15.0); Mean Corpuscular HGB Conc 29.5 g/dl (32-36); Mean Corpuscular Hemoglobin 26.1 pg (26-34); Mean Corpuscular Volume 88.7 fl (80-100); Mean Platelet Volume 10.7 fl (7.4-10.4); Platelet Count Result 248 k/mm3 (150-375); Red Cell Distribution Width 15.6 % (11.5-14.5); White Blood Count 6.1 K/mm3 (4.5-10.0)
[2021-04-10 06:31] LABS: Alanine Aminotransferase 12 U/L (4-35); Albumin Level 2.7 g/dL (3.5-5.1); Alkaline Phosphatase 126 U/L (38-126); Anion Gap 2 mmol/L (8-16); Aspartate Amino Transferase 28 U/L (14-36); Bilirubin,Total 0.4 mg/dL (0.2-1.3); Blood Urea Nitrogen 15 mg/dL (7-17); Calcium 8.3 mg/dL (8.4-10.2); Carbon Dioxide 36 mmol/L (22-30); Chloride 96 mmol/L (98-107); Estimated CRCL calculation 101 ml/min; Estimated Glomerular Filt Rate > 60; Glucose 202 mg/dL (65-110); Phosphorus 3.6 mg/dL (2.5-4.5); Potassium 3.3 mmol/L (3.4-5.0); Sodium 134 mmol/L (137-145)
[2021-04-10] MEDS: INSULIN ASPART (*BKC) 100 UNITS/ML SUB-Q ×3 (07:12→18:47)
[2021-04-10] MEDS: FUROSEMIDE INJ 40 MG/4 ML VIAL IV PUSH (08:52)
[2021-04-10 09:29] LABS: Glucose Point of Care 185 mg/dl (65-105)
[2021-04-10] MEDS: INSULIN GLARGINE (*BKC) 100 UNITS/ML 15 UNITS SUB-Q ×2 (10:11→21:12)
[2021-04-10] MEDS: PRAVASTATIN SODIUM 20 MG TABLET 40 MG PO (11:25)
[2021-04-10] MEDS: MINERAL OIL/WHITE PETROLATUM OINTMENT 1 APPLIC EACH EYE ×2 (11:26→21:16)
[2021-04-10] MEDS: PANTOPRAZOLE SODIUM IV 40 MG VIAL IV PUSH (11:26)
[2021-04-10] MEDS: ENOXAPARIN 40 MG/0.4 ML SYRINGE SUB-Q ×2 (11:26→21:13)
--- NOTE | 2021-04-10 12:28 | WPDINTPN ---
Progress Note: A&P Assessment and Plan (1) Acute respiratory failure with hypoxia: Code(s): J96.01 - Acute respiratory failure with hypoxia Status: Acute Assessment and Plan: Acute respiratory failure secondary to COVID-19 pneumonia 03/12 Admitted 03/15 Intermittent Bipap 03/20 Bipap dependent. 03/21 Intubated. Patient was placed in prone position daily for multiple days post intubation -since 04/04/2021: Patient's oxygen and PEEP requirements have increased. Chest x-ray has been worsening. - currently on PEEP of 10 and FiO2 of 80%%. wean FiO2 as possible to maintain O2 sats > 92% -ABGs and chest x-ray reviewed -Versed, propofol and fentanyl infusion for sedation. - continue daily proning -will diurese again today can blood pressures are stable - low tidal volume ventilation 03/16/2021: Echo with EF 74%, normal diastolic function and no valvular disease. 03/16/2021: Venous doppler of all 4 extremities negative for DVT. 03/18/2021: CTA Chest negative for PE. - Continue bronchodilators (2) Pneumonia due to COVID-19 virus: Code(s): U07.1 - COVID-19; J12.82 - Pneumonia due to coronavirus disease 2018 Status: Acute Assessment and Plan: She has NOT been vaccinated for COVID Status post Remdesivir S/p Dexamethasone (20 mg IV q.day for 5 days then dexamethasone 10 mg IV q.day for additional 5 days.) Tocilizumab given once 03/14. Rocephin and azithromycin were stopped after 5 days of treatment. (3) Shock: Code(s): R57.9 - Shock, unspecified Status: Acute Assessment and Plan: RESOLVED patient became hypotensive post intubation likely secondary to sedation and hypovolemia IV fluid bolus followed by conservative IV fluids Off Levophed since 03/22/2021 (4) BROOKE (acute kidney injury): Code(s): N17.9 - Acute kidney failure, unspecified Status: Acute Assessment and Plan: RESOLVED Likely secondary to hypovolemia and hypotension Patient was given IV fluid bolus and cautious IV fluid maintenance 03/29: Hypernatremia, improved with increased free water flushes Creatinine is normal and stable, will continue to monitor. Monitor urine output and electrolytes (5) Type 2 diabetes mellitus with hyperglycemia: Code(s): E11.65 - Type 2 diabetes mellitus with hyperglycemia Status: Acute Assessment and Plan: HbA1c 12.8 to show poor control prior to admission. Continue AccuCheks covering with sliding scale. Hypoglycemia protocol available as needed. Continue sliding scale insulin -continue Lantus (6) Hyperlipidemia: Code(s): E78.5 - Hyperlipidemia, unspecified Status: Acute Assessment and Plan: Normal LFTs. Continue Pravastatin. (7) Asthma: Code(s): J45.909 - Unspecified asthma, uncomplicated Status: Acute Assessment and Plan: No wheezing. Continue nebs and steroids As above. (8) DVT prophylaxis: Code(s): Z29.9 - Encounter for prophylactic measures, unspecified Status: Acute Assessment and Plan: Lovenox Additional Plan Stress ulcer prophylaxis - PPI Nutrition -tolerating tube feeds 04/07/2021 I discussed with Leatha, patient's daughter and updated with patient's condition and plan of care. She wanted to know if her mother will pull through this. I did tell her that the patient has been having increased PEEP and oxygen requirements since 04/04. She asked me to continue doing what it doing and if she does not improve in the next few days will sit down and talk again. She asked me about tracheostomy, said at this time given increased PEEP and oxygen requirements it may be difficult to get a tracheostomy done now. But if her oxygen requirements and PEEP decrease, that could be an option On 04/06/2021: Dr. Shah discussed with daughter, Leatha Cam again today and discussed patient's current status. it seems the patient's daughter
[2021-04-10 13:16] LABS: Glucose Point of Care 228 mg/dl (65-105)
[2021-04-10] MEDS: MIDAZOLAM 100MG/NS 100ML(*CRX) 100 MG/100 ML BAG 6 MG IV CONT (15:09)
[2021-04-10] MEDS: FENTANYL 2,500MCG/NS250ML(*CRX 2,500 MCG/250 ML BAG 12.5 MCG IV CONT (15:10)
[2021-04-10 19:00] LABS: Glucose Point of Care 210 mg/dl (65-105)
[2021-04-10] MEDS: PROPOFOL IV EMULSION 100 ML 14.6 MG IV CONT (21:13)
[2021-04-10 22:06] LABS: Glucose Point of Care 222 mg/dl (65-105)
[2021-04-11] VITALS (36 sets, daily range): BP systolic 96–141; BP diastolic 53–81; PULSE 83–113; RESP 20–24; TEMP 35.8–37.4; O2SAT 90–100
[2021-04-11] MEDS: INSULIN ASPART (*BKC) 100 UNITS/ML SUB-Q ×4 (01:09→18:02)
[2021-04-11 01:15] LABS: Glucose Point of Care 230 mg/dl (65-105)
[2021-04-11] MEDS: ALBUTEROL SULFATE NEB 2.5 MG/0.5 ML INH INHALATION ×3 (03:05→21:46)
[2021-04-11] MEDS: IPRATROPIUM BR 0.02% INH SOLN 0.5 MG/2.5 ML VIAL INHALATION ×3 (03:05→21:46)
[2021-04-11] MEDS: PROPOFOL IV EMULSION 100 ML 14.6 MG IV CONT ×4 (03:11→20:09)
[2021-04-11 05:55] LABS: Alveolar/Arterial O2 Gradient 344.7 mmHg; Base Excess ABG 10.6 mEq/l (+/-2.0); Device VENTILATOR; Fractional Inspired Oxygen 70 %; HCO3 ABG 35.5 mEq/l (22.0-26.0); Methemoglobin ABG 0.2 %THb (0-1.5); Modified Allen's Test Pass; Oxygen Content ABG 12.4 %vol (16.0-22.0); Oxygen Saturation ABG 97.9 % (95.0-100.0); Oxyhemoglobin 95.9 % THb (90.0-100.0); PCO2 ABG 49.6 mmHg (35.0-45.0); PO2 ABG 101.1 mmHg (80.0-100.0); PO2 FiO2 Ratio Arterial Blood 1.44 %; Reduced Hemoglobin 2.9 %THb (0-5.0); Site Drawn LEFT RADIAL; Total Hemoglobin 9.1 g/dL (12.0-18.0); pH ABG 7.472 (7.350-7.450)
[2021-04-11 05:56] LABS: Arterial Blood Gas PEEP 10 cmH2O; Arterial Blood Gas Tidal Volume 360 ml; Arterial Blood Gas Vent Mode CMV; Arterial Blood Gas Ventilator rate 20 /MIN
[2021-04-11] MEDS: MIDAZOLAM 100MG/NS 100ML(*CRX) 100 MG/100 ML BAG 6 MG IV CONT (06:20)
[2021-04-11] MEDS: CENTRAL LINE FLUSH 10 ML IV PUSH ×3 (06:20→22:28)
[2021-04-11 06:30] LABS: Hematocrit 26.8 % (37.0-47.0); Hemoglobin 8.1 g/dL (12.0-15.0); Mean Corpuscular HGB Conc 30.2 g/dl (32-36); Mean Corpuscular Hemoglobin 26.9 pg (26-34); Mean Platelet Volume 10.5 fl (7.4-10.4); Platelet Count Result 275 k/mm3 (150-375); Red Blood Count 3.01 M/mm3 (4.2-5.4); Red Cell Distribution Width 15.7 % (11.5-14.5); White Blood Count 7.1 K/mm3 (4.5-10.0)
[2021-04-11 06:31] LABS: Glucose Point of Care 224 mg/dl (65-105)
[2021-04-11 06:48] LABS: Alanine Aminotransferase 15 U/L (4-35); Albumin Level 2.7 g/dL (3.5-5.1); Alkaline Phosphatase 149 U/L (38-126); Anion Gap 2 mmol/L (8-16); Aspartate Amino Transferase 53 U/L (14-36); Bilirubin,Total 0.4 mg/dL (0.2-1.3); Blood Urea Nitrogen 14 mg/dL (7-17); Calcium 8.3 mg/dL (8.4-10.2); Carbon Dioxide 36 mmol/L (22-30); Chloride 94 mmol/L (98-107); Estimated CRCL calculation 101 ml/min; Estimated Glomerular Filt Rate > 60; Glucose 222 mg/dL (65-110); Phosphorus 3.6 mg/dL (2.5-4.5); Potassium 3.8 mmol/L (3.4-5.0); Sodium 132 mmol/L (137-145)
[2021-04-11] MEDS: ENOXAPARIN 40 MG/0.4 ML SYRINGE SUB-Q ×2 (08:40→20:11)
[2021-04-11] MEDS: MINERAL OIL/WHITE PETROLATUM OINTMENT 1 APPLIC EACH EYE ×2 (08:40→20:11)
[2021-04-11] MEDS: PRAVASTATIN SODIUM 20 MG TABLET 40 MG PO (08:41)
[2021-04-11] MEDS: INSULIN GLARGINE (*BKC) 100 UNITS/ML 15 UNITS SUB-Q (08:41)
[2021-04-11] MEDS: PANTOPRAZOLE SODIUM IV 40 MG VIAL IV PUSH (08:41)
[2021-04-11] MEDS: FENTANYL 2,500MCG/NS250ML(*CRX 2,500 MCG/250 ML BAG 12.5 MCG IV CONT (08:43)
[2021-04-11] MEDS: FUROSEMIDE INJ 40 MG/4 ML VIAL IV PUSH (11:39)
--- NOTE | 2021-04-11 12:12 | PM.IMPN ---
Progress Note: A&P Assessment and Plan (1) Acute respiratory failure with hypoxia: Code(s): J96.01 - Acute respiratory failure with hypoxia Status: Acute Assessment and Plan: Patient presents with hypoxia with accelerating O2 requirement. CXR on admission showing significant bilateral airspace disease. Echo with EF 74%, normal diastolic function and no valvular disease. Venous doppler of all 4 extremities 03/16 negative for DVT. CTA Chest 03/18 negative for PE.She was alternating between BiPAP and high-flow oxygen but became BiPAP dependent and ultimately requiring intubation on 03/21/21. CXR today showing severe bilateral pulmonary infiltrates, increased on the right since 04/10/2021 . Continue mechanical ventilation support. Wean FiO2 and PEEP as tolerated. Low tidal volume strategies. Sedated with propofol, fentanyl and Versed. Prone positioning as tolerated. Follow chest x-ray and ABG. Phone Technician following. (2) Pneumonia due to COVID-19 virus: Code(s): U07.1 - COVID-19; J12.82 - Pneumonia due to coronavirus disease 2018 Status: Acute Assessment and Plan: Patient exposed to her nephew who was ill. She was unvaccinated. She presented 03/12 with SOB with CXR showing bilateral airspace disease. Started on Rocephin and Zithromax. Lasix 40mg IV given once 03/13 and again 03/14. CXR 03/14 showing worsening pulmonary infiltrates. COVID swab returned positive and Remdesivir and Dexamethasone started 03/14. Tocilizumab given once 03/14. Abx were stopped after 5 days of treatment. She had high O2 requirement that progresssed to intubation 03/21/21. Changed to dexamethasone 20 mg IV daily x 5 days then 10mg IV daily x 5 days (steroids stopped 03/29). Remdisivir was stopped after 7 days. Tolerating laying prone. Continue supportive care. Phone Technician is following and appreciates his input. Plan now for Trach and PEG if family is agreeable and when vent settings improve. Remains Full Code (3) Anemia: Code(s): D64.9 - Anemia, unspecified Status: Acute Assessment and Plan: Hgb was normal in the 12-14 range since admission until 03/23 when Hgb dropped 9.1. Hgb was stable in the 9-10 range but now has dropped again to the 7-8 range. No evidence of acute blood loss. Remains on lovenox. Continue Protonix. Hgb stable in 8 rnage past few days. (4) Shock: Code(s): R57.9 - Shock, unspecified Status: Acute Assessment and Plan: Septic and hypovolemic shock. Now resolved. (5) Type 2 diabetes mellitus with hyperglycemia: Code(s): E11.65 - Type 2 diabetes mellitus with hyperglycemia Status: Acute Assessment and Plan: A1c 12.8 to show poor diabetic control prior to admission. Continue AccuCheks covering with sliding scale. Hypoglycemia protocol available as needed. Continue Lantus, increase given glucose has been above target. Continue tube feedings. (6) Hypertension: Code(s): I10 - Essential (primary) hypertension Status: Acute Assessment and Plan: BP reasonable, soft at times, off of amlodipine and Cozaar which were stopped due to low BP. Monitor. (7) Hyperlipidemia: Code(s): E78.5 - Hyperlipidemia, unspecified Status: Acute Assessment and Plan: LFTs normal. Continue Pravastatin. (8) DVT prophylaxis: Code(s): Z29.9 - Encounter for prophylactic measures, unspecified Status: Acute Assessment and Plan: Lovenox (9) BROOKE (acute kidney injury): Code(s): N17.9 - Acute kidney failure, unspecified Status: Acute Assessment and Plan: Due to hypovolemia and hypotension along with contrast expsorue. Now resolved. Cr down to 0.5 today. Subjective Date/time seen: 04/11/21 12:12 Remains intubated and sedated. No major change in clinical status. Tolerating proning. Hemodynamically stable. Afebrile. BP 96/63 this AM. Urine output 1.6 L yest, net positive 1.1 L. Review of Systems R
[2021-04-11 13:47] LABS: Glucose Point of Care 216 mg/dl (65-105)
--- NOTE | 2021-04-11 15:55 | WPDINTPN ---
Progress Note: A&P Assessment and Plan (1) Acute respiratory failure with hypoxia: Code(s): J96.01 - Acute respiratory failure with hypoxia Status: Acute Assessment and Plan: Acute respiratory failure secondary to COVID-19 pneumonia 03/12 Admitted 03/15 Intermittent Bipap 03/20 Bipap dependent. 03/21 Intubated. Patient was placed in prone position daily for multiple days post intubation -since 04/04/2021: Patient's oxygen and PEEP requirements have increased. Chest x-ray has been worsening. - currently on PEEP of 10 and FiO2 of 70%%. wean FiO2 as possible to maintain O2 sats > 92% -ABGs and chest x-ray reviewed -Versed, propofol and fentanyl infusion for sedation. - continue daily proning -patient is diuresing well with Lasix, FiO2 trending down with improvement in PO2 on the ABGs, will continue diuresis - low tidal volume ventilation 03/16/2021: Echo with EF 74%, normal diastolic function and no valvular disease. 03/16/2021: Venous doppler of all 4 extremities negative for DVT. 03/18/2021: CTA Chest negative for PE. - Continue bronchodilators (2) Pneumonia due to COVID-19 virus: Code(s): U07.1 - COVID-19; J12.82 - Pneumonia due to coronavirus disease 2019 Status: Acute Assessment and Plan: She has NOT been vaccinated for COVID Status post Remdesivir S/p Dexamethasone (20 mg IV q.day for 5 days then dexamethasone 10 mg IV q.day for additional 5 days.) Tocilizumab given once 03/14. Rocephin and azithromycin were stopped after 5 days of treatment. (3) Shock: Code(s): R57.9 - Shock, unspecified Status: Acute Assessment and Plan: RESOLVED patient became hypotensive post intubation likely secondary to sedation and hypovolemia IV fluid bolus followed by conservative IV fluids Off Levophed since 03/22/2021 (4) BROOKE (acute kidney injury): Code(s): N17.9 - Acute kidney failure, unspecified Status: Acute Assessment and Plan: RESOLVED Likely secondary to hypovolemia and hypotension Patient was given IV fluid bolus and cautious IV fluid maintenance 03/29: Hypernatremia, improved with increased free water flushes Creatinine is normal and stable, will continue to monitor. Monitor urine output and electrolytes (5) Type 2 diabetes mellitus with hyperglycemia: Code(s): E11.65 - Type 2 diabetes mellitus with hyperglycemia Status: Acute Assessment and Plan: HbA1c 12.8 to show poor control prior to admission. Continue AccuCheks covering with sliding scale. Hypoglycemia protocol available as needed. Continue sliding scale insulin -continue Lantus (6) Hyperlipidemia: Code(s): E78.5 - Hyperlipidemia, unspecified Status: Acute Assessment and Plan: Normal LFTs. Continue Pravastatin. (7) Asthma: Code(s): J45.909 - Unspecified asthma, uncomplicated Status: Acute Assessment and Plan: No wheezing. Continue nebs and steroids As above. (8) DVT prophylaxis: Code(s): Z29.9 - Encounter for prophylactic measures, unspecified Status: Acute Assessment and Plan: Lovenox Additional Plan Stress ulcer prophylaxis - PPI Nutrition -tolerating tube feeds 04/09/2021 I discussed with Leatha, patient's daughter and updated with patient's condition and plan of care. She wanted to know if her mother will pull through this. I did tell her that the patient has been having increased PEEP and oxygen requirements since 04/04. She asked me to continue doing what it doing and if she does not improve in the next few days will sit down and talk again. She asked me about tracheostomy, said at this time given increased PEEP and oxygen requirements it may be difficult to get a tracheostomy done now. But if her oxygen requirements and PEEP decrease, that could be an option On 04/06/2021: Dr. Shah discussed with daughter, Leatha Cam again today and discuss
[2021-04-11 18:15] LABS: Glucose Point of Care 255 mg/dl (65-105)
[2021-04-11] MEDS: INSULIN GLARGINE (*BKC) 100 UNITS/ML 17 UNITS SUB-Q (21:12)
[2021-04-11 21:29] LABS: Glucose Point of Care 250 mg/dl (65-105)
[2021-04-11 22:06] LABS: Vancomycin Trough 13.4 ug/mL (10.0-20.0)
[2021-04-12] VITALS (39 sets, daily range): BP systolic 109–160; BP diastolic 59–88; PULSE 90–120; RESP 18–26; TEMP 36.2–37.3; O2SAT 88–98
[2021-04-12] MEDS: INSULIN ASPART (*BKC) 100 UNITS/ML SUB-Q ×5 (00:25→23:07)
[2021-04-12] MEDS: MIDAZOLAM 100MG/NS 100ML(*CRX) 100 MG/100 ML BAG 6 MG IV CONT (00:26)
[2021-04-12 01:20] LABS: Glucose Point of Care 273 mg/dl (65-105)
[2021-04-12] MEDS: PROPOFOL IV EMULSION 100 ML 18.98 MG IV CONT ×2 (02:11→06:36)
[2021-04-12] MEDS: ALBUTEROL SULFATE NEB 2.5 MG/0.5 ML INH INHALATION ×4 (03:00→21:26)
[2021-04-12] MEDS: IPRATROPIUM BR 0.02% INH SOLN 0.5 MG/2.5 ML VIAL INHALATION ×4 (03:00→21:27)
[2021-04-12 05:33] LABS: Hematocrit 26.3 % (37.0-47.0); Hemoglobin 7.7 g/dL (12.0-15.0); Mean Corpuscular HGB Conc 29.3 g/dl (32-36); Mean Corpuscular Hemoglobin 26.6 pg (26-34); Mean Corpuscular Volume 90.7 fl (80-100); Platelet Count Result 338 k/mm3 (150-375); Red Cell Distribution Width 15.6 % (11.5-14.5); White Blood Count 8.3 K/mm3 (4.5-10.0)
[2021-04-12 05:39] LABS: Alanine Aminotransferase 18 U/L (4-35); Albumin Level 2.3 g/dL (3.5-5.1); Alkaline Phosphatase 153 U/L (38-126); Anion Gap 4 mmol/L (8-16); Aspartate Amino Transferase 53 U/L (14-36); Bilirubin,Total 0.1 mg/dL (0.2-1.3); Blood Urea Nitrogen 19 mg/dL (7-17); Carbon Dioxide 35 mmol/L (22-30); Chloride 87 mmol/L (98-107); Estimated CRCL calculation 103 ml/min; Estimated Glomerular Filt Rate > 60; Glucose 221 mg/dL (65-110); Magnesium 1.9 mg/dL (1.6-2.3); Phosphorus 4.2 mg/dL (2.5-4.5); Potassium 3.9 mmol/L (3.4-5.0); Sodium 126 mmol/L (137-145)
[2021-04-12 06:20] LABS: Alveolar/Arterial O2 Gradient 575.4 mmHg; Base Excess ABG 11.8 mEq/l (+/-2.0); Carboxyhemoglobin 0.9 % THb (0-2.0); Fractional Inspired Oxygen 100 %; HCO3 ABG 38.6 mEq/l (22.0-26.0); Methemoglobin ABG 0.3 %THb (0-1.5); Oxygen Content ABG 14.7 %vol (16.0-22.0); Oxygen Saturation ABG 94.7 % (95.0-100.0); Oxyhemoglobin 92.7 % THb (90.0-100.0); PO2 FiO2 Ratio Arterial Blood 0.75 %; Reduced Hemoglobin 6.1 %THb (0-5.0); Total Hemoglobin 11.2 g/dL (12.0-18.0); pH ABG 7.408 (7.350-7.450)
[2021-04-12 06:23] LABS: Device VENTILATOR; Modified Allen's Test Unable to perform; PCO2 ABG 62.6 mmHg (35.0-45.0); Site Drawn RIGHT RADIAL
[2021-04-12 06:24] LABS: Arterial Blood Gas Vent Mode CMV; Arterial Blood Gas Ventilator rate 18 /MIN
[2021-04-12 06:25] LABS: Arterial Blood Gas PEEP 10 cmH2O; Arterial Blood Gas Tidal Volume 360 ml
[2021-04-12] MEDS: FENTANYL 2,500MCG/NS250ML(*CRX 2,500 MCG/250 ML BAG 12.5 MCG IV CONT (06:35)
[2021-04-12] MEDS: CENTRAL LINE FLUSH 10 ML IV PUSH ×3 (06:37→21:13)
[2021-04-12 06:43] LABS: Glucose Point of Care 231 mg/dl (65-105)
[2021-04-12] MEDS: INSULIN GLARGINE (*BKC) 100 UNITS/ML 17 UNITS SUB-Q ×2 (08:53→21:08)
[2021-04-12] MEDS: MINERAL OIL/WHITE PETROLATUM OINTMENT 1 APPLIC EACH EYE ×2 (08:57→21:13)
[2021-04-12] MEDS: ENOXAPARIN 40 MG/0.4 ML SYRINGE SUB-Q ×2 (08:57→21:13)
[2021-04-12] MEDS: PANTOPRAZOLE SODIUM IV 40 MG VIAL IV PUSH (08:59)
[2021-04-12] MEDS: PRAVASTATIN SODIUM 20 MG TABLET 40 MG PO (08:59)
[2021-04-12 09:25] LABS: Glucose Point of Care 189 mg/dl (65-105)
[2021-04-12] MEDS: PROPOFOL IV EMULSION 100 ML 16.27 MG IV CONT (10:43)
--- NOTE | 2021-04-12 10:51 | WPDINTPN ---
Progress Note: A&P Assessment and Plan (1) Acute respiratory failure with hypoxia: Code(s): J96.01 - Acute respiratory failure with hypoxia Status: Acute Assessment and Plan: Acute respiratory failure secondary to COVID-19 pneumonia 03/12 Admitted 03/15 Intermittent Bipap 03/20 Bipap dependent. 03/21 Intubated. -since 04/04/2021: Patient's oxygen and PEEP requirements have increased. Chest x-ray has been worsening. - currently on PEEP of 10 and FiO2 of 100%. Increase PEEP to 12.Wean FiO2 as possible t -ABGs and chest x-ray reviewed -Versed, propofol and fentanyl infusion for sedation. PRN NMB - continue daily proning -I will continue diuresis today - low tidal volume ventilation 03/16/2021: Echo with EF 74%, normal diastolic function and no valvular disease. 03/16/2021: Venous doppler of all 4 extremities negative for DVT. 03/18/2021: CTA Chest negative for PE. - Continue bronchodilators -patient has been on ventilator for close to 3 weeks now. She is a candidate for tracheostomy but currently to hypoxic to allow safe procedure. (2) Pneumonia due to COVID-19 virus: Code(s): U07.1 - COVID-19; J12.82 - Pneumonia due to coronavirus disease 2019 Status: Acute Assessment and Plan: She has NOT been vaccinated for COVID Status post Remdesivir S/p Dexamethasone (20 mg IV q.day for 5 days then dexamethasone 10 mg IV q.day for additional 5 days.) Tocilizumab given once 03/14. Rocephin and azithromycin were stopped after 5 days of treatment. (3) Shock: Code(s): R57.9 - Shock, unspecified Status: Acute Assessment and Plan: RESOLVED patient became hypotensive post intubation likely secondary to sedation and hypovolemia IV fluid bolus followed by conservative IV fluids Off Levophed since 03/22/2021 (4) BROOKE (acute kidney injury): Code(s): N17.9 - Acute kidney failure, unspecified Status: Acute Assessment and Plan: RESOLVED Likely secondary to hypovolemia and hypotension Patient was given IV fluid bolus and cautious IV fluid maintenance 03/29: Hypernatremia, improved with increased free water flushes Creatinine is normal and stable, will continue to monitor. Monitor urine output and electrolytes (5) Type 2 diabetes mellitus with hyperglycemia: Code(s): E11.65 - Type 2 diabetes mellitus with hyperglycemia Status: Acute Assessment and Plan: HbA1c 12.8 to show poor control prior to admission. Continue AccuCheks covering with sliding scale. Hypoglycemia protocol available as needed. Continue sliding scale insulin -continue Lantus (6) Hyperlipidemia: Code(s): E78.5 - Hyperlipidemia, unspecified Status: Acute Assessment and Plan: Normal LFTs. Continue Pravastatin. (7) Asthma: Code(s): J45.909 - Unspecified asthma, uncomplicated Status: Acute Assessment and Plan: No wheezing. Continue nebs and steroids As above. (8) DVT prophylaxis: Code(s): Z29.9 - Encounter for prophylactic measures, unspecified Status: Acute Assessment and Plan: Lovenox Additional Plan Stress ulcer prophylaxis - PPI Nutrition -tolerating tube feeds 04/09/2021 Dr. Kaplan discussed with Leatha, patient's daughter and updated with patient's condition and plan of care. She wanted to know if her mother will pull through this. I did tell her that the patient has been having increased PEEP and oxygen requirements since 04/04. She asked me to continue doing what it doing and if she does not improve in the next few days will sit down and talk again. She asked me about tracheostomy, said at this time given increased PEEP and oxygen requirements it may be difficult to get a tracheostomy done now. But if her oxygen requirements and PEEP decrease, that could be an option Code Status - full code Critical Care Time - 30 minutes Due to a high probability of c
--- NOTE | 2021-04-12 10:52 | PCDIET ---
ICU Rounding Note: Patient tolerating Glucerna 1.2 at 50mL/hr with 30mL water flush every 4 hours and Pro-Stat BID. If Propofol continues at current rate, would recommend decreasing Glucerna 1.2 to 35mL/hr with Pro-Stat BID. Last recorded weight is 93.3kg which is increased from last review. +I/O. Bowel Motility: BM x 1 today. Labs Reviewed: RBC (2.90), Hgb (7.7), Hct (26.3), Glu (221), BUN (19), Cr (0.5), Na (126), Cl (87), Alb (2.3) Meds Noted: Albuterol, Rocephin, Fentanyl, Apresoline, Protonix, Pravastatin Sodium, Vancomycin, Novolog, Lantus, Atrovent, Versed, Zemuron, Propofol (rate of 18.98mL/hr provides 501kcal per day) Additional Notes: No change in facial breakdown noted. Following daily in ICU rounds. Assessing/reassessing every Monday/Monday.
[2021-04-12] MEDS: FUROSEMIDE INJ 40 MG/4 ML VIAL IV PUSH (11:13)
[2021-04-12 15:29] LABS: Glucose Point of Care 252 mg/dl (65-105)
[2021-04-12] MEDS: MIDAZOLAM 100MG/NS 100ML(*CRX) 100 MG/100 ML BAG IV CONT (16:11)
[2021-04-12] MEDS: PROPOFOL IV EMULSION 100 ML 16.79 MG IV CONT ×2 (16:15→22:13)
[2021-04-12 17:39] LABS: Glucose Point of Care 277 mg/dl (65-105)
[2021-04-12 21:26] LABS: Glucose Point of Care 251 mg/dl (65-105)
[2021-04-12 23:13] LABS: Glucose Point of Care 281 mg/dl (65-105)
[2021-04-13] VITALS (39 sets, daily range): BP systolic 94–138; BP diastolic 59–79; PULSE 102–119; RESP 19–35; TEMP 37.2–37.9; O2SAT 92–100
[2021-04-13] MEDS: ALBUTEROL SULFATE NEB 2.5 MG/0.5 ML INH INHALATION ×4 (02:41→19:47)
[2021-04-13] MEDS: IPRATROPIUM BR 0.02% INH SOLN 0.5 MG/2.5 ML VIAL INHALATION ×4 (02:41→19:48)
[2021-04-13] MEDS: PROPOFOL IV EMULSION 100 ML 16.79 MG IV CONT ×2 (03:18→08:14)
[2021-04-13] MEDS: INSULIN ASPART (*BKC) 100 UNITS/ML SUB-Q ×3 (05:34→17:51)
[2021-04-13] MEDS: CENTRAL LINE FLUSH 10 ML IV PUSH ×3 (05:35→21:10)
[2021-04-13] MEDS: FENTANYL 2,500MCG/NS250ML(*CRX 2,500 MCG/250 ML BAG 10 MCG IV CONT (05:36)
[2021-04-13 05:44] LABS: Glucose Point of Care 266 mg/dl (65-105)
[2021-04-13 06:07] LABS: Hematocrit 27.6 % (37.0-47.0); Hemoglobin 7.8 g/dL (12.0-15.0); Mean Corpuscular HGB Conc 28.3 g/dl (32-36); Mean Corpuscular Hemoglobin 26.1 pg (26-34); Mean Corpuscular Volume 92.3 fl (80-100); Mean Platelet Volume 10.6 fl (7.4-10.4); Platelet Count Result 450 k/mm3 (150-375); Red Blood Count 2.99 M/mm3 (4.2-5.4); Red Cell Distribution Width 15.5 % (11.5-14.5); White Blood Count 9.1 K/mm3 (4.5-10.0)
[2021-04-13 06:21] LABS: Alanine Aminotransferase 21 U/L (4-35); Albumin Level 2.4 g/dL (3.5-5.1); Alkaline Phosphatase 178 U/L (38-126); Anion Gap 3 mmol/L (8-16); Aspartate Amino Transferase 53 U/L (14-36); Bilirubin,Total 0.3 mg/dL (0.2-1.3); Blood Urea Nitrogen 20 mg/dL (7-17); Calcium 8.2 mg/dL (8.4-10.2); Carbon Dioxide 37 mmol/L (22-30); Chloride 90 mmol/L (98-107); Estimated CRCL calculation 87 ml/min; Estimated Glomerular Filt Rate > 60; Glucose 258 mg/dL (65-110); Magnesium 1.9 mg/dL (1.6-2.3); Phosphorus 4.6 mg/dL (2.5-4.5); Potassium 4.7 mmol/L (3.4-5.0); Sodium 130 mmol/L (137-145); Triglycerides 328 mg/dL (<150)
[2021-04-13 06:44] LABS: Anisocytosis 2+ (NORMAL); Band Neutrophils Percent 12 % (0-6); Eosinophils Absolute Manual 0.72 K/mm3 (0.02-0.5); Eosinophils Percent Manual 8 % (0-4); Hypochromasia 2+ (NORMAL); Lymphocytes Absolute Manual 0.54 K/mm3 (1.1-4.5); Monocytes Absolute Manual 0.81 K/mm3 (0.1-0.90); Monocytes Percent Manual 9 % (3-9); Neutrophils Percent Manual 65 % (46-73); Nucleated Red Blood Cells 3 %; Platelet Estimate Adequate (Adequate); Total Cells Counted 100
[2021-04-13] MEDS: ENOXAPARIN 40 MG/0.4 ML SYRINGE SUB-Q ×2 (08:16→23:08)
[2021-04-13] MEDS: PRAVASTATIN SODIUM 20 MG TABLET 40 MG PO (08:17)
[2021-04-13] MEDS: PANTOPRAZOLE SODIUM IV 40 MG VIAL IV PUSH (08:17)
[2021-04-13] MEDS: MINERAL OIL/WHITE PETROLATUM OINTMENT 1 APPLIC EACH EYE ×2 (08:18→20:51)
[2021-04-13] MEDS: INSULIN GLARGINE (*BKC) 100 UNITS/ML 17 UNITS SUB-Q (08:21)
--- NOTE | 2021-04-13 10:56 | WPDINTPN ---
Progress Note: A&P Assessment and Plan (1) Acute respiratory failure with hypoxia: Code(s): J96.01 - Acute respiratory failure with hypoxia Status: Acute Assessment and Plan: Acute respiratory failure secondary to COVID-19 pneumonia 03/12 Admitted 03/15 Intermittent Bipap 03/20 Bipap dependent. 03/21 Intubated. -since 04/04/2021: Patient's oxygen and PEEP requirements have increased. Chest x-ray has been worsening. - currently on PEEP of 12 and FiO2 of 100%. I have decreased FiO2 to 90% -ABGs and chest x-ray reviewed. Chest x-ray shows persistent diffuse bilateral infiltrate -Versed, propofol and fentanyl infusion for sedation. PRN NMB - continue daily proning - low tidal volume ventilation 03/16/2021: Echo with EF 74%, normal diastolic function and no valvular disease. 03/16/2021: Venous doppler of all 4 extremities negative for DVT. 03/18/2021: CTA Chest negative for PE. - ontinue bronchodilators -patient has been on ventilator for close to 3 weeks now. She is a candidate for tracheostomy but currently too hypoxic to allow safe procedure. (2) Pneumonia due to COVID-19 virus: Code(s): U07.1 - COVID-19; J12.82 - Pneumonia due to coronavirus disease 2019 Status: Acute Assessment and Plan: She has NOT been vaccinated for COVID Status post Remdesivir S/p Dexamethasone (20 mg IV q.day for 5 days then dexamethasone 10 mg IV q.day for additional 5 days.) Tocilizumab given once 03/14. Rocephin and azithromycin were stopped after 5 days of treatment. (3) BROOKE (acute kidney injury): Code(s): N17.9 - Acute kidney failure, unspecified Status: Acute Assessment and Plan: RESOLVED Likely secondary to hypovolemia and hypotension Patient was given IV fluid bolus and cautious IV fluid maintenance 03/29: Hypernatremia, improved with increased free water flushes Creatinine is normal and stable, will continue to monitor. Monitor urine output and electrolytes (4) Type 2 diabetes mellitus with hyperglycemia: Code(s): E11.65 - Type 2 diabetes mellitus with hyperglycemia Status: Acute Assessment and Plan: HbA1c 12.8 to show poor control prior to admission. Continue AccuCheks covering with sliding scale. Hypoglycemia protocol available as needed. Continue sliding scale insulin -increased Lantus (5) Hyperlipidemia: Code(s): E78.5 - Hyperlipidemia, unspecified Status: Acute Assessment and Plan: Normal LFTs. Continue Pravastatin. (6) Asthma: Code(s): J45.909 - Unspecified asthma, uncomplicated Status: Acute Assessment and Plan: No wheezing. Continue nebs and steroids As above. (7) DVT prophylaxis: Code(s): Z29.9 - Encounter for prophylactic measures, unspecified Status: Acute Assessment and Plan: Lovenox (8) Fever: Code(s): R50.9 - Fever, unspecified Status: Acute Assessment and Plan: Patient was started on empiric vancomycin and Rocephin on 04/10 her urine grew Enterococcus and Klebsiella both are sensitive to Rocephin Will repeat blood cultures Additional Plan Stress ulcer prophylaxis - PPI Nutrition -tolerating tube feeds Code Status - full code Critical Care Time - 32 minutes Due to a high probability of clinically significant, life threatening deterioration, the patient required my highest level of preparedness to intervene emergently and I personally spent this critical care time directly and personally managing the patient. This critical care time included obtaining a history; examining the patient; pulse oximetry; ordering and review of studies; arranging urgent treatment with development of a management plan; evaluation of patient's response to treatment; frequent reassessment; and discussions with other providers. It was exclusive of separately billable procedures and treating other patients and teaching time. Please see
--- NOTE | 2021-04-13 13:22 | PCDIET ---
Nutrition Follow-Up Complete: Nutrition Diagnosis: Inadequate oral intake related to decreased appetite as evidenced by intakes 50% or less at most meals x 1 week. Nutrition Goal: Patient to meet estimated nutritional needs. Goal met. Patient tolerating Glucerna 1.2 at 50mL/hr goal rate with 30mL water flush every 4 hours and Pro-Stat flush BID. Last recorded weight is 93.1 kg which is stable. Bowel Motility: BM x 1 on 04/12/21. Labs Reviewed: Hgb (7.8), Hct (27.6), Glu (258), BUN (20), Cr (0.6), Na (130), Ca (8.2), PO4 (4.6) Meds Noted: Albuterol, Apresoline, Rocephin, Novolog, Zemuron, Fentanyl, Lantus, Atrovent, Vancomycin, Versed, Levophed, Protonix, Propofol (rate of 16.794mL/hr provides 443kcal per day which is 24kcal/kg admit weight with current tube feeding over 22 hours daily and protein flush) Additional Notes: No change in skin breakdown on face documented. Will continue to monitor with same goal. Nutrition Monitoring and Evaluation: Follow up every Monday/Monday.
[2021-04-13] MEDS: MIDAZOLAM 100MG/NS 100ML(*CRX) 100 MG/100 ML BAG IV CONT (13:44)
[2021-04-13] MEDS: PROPOFOL IV EMULSION 100 ML 19.59 MG IV CONT ×3 (13:57→22:35)
[2021-04-13 14:03] LABS: Glucose Point of Care 281 mg/dl (65-105)
[2021-04-13 17:59] LABS: Glucose Point of Care 202 mg/dl (65-105)
[2021-04-13] MEDS: INSULIN GLARGINE (*BKC) 100 UNITS/ML 25 UNITS SUB-Q (20:50)
[2021-04-13 22:09] LABS: Glucose Point of Care 206 mg/dl (65-105)
[2021-04-14] VITALS (42 sets, daily range): BP systolic 90–112; BP diastolic 54–63; PULSE 105–117; RESP 17–32; TEMP 37.6–38.7; O2SAT 88–100
[2021-04-14] MEDS: ALBUTEROL SULFATE NEB 2.5 MG/0.5 ML INH INHALATION ×3 (01:42→20:01)
[2021-04-14] MEDS: IPRATROPIUM BR 0.02% INH SOLN 0.5 MG/2.5 ML VIAL INHALATION ×3 (01:42→20:01)
[2021-04-14 02:10] LABS: Glucose Point of Care 151 mg/dl (65-105)
[2021-04-14] MEDS: FENTANYL 2,500MCG/NS250ML(*CRX 2,500 MCG/250 ML BAG 17.5 MCG IV CONT (03:13)
[2021-04-14] MEDS: ACETAMINOPHEN ELIXIR 325 MG/10.15 ML UDC 650 MG PO ×3 (03:25→21:21)
[2021-04-14] MEDS: PROPOFOL IV EMULSION 100 ML 19.59 MG IV CONT ×5 (03:27→21:47)
[2021-04-14 04:54] LABS: Hematocrit 24.6 % (37.0-47.0); Hemoglobin 7.2 g/dL (12.0-15.0); Mean Corpuscular HGB Conc 29.3 g/dl (32-36); Mean Corpuscular Hemoglobin 26.4 pg (26-34); Mean Corpuscular Volume 90.1 fl (80-100); Mean Platelet Volume 10.3 fl (7.4-10.4); Platelet Count Result 448 k/mm3 (150-375); Red Blood Count 2.73 M/mm3 (4.2-5.4); Red Cell Distribution Width 15.9 % (11.5-14.5); White Blood Count 9.4 K/mm3 (4.5-10.0)
[2021-04-14 05:22] LABS: Alanine Aminotransferase 20 U/L (4-35); Albumin Level 2.7 g/dL (3.5-5.1); Alkaline Phosphatase 145 U/L (38-126); Anion Gap 2 mmol/L (8-16); Aspartate Amino Transferase 52 U/L (14-36); Bilirubin,Total 0.2 mg/dL (0.2-1.3); Blood Urea Nitrogen 25 mg/dL (7-17); Calcium 8.4 mg/dL (8.4-10.2); Carbon Dioxide 37 mmol/L (22-30); Chloride 86 mmol/L (98-107); Estimated CRCL calculation 67 ml/min; Estimated Glomerular Filt Rate > 60; Glucose 178 mg/dL (65-110); Magnesium 2.3 mg/dL (1.6-2.3); Potassium 4.1 mmol/L (3.4-5.0); Sodium 125 mmol/L (137-145)
[2021-04-14 05:33] LABS: Base Excess ABG 12.9 mEq/l (+/-2.0); Carboxyhemoglobin 0.3 % THb (0-2.0); Fractional Inspired Oxygen 100 %; HCO3 ABG 38.2 mEq/l (22.0-26.0); Methemoglobin ABG 0.5 %THb (0-1.5); Oxygen Content ABG 10.8 %vol (16.0-22.0); Oxyhemoglobin 93.8 % THb (90.0-100.0); PCO2 ABG 54.9 mmHg (35.0-45.0); PO2 ABG 79.1 mmHg (80.0-100.0); PO2 FiO2 Ratio Arterial Blood 0.79 %; Reduced Hemoglobin 5.4 %THb (0-5.0); Total Hemoglobin 8.1 g/dL (12.0-18.0)
[2021-04-14 05:34] LABS: Arterial Blood Gas PEEP 10 cmH2O; Arterial Blood Gas Vent Mode CMV; Arterial Blood Gas Ventilator rate 18 /MIN; Device VENTILATOR; Modified Allen's Test Pass; Site Drawn RIGHT RADIAL
[2021-04-14 05:35] LABS: Arterial Blood Gas Tidal Volume 360 ml
[2021-04-14] MEDS: CENTRAL LINE FLUSH 10 ML IV PUSH ×3 (06:25→21:23)
[2021-04-14] MEDS: MIDAZOLAM 100MG/NS 100ML(*CRX) 100 MG/100 ML BAG 6 MG IV CONT ×2 (07:46→21:48)
[2021-04-14] MEDS: SODIUM CHLORIDE 0.9% IV 500 ML IV CONT (09:28)
[2021-04-14] MEDS: acetaZOLAMIDE SODIUM FOR INJ 500 MG VIAL IV PUSH (09:30)
[2021-04-14] MEDS: INSULIN GLARGINE (*BKC) 100 UNITS/ML 25 UNITS SUB-Q ×2 (09:34→21:22)
[2021-04-14] MEDS: ENOXAPARIN 40 MG/0.4 ML SYRINGE SUB-Q ×2 (09:35→21:22)
[2021-04-14] MEDS: MINERAL OIL/WHITE PETROLATUM OINTMENT 1 APPLIC EACH EYE ×2 (09:42→21:23)
--- NOTE | 2021-04-14 10:56 | WPDINTPN ---
Progress Note: A&P Assessment and Plan (1) Acute respiratory failure with hypoxia: Code(s): J96.01 - Acute respiratory failure with hypoxia Status: Acute Assessment and Plan: Acute respiratory failure secondary to COVID-19 pneumonia 03/12 Admitted 03/15 Intermittent Bipap 03/20 Bipap dependent. 03/21 Intubated. Yesterday patient was on 70% FiO2 and 10 of PEEP. Proning was held Overnight oxygen requirement increased and she was on 90% FiO2 this morning -increase PEEP to 12. Changed respiratory to 16 - continue daily proning -ABGs and chest x-ray reviewed. Chest x-ray shows persistent diffuse bilateral infiltrate -Versed, propofol and fentanyl infusion for sedation. PRN NMB - low tidal volume ventilation 03/16/2021: Echo with EF 74%, normal diastolic function and no valvular disease. 03/16/2021: Venous doppler of all 4 extremities negative for DVT. 03/18/2021: CTA Chest negative for PE. - ontinue bronchodilators -patient has been on ventilator for close to 3 weeks now. She is a candidate for tracheostomy but currently too hypoxic to allow safe procedure. (2) Pneumonia due to COVID-19 virus: Code(s): U07.1 - COVID-19; J12.82 - Pneumonia due to coronavirus disease 2019 Status: Acute Assessment and Plan: She has NOT been vaccinated for COVID Status post Remdesivir S/p Dexamethasone (20 mg IV q.day for 5 days then dexamethasone 10 mg IV q.day for additional 5 days.) Tocilizumab given once 03/14. Rocephin and azithromycin were stopped after 5 days of treatment. (3) Fever: Code(s): R50.9 - Fever, unspecified Status: Acute Assessment and Plan: Patient has been febrile although her WBCs normal Patient was started on empiric vancomycin and Rocephin on 04/10 her urine grew Enterococcus and Klebsiella both are sensitive to Rocephin Will repeat blood cultures which are pending till now Check lipase, extremity Dopplers to rule out DVT (4) BROOKE (acute kidney injury): Code(s): N17.9 - Acute kidney failure, unspecified Status: Acute Assessment and Plan: RESOLVED Likely secondary to hypovolemia and hypotension Patient was given IV fluid bolus and cautious IV fluid maintenance initially Creatinine is now normal and stable, will continue to monitor. Monitor urine output and electrolytes Will give a dose of Diamox for metabolic alkalosis. Vent rate also decreased (5) Type 2 diabetes mellitus with hyperglycemia: Code(s): E11.65 - Type 2 diabetes mellitus with hyperglycemia Status: Acute Assessment and Plan: HbA1c 12.8 to show poor control prior to admission. Continue AccuCheks covering with sliding scale. Hypoglycemia protocol available as needed. Continue sliding scale insulin Continue Lantus (6) Hyperlipidemia: Code(s): E78.5 - Hyperlipidemia, unspecified Status: Acute Assessment and Plan: Normal LFTs. Continue Pravastatin. (7) Asthma: Code(s): J45.909 - Unspecified asthma, uncomplicated Status: Acute Assessment and Plan: No wheezing. Continue nebs and steroids As above. (8) DVT prophylaxis: Code(s): Z29.9 - Encounter for prophylactic measures, unspecified Status: Acute Assessment and Plan: Lovenox Additional Plan Stress ulcer prophylaxis - PPI Nutrition -tolerating tube feeds Code Status - full code Critical Care Time -35 minutes Due to a high probability of clinically significant, life threatening deterioration, the patient required my highest level of preparedness to intervene emergently and I personally spent this critical care time directly and personally managing the patient. This critical care time included obtaining a history; examining the patient; pulse oximetry; ordering and review of studies; arranging urgent treatment with development of a management plan; evaluation of patient's response to treatment; frequent
[2021-04-14] MEDS: PANTOPRAZOLE SODIUM IV 40 MG VIAL IV PUSH (11:15)
[2021-04-14] MEDS: PRAVASTATIN SODIUM 20 MG TABLET 40 MG PO (11:15)
[2021-04-14] MEDS: INSULIN ASPART (*BKC) 100 UNITS/ML SUB-Q ×2 (11:16→18:08)
[2021-04-14 11:41] LABS: Lipase 63 U/L (23-300)
[2021-04-14 11:58] LABS: Glucose Point of Care 260 mg/dl (65-105)
--- NOTE | 2021-04-14 12:01 | PCDIET ---
ICU Rounding Note: Patient tolerating Glucerna 1.2 at 50mL/hr with Pro-Stat flush BID and 30mL water flush every 4 hours. Suggested decreasing Glucerna 1.2 to 40mL/hr while on higher dose of Propofol and continuing Pro-Stat BID. Last recorded weight is 93.3kg which is stable. 900mL urine output documented on 04/13/21. Bowel Motility: BM x 1 today. Labs Reviewed: RBC (2.73), Hgb (7.2), Hct (24.6), Glu (178), BUN (25), Na (125), Alb (2.7) Meds Noted: Albuterol, Rocephin, Fentanyl, Apresoline, Lantus, Atrovent, Versed, Protonix, Pravastatin, Zemuron, Vancomycin, Diamox, 500mL NS bolus x 1 Additional Notes: Plan to prone again. Right wrist and left cheek skin tears. Lower lip scab. Following daily in ICU rounds. Assessing/reassessing every Monday/Monday.
[2021-04-14] MEDS: FENTANYL 2,500MCG/NS250ML(*CRX 2,500 MCG/250 ML BAG 20 MCG IV CONT (15:50)
--- NOTE | 2021-04-14 16:23 | PC.NURSE ---
Updated daughter, Leatha, on patient condition. Reviewed temperature and treatment.
[2021-04-14 18:14] LABS: Glucose Point of Care 231 mg/dl (65-105)
[2021-04-14 22:26] LABS: Vancomycin Trough 23.4 ug/mL (10.0-20.0)
[2021-04-15] VITALS (43 sets, daily range): BP systolic 74–163; BP diastolic 51–94; PULSE 75–114; RESP 16–27; TEMP 37.2–39.1; O2SAT 85–94
[2021-04-15] MEDS: INSULIN ASPART (*BKC) 100 UNITS/ML SUB-Q ×5 (00:12→23:20)
[2021-04-15 00:17] LABS: Glucose Point of Care 240 mg/dl (65-105)
[2021-04-15 00:19] LABS: Glucose Point of Care 262 mg/dl (65-105)
[2021-04-15] MEDS: ALBUTEROL SULFATE NEB 2.5 MG/0.5 ML INH INHALATION ×4 (01:37→20:45)
[2021-04-15] MEDS: IPRATROPIUM BR 0.02% INH SOLN 0.5 MG/2.5 ML VIAL INHALATION ×4 (01:37→20:45)
[2021-04-15] MEDS: PROPOFOL IV EMULSION 100 ML 16.79 MG IV CONT ×3 (03:31→21:22)
[2021-04-15] MEDS: CENTRAL LINE FLUSH 10 ML IV PUSH ×2 (05:10→20:16)
[2021-04-15] MEDS: FENTANYL 2,500MCG/NS250ML(*CRX 2,500 MCG/250 ML BAG 20 MCG IV CONT ×2 (05:10→19:50)
[2021-04-15 05:41] LABS: Hematocrit 24.5 % (37.0-47.0); Mean Corpuscular HGB Conc 27.8 g/dl (32-36); Mean Corpuscular Hemoglobin 25.8 pg (26-34); Mean Corpuscular Volume 92.8 fl (80-100); Mean Platelet Volume 10.5 fl (7.4-10.4); Platelet Count Result 612 k/mm3 (150-375); Red Blood Count 2.64 M/mm3 (4.2-5.4); White Blood Count 10.9 K/mm3 (4.5-10.0)
[2021-04-15 05:51] LABS: Hemoglobin 6.8 g/dL (12.0-15.0)
[2021-04-15 05:53] LABS: Alanine Aminotransferase 27 U/L (4-35); Albumin Level 2.9 g/dL (3.5-5.1); Alkaline Phosphatase 190 U/L (38-126); Anion Gap 4 mmol/L (8-16); Aspartate Amino Transferase 73 U/L (14-36); Bilirubin,Total 0.5 mg/dL (0.2-1.3); Blood Urea Nitrogen 32 mg/dL (7-17); Calcium 8.1 mg/dL (8.4-10.2); Carbon Dioxide 35 mmol/L (22-30); Chloride 87 mmol/L (98-107); Estimated CRCL calculation 46 ml/min; Estimated Glomerular Filt Rate 54; Glucose 233 mg/dL (65-110); Magnesium 2.4 mg/dL (1.6-2.3); Potassium 4.8 mmol/L (3.4-5.0); Sodium 126 mmol/L (137-145)
--- NOTE | 2021-04-15 06:36 | PC.NURSE ---
Attempted to call Daughter Leatha to update on patient, call went to voicemail and voicemail was full.
[2021-04-15] MEDS: PROPOFOL IV EMULSION 100 ML 14 MG IV CONT (08:28)
[2021-04-15] MEDS: MINERAL OIL/WHITE PETROLATUM OINTMENT 1 APPLIC EACH EYE ×2 (08:30→20:15)
[2021-04-15] MEDS: PRAVASTATIN SODIUM 20 MG TABLET 40 MG PO (08:30)
[2021-04-15] MEDS: INSULIN GLARGINE (*BKC) 100 UNITS/ML 25 UNITS SUB-Q (08:30)
[2021-04-15] MEDS: PANTOPRAZOLE SODIUM IV 40 MG VIAL IV PUSH ×2 (08:30→20:15)
[2021-04-15] MEDS: ENOXAPARIN 40 MG/0.4 ML SYRINGE SUB-Q ×2 (08:37→20:15)
--- NOTE | 2021-04-15 11:29 | WPDINTPN ---
Progress Note: A&P Assessment and Plan (1) Acute respiratory failure with hypoxia: Code(s): J96.01 - Acute respiratory failure with hypoxia Status: Acute Assessment and Plan: Acute respiratory failure secondary to COVID-19 pneumonia 03/12 Admitted 03/15 Intermittent Bipap 03/20 Bipap dependent. 03/21 Intubated. Patient is on 100% FiO2 and 12 of PEEP. She is currently in prone position I will try a dose of rocuronium to see if that helps - continue daily proning -ABGs and chest x-ray reviewed. Chest x-ray shows persistent diffuse bilateral infiltrate -Versed, propofol and fentanyl infusion for sedation. PRN NMB - low tidal volume ventilation 03/16/2021: Echo with EF 74%, normal diastolic function and no valvular disease. 03/16/2021: Venous doppler of all 4 extremities negative for DVT. 03/18/2021: CTA Chest negative for PE. - ontinue bronchodilators -patient has been on ventilator for close to 3 weeks now. She is a candidate for tracheostomy but currently too hypoxic to allow safe procedure. (2) Pneumonia due to COVID-19 virus: Code(s): U07.1 - COVID-19; J12.82 - Pneumonia due to coronavirus disease 2018 Status: Acute Assessment and Plan: She has NOT been vaccinated for COVID Status post Remdesivir S/p Dexamethasone (20 mg IV q.day for 5 days then dexamethasone 10 mg IV q.day for additional 5 days.) Tocilizumab given once 03/14. Rocephin and azithromycin were stopped after 5 days of treatment. (3) Fever: Code(s): R50.9 - Fever, unspecified Status: Acute Assessment and Plan: Patient has been febrile although her WBCs normal Patient was started on empiric vancomycin and Rocephin on 04/10 her urine grew Enterococcus and Klebsiella both are sensitive to Rocephin Blood cultures done on 04/07 and 824 have been negative till now Her lipase was normal Bilateral upper and lower, extremity Dopplers were negative for DVT Patient at this time is too unstable for me to transport to [place] (4) BROOKE (acute kidney injury): Code(s): N17.9 - Acute kidney failure, unspecified Status: Acute Assessment and Plan: Patient presented with BROOKE which was Likely secondary to hypovolemia and hypotension Patient was given IV fluid bolus and cautious IV fluid maintenance initially and creatinine improved Creatinine is now normal and stable, will continue to monitor. Monitor urine output and electrolytes Patient has been diuresed since then. Creatinine increased to 1.2. Will give small amount of fluids Patient is also getting PRBC (5) Type 2 diabetes mellitus with hyperglycemia: Code(s): E11.65 - Type 2 diabetes mellitus with hyperglycemia Status: Acute Assessment and Plan: HbA1c 12.8 to show poor control prior to admission. Continue AccuCheks covering with sliding scale. Hypoglycemia protocol available as needed. Continue sliding scale insulin Continue Lantus but will increase dose (6) Hyperlipidemia: Code(s): E78.5 - Hyperlipidemia, unspecified Status: Acute Assessment and Plan: Normal LFTs. Continue Pravastatin. (7) Asthma: Code(s): J45.909 - Unspecified asthma, uncomplicated Status: Acute Assessment and Plan: No wheezing. Continue nebs and steroids As above. (8) DVT prophylaxis: Code(s): Z29.9 - Encounter for prophylactic measures, unspecified Status: Acute Assessment and Plan: Continue Lovenox (9) Anemia: Code(s): D64.9 - Anemia, unspecified Status: Acute Assessment and Plan: Hemoglobin has trended down to 6.8 from 7.2 yesterday. No obvious bleeding She is on Lovenox for DVT prophylaxis I will transfuse 1 unit of PRBC and monitor She is on PPI which I will change q.12 hours Additional Plan Stress ulcer prophylaxis - PPI Nutrition -tolerating tube feeds Code Status - full code I called and spoke to patient's daugh
[2021-04-15 12:03] LABS: Glucose Point of Care 311 mg/dl (65-105)
--- NOTE | 2021-04-15 12:18 | PCDIET ---
ICU Rounding Note: Patient tolerating Glucerna 1.2 at 40mL/hr with 30mL water flush every 4 hours and Pro-Stat flush BID. Last recorded weight is 96.8kg which is increased from last review. +I/O. Bowel Motility: Last documented BM on 04/14/21 x 1. Labs Reviewed: WBC (10.9), RBC (2.64), Hgb (6.8), Hct (24.5), BUN (32), Cr (1.2), Na (126), Alb (2.9), Tyler Ca (8.98), Mg (2.4) Meds Noted: Propofol (rate of 13.995mL/hr provides 369kcal per day), Albuterol, Rocephin, Atrovent, Protonix, Pravastatin, Fentanyl, Apresoline, Versed, Zemuron, Novolog, Lantus, Vancomcyin Additional Notes: Right wrist and left cheek skin tears. Lower lip scab. No changes in skin reported. Following daily in ICU rounds. Assessing/reassessing every Monday/Monday.
[2021-04-15] MEDS: ROCURONIUM BROMIDE 50 MG/5 ML VIAL IV PUSH (12:26)
[2021-04-15] MEDS: SODIUM CHLORIDE 0.9% IV 500 ML IV CONT (12:26)
[2021-04-15] MEDS: SODIUM CHLORIDE 0.9% IV 250 ML 30 ML IV CONT (13:15)
[2021-04-15] MEDS: TUBING, BLOOD PLUM PUMP TUBING 1 EACH XX (13:15)
[2021-04-15] MEDS: SODIUM CHLORIDE 0.9% IV 1,000 ML 100 ML IV CONT (13:42)
[2021-04-15] MEDS: ACETAMINOPHEN ELIXIR 325 MG/10.15 ML UDC 650 MG PO (15:14)
[2021-04-15] MEDS: NOREPINEPHRINE 8 MG/D5W 250 ML 8 MG/250 ML BAG 9.38 MG IV CONT (16:38)
[2021-04-15] MEDS: MIDAZOLAM 100MG/NS 100ML(*CRX) 100 MG/100 ML BAG 6 MG IV CONT (17:16)
[2021-04-15 17:41] LABS: Alveolar/Arterial O2 Gradient 586.6 mmHg; Fractional Inspired Oxygen 100 %; HCO3 ABG 25.5 mEq/l (22.0-26.0); Oxygen Content ABG 11.7 %vol (16.0-22.0); Oxyhemoglobin 86.9 % THb (90.0-100.0); PO2 ABG 60.3 mmHg (80.0-100.0); Total Hemoglobin 9.5 g/dL (12.0-18.0)
[2021-04-15 17:42] LABS: PCO2 ABG 66.1 mmHg (35.0-45.0)
[2021-04-15 17:43] LABS: Device VENTILATOR; Modified Allen's Test Pass; Oxygen Saturation ABG 84.7 % (95.0-100.0); Site Drawn RIGHT RADIAL; pH ABG 7.205 (7.350-7.450)
[2021-04-15 17:45] LABS: Arterial Blood Gas PEEP 12 cmH2O; Arterial Blood Gas Tidal Volume 360 ml; Arterial Blood Gas Vent Mode CMV; Arterial Blood Gas Ventilator rate 16 /MIN
[2021-04-15 18:03] LABS: Hematocrit 28.5 % (37.0-47.0); Hemoglobin 8.2 g/dL (12.0-15.0); Mean Corpuscular HGB Conc 28.8 g/dl (32-36); Mean Corpuscular Hemoglobin 27.3 pg (26-34); Mean Platelet Volume 10.8 fl (7.4-10.4); Platelet Count Result 674 k/mm3 (150-375); Red Cell Distribution Width 15.6 % (11.5-14.5); White Blood Count 18.2 K/mm3 (4.5-10.0)
[2021-04-15] MEDS: SODIUM BICARBONATE 8.4% 50 MEQ/50 ML SYRINGE 100 MEQ IV PUSH (18:07)
[2021-04-15 18:19] LABS: Glucose Point of Care 216 mg/dl (65-105)
[2021-04-15 18:26] LABS: Anion Gap 11 mmol/L (8-16); Blood Urea Nitrogen 39 mg/dL (7-17); Calcium 7.7 mg/dL (8.4-10.2); Carbon Dioxide 24 mmol/L (22-30); Chloride 89 mmol/L (98-107); Estimated CRCL calculation 33 ml/min; Estimated Glomerular Filt Rate 36; Glucose 227 mg/dL (65-110); Magnesium 2.5 mg/dL (1.6-2.3); Sodium 124 mmol/L (137-145)
[2021-04-15] MEDS: INSULIN HUMAN REGULAR (*BKC) 100 UNITS/ML 10 UNITS IV PUSH (19:53)
[2021-04-15] MEDS: DEXTROSE 50% 25 GM/50 ML SYRINGE IV PUSH (19:55)
[2021-04-15] MEDS: SODIUM POLYSTYRENE SULFONONATE 15 GM/60 ML BTL 30 GM FEED TUBE (19:56)
[2021-04-15] MEDS: SODIUM CHLORIDE 0.9% IV 500 ML 999 ML IV CONT (20:15)
[2021-04-15] MEDS: INSULIN GLARGINE (*BKC) 100 UNITS/ML 30 UNITS SUB-Q (20:16)
[2021-04-15] MEDS: CALCIUM GLUCONATE 1,000 MG/10 ML VIAL 1000 MG IV PUSH (20:21)
[2021-04-15 20:39] LABS: Glucose Point of Care 231 mg/dl (65-105)
[2021-04-15 20:39] LABS: Glucose Point of Care 369 mg/dl (65-105)
--- NOTE | 2021-04-15 22:27 | PC.NURSE ---
Spoke with female that states she is the pt's granddaughter and wanted update. Explained that information was only to go through the pt's daughter, Leatha. Unidentified female states the pt has multiple children and information should be given to anyone that calls. Explained that for the pt's privacy, information would not be provided to everyone. Female hung up.
[2021-04-15 23:38] LABS: Glucose Point of Care 275 mg/dl (65-105)
[2021-04-16] VITALS (41 sets, daily range): BP systolic 92–126; BP diastolic 46–75; PULSE 70–994; RESP 21–32; TEMP 36.6–37.4; O2SAT 76–99
[2021-04-16] MEDS: PROPOFOL IV EMULSION 100 ML 16.79 MG IV CONT ×4 (02:36→18:57)
[2021-04-16] MEDS: ALBUTEROL SULFATE NEB 2.5 MG/0.5 ML INH INHALATION ×5 (02:49→20:38)
[2021-04-16] MEDS: IPRATROPIUM BR 0.02% INH SOLN 0.5 MG/2.5 ML VIAL INHALATION ×5 (02:49→20:38)
[2021-04-16 05:28] LABS: Alveolar/Arterial O2 Gradient 578.6 mmHg; Base Excess ABG 4.1 mEq/l (+/-2.0); Carboxyhemoglobin 0.3 % THb (0-2.0); Fractional Inspired Oxygen 100 %; HCO3 ABG 31.6 mEq/l (22.0-26.0); Methemoglobin ABG 0.5 %THb (0-1.5); Oxygen Saturation ABG 91.3 % (95.0-100.0); Oxyhemoglobin 91.5 % THb (90.0-100.0); PO2 ABG 68.7 mmHg (80.0-100.0); PO2 FiO2 Ratio Arterial Blood 0.69 %; Reduced Hemoglobin 7.7 %THb (0-5.0); Total Hemoglobin 9.3 g/dL (12.0-18.0)
[2021-04-16 05:31] LABS: Arterial Blood Gas PEEP 12 cmH2O; Arterial Blood Gas Tidal Volume 360 ml; Arterial Blood Gas Vent Mode CMV; Arterial Blood Gas Ventilator rate 22 /MIN; Device VENTILATOR; Modified Allen's Test Unable to perform; PCO2 ABG 65.7 mmHg (35.0-45.0); Site Drawn LEFT RADIAL
[2021-04-16] MEDS: CENTRAL LINE FLUSH 10 ML IV PUSH ×3 (05:55→22:22)
[2021-04-16 06:02] LABS: Glucose Point of Care 191 mg/dl (65-105)
[2021-04-16 06:10] LABS: Hematocrit 27.6 % (37.0-47.0); Hemoglobin 8.3 g/dL (12.0-15.0); Mean Corpuscular HGB Conc 30.1 g/dl (32-36); Mean Corpuscular Hemoglobin 27.8 pg (26-34); Mean Corpuscular Volume 92.3 fl (80-100); Platelet Count Result 647 k/mm3 (150-375); Red Blood Count 2.99 M/mm3 (4.2-5.4); Red Cell Distribution Width 15.7 % (11.5-14.5); White Blood Count 17.5 K/mm3 (4.5-10.0)
[2021-04-16 06:28] LABS: Alanine Aminotransferase 57 U/L (4-35); Albumin Level 2.8 g/dL (3.5-5.1); Alkaline Phosphatase 278 U/L (38-126); Anion Gap 6 mmol/L (8-16); Aspartate Amino Transferase 194 U/L (14-36); Bilirubin,Total 0.5 mg/dL (0.2-1.3); Blood Urea Nitrogen 38 mg/dL (7-17); Carbon Dioxide 32 mmol/L (22-30); Chloride 89 mmol/L (98-107); Estimated CRCL calculation 41 ml/min; Estimated Glomerular Filt Rate 45; Glucose 188 mg/dL (65-110); Magnesium 2.3 mg/dL (1.6-2.3); Sodium 127 mmol/L (137-145)
[2021-04-16] MEDS: NOREPINEPHRINE 8 MG/D5W 250 ML 8 MG/250 ML BAG 13.13 MG IV CONT (07:18)
[2021-04-16] MEDS: FENTANYL 2,500MCG/NS250ML(*CRX 2,500 MCG/250 ML BAG 20 MCG IV CONT ×2 (09:20→22:21)
[2021-04-16] MEDS: MIDAZOLAM 100MG/NS 100ML(*CRX) 100 MG/100 ML BAG 6 MG IV CONT (09:22)
[2021-04-16] MEDS: PANTOPRAZOLE SODIUM IV 40 MG VIAL IV PUSH ×2 (09:26→21:07)
[2021-04-16] MEDS: ENOXAPARIN 40 MG/0.4 ML SYRINGE SUB-Q (09:26)
[2021-04-16] MEDS: MINERAL OIL/WHITE PETROLATUM OINTMENT 1 APPLIC EACH EYE ×2 (09:26→21:05)
[2021-04-16] MEDS: INSULIN GLARGINE (*BKC) 100 UNITS/ML 30 UNITS SUB-Q ×2 (09:33→21:04)
--- NOTE | 2021-04-16 11:35 | WPDINTPN ---
Progress Note: A&P Assessment and Plan (1) Acute respiratory failure with hypoxia: Code(s): J96.01 - Acute respiratory failure with hypoxia Status: Acute Assessment and Plan: Acute respiratory failure secondary to COVID-19 pneumonia 03/12 Admitted 03/15 Intermittent Bipap 03/20 Bipap dependent. 03/21 Intubated. Patient is on 90% FiO2 and 12 of PEEP. She is currently in prone position Will place patient in supine position for 6 hours and back to prone -ABG reviewed and will increase PEEP to 14 and rate to 24 -chest x-ray reviewed and shows persistent extensive bilateral pneumonia. ETT was already adjusted by RT when patient was placed in supine position this morning -continue Versed, propofol and fentanyl infusion for sedation. PRN NMB - low tidal volume ventilation - Continue bronchodilators -patient has been on ventilator for close to 4 weeks now. She is a candidate for tracheostomy but currently too hypoxic to allow safe procedure. 03/16/2021: Echo with EF 74%, normal diastolic function and no valvular disease. 03/16/2021: Venous doppler of all 4 extremities negative for DVT. 03/18/2021: CTA Chest negative for PE. (2) Pneumonia due to COVID-19 virus: Code(s): U07.1 - COVID-19; J12.82 - Pneumonia due to coronavirus disease 2018 Status: Acute Assessment and Plan: She has NOT been vaccinated for COVID Status post Remdesivir S/p Dexamethasone (20 mg IV q.day for 5 days then dexamethasone 10 mg IV q.day for additional 5 days.) Tocilizumab given once 03/14. Rocephin and azithromycin were stopped after 5 days of treatment. (3) Sepsis: Code(s): A41.9 - Sepsis, unspecified organism Status: Acute Assessment and Plan: Patient has been febrile and over last 2 days her WBC have increased Patient was started on empiric vancomycin and Rocephin on 04/10 for sepsis her urine grew Enterococcus and Klebsiella both are sensitive to Rocephin Blood cultures done on 04/07 and 824 have been negative till now Sputum culture is growing out Klebsiella oxytocia which is ESBL I will change Rocephin to imipenem Her lipase was normal Bilateral upper and lower, extremity Dopplers were negative for DVT Patient at this time is too unstable for me to transport to [place] (4) Shock: Code(s): R57.9 - Shock, unspecified Status: Acute Assessment and Plan: Secondary to sepsis versus hypovolemic Patient was given cautious amount of fluid in total of 1500 cc over last 24 hours. Levophed (5) BROOKE (acute kidney injury): Code(s): N17.9 - Acute kidney failure, unspecified Status: Acute Assessment and Plan: Patient presented with BROOKE which was Likely secondary to hypovolemia and hypotension Patient was given IV fluid bolus and cautious IV fluid maintenance initially and creatinine improved Patient has been diuresed since then. Creatinine again increased over last 2 days Patient was given total of 1500 mL of normal saline. Patient also received PRBC Monitor urine output creatinine electrolytes (6) Type 2 diabetes mellitus with hyperglycemia: Code(s): E11.65 - Type 2 diabetes mellitus with hyperglycemia Status: Acute Assessment and Plan: HbA1c 12.8 to show poor control prior to admission. Continue AccuCheks covering with sliding scale. Hypoglycemia protocol available as needed. Continue sliding scale insulin Continue Lantus but will increase dose (7) Hyperlipidemia: Code(s): E78.5 - Hyperlipidemia, unspecified Status: Acute Assessment and Plan: Hold Pravastatin. Due to increase in LFTs (8) DVT prophylaxis: Code(s): Z29.9 - Encounter for prophylactic measures, unspecified Status: Acute Assessment and Plan: Continue Lovenox (9) Anemia: Code(s): D64.9 - Anemia, unspecified Status: Acute Assessment and Plan: No obvious bleeding. She received 1 unit of packed
--- NOTE | 2021-04-16 11:54 | PCDIET ---
Nutrition Follow-Up Complete: Nutrition Diagnosis: Inadequate oral intake related to decreased appetite as evidenced by intakes 50% or less at most meals x 1 week. Nutrition Goal: Patient to meet estimated nutritional needs. Goal met. Patient tolerating Glucerna 1.2 at 40mL/hr with Pro-Stat flush BID and 30mL water flush every 4 hours. Last recorded weight is 101.9 kg which is increased from last review. +I/O. Bowel Motility: +BM today. Labs Reviewed: WBC (17.5), RBC (2.99), Hgb (8.3), Hct (27.6), Glu (188), BUN (38), Cr (1.4), Na (127), Alb (2.8) Meds Noted: Propofol (rate of 16.79mL/hr provides 443kcal per day), Albuterol, Rocephin, Fentanyl, Lantus, Vancomycin, Versed, Atrovent, Levophed, Protonix, Zemuron Additional Notes: Tube feeds over 22 hours/day with protein flushes and Propofol at current rate provide 1523kcal (15kcal/kg current body weight) per day. Right wrist and left cheek with skin tears. Lower lip with scab. Will continue to monitor with same goal. Nutrition Monitoring and Evaluation: Follow up every Monday/Monday.
[2021-04-16 14:59] LABS: Glucose Point of Care 128 mg/dl (65-105)
--- NOTE | 2021-04-16 16:50 | PM.IMPN ---
Progress Note: A&P Assessment and Plan (1) Acute respiratory failure with hypoxia: Code(s): J96.01 - Acute respiratory failure with hypoxia Status: Acute Assessment and Plan: Acute hypoxic respiratory failure secondary to severe COVID19 pneumonia with bialteral lung consolidations. (2) Pneumonia due to COVID-19 virus: Code(s): U07.1 - COVID-19; J12.82 - Pneumonia due to coronavirus disease 2018 Status: Acute Assessment and Plan: She has NOT been vaccinated for COVID Status post Remdesivir S/p Dexamethasone (20 mg IV q.day for 5 days then dexamethasone 10 mg IV q.day for additional 5 days.) Tocilizumab given once 03/14. Rocephin and azithromycin 5 days of treatment completed. (3) Sepsis: Code(s): A41.9 - Sepsis, unspecified organism Status: Acute Assessment and Plan: Patient has been febrile and over last 2 days her WBC have increased Patient was started on empiric vancomycin and Rocephin on 04/10 for sepsis her urine grew Enterococcus and Klebsiella both are sensitive to Rocephin Blood cultures done on 04/07 and 824 have been negative till now Sputum culture is growing out Klebsiella oxytocia which is ESBL She was switched from rocephin to imipenem Her lipase was normal Bilateral upper and lower, extremity Dopplers were negative for DVT Patient at this time is too unstable for me to transport to [place] (4) Shock: Code(s): R57.9 - Shock, unspecified Status: Acute Assessment and Plan: Secondary to sepsis versus hypovolemic Patient was given cautious amount of fluid in total of 1500 cc over last 24 hours. Levophed (5) BROOKE (acute kidney injury): Code(s): N17.9 - Acute kidney failure, unspecified Status: Acute Assessment and Plan: Likely prerenal versus ischemic ATN in the setting of hypovolemia and hypotension BROOKE initially improved with IV fluid bolus followed by prudent IV fluid maintenance initially and creatinine improved Patient has been diuresed since then. Creatinine again increased over last 3 days. Now patient with acute oligo anuric kidney failure. Nephrology consult in AM. There is no emergent indication for renal replacement therapy. Currently urinary output is nil with 20ccs overnight. Patient was given total of 1500 mL of normal saline. Patient also received PRBC Monitor urine output creatinine electrolytes (6) Type 2 diabetes mellitus with hyperglycemia: Code(s): E11.65 - Type 2 diabetes mellitus with hyperglycemia Status: Acute Assessment and Plan: HbA1c 12.8 to show poor control prior to admission. Continue AccuCheks covering with sliding scale. Hypoglycemia protocol available as needed. Continue sliding scale insulin Continue Lantus. (7) Hyperlipidemia: Code(s): E78.5 - Hyperlipidemia, unspecified Status: Acute Assessment and Plan: Hold Pravastatin. Due to increase in LFTs (8) DVT prophylaxis: Code(s): Z29.9 - Encounter for prophylactic measures, unspecified Status: Acute Assessment and Plan: Stop Lovenox.Start heparin. (9) Anemia: Code(s): D64.9 - Anemia, unspecified Status: Acute Assessment and Plan: No obvious bleeding. She received 1 unit of packed red cells on 04/15 She is on Lovenox for DVT prophylaxis. switch to heparin. She is on PPI q.12 hours Additional Plan Stress ulcer prophylaxis - PPI DVt prophylaxis: heparin. Nutrition -tolerating tube feeds Code Status - full code Subjective Date/time seen: 04/16/21 16:50 [employer]: 65yo lady with HTN, DM and asthma presented with cough and SOB and found to be in acute respiratory failure from COVID PNA. She was intubated on 03/21 for worsening respiratory status. She was unvaccinated.Patient is on 90% FiO2 and 12 of PEEP. She is currently in supine position. She has been tolerating alternating prone and supine position alternating every 6 hours. Tori
[2021-04-16 18:27] LABS: Glucose Point of Care 84 mg/dl (65-105)
[2021-04-16 18:45] LABS: Anion Gap 4 mmol/L (8-16); Blood Urea Nitrogen 37 mg/dL (7-17); Calcium 7.7 mg/dL (8.4-10.2); Carbon Dioxide 34 mmol/L (22-30); Chloride 89 mmol/L (98-107); Estimated CRCL calculation 48 ml/min; Estimated Glomerular Filt Rate 54; Glucose 93 mg/dL (65-110); Magnesium 2.3 mg/dL (1.6-2.3); Potassium 3.5 mmol/L (3.4-5.0); Sodium 127 mmol/L (137-145)
[2021-04-16] MEDS: HEPARIN SODIUM 5,000 UNITS/ML VIAL 5000 UNITS SUB-Q (21:05)
--- NOTE | 2021-04-16 21:15 | PC.NURSE ---
Had lengthy discussion with pt's daughter, Leatha. Leatha states information is to be passed through her to family members. Discussed pt's grave prognosis with Leatha who states that she wants everything done at this time, including CPR. Able to facetime with Leatha and her daughter. Family visibly upset with seeing pt in prone position. Explained to family members that pt does not move, talk, or look around as these are questions they frequently ask. Family states they need some time to process the condition of the pt. Family was instructed to callback if they had further questions or concerns.
[2021-04-16 21:29] LABS: Glucose Point of Care 75 mg/dl (65-105)
[2021-04-16 23:40] LABS: Glucose Point of Care 123 mg/dl (65-105)
[2021-04-17] VITALS (40 sets, daily range): BP systolic 91–122; BP diastolic 42–80; PULSE 79–96; RESP 21–31; TEMP 35.7–37.1; O2SAT 78–98
[2021-04-17] MEDS: PROPOFOL IV EMULSION 100 ML 16.79 MG IV CONT ×4 (01:04→17:27)
[2021-04-17] MEDS: ALBUTEROL SULFATE NEB 2.5 MG/0.5 ML INH INHALATION ×4 (02:41→20:22)
[2021-04-17] MEDS: IPRATROPIUM BR 0.02% INH SOLN 0.5 MG/2.5 ML VIAL INHALATION ×4 (02:41→20:22)
[2021-04-17] MEDS: NOREPINEPHRINE 8 MG/D5W 250 ML 8 MG/250 ML BAG 5.63 MG IV CONT (03:03)
[2021-04-17] MEDS: MIDAZOLAM 100MG/NS 100ML(*CRX) 100 MG/100 ML BAG 6 MG IV CONT ×2 (03:05→17:27)
[2021-04-17] MEDS: CENTRAL LINE FLUSH 10 ML IV PUSH ×3 (05:18→21:31)
[2021-04-17] MEDS: HEPARIN SODIUM 5,000 UNITS/ML VIAL 5000 UNITS SUB-Q ×3 (05:18→21:34)
[2021-04-17 06:00] LABS: Hematocrit 25.3 % (37.0-47.0); Hemoglobin 7.7 g/dL (12.0-15.0); Mean Corpuscular HGB Conc 30.4 g/dl (32-36); Mean Corpuscular Hemoglobin 27.8 pg (26-34); Mean Corpuscular Volume 91.3 fl (80-100); Mean Platelet Volume 10.2 fl (7.4-10.4); Platelet Count Result 518 k/mm3 (150-375); Red Blood Count 2.77 M/mm3 (4.2-5.4); Red Cell Distribution Width 15.6 % (11.5-14.5)
[2021-04-17 06:14] LABS: Alanine Aminotransferase 143 U/L (4-35); Albumin Level 2.6 g/dL (3.5-5.1); Alkaline Phosphatase 236 U/L (38-126); Anion Gap 3 mmol/L (8-16); Aspartate Amino Transferase 558 U/L (14-36); Bilirubin,Total 0.5 mg/dL (0.2-1.3); Blood Urea Nitrogen 37 mg/dL (7-17); Calcium 7.7 mg/dL (8.4-10.2); Carbon Dioxide 34 mmol/L (22-30); Chloride 90 mmol/L (98-107); Estimated CRCL calculation 57 ml/min; Estimated Glomerular Filt Rate > 60; Glucose 104 mg/dL (65-110); Magnesium 2.3 mg/dL (1.6-2.3); Potassium 3.6 mmol/L (3.4-5.0); Sodium 127 mmol/L (137-145)
[2021-04-17 06:25] LABS: Alveolar/Arterial O2 Gradient 544.7 mmHg; Base Excess ABG 7.5 mEq/l (+/-2.0); Carboxyhemoglobin 0.3 % THb (0-2.0); Device VENTILATOR; Fractional Inspired Oxygen 95 %; HCO3 ABG 33.9 mEq/l (22.0-26.0); Methemoglobin ABG 0.6 %THb (0-1.5); Modified Allen's Test Unable to perform; Oxygen Content ABG 11.3 %vol (16.0-22.0); Oxygen Saturation ABG 93.8 % (95.0-100.0); Oxyhemoglobin 92.7 % THb (90.0-100.0); PCO2 ABG 59.5 mmHg (35.0-45.0); PO2 ABG 72.4 mmHg (80.0-100.0); PO2 FiO2 Ratio Arterial Blood 0.76 %; Reduced Hemoglobin 6.4 %THb (0-5.0); Site Drawn RIGHT RADIAL; Total Hemoglobin 8.6 g/dL (12.0-18.0); pH ABG 7.373 (7.350-7.450)
[2021-04-17 06:26] LABS: Arterial Blood Gas PEEP 14 cmH2O; Arterial Blood Gas Tidal Volume 360 ml; Arterial Blood Gas Vent Mode CMV; Arterial Blood Gas Ventilator rate 24 /MIN
[2021-04-17] MEDS: ROCURONIUM BROMIDE 50 MG/5 ML VIAL IV PUSH ×2 (09:17→15:17)
[2021-04-17] MEDS: CALCIUM GLUC 2,000 MG/NS 100ML 2,000 MG/100 ML BAG 100 MG IVPB (09:38)
[2021-04-17] MEDS: PANTOPRAZOLE SODIUM IV 40 MG VIAL IV PUSH ×2 (09:39→21:34)
[2021-04-17] MEDS: MINERAL OIL/WHITE PETROLATUM OINTMENT 1 APPLIC EACH EYE ×2 (09:39→21:33)
--- NOTE | 2021-04-17 09:44 | P.CONNP_ITS ---
Assessment and Plan Assessment and plan (1) BROOKE (acute kidney injury): Code(s): N17.9 - Acute kidney failure, unspecified Status: Acute Assessment and Plan: * initially due to a combination of pre-renal factors and hemodynamic instability * with IVF resuscitation, renal function has improved * more recent fluctuations in creatinine/kidney function due to diuresis and fluctuating hemodynamics again - recent hyperkalemia likely secondary to this issue * urine output a bit better with improvement in creatinine in the last 24 hours * follow renal function and UOP (2) Acute respiratory failure with hypoxia: Code(s): J96.01 - Acute respiratory failure with hypoxia Status: Acute Assessment and Plan: * slow deterioration in respiratory status from admission * was intermittent BiPAP, then dependent on BiPAP with eventual need for intubation on 03/21/21 * remains on full mechanical ventilation and requiring prone positioning to maintain oxygen saturations * on sedation and PRN paralytics * serial CXR results noted - persistent extensive bilateral pneumonia * ventilator dependent for almost a month -- need tracheostomy(?) (3) Pneumonia due to COVID-19 virus: Code(s): U07.1 - COVID-19; J12.82 - Pneumonia due to coronavirus disease 2019 Status: Acute Assessment and Plan: * etiology/cause of #2 * did not received vaccine COVID-19 * s/p remdesivir as well as tocilizumab * s/p dexamethasone protocol * completed course of rocephin and azithromycin (4) Sepsis: Code(s): A41.9 - Sepsis, unspecified organism Status: Acute Assessment and Plan: * due to COVID-19, pneumonia, and UTI * urine grew Enterococcus and Klebsiella * blood cultures done have been negative to date * sputum culture with Klebsiella oxytocia * remains on antibiotic therapy (5) Shock: Code(s): R57.9 - Shock, unspecified Status: Acute Assessment and Plan: * likely due to a combination of sepsis and hypovolemia * on pressors and IVFs PRN * follow hemodynamics (6) Anemia: Code(s): D64.9 - Anemia, unspecified Status: Acute Assessment and Plan: * due to acute illness * PRBC transfusion per protocol * follow trend of H/H (7) Diabetes: Code(s): E11.9 - Type 2 diabetes mellitus without complications Status: Acute Assessment and Plan: * follow accuchecks * on SSI and Lantus Greater than 20 minutes was spent reviewing the patient's hospital course/electronic medical records since admission almost a month ago. Will continue to follow. History of Present Illness Reason for Consult Consult date: 04/17/21 Reason for consult: acute renal failure Chief Complaint Chief complaint: Pneumonia, Diabetic Hyperglycemia History of Present Illness Narrative: Most of the information I have obtained is from review of the electronic medical record and discussion with the medical staff to involved in her care as the patient is unable to provide me with any history due to her current clinical state status (intubated and sedated/paralyzed). The patient is a 65-year-old female with a past medical history as outlined below who presented to [facility] ER about a month ago for evaluation of shortness of breath associated with a cough. She reportedly had not been feeling well for the last several days with a productive cough of clear sputum but with associated symptoms of myalgias, weakness, and shortness of breath particularly with exertion. H
--- NOTE | 2021-04-17 09:44 | PM.CNNEP ---
Assessment and Plan Assessment and plan (1) BROOKE (acute kidney injury): Code(s): N17.9 - Acute kidney failure, unspecified Status: Acute Assessment and Plan: initially due to a combination of pre-renal factors and hemodynamic instability with IVF resuscitation, renal function has improved more recent fluctuations in creatinine/kidney function due to diuresis and fluctuating hemodynamics again - recent hyperkalemia likely secondary to this issue urine output a bit better with improvement in creatinine in the last 24 hours follow renal function and UOP (2) Acute respiratory failure with hypoxia: Code(s): J96.01 - Acute respiratory failure with hypoxia Status: Acute Assessment and Plan: slow deterioration in respiratory status from admission was intermittent BiPAP, then dependent on BiPAP with eventual need for intubation on 03/21/21 remains on full mechanical ventilation and requiring prone positioning to maintain oxygen saturations on sedation and PRN paralytics serial CXR results noted - persistent extensive bilateral pneumonia ventilator dependent for almost a month -- need tracheostomy(?) (3) Pneumonia due to COVID-19 virus: Code(s): U07.1 - COVID-19; J12.82 - Pneumonia due to coronavirus disease 2019 Status: Acute Assessment and Plan: etiology/cause of #2 did not received vaccine COVID-19 s/p remdesivir as well as tocilizumab s/p dexamethasone protocol completed course of rocephin and azithromycin (4) Sepsis: Code(s): A41.9 - Sepsis, unspecified organism Status: Acute Assessment and Plan: due to COVID-19, pneumonia, and UTI urine grew Enterococcus and Klebsiella blood cultures done have been negative to date sputum culture with Klebsiella oxytocia remains on antibiotic therapy (5) Shock: Code(s): R57.9 - Shock, unspecified Status: Acute Assessment and Plan: likely due to a combination of sepsis and hypovolemia on pressors and IVFs PRN follow hemodynamics (6) Anemia: Code(s): D64.9 - Anemia, unspecified Status: Acute Assessment and Plan: due to acute illness PRBC transfusion per protocol follow trend of H/H (7) Diabetes: Code(s): E11.9 - Type 2 diabetes mellitus without complications Status: Acute Assessment and Plan: follow accuchecks on SSI and Lantus Greater than 20 minutes was spent reviewing the patient's hospital course/electronic medical records since admission almost a month ago. Will continue to follow. History of Present Illness Reason for Consult Consult date: 04/17/21 Reason for consult: acute renal failure Chief Complaint Chief complaint: Pneumonia, Diabetic Hyperglycemia History of Present Illness Narrative: Most of the information I have obtained is from review of the electronic medical record and discussion with the medical staff to involved in her care as the patient is unable to provide me with any history due to her current clinical state status (intubated and sedated/paralyzed). The patient is a 65-year-old female with a past medical history as outlined below who presented to [facility] ER about a month ago for evaluation of shortness of breath associated with a cough. She reportedly had not been feeling well for the last several days with a productive cough of clear sputum but with associated symptoms of myalgias, weakness, and shortness of breath particularly with exertion. Her family reported that she seemed to be acting funny in the last 24 hours prior to her presentation to the emergency room. Given these symptoms and the progressive nature of them, her family brought her to the emergency room for further evaluation. Workup and evaluation emergency room demonstrated the patient to be hemodynamically stable but was quite hypoxic with an O2 saturation of 86% on room air. Her chest x-ray demonstrat
[2021-04-17 10:06] LABS: Glucose Point of Care 90 mg/dl (65-105)
[2021-04-17] MEDS: INSULIN GLARGINE (*BKC) 100 UNITS/ML 30 UNITS SUB-Q (10:37)
[2021-04-17] MEDS: FENTANYL 2,500MCG/NS250ML(*CRX 2,500 MCG/250 ML BAG 20 MCG IV CONT (10:40)
[2021-04-17 10:44] LABS: Vancomycin Trough 19.7 ug/mL (10.0-20.0)
--- NOTE | 2021-04-17 10:49 | WPDINTPN ---
Progress Note: A&P Assessment and Plan (1) Acute respiratory failure with hypoxia: Code(s): J96.01 - Acute respiratory failure with hypoxia Status: Acute Assessment and Plan: Acute respiratory failure secondary to COVID-19 pneumonia 03/12 Admitted 03/15 Intermittent Bipap 03/20 Bipap dependent. 03/21 Intubated. - Patient is on 90% FiO2 and 14 of PEEP. She is currently in prone position - Will place patient in supine position for 6 hours as tolerated and back to prone -ABG reviewed -chest x-ray reviewed and shows persistent extensive bilateral pneumonia. ETT was already adjusted by RT when patient was placed in supine position this morning -continue Versed, propofol and fentanyl infusion for sedation. PRN NMB - low tidal volume ventilation - Continue bronchodilators -patient has been on ventilator for close to 4 weeks now. She is a candidate for tracheostomy but currently too hypoxic to allow safe procedure. 03/16/2021: Echo with EF 74%, normal diastolic function and no valvular disease. 03/16/2021: Venous doppler of all 4 extremities negative for DVT. 03/18/2021: CTA Chest negative for PE. (2) Pneumonia due to COVID-19 virus: Code(s): U07.1 - COVID-19; J12.82 - Pneumonia due to coronavirus disease 2019 Status: Acute Assessment and Plan: She has NOT been vaccinated for COVID Status post Remdesivir S/p Dexamethasone (20 mg IV q.day for 5 days then dexamethasone 10 mg IV q.day for additional 5 days.) Tocilizumab given once 03/14. Rocephin and azithromycin were stopped after 5 days of treatment. (3) Sepsis: Code(s): A41.9 - Sepsis, unspecified organism Status: Acute Assessment and Plan: Patient was febrile and her WBC had increased Patient was started on empiric vancomycin and Rocephin on 04/10 for sepsis her urine grew Enterococcus and Klebsiella both are sensitive to Rocephin Blood cultures done on 04/07 and 04/13 have been negative till now Sputum culture is growing out Klebsiella oxytoca which is ESBL 04/16 Rocephin was changed to to imipenem Her lipase was normal Bilateral upper and lower, extremity Dopplers were negative for DVT Patient at this time is too unstable for me to transport to [place] She is afebrile over last 24 hours and white count seems to have improved slightly (4) Shock: Code(s): R57.9 - Shock, unspecified Status: Acute Assessment and Plan: Secondary to sepsis versus hypovolemic Patient has been on and off Levophed (5) BROOKE (acute kidney injury): Code(s): N17.9 - Acute kidney failure, unspecified Status: Acute Assessment and Plan: Patient presented with BROOKE which was Likely secondary to hypovolemia and hypotension Patient was given IV fluid bolus and cautious IV fluid maintenance initially and creatinine improved Patient has been diuresed since then. Creatinine again increased over last 2 days Patient was given total of 1500 mL of normal saline. Patient also received PRBC Creatinine today improved to 1. Hold further fluids Monitor urine output creatinine electrolytes (6) Type 2 diabetes mellitus with hyperglycemia: Code(s): E11.65 - Type 2 diabetes mellitus with hyperglycemia Status: Acute Assessment and Plan: HbA1c 12.8 to show poor control prior to admission. Continue AccuCheks covering with sliding scale. Hypoglycemia protocol available as needed. Continue sliding scale insulin Continue Lantus but will decrease dose (7) Hyperlipidemia: Code(s): E78.5 - Hyperlipidemia, unspecified Status: Acute Assessment and Plan: Hold Pravastatin. Due to increase in LFTs (8) DVT prophylaxis: Code(s): Z29.9 - Encounter for prophylactic measures, unspecified Status: Acute Assessment and Plan: Continue Lovenox (9) Anemia: Code(s): D64.9 - Anemia, unspecified Status: Acute Assessment and Plan: No obvious bleeding. She received 1 unit o
[2021-04-17] MEDS: ALTEPLASE 2 MG VIAL (CATHFLO) IV PUSH (11:16)
[2021-04-17 12:29] LABS: Glucose Point of Care 78 mg/dl (65-105)
[2021-04-17 17:54] LABS: Glucose Point of Care 124 mg/dl (65-105)
[2021-04-17] MEDS: INSULIN GLARGINE (*BKC) 100 UNITS/ML 25 UNITS SUB-Q (21:31)
[2021-04-17 21:57] LABS: Glucose Point of Care 127 mg/dl (65-105)
[2021-04-17] MEDS: PROPOFOL IV EMULSION 100 ML 19.59 MG IV CONT (23:14)
[2021-04-17 23:19] LABS: Glucose Point of Care 171 mg/dl (65-105)
[2021-04-18] VITALS (48 sets, daily range): BP systolic 91–105; BP diastolic 55–98; PULSE 81–90; RESP 14–32; TEMP 36–37.2; O2SAT 84–91
[2021-04-18] MEDS: FENTANYL 2,500MCG/NS250ML(*CRX 2,500 MCG/250 ML BAG 20 MCG IV CONT ×2 (00:20→13:25)
[2021-04-18] MEDS: IPRATROPIUM BR 0.02% INH SOLN 0.5 MG/2.5 ML VIAL INHALATION ×4 (02:32→20:09)
[2021-04-18] MEDS: ALBUTEROL SULFATE NEB 2.5 MG/0.5 ML INH INHALATION ×4 (02:32→20:09)
[2021-04-18] MEDS: PROPOFOL IV EMULSION 100 ML 19.59 MG IV CONT (03:42)
[2021-04-18] MEDS: CENTRAL LINE FLUSH 10 ML IV PUSH ×3 (05:20→20:26)
[2021-04-18] MEDS: HEPARIN SODIUM 5,000 UNITS/ML VIAL 5000 UNITS SUB-Q ×3 (05:21→21:41)
[2021-04-18 05:28] LABS: Alveolar/Arterial O2 Gradient 515.9 mmHg; Carboxyhemoglobin 0.3 % THb (0-2.0); Fractional Inspired Oxygen 90 %; HCO3 ABG 34.9 mEq/l (22.0-26.0); Methemoglobin ABG 0.4 %THb (0-1.5); Oxygen Content ABG 10.9 %vol (16.0-22.0); Oxygen Saturation ABG 93.1 % (95.0-100.0); Oxyhemoglobin 91.6 % THb (90.0-100.0); PO2 ABG 67.4 mmHg (80.0-100.0); PO2 FiO2 Ratio Arterial Blood 0.75 %; Reduced Hemoglobin 7.7 %THb (0-5.0); Total Hemoglobin 8.4 g/dL (12.0-18.0); pH ABG 7.405 (7.350-7.450)
[2021-04-18 05:29] LABS: Device VENTILATOR; Modified Allen's Test Pass; Site Drawn LEFT RADIAL
[2021-04-18 05:30] LABS: Arterial Blood Gas PEEP 14 cmH2O; Arterial Blood Gas Tidal Volume 360 ml; Arterial Blood Gas Vent Mode CMV; Arterial Blood Gas Ventilator rate 24 /MIN
[2021-04-18 05:37] LABS: Hematocrit 24.8 % (37.0-47.0); Hemoglobin 7.5 g/dL (12.0-15.0); Mean Corpuscular HGB Conc 30.2 g/dl (32-36); Mean Corpuscular Hemoglobin 27.7 pg (26-34); Mean Corpuscular Volume 91.5 fl (80-100); Mean Platelet Volume 10.2 fl (7.4-10.4); Platelet Count Result 486 k/mm3 (150-375); Red Blood Count 2.71 M/mm3 (4.2-5.4); Red Cell Distribution Width 15.9 % (11.5-14.5); White Blood Count 13.2 K/mm3 (4.5-10.0)
[2021-04-18 05:57] LABS: Alanine Aminotransferase 200 U/L (4-35); Albumin Level 2.6 g/dL (3.5-5.1); Alkaline Phosphatase 239 U/L (38-126); Anion Gap 2 mmol/L (8-16); Aspartate Amino Transferase 621 U/L (14-36); Bilirubin,Total 0.5 mg/dL (0.2-1.3); Blood Urea Nitrogen 41 mg/dL (7-17); Calcium 7.9 mg/dL (8.4-10.2); Carbon Dioxide 34 mmol/L (22-30); Chloride 90 mmol/L (98-107); Estimated CRCL calculation 63 ml/min; Estimated Glomerular Filt Rate > 60; Glucose 134 mg/dL (65-110); Magnesium 2.5 mg/dL (1.6-2.3); Sodium 126 mmol/L (137-145)
[2021-04-18] MEDS: PROPOFOL IV EMULSION 100 ML 22.39 MG IV CONT ×4 (08:22→20:30)
[2021-04-18] MEDS: ROCURONIUM BROMIDE 50 MG/5 ML VIAL IV PUSH (08:26)
[2021-04-18] MEDS: MINERAL OIL/WHITE PETROLATUM OINTMENT 1 APPLIC EACH EYE ×2 (08:29→20:21)
[2021-04-18] MEDS: PANTOPRAZOLE SODIUM IV 40 MG VIAL IV PUSH ×2 (08:29→20:22)
--- NOTE | 2021-04-18 10:52 | WPDINTPN ---
Progress Note: A&P Assessment and Plan (1) Acute respiratory failure with hypoxia: Code(s): J96.01 - Acute respiratory failure with hypoxia Status: Acute Assessment and Plan: Acute respiratory failure secondary to COVID-19 pneumonia 03/12 Admitted 03/15 Intermittent Bipap 03/20 Bipap dependent. 03/21 Intubated. - Patient is on 90% FiO2 and 14 of PEEP. She is currently in prone position -permissive hypercapnia. Will decrease rate to 22 due to increased pressure - Will place patient in supine position for 6 hours as tolerated and back to prone -ABG reviewed -chest x-ray reviewed and shows persistent extensive bilateral pneumonia. ETT was already adjusted by RT when patient was placed in supine position this morning -continue Versed, propofol and fentanyl infusion for sedation. PRN NMB - low tidal volume ventilation - Continue bronchodilators -patient has been on ventilator for close to 4 weeks now. She is a candidate for tracheostomy but currently too hypoxic to allow safe procedure. 03/16/2021: Echo with EF 74%, normal diastolic function and no valvular disease. 03/16/2021: Venous doppler of all 4 extremities negative for DVT. 03/18/2021: CTA Chest negative for PE. (2) Pneumonia due to COVID-19 virus: Code(s): U07.1 - COVID-19; J12.82 - Pneumonia due to coronavirus disease 2019 Status: Acute Assessment and Plan: She has NOT been vaccinated for COVID Status post Remdesivir S/p Dexamethasone (20 mg IV q.day for 5 days then dexamethasone 10 mg IV q.day for additional 5 days.) Tocilizumab given once 03/14. Rocephin and azithromycin were stopped after 5 days of treatment. (3) Sepsis: Code(s): A41.9 - Sepsis, unspecified organism Status: Acute Assessment and Plan: Patient was febrile and her WBC had increased Patient was started on empiric vancomycin and Rocephin on 04/10 for sepsis her urine grew Enterococcus and Klebsiella both are sensitive to Rocephin Blood cultures done on 04/07 and 04/13 have been negative till now Sputum culture is growing out Klebsiella oxytoca which is ESBL 04/16 Rocephin was changed to to imipenem Her lipase was normal Bilateral upper and lower, extremity Dopplers were negative for DVT Patient at this time is too unstable for me to transport to [place] She is afebrile over last 24 hours and white count seems to have improved slightly (4) Shock: Code(s): R57.9 - Shock, unspecified Status: Acute Assessment and Plan: Secondary to sepsis versus hypovolemic Patient has been on and off Levophed (5) BROOKE (acute kidney injury): Code(s): N17.9 - Acute kidney failure, unspecified Status: Acute Assessment and Plan: Patient presented with BROOKE which was Likely secondary to hypovolemia and hypotension Patient was given IV fluid bolus and cautious IV fluid maintenance initially and creatinine improved Patient has been diuresed since then. Creatinine again increased over last 2 days Patient was given total of 1500 mL of normal saline. Patient also received PRBC Creatinine continues to be stable. Hold further fluids Monitor urine output creatinine electrolytes (6) Type 2 diabetes mellitus with hyperglycemia: Code(s): E11.65 - Type 2 diabetes mellitus with hyperglycemia Status: Acute Assessment and Plan: HbA1c 12.8 to show poor control prior to admission. Continue AccuCheks covering with sliding scale. Hypoglycemia protocol available as needed. Continue sliding scale insulin Continue Lantus (7) Hyperlipidemia: Code(s): E78.5 - Hyperlipidemia, unspecified Status: Acute Assessment and Plan: Hold Pravastatin. Due to increase in LFTs (8) DVT prophylaxis: Code(s): Z29.9 - Encounter for prophylactic measures, unspecified Status: Acute Assessment and Plan: Continue Lovenox (9) Anemia: Code(s): D64.9 - Anemia, unspecified Status: Acute Assessme
[2021-04-18] MEDS: INSULIN GLARGINE (*BKC) 100 UNITS/ML 25 UNITS SUB-Q (11:32)
[2021-04-18] MEDS: MIDAZOLAM 100MG/NS 100ML(*CRX) 100 MG/100 ML BAG 6 MG IV CONT (11:33)
[2021-04-18 11:47] LABS: Glucose Point of Care 120 mg/dl (65-105)
--- NOTE | 2021-04-18 13:42 | PM.PNNEP ---
Progress Note: A&P Assessment and Plan (1) BROOKE (acute kidney injury): Code(s): N17.9 - Acute kidney failure, unspecified Status: Acute Assessment and Plan: resolving/stabilizing initially due to a combination of pre-renal factors and hemodynamic instability with IVF resuscitation, renal function has improved more recent fluctuations in creatinine/kidney function due to diuresis and fluctuating hemodynamics again - recent hyperkalemia likely secondary to this issue also urine output better follow renal function and UOP (2) Acute respiratory failure with hypoxia: Code(s): J96.01 - Acute respiratory failure with hypoxia Status: Acute Assessment and Plan: slow deterioration in respiratory status from admission was intermittent BiPAP, then dependent on BiPAP with eventual need for intubation on 03/21/21 remains on full mechanical ventilation and requiring prone positioning to maintain oxygen saturations on sedation and PRN paralytics serial CXR results noted - persistent extensive bilateral pneumonia ventilator dependent for almost a month -- need tracheostomy(?) (3) Pneumonia due to COVID-19 virus: Code(s): U07.1 - COVID-19; J12.82 - Pneumonia due to coronavirus disease 2019 Status: Acute Assessment and Plan: etiology/cause of #2 did not received vaccine COVID-19 s/p remdesivir as well as tocilizumab and convalescent plasma s/p dexamethasone protocol completed course of rocephin and azithromycin (4) Sepsis: Code(s): A41.9 - Sepsis, unspecified organism Status: Acute Assessment and Plan: due to COVID-19, pneumonia, and UTI urine grew Enterococcus and Klebsiella blood cultures done have been negative to date sputum culture with Klebsiella oxytocia remains on antibiotic therapy (5) Shock: Code(s): R57.9 - Shock, unspecified Status: Acute Assessment and Plan: likely due to a combination of sepsis and hypovolemia on pressors and IVFs PRN follow hemodynamics (6) Anemia: Code(s): D64.9 - Anemia, unspecified Status: Acute Assessment and Plan: due to acute illness PRBC transfusion per protocol follow trend of H/H (7) Diabetes: Code(s): E11.9 - Type 2 diabetes mellitus without complications Status: Acute Assessment and Plan: follow accuchecks on SSI and Lantus Will continue to follow. Subjective Date/time seen: 04/18/21 13:42 Remains stable from hemodynamic perspective but remains on full ventilatory support with pronation protocol; no new issues/events overnight or earlier this AM; no real significant change. Exam Narrative: General: WD/WN female in NAD - intubated/sedated Heart: normal S1 and S2; no rub Lungs: coarse breath sounds Abdomen: soft, nontender, nondistended, positive bowel sounds Extremities: no cyanosis or clubbing; mild edema noted Skin: warm and dry Objective Data Vital Signs Vital Signs: Vital Signs Temp Pulse Resp BP Pulse Ox 04/18/21 13:32 84 88 L 04/18/21 13:15 81 25 H 04/18/21 12:30 81 22 H 04/18/21 12:00 36.1 C L 81 22 H 94/60 L 86 L 04/18/21 11:33 85 18 04/18/21 11:25 83 84 L 04/18/21 10:23 83 18 04/18/21 10:00 36.2 C L 82 26 H 96/66 L 89 L 04/18/21 08:31 85 19 04/18/21 08:30 85 19 04/18/21 08:22 84 19 04/18/21 08:13 86 86 L 04/18/21 08:12 85 28 H 04/18/21 08:11 85 19 04/18/21 08:00 36.3 C L 85 14 101/98 H 87 L 04/18/21 06:00 36.3 C L 85 27 H 105/67 88 L 04/18/21 04:54 84 89 L 04/18/21 04:00 36.3 C L 85 28 H 103/55 L 89 L 04/18/21 03:48 86 29 H 04/18/21 03:44 86 29 H 04/18/21 03:43 86 29 H 04/18/21 03:42 86 29 H 04/18/21 02:37 87 27 H 04/18/21 02:35 83 90 04/18/21 02:32 87 32 H 04/18/21 02:00 36.2 C L 84 31 H 94/63 L 87 L 04/18/21 00:
--- NOTE | 2021-04-18 13:42 | P.PNNP_ITS ---
Progress Note: A&P Assessment and Plan (1) BROOKE (acute kidney injury): Code(s): N17.9 - Acute kidney failure, unspecified Status: Acute Assessment and Plan: * resolving/stabilizing * initially due to a combination of pre-renal factors and hemodynamic instability * with IVF resuscitation, renal function has improved * more recent fluctuations in creatinine/kidney function due to diuresis and fluctuating hemodynamics again - recent hyperkalemia likely secondary to this issue also * urine output better * follow renal function and UOP (2) Acute respiratory failure with hypoxia: Code(s): J96.01 - Acute respiratory failure with hypoxia Status: Acute Assessment and Plan: * slow deterioration in respiratory status from admission * was intermittent BiPAP, then dependent on BiPAP with eventual need for intubation on 03/21/21 * remains on full mechanical ventilation and requiring prone positioning to maintain oxygen saturations * on sedation and PRN paralytics * serial CXR results noted - persistent extensive bilateral pneumonia * ventilator dependent for almost a month -- need tracheostomy(?) (3) Pneumonia due to COVID-19 virus: Code(s): U07.1 - COVID-19; J12.82 - Pneumonia due to coronavirus disease 2019 Status: Acute Assessment and Plan: * etiology/cause of #2 * did not received vaccine COVID-19 * s/p remdesivir as well as tocilizumab and convalescent plasma * s/p dexamethasone protocol * completed course of rocephin and azithromycin (4) Sepsis: Code(s): A41.9 - Sepsis, unspecified organism Status: Acute Assessment and Plan: * due to COVID-19, pneumonia, and UTI * urine grew Enterococcus and Klebsiella * blood cultures done have been negative to date * sputum culture with Klebsiella oxytocia * remains on antibiotic therapy (5) Shock: Code(s): R57.9 - Shock, unspecified Status: Acute Assessment and Plan: * likely due to a combination of sepsis and hypovolemia * on pressors and IVFs PRN * follow hemodynamics (6) Anemia: Code(s): D64.9 - Anemia, unspecified Status: Acute Assessment and Plan: * due to acute illness * PRBC transfusion per protocol * follow trend of H/H (7) Diabetes: Code(s): E11.9 - Type 2 diabetes mellitus without complications Status: Acute Assessment and Plan: * follow accuchecks * on SSI and Lantus Will continue to follow. Subjective Date/time seen: 04/18/21 13:42 Remains stable from hemodynamic perspective but remains on full ventilatory support with pronation protocol; no new issues/events overnight or earlier this AM; no real significant change. Exam Narrative: General: WD/WN female in NAD - intubated/sedated Heart: normal S1 and S2; no rub Lungs: coarse breath sounds Abdomen: soft, nontender, nondistended, positive bowel sounds Extremities: no cyanosis or clubbing; mild edema noted Skin: warm and dry Objective Data Vital Signs Vital Signs: Vital Signs Temp Pulse Resp BP Pulse Ox 04/18/21 13:32 84 88 L 04/18/21 13:15 81 25 H 04/18/21 12:30 81 22 H 04/18/21 12:00 36.1 C L 81 22 H 94/60 L 86 L 04/18/21 11:33 85 18 04/18/21 11:25 83 84 L 04/18/21 10:23 83 18 04/18/21 10:00 36.2 C L 82 26 H 96/66 L 89 L
--- NOTE | 2021-04-18 16:35 | PC.NURSE ---
Discussed patient's proned position with during morning rounds. Patient to remain proned until able to tolerate turning to supine in relation rto decreased oxygenation status, as well as patient's over all condition.
[2021-04-18 17:23] LABS: Glucose Point of Care 84 mg/dl (65-105)
[2021-04-18 20:37] LABS: Glucose Point of Care 78 mg/dl (65-105)
[2021-04-18 23:50] LABS: Glucose Point of Care 112 mg/dl (65-105)
[2021-04-19] VITALS (50 sets, daily range): BP systolic 86–117; BP diastolic 57–72; PULSE 79–88; RESP 22–29; TEMP 35.7–37; O2SAT 89–96
[2021-04-19] MEDS: PROPOFOL IV EMULSION 100 ML 22.39 MG IV CONT ×6 (01:06→20:47)
[2021-04-19] MEDS: FENTANYL 2,500MCG/NS250ML(*CRX 2,500 MCG/250 ML BAG 20 MCG IV CONT ×2 (01:50→14:25)
[2021-04-19] MEDS: IPRATROPIUM BR 0.02% INH SOLN 0.5 MG/2.5 ML VIAL INHALATION ×4 (02:12→20:55)
[2021-04-19] MEDS: ALBUTEROL SULFATE NEB 2.5 MG/0.5 ML INH INHALATION ×4 (02:12→20:55)
[2021-04-19] MEDS: MIDAZOLAM 100MG/NS 100ML(*CRX) 100 MG/100 ML BAG 6 MG IV CONT ×2 (04:10→20:49)
[2021-04-19 05:06] LABS: Hematocrit 25.4 % (37.0-47.0); Hemoglobin 7.7 g/dL (12.0-15.0); Mean Corpuscular HGB Conc 30.3 g/dl (32-36); Mean Corpuscular Volume 92.4 fl (80-100); Mean Platelet Volume 10.4 fl (7.4-10.4); Platelet Count Result 544 k/mm3 (150-375); Red Blood Count 2.75 M/mm3 (4.2-5.4); Red Cell Distribution Width 16.9 % (11.5-14.5); White Blood Count 15.9 K/mm3 (4.5-10.0)
[2021-04-19 05:25] LABS: Anion Gap 3 mmol/L (8-16); Blood Urea Nitrogen 44 mg/dL (7-17); Calcium 7.7 mg/dL (8.4-10.2); Carbon Dioxide 34 mmol/L (22-30); Chloride 89 mmol/L (98-107); Estimated CRCL calculation 64 ml/min; Estimated Glomerular Filt Rate > 60; Glucose 103 mg/dL (65-110); Magnesium 2.8 mg/dL (1.6-2.3); Potassium 4.5 mmol/L (3.4-5.0); Sodium 126 mmol/L (137-145)
[2021-04-19 05:29] LABS: Alveolar/Arterial O2 Gradient 506.8 mmHg; Carboxyhemoglobin 0.3 % THb (0-2.0); Fractional Inspired Oxygen 90 %; HCO3 ABG 31.9 mEq/l (22.0-26.0); Methemoglobin ABG 0.7 %THb (0-1.5); Oxygen Content ABG 8.8 %vol (16.0-22.0); Oxygen Saturation ABG 94.7 % (95.0-100.0); Oxyhemoglobin 93.5 % THb (90.0-100.0); PCO2 ABG 56.6 mmHg (35.0-45.0); PO2 ABG 76.9 mmHg (80.0-100.0); PO2 FiO2 Ratio Arterial Blood 0.85 %; Reduced Hemoglobin 5.5 %THb (0-5.0); pH ABG 7.369 (7.350-7.450)
[2021-04-19] MEDS: CENTRAL LINE FLUSH 10 ML IV PUSH ×3 (05:29→20:52)
[2021-04-19] MEDS: HEPARIN SODIUM 5,000 UNITS/ML VIAL 5000 UNITS SUB-Q ×3 (05:29→20:52)
[2021-04-19 05:33] LABS: Total Hemoglobin 6.6 g/dL (12.0-18.0)
[2021-04-19 05:34] LABS: Device VENTILATOR; Modified Allen's Test Pass; Site Drawn LEFT RADIAL
[2021-04-19 05:36] LABS: Arterial Blood Gas PEEP 14 cmH2O; Arterial Blood Gas Vent Mode CMV; Arterial Blood Gas Ventilator rate 22 /MIN
[2021-04-19] MEDS: MINERAL OIL/WHITE PETROLATUM OINTMENT 1 APPLIC EACH EYE ×2 (08:02→20:51)
[2021-04-19 08:06] LABS: Glucose Point of Care 75 mg/dl (65-105)
[2021-04-19] MEDS: PANTOPRAZOLE SODIUM IV 40 MG VIAL IV PUSH ×2 (09:00→20:51)
[2021-04-19] MEDS: CALCIUM GLUC 1,000 MG/NS 50 ML 1,000 MG/50 ML BAG 100 MG IVPB (09:03)
[2021-04-19 09:55] LABS: Estimated CRCL calculation 64 ml/min; Estimated Glomerular Filt Rate > 60
[2021-04-19 10:12] LABS: Vancomycin Trough 15.7 ug/mL (10.0-20.0)
--- NOTE | 2021-04-19 10:57 | PCDIET ---
ICU Rounding Note: RN reports OG previously clogged, but now functioning with Glucerna 1.2 infusing at 40mL/hr goal. Continues on 30mL water flush every 4 hours and Pro-Stat flush BID. Last recorded weight is 106.1kg which is up from last review. +I/O. Bowel Motility: Last documented BM on 04/18/21 x 1. Labs Reviewed: WBC (15.9), RBC (2.75), Hgb (7.7), Hct (25.4), BUN (44), Na (126), Alb (2.6), Tyler Ca (8.82), Mg (2.8) Meds Noted: Propofol (rate of 22.39mL/hr provides 591kcal per day), Albuterol, Calcium Gluconate, Fentanyl, Apresoline, Imipenem, Atrovent, Versed, Protonix, Zemuron, Vancomcyin Additional Notes: Tube feeding over 22 hours per day with Propofol and protein flushes providing 1847kcal (25kcal/kg admission weight) and 82g protein daily. RN reporting significant edema. Skin tears to left cheek and right wrist. Following daily in ICU rounds. Assessing/reassessing every Monday/Monday.
--- NOTE | 2021-04-19 11:20 | P.PNNP_ITS ---
Progress Note: A&P Assessment and Plan (1) BROOEK (acute kidney injury): Code(s): N17.9 - Acute kidney failure, unspecified Status: Acute Assessment and Plan: * resolving/stabilizing * initially due to a combination of pre-renal factors and hemodynamic instability * with IVF resuscitation, renal function has improved * more recent fluctuations in creatinine/kidney function due to diuresis and fluctuating hemodynamics again - recent hyperkalemia likely secondary to this issue also * urine output relatively stable * follow renal function and UOP (2) Acute respiratory failure with hypoxia: Code(s): J96.01 - Acute respiratory failure with hypoxia Status: Acute Assessment and Plan: * slow deterioration in respiratory status from admission * was intermittent BiPAP, then dependent on BiPAP with eventual need for intubation on 03/21/21 * remains on full mechanical ventilation and requiring prone positioning to maintain oxygen saturations * on sedation and PRN paralytics * serial CXR results noted - persistent extensive bilateral pneumonia * ventilator dependent for almost a month -- need tracheostomy(?) but not likely stable for this intervention.... (3) Pneumonia due to COVID-19 virus: Code(s): U07.1 - COVID-19; J12.82 - Pneumonia due to coronavirus disease 2019 Status: Acute Assessment and Plan: * etiology/cause of #2 * did not received vaccine COVID-19 * s/p remdesivir as well as tocilizumab and convalescent plasma * s/p dexamethasone protocol * completed course of rocephin and azithromycin * diuretics PRN (4) Hyponatremia: Code(s): E87.1 - Hypo-osmolality and hyponatremia Status: Acute Assessment and Plan: * has been present as far back as 04/08 * presumably due to extensive lung issues (#2 and #3) * changed as many IV medications/drips to normal saline carrier fluid * next step/consideration would be change free water flushes to normal saline * follow trend (5) Sepsis: Code(s): A41.9 - Sepsis, unspecified organism Status: Acute Assessment and Plan: * due to COVID-19, pneumonia, and UTI * urine grew Enterococcus and Klebsiella * blood cultures have been negative to date * sputum culture with Klebsiella oxytocia * remains on antibiotic therapy (6) Shock: Code(s): R57.9 - Shock, unspecified Status: Acute Assessment and Plan: * likely due to a combination of sepsis and hypovolemia * on pressors and IVFs PRN * follow hemodynamics (7) Anemia: Code(s): D64.9 - Anemia, unspecified Status: Acute Assessment and Plan: * due to acute illness * PRBC transfusion per protocol * follow trend of H/H (8) Diabetes: Code(s): E11.9 - Type 2 diabetes mellitus without complications Status: Acute Assessment and Plan: * follow accuchecks * on SSI and Lantus Not much else to offer from renal perspective -- will continue to follow intermittently. Subjective Date/time seen: 04/19/21 11:20 No real change apparent at this time -- remains on ventilator support with prone positioning protocol; reasonable urine output noted; fluctuating hemodynamics noted as well; no other acute issues/events overnight or earlier this AM. Exam Narrative: General: WD/WN female in NAD - intubated/sedated Heart: normal S1 and S2; no rub Lungs: coarse breath sounds Abdomen: soft, nontender, nondistended, positive bowel sounds Extremities: no cyanosis or cl
--- NOTE | 2021-04-19 11:20 | PM.PNNEP ---
Progress Note: A&P Assessment and Plan (1) BROOKE (acute kidney injury): Code(s): N17.9 - Acute kidney failure, unspecified Status: Acute Assessment and Plan: resolving/stabilizing initially due to a combination of pre-renal factors and hemodynamic instability with IVF resuscitation, renal function has improved more recent fluctuations in creatinine/kidney function due to diuresis and fluctuating hemodynamics again - recent hyperkalemia likely secondary to this issue also urine output relatively stable follow renal function and UOP (2) Acute respiratory failure with hypoxia: Code(s): J96.01 - Acute respiratory failure with hypoxia Status: Acute Assessment and Plan: slow deterioration in respiratory status from admission was intermittent BiPAP, then dependent on BiPAP with eventual need for intubation on 03/21/21 remains on full mechanical ventilation and requiring prone positioning to maintain oxygen saturations on sedation and PRN paralytics serial CXR results noted - persistent extensive bilateral pneumonia ventilator dependent for almost a month -- need tracheostomy(?) but not likely stable for this intervention.... (3) Pneumonia due to COVID-19 virus: Code(s): U07.1 - COVID-19; J12.82 - Pneumonia due to coronavirus disease 2019 Status: Acute Assessment and Plan: etiology/cause of #2 did not received vaccine COVID-19 s/p remdesivir as well as tocilizumab and convalescent plasma s/p dexamethasone protocol completed course of rocephin and azithromycin diuretics PRN (4) Hyponatremia: Code(s): E87.1 - Hypo-osmolality and hyponatremia Status: Acute Assessment and Plan: has been present as far back as 04/08 presumably due to extensive lung issues (#2 and #3) changed as many IV medications/drips to normal saline carrier fluid next step/consideration would be change free water flushes to normal saline follow trend (5) Sepsis: Code(s): A41.9 - Sepsis, unspecified organism Status: Acute Assessment and Plan: due to COVID-19, pneumonia, and UTI urine grew Enterococcus and Klebsiella blood cultures have been negative to date sputum culture with Klebsiella oxytocia remains on antibiotic therapy (6) Shock: Code(s): R57.9 - Shock, unspecified Status: Acute Assessment and Plan: likely due to a combination of sepsis and hypovolemia on pressors and IVFs PRN follow hemodynamics (7) Anemia: Code(s): D64.9 - Anemia, unspecified Status: Acute Assessment and Plan: due to acute illness PRBC transfusion per protocol follow trend of H/H (8) Diabetes: Code(s): E11.9 - Type 2 diabetes mellitus without complications Status: Acute Assessment and Plan: follow accuchecks on SSI and Lantus Not much else to offer from renal perspective -- will continue to follow intermittently. Subjective Date/time seen: 04/19/21 11:20 No real change apparent at this time -- remains on ventilator support with prone positioning protocol; reasonable urine output noted; fluctuating hemodynamics noted as well; no other acute issues/events overnight or earlier this AM. Exam Narrative: General: WD/WN female in NAD - intubated/sedated Heart: normal S1 and S2; no rub Lungs: coarse breath sounds Abdomen: soft, nontender, nondistended, positive bowel sounds Extremities: no cyanosis or clubbing; mild edema noted Skin: warm and intact Objective Data Vital Signs Vital Signs: Vital Signs Temp Pulse Resp BP Pulse Ox 04/19/21 10:00 36.1 C L 80 22 H 91/59 L 91 04/19/21 09:25 82 22 H 04/19/21 08:20 86 29 H 04/19/21 08:10 85 92 04/19/21 08:09 85 24 H 04/19/21 08:01 87 22 H 04/19/21 08:00 36.7 C 84 22 H 117/62 90 04/19/21 06:00 87 25 H 115/60 92 04/19/21 05:44 86 25 H 04/19/21 05:43 86 25 H
--- NOTE | 2021-04-19 12:04 | WPDINTPN ---
Progress Note: A&P Assessment and Plan (1) Acute respiratory failure with hypoxia: Code(s): J96.01 - Acute respiratory failure with hypoxia Status: Acute Assessment and Plan: Acute respiratory failure secondary to COVID-19 pneumonia 03/12 Admitted 03/15 Intermittent Bipap 03/20 Bipap dependent. 03/21 Intubated. - Patient is on 90% FiO2 and 14 of PEEP. -permissive hypercapnia. Respiratory rate is 22 - Will place patient in supine position for 6 hours as tolerated and back to prone -ABG reviewed -chest x-ray reviewed and shows persistent extensive bilateral pneumonia. -will give a dose of Lasix today -continue Versed, propofol and fentanyl infusion for sedation. PRN NMB - low tidal volume ventilation - Continue bronchodilators -patient has been on ventilator for close to 4 weeks now. She is a candidate for tracheostomy but currently too hypoxic to allow safe procedure. 03/16/2021: Echo with EF 74%, normal diastolic function and no valvular disease. 03/16/2021: Venous doppler of all 4 extremities negative for DVT. 03/18/2021: CTA Chest negative for PE. (2) Pneumonia due to COVID-19 virus: Code(s): U07.1 - COVID-19; J12.82 - Pneumonia due to coronavirus disease 2019 Status: Acute Assessment and Plan: She has NOT been vaccinated for COVID Status post Remdesivir S/p Dexamethasone (20 mg IV q.day for 5 days then dexamethasone 10 mg IV q.day for additional 5 days.) Tocilizumab given once 03/14. Rocephin and azithromycin were stopped after 5 days of treatment. (3) Sepsis: Code(s): A41.9 - Sepsis, unspecified organism Status: Acute Assessment and Plan: Patient was febrile and her WBC had increased Patient was started on empiric vancomycin and Rocephin on 04/10 for sepsis her urine grew Enterococcus and Klebsiella both are sensitive to Rocephin Blood cultures done on 04/07 and 04/13 have been negative till now Sputum culture is growing out Klebsiella oxytoca which is ESBL 04/16 Rocephin was changed to to imipenem Her lipase was normal Bilateral upper and lower, extremity Dopplers were negative for DVT Patient at this time is too unstable for me to transport to [place] She is afebrile over last 24 hours and white count seems to have improved slightly (4) Shock: Code(s): R57.9 - Shock, unspecified Status: Acute Assessment and Plan: Secondary to sepsis versus hypovolemic Patient has been on and off Levophed (5) BROOKE (acute kidney injury): Code(s): N17.9 - Acute kidney failure, unspecified Status: Acute Assessment and Plan: Patient presented with BROOKE which was Likely secondary to hypovolemia and hypotension Patient was given IV fluid bolus and cautious IV fluid maintenance initially and creatinine improved Patient has been diuresed since then. Creatinine again increased over last 2 days Patient was given total of 1500 mL of normal saline. Patient also received PRBC Creatinine continues to be stable. Hold further fluids Monitor urine output creatinine electrolytes (6) Type 2 diabetes mellitus with hyperglycemia: Code(s): E11.65 - Type 2 diabetes mellitus with hyperglycemia Status: Acute Assessment and Plan: HbA1c 12.8 to show poor control prior to admission. Continue AccuCheks covering with sliding scale. Hypoglycemia protocol available as needed. Continue sliding scale insulin Blood sugar has been on the lower side over last 24 hours hence I will hold Lantus at this time (7) Hyperlipidemia: Code(s): E78.5 - Hyperlipidemia, unspecified Status: Acute Assessment and Plan: Hold Pravastatin. Due to increase in LFTs (8) DVT prophylaxis: Code(s): Z29.9 - Encounter for prophylactic measures, unspecified Status: Acute Assessment and Plan: Continue Lovenox (9) Anemia: Code(s): D64.9 - Anemia, unspecified Status: Acute Assessment and Plan: No obvious bleeding
[2021-04-19] MEDS: VANCOMYCIN HCL 1,250 MG in SODIUM CHLORIDE 0.9% IV 250 ML 200 MG IVPB (12:12)
[2021-04-19 12:21] LABS: Glucose Point of Care 77 mg/dl (65-105)
[2021-04-19 17:35] LABS: Glucose Point of Care 70 mg/dl (65-105)
[2021-04-20] VITALS (41 sets, daily range): BP systolic 90–127; BP diastolic 59–75; PULSE 64–89; RESP 19–27; TEMP 36–36.5; O2SAT 87–94
[2021-04-20 00:06] LABS: Glucose Point of Care 86 mg/dl (65-105)
[2021-04-20] MEDS: PROPOFOL IV EMULSION 100 ML 22.39 MG IV CONT ×6 (00:51→21:10)
[2021-04-20] MEDS: FENTANYL 2,500MCG/NS250ML(*CRX 2,500 MCG/250 ML BAG 20 MCG IV CONT ×2 (02:37→16:04)
[2021-04-20] MEDS: IPRATROPIUM BR 0.02% INH SOLN 0.5 MG/2.5 ML VIAL INHALATION ×4 (02:50→20:22)
[2021-04-20] MEDS: ALBUTEROL SULFATE NEB 2.5 MG/0.5 ML INH INHALATION ×4 (02:50→20:22)
[2021-04-20 04:35] LABS: Hematocrit 25.6 % (37.0-47.0); Hemoglobin 7.5 g/dL (12.0-15.0); Mean Corpuscular HGB Conc 29.3 g/dl (32-36); Mean Corpuscular Hemoglobin 27.5 pg (26-34); Mean Corpuscular Volume 93.8 fl (80-100); Mean Platelet Volume 10.3 fl (7.4-10.4); Platelet Count Result 486 k/mm3 (150-375); Red Blood Count 2.73 M/mm3 (4.2-5.4); Red Cell Distribution Width 17.2 % (11.5-14.5); White Blood Count 14.1 K/mm3 (4.5-10.0)
[2021-04-20 04:47] LABS: Alveolar/Arterial O2 Gradient 533.9 mmHg; Base Excess ABG 3.5 mEq/l (+/-2.0); Carboxyhemoglobin 0.3 % THb (0-2.0); Fractional Inspired Oxygen 95 %; HCO3 ABG 31.4 mEq/l (22.0-26.0); Methemoglobin ABG 0.5 %THb (0-1.5); Oxygen Content ABG 10.9 %vol (16.0-22.0); Oxygen Saturation ABG 91.4 % (95.0-100.0); Oxyhemoglobin 91.6 % THb (90.0-100.0); PO2 ABG 71.6 mmHg (80.0-100.0); PO2 FiO2 Ratio Arterial Blood 0.75 %; Reduced Hemoglobin 7.6 %THb (0-5.0); Total Hemoglobin 8.4 g/dL (12.0-18.0)
[2021-04-20 04:48] LABS: Alanine Aminotransferase 179 U/L (4-35); Albumin Level 2.6 g/dL (3.5-5.1); Alkaline Phosphatase 225 U/L (38-126); Anion Gap 5 mmol/L (8-16); Aspartate Amino Transferase 343 U/L (14-36); Bilirubin,Total 0.5 mg/dL (0.2-1.3); Blood Urea Nitrogen 45 mg/dL (7-17); Calcium 7.9 mg/dL (8.4-10.2); Carbon Dioxide 32 mmol/L (22-30); Chloride 87 mmol/L (98-107); Estimated CRCL calculation 64 ml/min; Estimated Glomerular Filt Rate > 60; Glucose 95 mg/dL (65-110); Magnesium 2.9 mg/dL (1.6-2.3); Potassium 4.6 mmol/L (3.4-5.0); Sodium 124 mmol/L (137-145)
[2021-04-20 04:50] LABS: Device VENTILATOR; Modified Allen's Test Unable to perform; Site Drawn LEFT RADIAL; pH ABG 7.264 (7.350-7.450)
[2021-04-20 04:51] LABS: Arterial Blood Gas PEEP 14 cmH2O; Arterial Blood Gas Tidal Volume 360 ml; Arterial Blood Gas Vent Mode CMV; Arterial Blood Gas Ventilator rate 22 /MIN
[2021-04-20] MEDS: CENTRAL LINE FLUSH 10 ML IV PUSH ×3 (04:58→20:36)
[2021-04-20] MEDS: HEPARIN SODIUM 5,000 UNITS/ML VIAL 5000 UNITS SUB-Q ×3 (04:58→21:05)
[2021-04-20] MEDS: MINERAL OIL/WHITE PETROLATUM OINTMENT 1 APPLIC EACH EYE ×2 (08:59→20:35)
[2021-04-20] MEDS: FUROSEMIDE INJ 40 MG/4 ML VIAL IV PUSH (08:59)
[2021-04-20] MEDS: PANTOPRAZOLE SODIUM IV 40 MG VIAL IV PUSH ×2 (09:00→20:35)
--- NOTE | 2021-04-20 11:29 | P.PNINT_ITS ---
Progress Note: A&P Assessment and Plan (1) Acute respiratory failure with hypoxia: Code(s): J96.01 - Acute respiratory failure with hypoxia Status: Acute Assessment and Plan: Acute respiratory failure secondary to COVID-19 pneumonia 03/12 Admitted 03/15 Intermittent Bipap 03/20 Bipap dependent. 03/21 Intubated. - Patient is on 100% FiO2 and 14 of PEEP. - ABG reviewed and shows hypercarbia and respiratory acidosis. pressures are high on the ventilator with not much room to increase ventilation or PEEP. will tolerate permissive hypercapnia. treat pH less than 7.2. currently Respiratory rate is at 22 - Will place patient in supine position for 6 hours as tolerated and back to prone -chest x-ray reviewed and shows persistent extensive bilateral pneumonia. -will give a dose of Lasix againtoday -continue Versed, propofol and fentanyl infusion for sedation. PRN NMB - low tidal volume ventilation - Continue bronchodilators -patient has been on ventilator for close to 4 weeks now. She is a candidate for tracheostomy but currently too hypoxic to allow safe procedure. 03/16/2021: Echo with EF 74%, normal diastolic function and no valvular disease. 03/16/2021: Venous doppler of all 4 extremities negative for DVT. 03/18/2021: CTA Chest negative for PE. (2) Pneumonia due to COVID-19 virus: Code(s): U07.1 - COVID-19; J12.82 - Pneumonia due to coronavirus disease 2019 Status: Acute Assessment and Plan: She has NOT been vaccinated for COVID Status post Remdesivir S/p Dexamethasone (20 mg IV q.day for 5 days then dexamethasone 10 mg IV q.day for additional 5 days.) Tocilizumab given once 03/14. Rocephin and azithromycin were stopped after 5 days of treatment. (3) Sepsis: Code(s): A41.9 - Sepsis, unspecified organism Status: Acute Assessment and Plan: Patient was febrile and her WBC had increased Patient was started on empiric vancomycin and Rocephin on 04/10 for sepsis her urine grew Enterococcus and Klebsiella both are sensitive to Rocephin Blood cultures done on 04/07 and 04/13 have been negative till now Sputum culture is growing out Klebsiella oxytoca which is ESBL 04/16 Rocephin was changed to to imipenem Her lipase was normal Bilateral upper and lower, extremity Dopplers were negative for DVT Patient at this time is too unstable for me to transport to CT She is afebrile over last 24 hours and white count seems to have improved slightly (4) Shock: Code(s): R57.9 - Shock, unspecified Status: Acute Assessment and Plan: Secondary to sepsis versus hypovolemic Patient has been on and off Levophed (5) BROOKE (acute kidney injury): Code(s): N17.9 - Acute kidney failure, unspecified Status: Acute Assessment and Plan: Patient presented with BROOKE which was Likely secondary to hypovolemia and hypotension Patient was given IV fluid bolus and cautious IV fluid maintenance initially and creatinine improved Patient has been diuresed since then. Creatinine again increased over last 2 days Patient was given total of 1500 mL of normal saline. Patient also received PRBC Creatinine continues to be stable. Hold further fluids Monitor urine output creatinine electrolytes (6) Type 2 diabetes mellitus with hyperglycemia: Code(s): E11.65 - Type 2 diabetes mellitus with hyperglycemia Status: Acute Assessment and Plan: HbA1c 12.8 to show poor control prior to admission. Continue AccuCheks covering with sliding scale. Hypoglycemia protocol available as needed. Continue sliding scale insulin Blood sugar has been on the lower masha
[2021-04-20 12:17] LABS: Glucose Point of Care 123 mg/dl (65-105)
[2021-04-20 12:30] LABS: Creatinine Urine 25.3 mg/dL
--- NOTE | 2021-04-20 12:49 | PCDIET ---
Nutrition Follow-Up Complete: Nutrition Diagnosis: Inadequate oral intake related to decreased appetite as evidenced by intakes 50% or less at most meals x 1 week. Nutrition Goal: Patient to meet estimated nutritional needs. Goal met. Patient tolerating Glucerna 1.2 at 40mL/hr with 30mL water flush every 4 hours and Pro-Stat flush BID. Residuals 100mL and below. Last recorded weight is 104.7 kg which is down from last review. +I/O. Bowel Motility: Last documented BM on 04/19/21 x 1. Labs Reviewed: WBC (14.1), RBC (2.73), Hgb (7.5), Hct (25.6), BUN (45), Na (124), Alb (2.6), Tyler Ca (9.02), Mg (2.9) Meds Noted: Propofol (rate of 22.39mL/hr provides 591kcal per day), Albuterol, Fentanyl, Atrovent, Versed, Levophed, Imipenem, Protonix, KCl, Zemuron, Vancomycin, Lasix Additional Notes: Right wrist and left cheek skin tears. Discussed with MD that blood sugars have been lower. Discussed that Jevity 1.2 at same rate is an option, but continuing on Glucerna 1.2 is also appropriate. MD plan to continue sliding scale insulin for now. Will continue to monitor with same goal. Nutrition Monitoring and Evaluation: Follow up every Monday/Monday.
[2021-04-20] MEDS: MIDAZOLAM 100MG/NS 100ML(*CRX) 100 MG/100 ML BAG 6 MG IV CONT (13:59)
[2021-04-20 14:25] LABS: Sodium Urine Random < 5 meq/L
[2021-04-20 17:17] LABS: Glucose Point of Care 146 mg/dl (65-105)
[2021-04-20] MEDS: VANCOMYCIN HCL 1,250 MG in SODIUM CHLORIDE 0.9% IV 250 ML 200 MG IVPB (23:50)
[2021-04-20 23:56] LABS: Glucose Point of Care 170 mg/dl (65-105)
[2021-04-21] VITALS (51 sets, daily range): BP systolic 104–135; BP diastolic 61–72; PULSE 68–97; RESP 20–26; TEMP 36.1–36.7; O2SAT 82–97
[2021-04-21] MEDS: PROPOFOL IV EMULSION 100 ML 22.39 MG IV CONT ×6 (01:32→22:01)
[2021-04-21] MEDS: IPRATROPIUM BR 0.02% INH SOLN 0.5 MG/2.5 ML VIAL INHALATION ×4 (02:31→20:09)
[2021-04-21] MEDS: ALBUTEROL SULFATE NEB 2.5 MG/0.5 ML INH INHALATION ×4 (02:31→20:09)
[2021-04-21] MEDS: FENTANYL 2,500MCG/NS250ML(*CRX 2,500 MCG/250 ML BAG 20 MCG IV CONT ×2 (04:42→17:36)
[2021-04-21 04:56] LABS: Hematocrit 24.5 % (37.0-47.0); Hemoglobin 7.2 g/dL (12.0-15.0); Mean Corpuscular HGB Conc 29.4 g/dl (32-36); Mean Corpuscular Hemoglobin 27.7 pg (26-34); Mean Corpuscular Volume 94.2 fl (80-100); Mean Platelet Volume 10.2 fl (7.4-10.4); Platelet Count Result 529 k/mm3 (150-375); Red Cell Distribution Width 17.8 % (11.5-14.5); White Blood Count 13.1 K/mm3 (4.5-10.0)
[2021-04-21 05:04] LABS: Alanine Aminotransferase 117 U/L (4-35); Albumin Level 2.5 g/dL (3.5-5.1); Alkaline Phosphatase 227 U/L (38-126); Anion Gap 9 mmol/L (8-16); Aspartate Amino Transferase 135 U/L (14-36); Bilirubin,Total 0.5 mg/dL (0.2-1.3); Blood Urea Nitrogen 49 mg/dL (7-17); Carbon Dioxide 31 mmol/L (22-30); Chloride 89 mmol/L (98-107); Estimated CRCL calculation 71 ml/min; Estimated Glomerular Filt Rate > 60; Glucose 162 mg/dL (65-110); Magnesium 2.7 mg/dL (1.6-2.3); Potassium 4.7 mmol/L (3.4-5.0); Sodium 129 mmol/L (137-145)
[2021-04-21] MEDS: MIDAZOLAM 100MG/NS 100ML(*CRX) 100 MG/100 ML BAG 6 MG IV CONT ×2 (05:30→22:02)
[2021-04-21] MEDS: CENTRAL LINE FLUSH 10 ML IV PUSH ×3 (05:33→20:55)
[2021-04-21] MEDS: HEPARIN SODIUM 5,000 UNITS/ML VIAL 5000 UNITS SUB-Q ×3 (05:33→20:54)
[2021-04-21 06:03] LABS: Fractional Inspired Oxygen 100 %; HCO3 ABG 29.7 mEq/l (22.0-26.0); Methemoglobin ABG 0.6 %THb (0-1.5); Oxygen Content ABG 10.9 %vol (16.0-22.0); Oxygen Saturation ABG 94.7 % (95.0-100.0); Oxyhemoglobin 93.8 % THb (90.0-100.0); PCO2 ABG 59.3 mmHg (35.0-45.0); PO2 ABG 80.7 mmHg (80.0-100.0); PO2 FiO2 Ratio Arterial Blood 0.81 %; Reduced Hemoglobin 5.6 %THb (0-5.0); Total Hemoglobin 8.2 g/dL (12.0-18.0); pH ABG 7.318 (7.350-7.450)
[2021-04-21 06:04] LABS: Device VENTILATOR; Modified Allen's Test Pass; Site Drawn LEFT RADIAL
[2021-04-21 06:05] LABS: Arterial Blood Gas PEEP 14 cmH2O; Arterial Blood Gas Tidal Volume 360 ml; Arterial Blood Gas Vent Mode CMV; Arterial Blood Gas Ventilator rate 22 /MIN
[2021-04-21] MEDS: MINERAL OIL/WHITE PETROLATUM OINTMENT 1 APPLIC EACH EYE ×2 (08:37→20:54)
[2021-04-21] MEDS: PANTOPRAZOLE SODIUM IV 40 MG VIAL IV PUSH ×2 (08:38→20:54)
--- NOTE | 2021-04-21 10:54 | PCDIET ---
ICU Rounding Note: Patient tolerating Glucerna 1.2 at 40mL/hr with 100mL NS flush every 4 hours and Pro-Stat flush BID. Plan for family meeting today. Last recorded weight is 105.0kg which is stable with last review. Bowel Motility: Last documented BM on 04/19/21 x 1. Labs Reviewed: Hgb (7.2), Hct (24.5), Glu (162), Na (129), Alb (2.5), Tyler Ca (9.2), Mg (2.7) Meds Noted: Zemuron, Vancomycin, Atrovent, Versed, Protonix, Albuterol, Fentanyl, Imipenem, Novolog, Lantus Additional Notes: Right wrist and left cheek with skin tears. Following daily in ICU rounds. Assessing/reassessing every Monday/Monday.
[2021-04-21] MEDS: FUROSEMIDE INJ 40 MG/4 ML VIAL IV PUSH (11:14)
--- NOTE | 2021-04-21 11:35 | WPDINTPN ---
Progress Note: A&P Assessment and Plan (1) Acute respiratory failure with hypoxia: Code(s): J96.01 - Acute respiratory failure with hypoxia Status: Acute Assessment and Plan: Acute respiratory failure secondary to COVID-19 pneumonia 03/12 Admitted 03/15 Intermittent Bipap 03/20 Bipap dependent. 03/21 Intubated. - Patient is on 100% FiO2 and 14 of PEEP. - ABG reviewed and shows hypercarbia and respiratory acidosis. pressures are high on the ventilator with not much room to increase ventilation or PEEP. will tolerate permissive hypercapnia. treat pH less than 7.2. currently Respiratory rate is at 22 - Will place patient in supine position for 6 hours as tolerated and back to prone -chest x-ray reviewed and shows persistent extensive bilateral pneumonia. -will give a dose of Lasix again today -continue Versed, propofol and fentanyl infusion for sedation. PRN NMB - low tidal volume ventilation - Continue bronchodilators -patient has been on ventilator for close to 4 weeks now. She is a candidate for tracheostomy but currently too hypoxic to allow safe procedure. 03/16/2021: Echo with EF 74%, normal diastolic function and no valvular disease. 03/16/2021: Venous doppler of all 4 extremities negative for DVT. 03/18/2021: CTA Chest negative for PE. (2) Pneumonia due to COVID-19 virus: Code(s): U07.1 - COVID-19; J12.82 - Pneumonia due to coronavirus disease 2019 Status: Acute Assessment and Plan: She has NOT been vaccinated for COVID Status post Remdesivir S/p Dexamethasone (20 mg IV q.day for 5 days then dexamethasone 10 mg IV q.day for additional 5 days.) Tocilizumab given once 03/14. Rocephin and azithromycin were stopped after 5 days of treatment. (3) Sepsis: Code(s): A41.9 - Sepsis, unspecified organism Status: Acute Assessment and Plan: Patient was febrile and her WBC had increased Patient was started on empiric vancomycin and Rocephin on 04/10 for sepsis her urine grew Enterococcus and Klebsiella both are sensitive to Rocephin Blood cultures done on 04/07 and 04/13 have been negative till now Sputum culture is growing out Klebsiella oxytoca which is ESBL 04/16 Rocephin was changed to to imipenem Her lipase was normal Bilateral upper and lower, extremity Dopplers were negative for DVT Patient at this time is too unstable for me to transport to CT She is afebrile over last 24 hours and white count seems to have improved slightly (4) Shock: Code(s): R57.9 - Shock, unspecified Status: Acute Assessment and Plan: Secondary to sepsis versus hypovolemic Patient has been on and off Levophed (5) BROOKE (acute kidney injury): Code(s): N17.9 - Acute kidney failure, unspecified Status: Acute Assessment and Plan: Patient presented with BROOKE which was Likely secondary to hypovolemia and hypotension Patient was given IV fluid bolus and cautious IV fluid maintenance initially and creatinine improved Patient has been diuresed since then. Creatinine again increased over last 2 days Patient was given total of 1500 mL of normal saline. Patient also received PRBC Creatinine continues to be stable. Hold further fluids Monitor urine output creatinine electrolytes (6) Type 2 diabetes mellitus with hyperglycemia: Code(s): E11.65 - Type 2 diabetes mellitus with hyperglycemia Status: Acute Assessment and Plan: HbA1c 12.8 to show poor control prior to admission. Continue AccuCheks covering with sliding scale. Hypoglycemia protocol available as needed. Continue sliding scale insulin Blood sugar has been on the lower side over last 24 hours hence I will hold Lantus at this time (7) Hyperlipidemia: Code(s): E78.5 - Hyperlipidemia, unspecified Status: Acute Assessment and Plan: Hold Pravastatin. Due to increase in LFTs (8) DVT prophylaxis: Code(s): Z29.9 - Encounter for prophylactic measures, unspecified
[2021-04-21] MEDS: INSULIN ASPART (*BKC) 100 UNITS/ML SUB-Q ×2 (12:48→17:39)
[2021-04-21 12:57] LABS: Glucose Point of Care 214 mg/dl (65-105)
--- NOTE | 2021-04-21 16:09 | PC.NURSE ---
Spoke with Dr. Shah regarding patient O2 sats 80-82%. Pt proned and at 100% FiO2 with peep of 14. New order to increase peep to 16 and give one time dose of Rocuronium 50 mg IVP.
[2021-04-21] MEDS: ROCURONIUM BROMIDE 50 MG/5 ML VIAL IV PUSH (16:14)
[2021-04-21 18:33] LABS: Glucose Point of Care 204 mg/dl (65-105)
[2021-04-21 23:39] LABS: Glucose Point of Care 158 mg/dl (65-105)
[2021-04-22] VITALS (46 sets, daily range): BP systolic 106–144; BP diastolic 58–76; PULSE 88–106; RESP 22–35; TEMP 36.4–37.7; O2SAT 84–95
[2021-04-22] MEDS: ALBUTEROL SULFATE NEB 2.5 MG/0.5 ML INH INHALATION ×3 (02:15→20:30)
[2021-04-22] MEDS: IPRATROPIUM BR 0.02% INH SOLN 0.5 MG/2.5 ML VIAL INHALATION ×3 (02:15→20:30)
[2021-04-22] MEDS: PROPOFOL IV EMULSION 100 ML 22.39 MG IV CONT ×6 (02:35→21:55)
[2021-04-22 04:17] LABS: Alveolar/Arterial O2 Gradient 564.7 mmHg; Base Excess ABG 3.5 mEq/l (+/-2.0); Carboxyhemoglobin 0.3 % THb (0-2.0); Fractional Inspired Oxygen 100 %; HCO3 ABG 31.2 mEq/l (22.0-26.0); Methemoglobin ABG 0.5 %THb (0-1.5); Oxygen Content ABG 11.3 %vol (16.0-22.0); Oxyhemoglobin 93.8 % THb (90.0-100.0); PO2 ABG 80.3 mmHg (80.0-100.0); Reduced Hemoglobin 5.4 %THb (0-5.0); Total Hemoglobin 8.5 g/dL (12.0-18.0)
[2021-04-22 04:18] LABS: pH ABG 7.279 (7.350-7.450)
[2021-04-22 04:19] LABS: Arterial Blood Gas PEEP 16 cmH2O; Arterial Blood Gas Tidal Volume 360 ml; Arterial Blood Gas Vent Mode CMV; Arterial Blood Gas Ventilator rate 22 /MIN; Device VENTILATOR; Modified Allen's Test Pass; Site Drawn RIGHT RADIAL
[2021-04-22 04:48] LABS: Hemoglobin 7.5 g/dL (12.0-15.0); Mean Corpuscular HGB Conc 28.8 g/dl (32-36); Mean Corpuscular Hemoglobin 28.5 pg (26-34); Mean Corpuscular Volume 98.9 fl (80-100); Mean Platelet Volume 10.4 fl (7.4-10.4); Platelet Count Result 551 k/mm3 (150-375); Red Blood Count 2.63 M/mm3 (4.2-5.4); Red Cell Distribution Width 18.6 % (11.5-14.5); White Blood Count 14.7 K/mm3 (4.5-10.0)
[2021-04-22 05:04] LABS: Alanine Aminotransferase 78 U/L (4-35); Albumin Level 2.6 g/dL (3.5-5.1); Alkaline Phosphatase 217 U/L (38-126); Anion Gap 8 mmol/L (8-16); Aspartate Amino Transferase 71 U/L (14-36); Bilirubin,Total 0.6 mg/dL (0.2-1.3); Blood Urea Nitrogen 52 mg/dL (7-17); Calcium 8.3 mg/dL (8.4-10.2); Carbon Dioxide 32 mmol/L (22-30); Chloride 91 mmol/L (98-107); Estimated CRCL calculation 71 ml/min; Estimated Glomerular Filt Rate > 60; Glucose 164 mg/dL (65-110); Magnesium 2.5 mg/dL (1.6-2.3); Potassium 4.9 mmol/L (3.4-5.0); Sodium 131 mmol/L (137-145)
[2021-04-22] MEDS: HEPARIN SODIUM 5,000 UNITS/ML VIAL 5000 UNITS SUB-Q ×3 (05:09→22:00)
[2021-04-22] MEDS: CENTRAL LINE FLUSH 10 ML IV PUSH ×3 (05:10→22:01)
[2021-04-22] MEDS: FENTANYL 2,500MCG/NS250ML(*CRX 2,500 MCG/250 ML BAG 20 MCG IV CONT ×2 (06:25→18:16)
[2021-04-22] MEDS: ROCURONIUM BROMIDE 50 MG/5 ML VIAL IV PUSH ×4 (07:24→17:19)
[2021-04-22] MEDS: MINERAL OIL/WHITE PETROLATUM OINTMENT 1 APPLIC EACH EYE ×2 (08:42→20:53)
[2021-04-22] MEDS: FUROSEMIDE INJ 40 MG/4 ML VIAL IV PUSH (08:43)
[2021-04-22] MEDS: PANTOPRAZOLE SODIUM IV 40 MG VIAL IV PUSH ×2 (08:43→20:52)
[2021-04-22] MEDS: VANCOMYCIN HCL 1,250 MG in SODIUM CHLORIDE 0.9% IV 250 ML 200 MG IVPB (09:36)
--- NOTE | 2021-04-22 11:29 | PCDIET ---
ICU Rounding Note: Patient tolerating Glucerna 1.2 at 40mL/hr with 100mL NS flush every 4 hours and Pro-Stat flush BID. Last recorded weight is 105kg which is stable with last review. Bowel Motility: BM x 1 on 04/21/21. Labs Reviewed: WBC (14.7), RBC (2.63), Hgb (7.5), Hct (26.0), Glu (164), BUN (52), Na (131), Alb (2.6), Mg (2.5) Meds Noted: Albuterol, Fentanyl, Lasix, Primaxin, Atrovent, Novolog, Lantus, Versed, Protonix, Zemuron, Vancomycin, Propofol (rate of 22.39mL/hr provides 591kcal per day) Additional Notes: Right wrist and left cheek skin tears. No other skin breakdown documented. Following daily in ICU rounds. Assessing/reassessing every Monday/Monday.
[2021-04-22 13:04] LABS: Glucose Point of Care 178 mg/dl (65-105)
--- NOTE | 2021-04-22 13:20 | WPDINTPN ---
Progress Note: A&P Assessment and Plan (1) Acute respiratory failure with hypoxia: Code(s): J96.01 - Acute respiratory failure with hypoxia Status: Acute Assessment and Plan: Acute respiratory failure secondary to COVID-19 pneumonia 03/12 Admitted 03/15 Intermittent Bipap 03/20 Bipap dependent. 03/21 Intubated. - Patient is on 100% FiO2 and 16 of PEEP. - ABG reviewed and shows hypercarbia and respiratory acidosis. pressures are high on the ventilator with not much room to increase ventilation or PEEP. will tolerate permissive hypercapnia. treat pH less than 7.2. currently Respiratory rate is at 22 - Will place patient in supine position for 6 hours as tolerated and back to prone -chest x-ray reviewed and shows persistent extensive bilateral pneumonia. -will give a dose of Lasix again today -continue Versed, propofol and fentanyl infusion for sedation. PRN NMB. she will given a dose of rocuronium this morning as she was a synchronous with the ventilator and desaturating. may have to start infusion - low tidal volume ventilation - Continue bronchodilators -patient has been on ventilator for close to 4 weeks now. She is a candidate for tracheostomy but currently too hypoxic to allow safe procedure. 03/16/2021: Echo with EF 74%, normal diastolic function and no valvular disease. 03/16/2021: Venous doppler of all 4 extremities negative for DVT. 03/18/2021: CTA Chest negative for PE. (2) Pneumonia due to COVID-19 virus: Code(s): U07.1 - COVID-19; J12.82 - Pneumonia due to coronavirus disease 2019 Status: Acute Assessment and Plan: She has NOT been vaccinated for COVID Status post Remdesivir S/p Dexamethasone (20 mg IV q.day for 5 days then dexamethasone 10 mg IV q.day for additional 5 days.) Tocilizumab given once 03/14. Rocephin and azithromycin were stopped after 5 days of treatment. (3) Sepsis: Code(s): A41.9 - Sepsis, unspecified organism Status: Acute Assessment and Plan: Patient was febrile and her WBC had increased Patient was started on empiric vancomycin and Rocephin on 04/10 for sepsis her urine grew Enterococcus and Klebsiella both are sensitive to Rocephin Blood cultures done on 04/07 and 04/13 have been negative till now Sputum culture is growing out Klebsiella oxytoca which is ESBL 04/16 Rocephin was changed to to imipenem Her lipase was normal Bilateral upper and lower, extremity Dopplers were negative for DVT Patient at this time is too unstable for me to transport to CT She is afebrile over last 24 hours and white count seems to have improved slightly (4) Shock: Code(s): R57.9 - Shock, unspecified Status: Acute Assessment and Plan: Secondary to sepsis versus hypovolemic Patient has been on and off Levophed (5) BROOKE (acute kidney injury): Code(s): N17.9 - Acute kidney failure, unspecified Status: Acute Assessment and Plan: Patient presented with BROOKE which was Likely secondary to hypovolemia and hypotension Patient was given IV fluid bolus and cautious IV fluid maintenance initially and creatinine improved Patient has been diuresed since then. Creatinine again increased over last 2 days Patient was given total of 1500 mL of normal saline. Patient also received PRBC Creatinine continues to be stable. Hold further fluids Monitor urine output creatinine electrolytes (6) Type 2 diabetes mellitus with hyperglycemia: Code(s): E11.65 - Type 2 diabetes mellitus with hyperglycemia Status: Acute Assessment and Plan: HbA1c 12.8 to show poor control prior to admission. Continue AccuCheks covering with sliding scale. Hypoglycemia protocol available as needed. Continue sliding scale insulin Blood sugar has been on the lower side over last 24 hours hence I will hold Lantus at this time (7) Hyperlipidemia: Code(s): E78.5 - Hyperlipidemia, unspecified Status: Acute Assessment and Plan:
[2021-04-22] MEDS: MIDAZOLAM 100MG/NS 100ML(*CRX) 100 MG/100 ML BAG 7 MG IV CONT (14:23)
[2021-04-22] MEDS: INSULIN ASPART (*BKC) 100 UNITS/ML SUB-Q (17:18)
[2021-04-22 17:29] LABS: Glucose Point of Care 227 mg/dl (65-105)
[2021-04-23] VITALS (71 sets, daily range): BP systolic 90–130; BP diastolic 58–71; PULSE 75–99; RESP 2–35; TEMP 35.8–37.3; O2SAT 87–100
[2021-04-23 00:32] LABS: Glucose Point of Care 174 mg/dl (65-105)
[2021-04-23] MEDS: PROPOFOL IV EMULSION 100 ML 22.39 MG IV CONT ×7 (01:24→23:23)
[2021-04-23] MEDS: ALBUTEROL SULFATE NEB 2.5 MG/0.5 ML INH INHALATION ×2 (01:49→09:25)
[2021-04-23] MEDS: IPRATROPIUM BR 0.02% INH SOLN 0.5 MG/2.5 ML VIAL INHALATION ×2 (01:49→09:25)
[2021-04-23 04:45] LABS: Hematocrit 25.9 % (37.0-47.0); Hemoglobin 7.5 g/dL (12.0-15.0); Mean Corpuscular Hemoglobin 28.3 pg (26-34); Mean Corpuscular Volume 97.7 fl (80-100); Mean Platelet Volume 10.4 fl (7.4-10.4); Platelet Count Result 538 k/mm3 (150-375); Red Blood Count 2.65 M/mm3 (4.2-5.4); Red Cell Distribution Width 18.9 % (11.5-14.5); White Blood Count 15.2 K/mm3 (4.5-10.0)
[2021-04-23 04:54] LABS: Alveolar/Arterial O2 Gradient 585.1 mmHg; Base Excess ABG 2.6 mEq/l (+/-2.0); Carboxyhemoglobin 0.3 % THb (0-2.0); Device VENTILATOR; Fractional Inspired Oxygen 100 %; HCO3 ABG 28.6 mEq/l (22.0-26.0); Methemoglobin ABG 0.4 %THb (0-1.5); Modified Allen's Test Pass; Oxygen Content ABG 11.1 %vol (16.0-22.0); Oxygen Saturation ABG 94.6 % (95.0-100.0); Oxyhemoglobin 92.8 % THb (90.0-100.0); PCO2 ABG 51.7 mmHg (35.0-45.0); PO2 ABG 76.2 mmHg (80.0-100.0); PO2 FiO2 Ratio Arterial Blood 0.76 %; Reduced Hemoglobin 6.5 %THb (0-5.0); Site Drawn RIGHT RADIAL; Total Hemoglobin 8.4 g/dL (12.0-18.0)
[2021-04-23 04:55] LABS: Arterial Blood Gas PEEP 16 cmH2O; Arterial Blood Gas Tidal Volume 360 ml; Arterial Blood Gas Vent Mode CMV; Arterial Blood Gas Ventilator rate 22 /MIN
[2021-04-23] MEDS: MIDAZOLAM 100MG/NS 100ML(*CRX) 100 MG/100 ML BAG 7 MG IV CONT (05:01)
[2021-04-23 05:03] LABS: Alanine Aminotransferase 47 U/L (4-35); Albumin Level 2.5 g/dL (3.5-5.1); Alkaline Phosphatase 200 U/L (38-126); Anion Gap 4 mmol/L (8-16); Aspartate Amino Transferase 50 U/L (14-36); Bilirubin,Total 0.6 mg/dL (0.2-1.3); Blood Urea Nitrogen 55 mg/dL (7-17); Calcium 8.3 mg/dL (8.4-10.2); Carbon Dioxide 30 mmol/L (22-30); Chloride 98 mmol/L (98-107); Estimated CRCL calculation 85 ml/min; Estimated Glomerular Filt Rate > 60; Glucose 181 mg/dL (65-110); Magnesium 2.4 mg/dL (1.6-2.3); Potassium 4.9 mmol/L (3.4-5.0); Sodium 132 mmol/L (137-145)
[2021-04-23 05:27] LABS: Osmolality, Urine 305 mOsm/kg (50-1200)
[2021-04-23] MEDS: CENTRAL LINE FLUSH 10 ML IV PUSH ×3 (06:02→20:38)
[2021-04-23] MEDS: HEPARIN SODIUM 5,000 UNITS/ML VIAL 5000 UNITS SUB-Q ×3 (06:02→20:38)
[2021-04-23 06:20] LABS: Glucose Point of Care 194 mg/dl (65-105)
[2021-04-23] MEDS: FENTANYL 2,500MCG/NS250ML(*CRX 2,500 MCG/250 ML BAG 20 MCG IV CONT ×2 (08:00→19:57)
[2021-04-23] MEDS: FUROSEMIDE INJ 40 MG/4 ML VIAL IV PUSH ×2 (08:46→11:44)
[2021-04-23] MEDS: PANTOPRAZOLE SODIUM IV 40 MG VIAL IV PUSH ×2 (08:46→20:38)
[2021-04-23] MEDS: MINERAL OIL/WHITE PETROLATUM OINTMENT 1 APPLIC EACH EYE ×2 (08:47→20:37)
[2021-04-23] MEDS: ROCURONIUM BROMIDE 50 MG/5 ML VIAL IV PUSH (09:19)
[2021-04-23] MEDS: EPOPROSTENOL SODIUM 0.5 MG VIAL 1 MG INHALATION ×3 (10:30→21:49)
[2021-04-23] MEDS: ALBUMIN HUMAN 25% 12.5 GM/50ML 50 ML IVPB ×3 (10:30→20:37)
[2021-04-23] MEDS: CISATRACURIUM BESYLATE 200 MG in SODIUM CHLORIDE 0.9% IV 80 ML 9.96 ML IV CONT ×2 (10:31→23:39)
--- NOTE | 2021-04-23 11:55 | PCDIET ---
Nutrition Follow-Up Complete: Nutrition Diagnosis: Inadequate oral intake related to decreased appetite as evidenced by intakes 50% or less at most meals x 1 week. Nutrition Goal: Patient to meet estimated nutritional needs. Goal met. Patient tolerating Glucerna 1.2 at 40mL/hr with Pro-Stat flush BID and 100mL NS every 4 hours. Last recorded weight is 110.7 kg which is down from last review, but remains significantly increased from admission. +I/O. Bowel Motility: Last documented BM on 04/22/21 x 1. Labs Reviewed: WBC (15.2), RBC (2.65), Hgb (7.5), Hct (25.9), Glu (181), BUN (55), Na (132), Alb (2.5), Mg (2.4) Meds Noted: Propofol (rate of 22.39mL/hr provides 591kcal per day), Albuterol, Apresoline, Protonix, Fentanyl, Lasix, Imipenem, Atrovent, Versed, Vancomycin, Zemuron Additional Notes: Skin tears to left cheek and right wrist. Will continue to monitor with same goal. Nutrition Monitoring and Evaluation: Follow up every Monday/Monday.
[2021-04-23 12:41] LABS: Glucose Point of Care 191 mg/dl (65-105)
--- NOTE | 2021-04-23 13:25 | PM.IMPN ---
Progress Note: A&P Assessment and Plan (1) Pneumonia due to COVID-19 virus: Code(s): U07.1 - COVID-19; J12.82 - Pneumonia due to coronavirus disease 2019 Status: Acute Assessment and Plan: 04/23/21 13:25 patient is 65-year-old female was diagnosed with a COVID-19 admitted on03/12 patient respiratory symptoms were worsening initially treated with BiPAP on 03/12 and patient was intubated on 03/21 and remains on ventilator and has a persistent hypercarbia and respiratory acidosis, patient completed a course of remdesivir and dexamethasone 20 mg IV for 5 days currently on dexamethasone 10 mg for additional 5 days, Tocilizumab given once 03/14., patient remains on ventilator, patient seen by assemblyman or woman and enrico. (2) Acute respiratory failure with hypoxia: Code(s): J96.01 - Acute respiratory failure with hypoxia Status: Acute Assessment and Plan: secondary to COVID pneumonia (3) Sepsis: Code(s): A41.9 - Sepsis, unspecified organism Status: Acute Assessment and Plan: sputum culture is growing Klebsiella oxytoca and urine culture is growing Klebsiella pneumonia and Enterococcus, blood cultures are negative so far patient is being treated with imipenem and vancomycin remains clinically stable (4) Shock: Code(s): R57.9 - Shock, unspecified Status: Acute Assessment and Plan: most likely secondary to UTI, patient was on Levophed been taken off a blood pressure remains stable (5) BROOKE (acute kidney injury): Code(s): N17.9 - Acute kidney failure, unspecified Status: Acute Assessment and Plan: most likely secondary to COVID pneumonia, dehydration patient is being gently hydrated and kidney function now close to normal. Subjective Date/time seen: 04/23/21 13:25 patient is 65-year-old female was diagnosed with a COVID-19 admitted on03/12 patient respiratory symptoms were worsening initially treated with BiPAP on 03/12 and patient was intubated on 03/21 and remains on ventilator and has a persistent hypercarbia and respiratory acidosis, patient completed a course of remdesivir and dexamethasone 20 mg IV for 5 days currently on dexamethasone 10 mg for additional 5 days, Tocilizumab given once 03/14. patient remains on ventilator, patient seen by assemblyman or woman and enrico. Review of Systems Review of Systems: ROS unobtainable: Yes unobtainable due to endotracheal tube Exam Narrative: Patient is comfortable, NAD HEENT: ET tube in place LUNGS: normal respiratory effort ABD: distended Lower extremities: no edema SKIN: nonjaundiced Neuro: on vent and sedated. Objective Data Vital Signs Vital Signs: Vital Signs - 24 hr 04/22/21 13:58 04/22/21 14:00 04/22/21 14:11 Temperature 99.2 F Pulse Rate 98 104 H 104 H Respiratory Rate 32 H 22 H Blood Pressure 144/76 H Pulse Oximetry 84 L 84 L 04/22/21 14:15 04/22/21 14:19 04/22/21 14:23 Temperature Pulse Rate 106 H 88 104 H Respiratory Rate 22 H 31 H 22 H Blood Pressure Pulse Oximetry 04/22/21 16:00 04/22/21 17:15 04/22/21 18:00 Temperature 99.7 F H 99.8 F H Pulse Rate 97 101 H 101 H Respiratory Rate 22 H 22 H Blood Pressure 123/70 108/66 Pulse Oximetry 90 88 L 92 04/22/21 18:15 04/22/21 18:16 04/22/21 20:00 Temperature 99.7 F H Pulse Rate 101 H 101 H 97 Respiratory Rate 24 H 24 H 35 H Blood Pressure 106/63 Pulse Oximetry 87 L 04/22/21 20:31 04/22/21 20:33 04/22/21 20:36 Temperature Pulse Rate 96 97 97 Respiratory Rate 33 H 35 H Blood Pressure Pulse Oximetry 87 L 04/22/21 21:55 04/22/21 22:00 04/22/21 22:44 Temperature 99.4 F Pulse Rate 94 94 94 Respiratory Rate 22 H 22 H Blood Pressure 117/60 Pulse Oximetry 93 86 L 04/23/21 00:00 04/23/21 01:24 04/23/21 01:49 Temperature 99.2 F Pulse Rate 92 91 90 Respiratory Rate 31 H 31 H 35 H Blood Pressure 105/60 Pulse Oximetry 87 L 04/23/21 01:53 04/23/21
[2021-04-23] MEDS: CISATRACURIUM BESYLATE 200 MG in SODIUM CHLORIDE 0.9% IV 80 ML 16.61 ML IV CONT (15:35)
[2021-04-23] MEDS: INSULIN ASPART (*BKC) 100 UNITS/ML SUB-Q (18:13)
[2021-04-23 19:46] LABS: Glucose Point of Care 227 mg/dl (65-105)
[2021-04-23] MEDS: MIDAZOLAM 100MG/NS 100ML(*CRX) 100 MG/100 ML BAG 8 MG IV CONT (19:54)
[2021-04-23 21:53] LABS: Vancomycin Trough 14.6 ug/mL (10.0-20.0)
[2021-04-23] MEDS: VANCOMYCIN HCL 1,250 MG in SODIUM CHLORIDE 0.9% IV 250 ML 200 MG IVPB (23:24)
[2021-04-24] VITALS (49 sets, daily range): BP systolic 90–162; BP diastolic 42–92; PULSE 77–108; RESP 18–36; TEMP 36.9–37.3; O2SAT 87–100
[2021-04-24 00:16] LABS: Glucose Point of Care 163 mg/dl (65-105)
[2021-04-24] MEDS: PROPOFOL IV EMULSION 100 ML 19.59 MG IV CONT ×2 (02:16→05:48)
[2021-04-24] MEDS: ALBUMIN HUMAN 25% 12.5 GM/50ML 50 ML IVPB ×3 (02:48→23:56)
[2021-04-24] MEDS: EPOPROSTENOL SODIUM 0.5 MG VIAL 1 MG INHALATION ×4 (04:14→23:21)
[2021-04-24 04:33] LABS: Carboxyhemoglobin 0.3 % THb (0-2.0); Fractional Inspired Oxygen 100 %; HCO3 ABG 32.7 mEq/l (22.0-26.0); Methemoglobin ABG 0.6 %THb (0-1.5); Oxyhemoglobin 75.4 % THb (90.0-100.0); PO2 FiO2 Ratio Arterial Blood 0.43 %; Reduced Hemoglobin 23.7 %THb (0-5.0); Total Hemoglobin 8.5 g/dL (12.0-18.0)
[2021-04-24 04:54] LABS: pH ABG 7.287 (7.350-7.450)
[2021-04-24 04:55] LABS: PCO2 ABG 70.1 mmHg (35.0-45.0); PO2 ABG 42.9 mmHg (80.0-100.0)
[2021-04-24 04:56] LABS: Device VENTILATOR; Modified Allen's Test Pass; Oxygen Saturation ABG 71.1 % (95.0-100.0); Site Drawn LEFT RADIAL
[2021-04-24 04:58] LABS: Arterial Blood Gas PEEP 18 cmH2O; Arterial Blood Gas Tidal Volume 360 ml; Arterial Blood Gas Vent Mode CMV; Arterial Blood Gas Ventilator rate 26 /MIN
[2021-04-24 05:40] LABS: Hematocrit 23.6 % (37.0-47.0); Mean Corpuscular HGB Conc 28.8 g/dl (32-36); Mean Corpuscular Hemoglobin 28.3 pg (26-34); Mean Corpuscular Volume 98.3 fl (80-100); Mean Platelet Volume 10.5 fl (7.4-10.4); Platelet Count Result 428 k/mm3 (150-375); Red Cell Distribution Width 19.5 % (11.5-14.5); White Blood Count 13.2 K/mm3 (4.5-10.0)
[2021-04-24 05:43] LABS: Alanine Aminotransferase 27 U/L (4-35); Albumin Level 2.6 g/dL (3.5-5.1); Alkaline Phosphatase 150 U/L (38-126); Anion Gap 4 mmol/L (8-16); Aspartate Amino Transferase 39 U/L (14-36); Bilirubin,Total 0.7 mg/dL (0.2-1.3); Blood Urea Nitrogen 56 mg/dL (7-17); Calcium 8.2 mg/dL (8.4-10.2); Carbon Dioxide 31 mmol/L (22-30); Chloride 98 mmol/L (98-107); Estimated CRCL calculation 96 ml/min; Estimated Glomerular Filt Rate > 60; Glucose 177 mg/dL (65-110); Magnesium 2.1 mg/dL (1.6-2.3); Potassium 4.5 mmol/L (3.4-5.0); Sodium 133 mmol/L (137-145)
[2021-04-24] MEDS: HEPARIN SODIUM 5,000 UNITS/ML VIAL 5000 UNITS SUB-Q ×3 (05:48→20:30)
[2021-04-24] MEDS: CENTRAL LINE FLUSH 10 ML IV PUSH ×3 (05:48→20:30)
[2021-04-24 06:06] LABS: Hemoglobin 6.8 g/dL (12.0-15.0)
[2021-04-24] MEDS: MIDAZOLAM 100MG/NS 100ML(*CRX) 100 MG/100 ML BAG 8 MG IV CONT ×2 (06:41→20:26)
[2021-04-24 06:49] LABS: Alveolar/Arterial O2 Gradient 554.9 mmHg; Base Excess ABG 4.5 mEq/l (+/-2.0); Carboxyhemoglobin 0.1 % THb (0-2.0); Fractional Inspired Oxygen 100 %; HCO3 ABG 31.3 mEq/l (22.0-26.0); Methemoglobin ABG 0.7 %THb (0-1.5); Oxygen Content ABG 11.5 %vol (16.0-22.0); Oxygen Saturation ABG 96.8 % (95.0-100.0); Oxyhemoglobin 95.8 % THb (90.0-100.0); PO2 ABG 97.3 mmHg (80.0-100.0); PO2 FiO2 Ratio Arterial Blood 0.97 %; Reduced Hemoglobin 3.4 %THb (0-5.0); Total Hemoglobin 8.4 g/dL (12.0-18.0); pH ABG 7.329 (7.350-7.450)
[2021-04-24 06:50] LABS: Device VENTILATOR; Modified Allen's Test Unable to perform; PCO2 ABG 60.8 mmHg (35.0-45.0); Site Drawn LEFT RADIAL
[2021-04-24 06:51] LABS: Arterial Blood Gas PEEP 18 cmH2O; Arterial Blood Gas Tidal Volume 360 ml; Arterial Blood Gas Vent Mode CMV; Arterial Blood Gas Ventilator rate 26 /MIN
[2021-04-24 06:53] LABS: Hematocrit 22.9 % (37.0-47.0)
[2021-04-24 06:54] LABS: Hemoglobin 6.5 g/dL (12.0-15.0)
[2021-04-24] MEDS: FENTANYL 2,500MCG/NS250ML(*CRX 2,500 MCG/250 ML BAG 20 MCG IV CONT ×2 (08:46→20:27)
[2021-04-24] MEDS: FUROSEMIDE INJ 40 MG/4 ML VIAL IV PUSH (09:08)
[2021-04-24] MEDS: MINERAL OIL/WHITE PETROLATUM OINTMENT 1 APPLIC EACH EYE ×2 (09:08→20:29)
[2021-04-24] MEDS: PANTOPRAZOLE SODIUM IV 40 MG VIAL IV PUSH ×2 (09:09→20:29)
[2021-04-24] MEDS: PROPOFOL IV EMULSION 100 ML 14 MG IV CONT ×3 (10:40→22:06)
--- NOTE | 2021-04-24 11:07 | WPDINTPN ---
Progress Note: A&P Assessment and Plan (1) Acute respiratory failure with hypoxia: Code(s): J96.01 - Acute respiratory failure with hypoxia Status: Acute Assessment and Plan: Acute respiratory failure secondary to COVID-19 pneumonia 03/12 Admitted 03/15 Intermittent Bipap 03/20 Bipap dependent. 03/21 Intubated. -on 04/23/2021: Patient was on 100% FiO2 and PEEP of 16, was desaturated in the high 70s and low 80s. Was increased to 18. Patient was also started on Flolan with improvement in her O2 sats to 97-98%. -chest x-ray and ABGs reviewed -will prone patient for 18 hours a day -will give Lasix along with albumin today as patient has diffuse anasarca -continue Versed, propofol and fentanyl infusion for sedation. Will start Nimbex, as she is dyssynchronous with the ventilator. Patient has been receiving rocuronium p.r.n. - low tidal volume ventilation - Continue bronchodilators -patient has been on ventilator for close to 4 weeks now. She is a candidate for tracheostomy but currently too hypoxic along with high PEEP to allow safe procedure. 03/16/2021: Echo with EF 74%, normal diastolic function and no valvular disease. 03/16/2021: Venous doppler of all 4 extremities negative for DVT. 03/18/2021: CTA Chest negative for PE. (2) Pneumonia due to COVID-19 virus: Code(s): U07.1 - COVID-19; J12.82 - Pneumonia due to coronavirus disease 2019 Status: Acute Assessment and Plan: She has NOT been vaccinated for COVID Status post Remdesivir S/p Dexamethasone (20 mg IV q.day for 5 days then dexamethasone 10 mg IV q.day for additional 5 days.) Tocilizumab given once 03/14. Rocephin and azithromycin were stopped after 5 days of treatment. (3) Sepsis: Code(s): A41.9 - Sepsis, unspecified organism Status: Acute Assessment and Plan: Patient was febrile and her WBC had increased Patient was started on empiric vancomycin and Rocephin on 04/10 for sepsis her urine grew Enterococcus and Klebsiella both are sensitive to Rocephin Blood cultures done on 04/07 and 04/13 have been negative till now Sputum culture is growing out Klebsiella oxytoca which is ESBL 8/27 Rocephin was changed to to imipenem Her lipase was normal 04/14/2021: Bilateral upper and lower, extremity Dopplers were negative for DVT Patient at this time is too unstable for me to transport to [place] She is afebrile over last 24 hours and white count seems to have improved slightly (4) Shock: Code(s): R57.9 - Shock, unspecified Status: Acute Assessment and Plan: Secondary to sepsis versus hypovolemic Patient has been on and off Levophed (5) BROOKE (acute kidney injury): Code(s): N17.9 - Acute kidney failure, unspecified Status: Acute Assessment and Plan: Patient presented with BROOKE which was Likely secondary to hypovolemia and hypotension Patient's creatinine has been fluctuating, requiring intermittent IV fluids with improvement in her renal function Creatinine continues to be stable. Monitor urine output creatinine electrolytes (6) Type 2 diabetes mellitus with hyperglycemia: Code(s): E11.65 - Type 2 diabetes mellitus with hyperglycemia Status: Acute Assessment and Plan: HbA1c 12.8 to show poor control prior to admission. Continue AccuCheks covering with sliding scale. Hypoglycemia protocol available as needed. Continue sliding scale insulin Blood sugar has been on the lower side over last 24 hours -Lantus dose has been decreased (7) Hyperlipidemia: Code(s): E78.5 - Hyperlipidemia, unspecified Status: Acute Assessment and Plan: Hold Pravastatin. Due to increase in LFTs (8) DVT prophylaxis: Code(s): Z29.9 - Encounter for prophylactic measures, unspecified Status: Acute Assessment and Plan: Continue Lovenox (9) Anemia: Code(s): D64.9 - Anemia, unspecified Status: Acute Assessment and Plan: No obvi
[2021-04-24] MEDS: INSULIN ASPART (*BKC) 100 UNITS/ML SUB-Q ×2 (11:56→17:54)
--- NOTE | 2021-04-24 13:30 | PM.IMPN ---
Progress Note: A&P Assessment and Plan (1) Acute respiratory failure with hypoxia: Code(s): J96.01 - Acute respiratory failure with hypoxia Status: Acute Assessment and Plan: Acute respiratory failure secondary to COVID-19 pneumonia 03/12 Admitted 03/15 Intermittent Bipap 03/20 Bipap dependent. 03/21 Intubated. -on 04/23/2021: Patient was on 100% FiO2 and PEEP of 16, was desaturated in the high 70s and low 80s. Was increased to 18. Patient was also started on Flolan with improvement in her O2 sats to 97-98%. 04/24 continues on ventilatory support with permissive hypercapnea and FIO2 100%, PEEP 18, rate 26 TV 360 ml -chest x-ray and ABGs reviewed -will prone patient for 18 hours a day -will give Lasix along with albumin today as patient has diffuse anasarca -continue Versed, propofol and fentanyl infusion for sedation. Will start Nimbex, as she is dyssynchronous with the ventilator. Patient has been receiving rocuronium p.r.n. - low tidal volume ventilation - Continue bronchodilators -patient has been on ventilator for close to 4 weeks now. She is a candidate for tracheostomy but currently too hypoxic along with high PEEP to allow safe procedure. 03/16/2021: Echo with EF 74%, normal diastolic function and no valvular disease. 03/16/2021: Venous doppler of all 4 extremities negative for DVT. 03/18/2021: CTA Chest negative for PE. (2) Pneumonia due to COVID-19 virus: Code(s): U07.1 - COVID-19; J12.82 - Pneumonia due to coronavirus disease 2019 Status: Acute Assessment and Plan: She has NOT been vaccinated for COVID Status post Remdesivir S/p Dexamethasone (20 mg IV q.day for 5 days then dexamethasone 10 mg IV q.day for additional 5 days.) Tocilizumab given once 03/14. Rocephin and azithromycin were stopped after 5 days of treatment. (3) Sepsis: Qualifiers: Sepsis type: sepsis due to unspecified organism Sepsis acute organ dysfunction status: with acute organ dysfunction Severe sepsis acute organ dysfunction type: acute renal failure Acute renal failure type: unspecified Severe sepsis shock status: with septic shock Qualified Code(s): A41.9 - Sepsis, unspecified organism; R65.21 - Severe sepsis with septic shock; N17.9 - Acute kidney failure, unspecified Code(s): A41.9 - Sepsis, unspecified organism Status: Acute Assessment and Plan: Patient was febrile and her WBC had increased Patient was started on empiric vancomycin and Rocephin on 04/10 for sepsis her urine grew Enterococcus and Klebsiella both are sensitive to Rocephin Blood cultures done on 04/07 and 04/13 have been negative till now Sputum culture is growing out Klebsiella oxytoca which is ESBL 04/16 Rocephin was changed to to imipenem Her lipase was normal 04/14/2021: Bilateral upper and lower, extremity Dopplers were negative for DVT Patient at this time is too unstable for me to transport to CT She is afebrile over last 24 hours (4) Shock: Code(s): R57.9 - Shock, unspecified Status: Acute Assessment and Plan: Secondary to sepsis versus hypovolemic Patient has been on and off Levophed (5) BROOKE (acute kidney injury): Code(s): N17.9 - Acute kidney failure, unspecified Status: Acute Assessment and Plan: Patient presented with BROOKE which was Likely secondary to hypovolemia and hypotension Patient's creatinine has been fluctuating, requiring intermittent IV fluids with improvement in her renal function Creatinine continues to be stable. Monitor urine output creatinine electrolytes (6) Type 2 diabetes mellitus with hyperglycemia: Qualifiers: Diabetes mellitus buttermaker continuous churn insulin use: with buttermaker continuous churn use Qualified Code(s): E11.65 - Type 2 diabetes mellitus with hyperglycemia; Z79.4 - halfway (current) use of insulin Code(s): E11.65 - Type 2 diabetes mellitus with hyperglycemia Status: Acute Assessment and Plan: HbA1c 12.8 to show p
[2021-04-24] MEDS: SODIUM CHLORIDE 0.9% IV 250 ML 30 ML IV CONT (14:04)
[2021-04-24 17:59] LABS: Glucose Point of Care 218 mg/dl (65-105)
[2021-04-24 17:59] LABS: Glucose Point of Care 205 mg/dl (65-105)
[2021-04-24] MEDS: CISATRACURIUM BESYLATE 200 MG in SODIUM CHLORIDE 0.9% IV 80 ML 8.3 ML IV CONT (19:49)
[2021-04-25] VITALS (49 sets, daily range): BP systolic 99–139; BP diastolic 61–78; PULSE 25–103; RESP 25–30; TEMP 34.2–37.3; O2SAT 85–95
[2021-04-25 00:55] LABS: Glucose Point of Care 195 mg/dl (65-105)
[2021-04-25] MEDS: PROPOFOL IV EMULSION 100 ML 14 MG IV CONT ×2 (04:02→10:26)
[2021-04-25] MEDS: EPOPROSTENOL SODIUM 0.5 MG VIAL 1 MG INHALATION ×4 (05:36→23:45)
[2021-04-25 06:01] LABS: Alveolar/Arterial O2 Gradient 545.2 mmHg; Base Excess ABG 4.2 mEq/l (+/-2.0); Carboxyhemoglobin 0.3 % THb (0-2.0); Fractional Inspired Oxygen 95 %; HCO3 ABG 32.1 mEq/l (22.0-26.0); Methemoglobin ABG 0.4 %THb (0-1.5); Oxygen Content ABG 13.5 %vol (16.0-22.0); Oxygen Saturation ABG 89.1 % (95.0-100.0); Oxyhemoglobin 90.5 % THb (90.0-100.0); PO2 ABG 63.6 mmHg (80.0-100.0); PO2 FiO2 Ratio Arterial Blood 0.67 %; Reduced Hemoglobin 8.8 %THb (0-5.0); Total Hemoglobin 10.6 g/dL (12.0-18.0)
[2021-04-25 06:02] LABS: PCO2 ABG 67.7 mmHg (35.0-45.0); pH ABG 7.294 (7.350-7.450)
[2021-04-25] MEDS: ALBUMIN HUMAN 25% 12.5 GM/50ML 50 ML IVPB ×3 (06:02→17:41)
[2021-04-25 06:03] LABS: Device VENTILATOR; Modified Allen's Test Unable to perform; Site Drawn RIGHT RADIAL
[2021-04-25] MEDS: CENTRAL LINE FLUSH 10 ML IV PUSH ×3 (06:03→22:16)
[2021-04-25] MEDS: HEPARIN SODIUM 5,000 UNITS/ML VIAL 5000 UNITS SUB-Q ×3 (06:03→22:16)
[2021-04-25 06:04] LABS: Arterial Blood Gas PEEP 18 cmH2O; Arterial Blood Gas Tidal Volume 360 ml; Arterial Blood Gas Vent Mode CMV; Arterial Blood Gas Ventilator rate 26 /MIN
[2021-04-25] MEDS: CISATRACURIUM BESYLATE 200 MG in SODIUM CHLORIDE 0.9% IV 80 ML 9.96 ML IV CONT ×2 (06:07→19:31)
[2021-04-25 06:12] LABS: Hematocrit 28.4 % (37.0-47.0); Hemoglobin 8.3 g/dL (12.0-15.0); Mean Corpuscular HGB Conc 29.2 g/dl (32-36); Mean Corpuscular Hemoglobin 28.4 pg (26-34); Mean Corpuscular Volume 97.3 fl (80-100); Mean Platelet Volume 10.1 fl (7.4-10.4); Platelet Count Result 417 k/mm3 (150-375); Red Blood Count 2.92 M/mm3 (4.2-5.4); Red Cell Distribution Width 19.7 % (11.5-14.5)
[2021-04-25 06:53] LABS: Alanine Aminotransferase 20 U/L (4-35); Albumin Level 2.8 g/dL (3.5-5.1); Alkaline Phosphatase 163 U/L (38-126); Anion Gap 3 mmol/L (8-16); Aspartate Amino Transferase 41 U/L (14-36); Bilirubin,Total 0.9 mg/dL (0.2-1.3); Blood Urea Nitrogen 50 mg/dL (7-17); Calcium 8.4 mg/dL (8.4-10.2); Carbon Dioxide 33 mmol/L (22-30); Chloride 101 mmol/L (98-107); Estimated CRCL calculation 115 ml/min; Estimated Glomerular Filt Rate > 60; Glucose 222 mg/dL (65-110); Potassium 4.6 mmol/L (3.4-5.0); Sodium 137 mmol/L (137-145)
[2021-04-25] MEDS: INSULIN ASPART (*BKC) 100 UNITS/ML SUB-Q ×2 (07:15→17:42)
[2021-04-25] MEDS: MIDAZOLAM 100MG/NS 100ML(*CRX) 100 MG/100 ML BAG 8 MG IV CONT ×2 (07:16→19:30)
[2021-04-25 08:50] LABS: Alveolar/Arterial O2 Gradient 604.4 mmHg; Base Excess ABG 4.1 mEq/l (+/-2.0); Fractional Inspired Oxygen 100 %; HCO3 ABG 32.1 mEq/l (22.0-26.0); Oxygen Content ABG 9.9 %vol (16.0-22.0); Oxyhemoglobin 72.7 % THb (90.0-100.0); PO2 FiO2 Ratio Arterial Blood 0.39 %; Total Hemoglobin 9.7 g/dL (12.0-18.0)
[2021-04-25 08:54] LABS: PCO2 ABG 69.4 mmHg (35.0-45.0); PO2 ABG 39.2 mmHg (80.0-100.0); pH ABG 7.283 (7.350-7.450)
[2021-04-25 08:55] LABS: Arterial Blood Gas PEEP 20 cmH2O; Arterial Blood Gas Vent Mode CMV; Arterial Blood Gas Ventilator rate 30 /MIN; Device VENTILATOR; Modified Allen's Test Pass; Oxygen Saturation ABG 65.4 % (95.0-100.0); Site Drawn LEFT RADIAL
[2021-04-25 08:56] LABS: Arterial Blood Gas Tidal Volume 360 ml
[2021-04-25] MEDS: PANTOPRAZOLE SODIUM IV 40 MG VIAL IV PUSH ×2 (09:40→19:36)
[2021-04-25] MEDS: FUROSEMIDE INJ 40 MG/4 ML VIAL IV PUSH (09:40)
[2021-04-25] MEDS: MINERAL OIL/WHITE PETROLATUM OINTMENT 1 APPLIC EACH EYE ×2 (09:40→19:36)
[2021-04-25] MEDS: FENTANYL 2,500MCG/NS250ML(*CRX 2,500 MCG/250 ML BAG 20 MCG IV CONT ×2 (09:49→22:16)
[2021-04-25] MEDS: VANCOMYCIN HCL 1,250 MG in SODIUM CHLORIDE 0.9% IV 250 ML 200 MG IVPB (10:26)
[2021-04-25 10:48] LABS: Alveolar/Arterial O2 Gradient 558.5 mmHg; Base Excess ABG 4.2 mEq/l (+/-2.0); Fractional Inspired Oxygen 100 %; HCO3 ABG 30.7 mEq/l (22.0-26.0); Oxygen Content ABG 12.6 %vol (16.0-22.0); Oxygen Saturation ABG 96.9 % (95.0-100.0); PCO2 ABG 57.2 mmHg (35.0-45.0); PO2 ABG 97.3 mmHg (80.0-100.0); PO2 FiO2 Ratio Arterial Blood 0.97 %; Total Hemoglobin 9.2 g/dL (12.0-18.0); pH ABG 7.348 (7.350-7.450)
[2021-04-25 10:49] LABS: Device VENTILATOR; Modified Allen's Test Pass; Site Drawn RIGHT RADIAL
[2021-04-25 10:50] LABS: Arterial Blood Gas PEEP 20 cmH2O; Arterial Blood Gas Tidal Volume 350 ml; Arterial Blood Gas Vent Mode CMV; Arterial Blood Gas Ventilator rate 28 /MIN
--- NOTE | 2021-04-25 11:06 | WPDINTPN ---
Progress Note: A&P Assessment and Plan (1) Acute respiratory failure with hypoxia: Code(s): J96.01 - Acute respiratory failure with hypoxia Status: Acute Assessment and Plan: Acute respiratory failure secondary to COVID-19 pneumonia 03/12 Admitted 03/15 Intermittent Bipap 03/20 Bipap dependent. 03/21 Intubated. -on 04/23/2021: Patient was on 100% FiO2 and PEEP of 16, was desaturated in the high 70s and low 80s. Was increased to 18. -04/23/2021 started Flolan and placed back on Nimbex -chest x-ray and ABGs reviewed -will prone patient for 18 hours a day -will give Lasix along with albumin today as patient has diffuse anasarca 04/25/2021: Patient dropped her O2 sats in the mid 70s after being turned in supine position. Peak pressures with the mid 50s, patient was suctioned. Below for want her head was removed, patient was laid down flat, increased her PEEP to 20 with improvement in O2 sats. -continue Versed, propofol and fentanyl infusion for sedation. Nimbex restarted on 04/23/2021 for ventilator synchrony as patient was receiving multiple doses of rocuronium p.r.n.. - low tidal volume ventilation - Continue bronchodilators -patient has been on ventilator for over 4 weeks now. She is a candidate for tracheostomy but currently too hypoxic along with high PEEP to allow safe procedure. 03/16/2021: Echo with EF 74%, normal diastolic function and no valvular disease. 03/16/2021: Venous doppler of all 4 extremities negative for DVT. 03/18/2021: CTA Chest negative for PE. (2) Pneumonia due to COVID-19 virus: Code(s): U07.1 - COVID-19; J12.82 - Pneumonia due to coronavirus disease 2019 Status: Acute Assessment and Plan: She has NOT been vaccinated for COVID Status post Remdesivir S/p Dexamethasone (20 mg IV q.day for 5 days then dexamethasone 10 mg IV q.day for additional 5 days.) Tocilizumab given once 03/14. Rocephin and azithromycin were stopped after 5 days of treatment. (3) Sepsis: Qualifiers: Sepsis type: sepsis due to unspecified organism Sepsis acute organ dysfunction status: with acute organ dysfunction Severe sepsis acute organ dysfunction type: acute renal failure Acute renal failure type: unspecified Severe sepsis shock status: with septic shock Qualified Code(s): A41.9 - Sepsis, unspecified organism; R65.21 - Severe sepsis with septic shock; N17.9 - Acute kidney failure, unspecified Code(s): A41.9 - Sepsis, unspecified organism Status: Acute Assessment and Plan: Patient was febrile and her WBC had increased Patient was started on empiric vancomycin and Rocephin on 04/10 for sepsis her urine grew Enterococcus and Klebsiella both are sensitive to Rocephin Blood cultures done on 04/07 and 04/13 have been negative till now 04/13 Sputum culture is growing out Klebsiella oxytoca which is ESBL 04/16 Rocephin was changed to to imipenem Her lipase was normal 04/14/2021: Bilateral upper and lower, extremity Dopplers were negative for DVT Patient at this time is too unstable for me to transport to CT She is afebrile over last 24 hours and white count seems to have improved slightly (4) Shock: Code(s): R57.9 - Shock, unspecified Status: Acute Assessment and Plan: Secondary to sepsis versus hypovolemic Patient has been on and off Levophed (5) BROOKE (acute kidney injury): Code(s): N17.9 - Acute kidney failure, unspecified Status: Acute Assessment and Plan: Patient presented with BROOKE which was Likely secondary to hypovolemia and hypotension Patient's creatinine has been fluctuating, requiring intermittent IV fluids with improvement in her renal function Creatinine continues to be stable. Monitor urine output creatinine electrolytes -anasarca started patient on albumin and Lasix with adequate urine (6) Type 2 diabetes mellitus with hyperglycemia: Qualifiers: Diabetes mellitus ferry terminal agent insulin use: with long
--- NOTE | 2021-04-25 11:32 | PM.IMPN ---
Progress Note: A&P Assessment and Plan (1) Acute respiratory failure with hypoxia: Code(s): J96.01 - Acute respiratory failure with hypoxia Status: Acute Assessment and Plan: Acute respiratory failure secondary to COVID-19 pneumonia 03/12 Admitted 03/15 Intermittent Bipap 03/20 Bipap dependent. 03/21 Intubated. -on 04/23/2021: Patient was on 100% FiO2 and PEEP of 16, was desaturated in the high 70s and low 80s. Was increased to 18. Patient was also started on Flolan with improvement in her O2 sats to 97-98%. 04/24 continues on ventilatory support with permissive hypercapnea and FIO2 100%, PEEP 18, rate 26 TV 360 ml 04/25 continues on vent with permissive hypercapnea, remains too unstable for trach with very poor long-term px 03/16/2021: Echo with EF 74%, normal diastolic function and no valvular disease. 03/16/2021: Venous doppler of all 4 extremities negative for DVT. 03/18/2021: CTA Chest negative for PE. (2) Pneumonia due to COVID-19 virus: Code(s): U07.1 - COVID-19; J12.82 - Pneumonia due to coronavirus disease 2019 Status: Acute Assessment and Plan: She has NOT been vaccinated for COVID Status post Remdesivir S/p Dexamethasone (20 mg IV q.day for 5 days then dexamethasone 10 mg IV q.day for additional 5 days.) Tocilizumab given once 03/14. Rocephin and azithromycin were stopped after 5 days of treatment. (3) Sepsis: Qualifiers: Sepsis type: sepsis due to unspecified organism Sepsis acute organ dysfunction status: with acute organ dysfunction Severe sepsis acute organ dysfunction type: acute renal failure Acute renal failure type: unspecified Severe sepsis shock status: with septic shock Qualified Code(s): A41.9 - Sepsis, unspecified organism; R65.21 - Severe sepsis with septic shock; N17.9 - Acute kidney failure, unspecified Code(s): A41.9 - Sepsis, unspecified organism Status: Acute Assessment and Plan: Patient was febrile and her WBC had increased Patient was started on empiric vancomycin and Rocephin on 04/10 for sepsis her urine grew Enterococcus and Klebsiella both are sensitive to Rocephin Blood cultures done on 04/07 and 04/13 have been negative till now Sputum culture is growing out Klebsiella oxytoca which is ESBL 04/16 Rocephin was changed to to imipenem Her lipase was normal 04/14/2021: Bilateral upper and lower, extremity Dopplers were negative for DVT Patient at this time is too unstable for me to transport to CT She is afebrile over last 24 hours (4) Shock: Code(s): R57.9 - Shock, unspecified Status: Acute Assessment and Plan: Secondary to sepsis versus hypovolemic Patient has been on and off Levophed (5) BROOKE (acute kidney injury): Code(s): N17.9 - Acute kidney failure, unspecified Status: Acute Assessment and Plan: Patient presented with BROOKE which was Likely secondary to hypovolemia and hypotension Patient's creatinine has been fluctuating, requiring intermittent IV fluids with improvement in her renal function Creatinine continues to be stable. Monitor urine output creatinine electrolytes (6) Type 2 diabetes mellitus with hyperglycemia: Qualifiers: Diabetes mellitus prison insulin use: with prison use Qualified Code(s): E11.65 - Type 2 diabetes mellitus with hyperglycemia; Z79.4 - computer terminal operator (current) use of insulin Code(s): E11.65 - Type 2 diabetes mellitus with hyperglycemia Status: Acute Assessment and Plan: HbA1c 12.8 to show poor control prior to admission. Continue AccuCheks covering with sliding scale. Hypoglycemia protocol available as needed. Continue sliding scale insulin Blood sugar has been on the lower side over last 24 hours -Lantus and SSI (7) DVT prophylaxis: Code(s): Z29.9 - Encounter for prophylactic measures, unspecified Status: Acute Assessment and Plan: Continue Lovenox (8) Anemia: Qualifiers: Anemi
[2021-04-25 12:10] LABS: Glucose Point of Care 194 mg/dl (65-105)
[2021-04-25] MEDS: PROPOFOL IV EMULSION 100 ML 11.2 MG IV CONT (17:47)
[2021-04-25 17:53] LABS: Glucose Point of Care 223 mg/dl (65-105)
[2021-04-26] VITALS (51 sets, daily range): BP systolic 105–134; BP diastolic 59–80; PULSE 80–103; RESP 24–28; TEMP 34.9–37.2; O2SAT 85–97
[2021-04-26] MEDS: ALBUMIN HUMAN 25% 12.5 GM/50ML 50 ML IVPB ×5 (00:17→23:01)
[2021-04-26] MEDS: PROPOFOL IV EMULSION 100 ML 11.2 MG IV CONT ×4 (01:24→23:43)
[2021-04-26] MEDS: EPOPROSTENOL SODIUM 0.5 MG VIAL 1 MG INHALATION ×4 (05:12→23:46)
[2021-04-26 05:28] LABS: Alveolar/Arterial O2 Gradient 581.4 mmHg; Base Excess ABG 4.3 mEq/l (+/-2.0); Carboxyhemoglobin 0.3 % THb (0-2.0); Fractional Inspired Oxygen 100 %; HCO3 ABG 30.9 mEq/l (22.0-26.0); Methemoglobin ABG 0.5 %THb (0-1.5); Oxygen Content ABG 12.7 %vol (16.0-22.0); Oxygen Saturation ABG 93.9 % (95.0-100.0); Oxyhemoglobin 93.1 % THb (90.0-100.0); PCO2 ABG 57.3 mmHg (35.0-45.0); PO2 ABG 74.3 mmHg (80.0-100.0); PO2 FiO2 Ratio Arterial Blood 0.74 %; Reduced Hemoglobin 6.1 %THb (0-5.0); Total Hemoglobin 9.6 g/dL (12.0-18.0); pH ABG 7.349 (7.350-7.450)
[2021-04-26 05:29] LABS: Device VENTILATOR; Modified Allen's Test Unable to perform; Site Drawn LEFT RADIAL
[2021-04-26 05:30] LABS: Arterial Blood Gas PEEP 20 cmH2O; Arterial Blood Gas Tidal Volume 350 ml; Arterial Blood Gas Vent Mode CMV; Arterial Blood Gas Ventilator rate 28 /MIN
[2021-04-26] MEDS: CISATRACURIUM BESYLATE 200 MG in SODIUM CHLORIDE 0.9% IV 80 ML 9.96 ML IV CONT ×3 (06:09→23:51)
[2021-04-26 06:11] LABS: Hemoglobin 7.8 g/dL (12.0-15.0); Mean Corpuscular HGB Conc 28.9 g/dl (32-36); Mean Corpuscular Hemoglobin 28.6 pg (26-34); Mean Corpuscular Volume 98.9 fl (80-100); Mean Platelet Volume 10.5 fl (7.4-10.4); Platelet Count Result 326 k/mm3 (150-375); Red Blood Count 2.73 M/mm3 (4.2-5.4); White Blood Count 14.8 K/mm3 (4.5-10.0)
[2021-04-26] MEDS: FUROSEMIDE INJ 40 MG/4 ML VIAL IV PUSH ×3 (06:11→20:00)
[2021-04-26] MEDS: HEPARIN SODIUM 5,000 UNITS/ML VIAL 5000 UNITS SUB-Q ×3 (06:11→21:03)
[2021-04-26] MEDS: CENTRAL LINE FLUSH 10 ML IV PUSH ×3 (06:11→20:54)
[2021-04-26 06:26] LABS: Glucose Point of Care 176 mg/dl (65-105)
[2021-04-26 06:30] LABS: Alanine Aminotransferase 14 U/L (4-35); Albumin Level 2.9 g/dL (3.5-5.1); Alkaline Phosphatase 134 U/L (38-126); Anion Gap 4 mmol/L (8-16); Aspartate Amino Transferase 34 U/L (14-36); Bilirubin,Total 0.8 mg/dL (0.2-1.3); Blood Urea Nitrogen 48 mg/dL (7-17); Calcium 8.7 mg/dL (8.4-10.2); Carbon Dioxide 33 mmol/L (22-30); Chloride 103 mmol/L (98-107); Estimated CRCL calculation 117 ml/min; Estimated Glomerular Filt Rate > 60; Glucose 191 mg/dL (65-110); Magnesium 2.2 mg/dL (1.6-2.3); Phosphorus 4.1 mg/dL (2.5-4.5); Sodium 140 mmol/L (137-145)
[2021-04-26] MEDS: MIDAZOLAM 100MG/NS 100ML(*CRX) 100 MG/100 ML BAG 8 MG IV CONT ×2 (06:47→19:04)
[2021-04-26] MEDS: PANTOPRAZOLE SODIUM IV 40 MG VIAL IV PUSH ×2 (08:36→20:03)
[2021-04-26] MEDS: MINERAL OIL/WHITE PETROLATUM OINTMENT 1 APPLIC EACH EYE ×2 (08:36→19:58)
[2021-04-26] MEDS: FENTANYL 2,500MCG/NS250ML(*CRX 2,500 MCG/250 ML BAG 20 MCG IV CONT ×2 (11:11→23:01)
--- NOTE | 2021-04-26 11:23 | WPDINTPN ---
Progress Note: A&P Assessment and Plan (1) Acute respiratory failure with hypoxia: Code(s): J96.01 - Acute respiratory failure with hypoxia Status: Acute Assessment and Plan: Acute respiratory failure secondary to COVID-19 pneumonia 03/12 Admitted 03/15 Intermittent Bipap 03/20 Bipap dependent. 03/21 Intubated. -on 04/23/2021: Patient was on 100% FiO2 and PEEP of 16, was desaturated in the high 70s and low 80s. Was increased to 18. -04/23/2021 started Flolan and placed back on Nimbex -chest x-ray and ABGs reviewed -will prone patient for 18 hours a day -will continue to diurese with Lasix IV Q12H along with albumin as patient has diffuse anasarca 04/26/2021: CXR shows Diffuse bilateral lung disease with some improvement in aeration of both lungs. Differential includes pneumonia, pulmonary edema, ARDS or some combination thereof. -continue Versed, propofol and fentanyl infusion for sedation. Nimbex restarted on 04/23/2021 for ventilator synchrony as patient was receiving multiple doses of rocuronium p.r.n.. - low tidal volume ventilation - Continue bronchodilators -patient has been on ventilator for over 4 weeks now. She is a candidate for tracheostomy but currently too hypoxic along with high PEEP to allow safe procedure. 03/16/2021: Echo with EF 74%, normal diastolic function and no valvular disease. 03/16/2021: Venous doppler of all 4 extremities negative for DVT. 03/18/2021: CTA Chest negative for PE. (2) Pneumonia due to COVID-19 virus: Code(s): U07.1 - COVID-19; J12.82 - Pneumonia due to coronavirus disease 2019 Status: Acute Assessment and Plan: She has NOT been vaccinated for COVID Status post Remdesivir S/p Dexamethasone (20 mg IV q.day for 5 days then dexamethasone 10 mg IV q.day for additional 5 days.) Tocilizumab given once 03/14. Status post 5 days of Rocephin and azithromycin at the time of admission (3) Sepsis: Qualifiers: Sepsis type: sepsis due to unspecified organism Sepsis acute organ dysfunction status: with acute organ dysfunction Severe sepsis acute organ dysfunction type: acute renal failure Acute renal failure type: unspecified Severe sepsis shock status: with septic shock Qualified Code(s): A41.9 - Sepsis, unspecified organism; R65.21 - Severe sepsis with septic shock; N17.9 - Acute kidney failure, unspecified Code(s): A41.9 - Sepsis, unspecified organism Status: Acute Assessment and Plan: Patient was febrile and her WBC had increased Patient was started on empiric vancomycin and Rocephin on 04/10 for sepsis her urine grew Enterococcus and Klebsiella both are sensitive to Rocephin Blood cultures done on 04/07 and 04/13 have been negative till now 04/13 Sputum culture is growing out Klebsiella oxytoca which is ESBL 04/16 Rocephin was changed to to imipenem Her lipase was normal 04/14/2021: Bilateral upper and lower, extremity Dopplers were negative for DVT Patient at this time is too unstable for me to transport to CT She is afebrile over last 24 hours and white count improving (4) Shock: Code(s): R57.9 - Shock, unspecified Status: Acute Assessment and Plan: Resolved, patient is off Levophed Secondary to sepsis versus hypovolemic (5) BROOKE (acute kidney injury): Code(s): N17.9 - Acute kidney failure, unspecified Status: Acute Assessment and Plan: Patient presented with BROOKE which was Likely secondary to hypovolemia and hypotension Patient's creatinine has been fluctuating, requiring intermittent IV fluids with improvement in her renal function Creatinine continues to be stable. Monitor urine output creatinine electrolytes -anasarca started patient on albumin and Lasix with adequate urine, will continue diuresis (6) Type 2 diabetes mellitus with hyperglycemia: Qualifiers: Diabetes mellitus assisted insulin use: with assisted use Qualified Code(s): E11.65 - Type 2 diabete
[2021-04-26] MEDS: INSULIN ASPART (*BKC) 100 UNITS/ML SUB-Q (12:12)
[2021-04-26 12:19] LABS: Glucose Point of Care 211 mg/dl (65-105)
--- NOTE | 2021-04-26 14:17 | PM.IMPN ---
Progress Note: A&P Assessment and Plan (1) Pneumonia due to COVID-19 virus: Code(s): U07.1 - COVID-19; J12.82 - Pneumonia due to coronavirus disease 2019 Status: Acute Assessment and Plan: 04/26/21 14:17 patient is 65-year-old female was diagnosed with a COVID-19 admitted on03/12 patient respiratory symptoms were worsening initially treated with BiPAP on 03/12 and patient was intubated on 03/21 and remains on ventilator and has a persistent hypercarbia and respiratory acidosis, patient completed a course of remdesivir and dexamethasone 20 mg IV for 5 days currently on dexamethasone 10 mg for additional 5 days, Tocilizumab given once 03/14. patient remains on ventilator, patient seen by molten iron pourer and appreciate. patient has a poor prognosis and has been on ventilator for weeks and molten iron pourer has spoken to the family regarding comfort care however family want to continue patient on ventilator, will continue to monitor and appreciate molten iron pourer further recommendation to follow. (2) Acute respiratory failure with hypoxia: Code(s): J96.01 - Acute respiratory failure with hypoxia Status: Acute Assessment and Plan: most likely secondary to COVID pneumonia (3) Sepsis: Qualifiers: Sepsis type: sepsis due to unspecified organism Sepsis acute organ dysfunction status: with acute organ dysfunction Severe sepsis acute organ dysfunction type: acute renal failure Acute renal failure type: unspecified Severe sepsis shock status: with septic shock Qualified Code(s): A41.9 - Sepsis, unspecified organism; R65.21 - Severe sepsis with septic shock; N17.9 - Acute kidney failure, unspecified Code(s): A41.9 - Sepsis, unspecified organism Status: Acute Assessment and Plan: sputum culture is growing Klebsiella oxytoca and urine culture is growing Klebsiella pneumonia and Enterococcus, blood cultures are negative so far patient is being treated with imipenem and vancomycin remains clinically stable (4) Shock: Code(s): R57.9 - Shock, unspecified Status: Acute Assessment and Plan: most likely secondary to UTI, patient was on Levophed been taken off a blood pressure remains stable (5) BROOKE (acute kidney injury): Code(s): N17.9 - Acute kidney failure, unspecified Status: Acute Assessment and Plan: most likely secondary to COVID pneumonia, dehydration patient is being gently hydrated and kidney function now close to normal. Subjective Date/time seen: 04/26/21 14:17 patient is 65-year-old female was diagnosed with a COVID-19 admitted on03/12 patient respiratory symptoms were worsening initially treated with BiPAP on 03/12 and patient was intubated on 03/21 and remains on ventilator and has a persistent hypercarbia and respiratory acidosis, patient completed a course of remdesivir and dexamethasone 20 mg IV for 5 days currently on dexamethasone 10 mg for additional 5 days, Tocilizumab given once 03/14. patient remains on ventilator, patient seen by molten iron pourer and appreciate. patient has a poor prognosis and has been on ventilator for weeks and molten iron pourer has spoken to the family regarding comfort care however family want to continue patient on ventilator, will continue to monitor and appreciate molten iron pourer further recommendation to follow. Review of Systems Review of Systems: ROS unobtainable: Yes unobtainable due to endotracheal tube Exam Narrative: Patient is comfortable, NAD HEENT: ET tube in place LUNGS: normal respiratory effort ABD: distended Lower extremities: no edema SKIN: nonjaundiced Neuro: on vent and sedated. Objective Data Vital Signs Vital Signs: Vital Signs - 24 hr 04/25/21 14:30 04/25/21 15:27 04/25/21 16:00 Temperature 97.2 F L Pulse Rate 80 83 79 Respiratory Rate 25 H 28 H Blood Pressure 115/76 Pulse Oximetry 91 93 94 04/25/21 16:10 04/25/21 17:13 04/25/21 17:17 Temperature Pulse Rate 72 78 77 Respirat
[2021-04-26 18:06] LABS: Glucose Point of Care 197 mg/dl (65-105)
[2021-04-26] MEDS: VANCOMYCIN HCL 1,250 MG in SODIUM CHLORIDE 0.9% IV 250 ML 200 MG IVPB (21:03)
[2021-04-26 23:19] LABS: Glucose Point of Care 191 mg/dl (65-105)
[2021-04-27] VITALS (30 sets, daily range): BP systolic 111–146; BP diastolic 68–87; PULSE 53–100; RESP 13–28; TEMP 35.8–36.7; O2SAT 88–97
[2021-04-27] MEDS: PROPOFOL IV EMULSION 100 ML 11.2 MG IV CONT ×3 (05:18→17:09)
[2021-04-27] MEDS: MIDAZOLAM 100MG/NS 100ML(*CRX) 100 MG/100 ML BAG 8 MG IV CONT ×2 (05:19→17:06)
[2021-04-27] MEDS: HEPARIN SODIUM 5,000 UNITS/ML VIAL 5000 UNITS SUB-Q ×3 (05:21→21:50)
[2021-04-27] MEDS: CENTRAL LINE FLUSH 10 ML IV PUSH ×3 (05:21→21:50)
[2021-04-27] MEDS: EPOPROSTENOL SODIUM 0.5 MG VIAL 1 MG INHALATION ×4 (05:23→23:09)
[2021-04-27] MEDS: ALBUMIN HUMAN 25% 12.5 GM/50ML 50 ML IVPB ×4 (05:27→23:13)
[2021-04-27] MEDS: FUROSEMIDE INJ 40 MG/4 ML VIAL IV PUSH ×2 (05:30→20:20)
[2021-04-27 05:49] LABS: Basophils Percent Auto 0.3 % (0.2-1.2); Eosinophils Absolute Auto 0.2 K/mm3 (0-0.3); Eosinophils Percent Auto 1.7 % (0-4.4); Hematocrit 26.6 % (37.0-47.0); Hemoglobin 7.5 g/dL (12.0-15.0); Immature Granulocyte Absolute 0.25 K/mm3 (0.00-0.031); Immature Granulocyte Percent A 1.9 % (0-0.5); Lymphocytes Absolute Auto 0.63 K/mm3 (0.9-3.2); Lymphocytes Percent Auto 4.9 % (18.3-44.2); Mean Corpuscular HGB Conc 28.2 g/dl (32-36); Mean Corpuscular Hemoglobin 27.7 pg (26-34); Mean Corpuscular Volume 98.2 fl (80-100); Mean Platelet Volume 10.5 fl (7.4-10.4); Monocytes Absolute Auto 0.7 K/mm3 (0.1-0.6); Monocytes Percent Auto 5.7 % (2.6-8.5); Neutrophils Percent Auto 85.5 % (45.5-73.1); Nucleated Red Blood Cells Absolute Auto 0.2 K/mm3 (0.0-0.012); Nucleated Red Blood Cells Perc 1.2 % (0.0-0.2); Platelet Count Result 288 k/mm3 (150-375); Red Blood Count 2.71 M/mm3 (4.2-5.4); Red Cell Distribution Width 20.4 % (11.5-14.5); White Blood Count 12.9 K/mm3 (4.5-10.0)
[2021-04-27 06:04] LABS: Anion Gap 5 mmol/L (8-16); Blood Urea Nitrogen 45 mg/dL (7-17); Calcium 8.5 mg/dL (8.4-10.2); Carbon Dioxide 33 mmol/L (22-30); Chloride 104 mmol/L (98-107); Estimated CRCL calculation 115 ml/min; Estimated Glomerular Filt Rate > 60; Glucose 217 mg/dL (65-110); Potassium 3.7 mmol/L (3.4-5.0); Sodium 142 mmol/L (137-145)
[2021-04-27 06:27] LABS: Anisocytosis 2+ (NORMAL); Platelet Estimate Adequate (Adequate)
[2021-04-27] MEDS: INSULIN ASPART (*BKC) 100 UNITS/ML SUB-Q ×3 (06:27→23:17)
[2021-04-27 06:28] LABS: Hypochromasia 1+ (NORMAL); Macrocytosis 1+ (NORMAL); Microcytosis 1+ (NORMAL); Poikilocytosis 1+ (NORMAL)
[2021-04-27] MEDS: CISATRACURIUM BESYLATE 200 MG in SODIUM CHLORIDE 0.9% IV 80 ML 9.96 ML IV CONT (09:24)
[2021-04-27] MEDS: PANTOPRAZOLE SODIUM IV 40 MG VIAL IV PUSH ×2 (09:29→20:20)
[2021-04-27] MEDS: MINERAL OIL/WHITE PETROLATUM OINTMENT 1 APPLIC EACH EYE ×2 (09:29→20:20)
[2021-04-27] MEDS: FENTANYL 2,500MCG/NS250ML(*CRX 2,500 MCG/250 ML BAG 20 MCG IV CONT ×2 (09:55→21:56)
[2021-04-27 11:24] LABS: Glucose Point of Care 177 mg/dl (65-105)
--- NOTE | 2021-04-27 12:15 | PCDIET ---
Nutrition Follow-Up Complete: Nutrition Diagnosis: Inadequate oral intake related to decreased appetite as evidenced by intakes 50% or less at most meals x 1 week. Nutrition Goal: Patient to meet estimated nutritional needs. Goal in progress. Patient tolerating Glucerna 1.2 at 40mL/hr with Pro-Stat flush BID and 100mL NS flush every 4 hours. Could consider adjusting flush since hyponatremia has resolved. Last recorded weight is 113.7 kg which is increased from last review. +I/O. Patient receiving albumin and Lasix. Bowel Motility: Last documented BM on 04/25/21 x 1. Labs Reviewed: WBC (12.9), RBC (2.71), Hgb (7.5), Hct (26.6), Glu (217), BUN (45), Cr (0.5) Meds Noted: Albumin, Nimbex, Flolan, Fentanyl, Lasix, Zemuron, Imipenem, Novolog, Lantus, Versed, Protonix, Vancomycin, Propofol (rate of 11.2mL/hr provides 296kcal per day) Additional Notes: Tube feedings over 22 hours/day with protein flushes and Propofol at current rate providing 1552kcal and 82g protein daily. Will continue to monitor with same goal. Nutrition Monitoring and Evaluation: Follow up every Monday/Monday.
--- NOTE | 2021-04-27 14:45 | WPDINTPN ---
Progress Note: A&P Assessment and Plan (1) Acute respiratory failure with hypoxia: Code(s): J96.01 - Acute respiratory failure with hypoxia Status: Acute Assessment and Plan: Acute respiratory failure secondary to COVID-19 pneumonia 03/12 Admitted 03/15 Intermittent Bipap 03/20 Bipap dependent. 03/21 Intubated. -on 04/23/2021: Patient was on 100% FiO2 and PEEP of 16, was desaturated in the high 70s and low 80s. Was increased to 18. -04/23/2021 started Flolan and placed back on Nimbex -chest x-ray and ABGs reviewed -will prone patient for 18 hours a day -will continue to diurese with Lasix IV Q12H along with albumin as patient has diffuse anasarca 04/26/2021: CXR shows Diffuse bilateral lung disease with some improvement in aeration of both lungs. Differential includes pneumonia, pulmonary edema, ARDS or some combination thereof. -continue Versed, propofol and fentanyl infusion for sedation. Nimbex restarted on 04/23/2021 for ventilator synchrony as patient was receiving multiple doses of rocuronium p.r.n.. - low tidal volume ventilation - Continue bronchodilators -patient has been on ventilator for over 4 weeks now. She is a candidate for tracheostomy but currently too hypoxic along with high PEEP to allow safe procedure. 03/16/2021: Echo with EF 74%, normal diastolic function and no valvular disease. 03/16/2021: Venous doppler of all 4 extremities negative for DVT. 03/18/2021: CTA Chest negative for PE. (2) Pneumonia due to COVID-19 virus: Code(s): U07.1 - COVID-19; J12.82 - Pneumonia due to coronavirus disease 2019 Status: Acute Assessment and Plan: She has NOT been vaccinated for COVID Status post Remdesivir S/p Dexamethasone (20 mg IV q.day for 5 days then dexamethasone 10 mg IV q.day for additional 5 days.) Tocilizumab given once 03/14. Status post 5 days of Rocephin and azithromycin at the time of admission (3) Sepsis: Qualifiers: Acute renal failure type: unspecified Sepsis acute organ dysfunction status: with acute organ dysfunction Sepsis type: sepsis due to unspecified organism Severe sepsis acute organ dysfunction type: acute renal failure Severe sepsis shock status: with septic shock Qualified Code(s): A41.9 - Sepsis, unspecified organism; R65.21 - Severe sepsis with septic shock; N17.9 - Acute kidney failure, unspecified Code(s): A41.9 - Sepsis, unspecified organism Status: Acute Assessment and Plan: Patient was febrile and her WBC had increased Patient was started on empiric vancomycin and Rocephin on 04/10 for sepsis her urine grew Enterococcus and Klebsiella both are sensitive to Rocephin Blood cultures done on 04/07 and 04/13 have been negative till now 04/13 Sputum culture is growing out Klebsiella oxytoca which is ESBL 04/16 Rocephin was changed to to imipenem Her lipase was normal 04/14/2021: Bilateral upper and lower, extremity Dopplers were negative for DVT Patient at this time is too unstable for me to transport to CT She is afebrile over last 24 hours and white count improving (4) Shock: Code(s): R57.9 - Shock, unspecified Status: Acute Assessment and Plan: Resolved, patient is off Levophed Secondary to sepsis versus hypovolemic (5) BROOKE (acute kidney injury): Code(s): N17.9 - Acute kidney failure, unspecified Status: Acute Assessment and Plan: Patient presented with BROOKE which was Likely secondary to hypovolemia and hypotension Patient's creatinine has been fluctuating, requiring intermittent IV fluids with improvement in her renal function Creatinine continues to be stable. Monitor urine output creatinine electrolytes -anasarca started patient on albumin and Lasix with adequate urine, will continue diuresis (6) Type 2 diabetes mellitus with hyperglycemia: Qualifiers: Diabetes mellitus care home insulin use: with care home use Qualified Code(s): E11.65 - Type 2 diabete
[2021-04-27] MEDS: CISATRACURIUM BESYLATE 200 MG in SODIUM CHLORIDE 0.9% IV 80 ML 13.28 ML IV CONT (17:07)
[2021-04-27 17:33] LABS: Glucose Point of Care 232 mg/dl (65-105)
--- NOTE | 2021-04-27 18:53 | PM.IMPN ---
Progress Note: A&P Assessment and Plan (1) Pneumonia due to COVID-19 virus: Code(s): U07.1 - COVID-19; J12.82 - Pneumonia due to coronavirus disease 2019 Status: Acute Assessment and Plan: 04/26/21 14:17 patient is 65-year-old female was diagnosed with a COVID-19 admitted on03/12 patient respiratory symptoms were worsening initially treated with BiPAP on 03/12 and patient was intubated on 03/21 and remains on ventilator and has a persistent hypercarbia and respiratory acidosis, patient completed a course of remdesivir and dexamethasone 20 mg IV for 5 days currently on dexamethasone 10 mg for additional 5 days, Tocilizumab given once 03/14. patient remains on ventilator, patient seen by panel beater and appreciate. patient has a poor prognosis and has been on ventilator for weeks and panel beater has spoken to the family regarding comfort care however family want to continue patient on ventilator, will continue to monitor and appreciate panel beater further recommendation to follow. 04/27 - continue current ventilator settings, assist/controlrate of 28, peep of 20, FiO2 100, tidal volume of 350; sedation with Versed and fentanyl; Q 6 scheduled nebulizer treatments; q.12 scheduled IV Lasix (2) Acute respiratory failure with hypoxia: Code(s): J96.01 - Acute respiratory failure with hypoxia Status: Acute Assessment and Plan: most likely secondary to COVID pneumonia (3) Sepsis: Qualifiers: Sepsis type: sepsis due to unspecified organism Sepsis acute organ dysfunction status: with acute organ dysfunction Severe sepsis acute organ dysfunction type: acute renal failure Acute renal failure type: unspecified Severe sepsis shock status: with septic shock Qualified Code(s): A41.9 - Sepsis, unspecified organism; R65.21 - Severe sepsis with septic shock; N17.9 - Acute kidney failure, unspecified Code(s): A41.9 - Sepsis, unspecified organism Status: Acute Assessment and Plan: sputum culture is growing Klebsiella oxytoca and urine culture is growing Klebsiella pneumonia and Enterococcus, blood cultures are negative so far patient is being treated with imipenem and vancomycin remains clinically stable (4) Shock: Code(s): R57.9 - Shock, unspecified Status: Acute Assessment and Plan: most likely secondary to UTI, patient was on Levophed been taken off a blood pressure remains stable (5) BROOKE (acute kidney injury): Code(s): N17.9 - Acute kidney failure, unspecified Status: Acute Assessment and Plan: resolved, most likely secondary to COVID and pre renal, in the setting of dehydration on presentation; continue to monitor creatinine Time Spent With Patient Time with patient: less than 15 minutes Subjective Date/time seen: 04/27/21 18:53 no meaningful interview possible Review of Systems Review of Systems: no meaningful interview possible Exam Narrative: physical exam deferred Objective Data Vital Signs Vital Signs: Vital Signs - 24 hr 04/26/21 19:04 04/26/21 20:00 04/26/21 20:16 Temperature 99.0 F Pulse Rate 94 98 97 Respiratory Rate 28 H 25 H 28 H Blood Pressure 126/76 Pulse Oximetry 92 93 04/26/21 20:17 04/26/21 22:00 04/26/21 23:01 Temperature 98.9 F Pulse Rate 97 95 99 Respiratory Rate 28 H 28 H Blood Pressure 134/80 Pulse Oximetry 93 92 04/26/21 23:43 04/26/21 23:46 04/26/21 23:48 Temperature Pulse Rate 95 103 H 100 Respiratory Rate 28 H 28 H Blood Pressure Pulse Oximetry 87 L 91 04/26/21 23:51 04/27/21 00:00 04/27/21 02:00 Temperature 98.1 F Pulse Rate 99 98 93 Respiratory Rate 28 H 28 H 28 H Blood Pressure 132/76 119/73 120/72 Pulse Oximetry 91 93 04/27/21 04:00 04/27/21 05:18 04/27/21 05:19 Temperature 97.5 F L Pulse Rate 89 87 87 Respiratory Rate 13 28 H 28 H Blood Pressure 111/75 Pulse Oximetry 93 04/27/21 05:23 04/27/21 06:00 04/27/21 08:00 Temperat
[2021-04-28] VITALS (42 sets, daily range): BP systolic 108–156; BP diastolic 75–94; PULSE 74–110; RESP 28; TEMP 35.3–36.9; O2SAT 88–96
[2021-04-28] MEDS: CISATRACURIUM BESYLATE 200 MG in SODIUM CHLORIDE 0.9% IV 80 ML 13.28 ML IV CONT ×4 (00:07→19:43)
[2021-04-28 00:29] LABS: Glucose Point of Care 211 mg/dl (65-105)
[2021-04-28] MEDS: PROPOFOL IV EMULSION 100 ML 11.2 MG IV CONT ×4 (02:05→19:34)
[2021-04-28] MEDS: EPOPROSTENOL SODIUM 0.5 MG VIAL 1 MG INHALATION ×4 (05:04→23:41)
[2021-04-28] MEDS: ALBUMIN HUMAN 25% 12.5 GM/50ML 50 ML IVPB (05:27)
[2021-04-28] MEDS: HEPARIN SODIUM 5,000 UNITS/ML VIAL 5000 UNITS SUB-Q ×3 (05:30→22:19)
[2021-04-28] MEDS: MIDAZOLAM 100MG/NS 100ML(*CRX) 100 MG/100 ML BAG 8 MG IV CONT ×2 (05:30→17:45)
[2021-04-28] MEDS: CENTRAL LINE FLUSH 10 ML IV PUSH ×3 (05:52→22:20)
[2021-04-28 06:51] LABS: Glucose Point of Care 159 mg/dl (65-105)
[2021-04-28] MEDS: FUROSEMIDE INJ 40 MG/4 ML VIAL IV PUSH ×2 (09:33→19:45)
[2021-04-28] MEDS: PANTOPRAZOLE SODIUM IV 40 MG VIAL IV PUSH ×2 (09:33→19:45)
[2021-04-28] MEDS: MINERAL OIL/WHITE PETROLATUM OINTMENT 1 APPLIC EACH EYE ×2 (09:33→19:46)
[2021-04-28 09:56] LABS: Alveolar/Arterial O2 Gradient 596.4 mmHg; Base Excess ABG 5.6 mEq/l (+/-2.0); Fractional Inspired Oxygen 100 %; HCO3 ABG 32.2 mEq/l (22.0-26.0); Oxygen Content ABG 12.3 %vol (16.0-22.0); Oxygen Saturation ABG 88.3 % (95.0-100.0); Oxyhemoglobin 88.4 % THb (90.0-100.0); PCO2 ABG 58.7 mmHg (35.0-45.0); PO2 ABG 57.9 mmHg (80.0-100.0); PO2 FiO2 Ratio Arterial Blood 0.58 %; Total Hemoglobin 9.9 g/dL (12.0-18.0); pH ABG 7.357 (7.350-7.450)
[2021-04-28 09:57] LABS: Device VENTILATOR; Modified Allen's Test Pass; Site Drawn RIGHT RADIAL
[2021-04-28 09:58] LABS: Arterial Blood Gas PEEP 20 cmH2O; Arterial Blood Gas Tidal Volume 350 ml; Arterial Blood Gas Vent Mode CMV; Arterial Blood Gas Ventilator rate 28 /MIN
[2021-04-28] MEDS: FENTANYL 2,500MCG/NS250ML(*CRX 2,500 MCG/250 ML BAG 20 MCG IV CONT ×2 (10:03→22:17)
--- NOTE | 2021-04-28 11:52 | PCDIET ---
ICU Rounding Note: Patient tolerating Glucerna 1.2 at 40mL/hr with Pro-Stat flush BID and 100mL NS flush every 4 hours. Last recorded weight is 119kg which is increased from last review. +I/O. Bowel Motility: Last documented BM on 04/27/21 x 2. Labs Reviewed: Glu (159) Meds Noted: Propofol (rate of 11.2mL/hr provides 295kcal per day), Lasix, Albumin, Nimbex, Flolan, Fentanyl, Primaxin, Versed, Protonix Additional Notes: No change in skin reported. Following daily in ICU rounds. Assessing/reassessing every Monday/Monday.
[2021-04-28] MEDS: INSULIN ASPART (*BKC) 100 UNITS/ML SUB-Q ×2 (13:20→17:37)
[2021-04-28] MEDS: ALTEPLASE 2 MG VIAL (CATHFLO) IV PUSH (13:21)
[2021-04-28 13:57] LABS: Glucose Point of Care 236 mg/dl (65-105)
--- NOTE | 2021-04-28 14:26 | WPDINTPN ---
Progress Note: A&P Assessment and Plan (1) Acute respiratory failure with hypoxia: Code(s): J96.01 - Acute respiratory failure with hypoxia Status: Acute Assessment and Plan: Acute respiratory failure secondary to COVID-19 pneumonia 03/12 Admitted 03/15 Intermittent Bipap 03/20 Bipap dependent. 03/21 Intubated. -on 04/23/2021: Patient was on 100% FiO2 and PEEP of 16, was desaturated in the high 70s and low 80s. -04/23/2021 started Flolan and placed back on Nimbex -chest x-ray and ABGs reviewed, currently on peep of 20 and 100% FiO2. -will prone patient for 18 hours a day -will continue to diurese with Lasix IV Q12H along with albumin as patient has diffuse anasarca 04/28/2021 chest x-ray shows Diffuse lung disease with interval worsening, consistent with pneumonia and/or pulmonary edema and/or acute respiratory distress syndrome (ARDS). -continue Versed, propofol and fentanyl infusion for sedation. Nimbex restarted on 04/23/2021 for ventilator synchrony as patient was receiving multiple doses of rocuronium p.r.n.. - low tidal volume ventilation - Continue bronchodilators -patient has been on ventilator for over 4 weeks now. She is a candidate for tracheostomy but currently too hypoxic along with high PEEP to allow safe procedure. 03/16/2021: Echo with EF 74%, normal diastolic function and no valvular disease. 03/16/2021: Venous doppler of all 4 extremities negative for DVT. 03/18/2021: CTA Chest negative for PE. (2) Pneumonia due to COVID-19 virus: Code(s): U07.1 - COVID-19; J12.82 - Pneumonia due to coronavirus disease 2018 Status: Acute Assessment and Plan: She has NOT been vaccinated for COVID Status post Remdesivir S/p Dexamethasone (20 mg IV q.day for 5 days then dexamethasone 10 mg IV q.day for additional 5 days.) Tocilizumab given once 03/14. Status post 5 days of Rocephin and azithromycin at the time of admission (3) Sepsis: Qualifiers: Sepsis type: sepsis due to unspecified organism Sepsis acute organ dysfunction status: with acute organ dysfunction Severe sepsis acute organ dysfunction type: acute renal failure Acute renal failure type: unspecified Severe sepsis shock status: with septic shock Qualified Code(s): A41.9 - Sepsis, unspecified organism; R65.21 - Severe sepsis with septic shock; N17.9 - Acute kidney failure, unspecified Code(s): A41.9 - Sepsis, unspecified organism Status: Acute Assessment and Plan: Patient was febrile and her WBC had increased Patient was started on empiric vancomycin and Rocephin on 04/10 for sepsis her urine grew Enterococcus and Klebsiella both are sensitive to Rocephin Blood cultures done on 04/07 and 04/13 have been negative till now 04/13 Sputum culture is growing out Klebsiella oxytoca which is ESBL 04/16 Rocephin was changed to to imipenem Her lipase was normal 04/14/2021: Bilateral upper and lower, extremity Dopplers were negative for DVT Patient at this time is too unstable for me to transport to CT She is afebrile over last 24 hours and white count improving 04/24/2021 sputum culture growing ESBL Klebsiella oxytoca, patient remains on imipenem -04/28/2021 infectious disease has been consulted, await recommendation (4) Shock: Code(s): R57.9 - Shock, unspecified Status: Acute Assessment and Plan: Resolved, patient is off Levophed Secondary to sepsis versus hypovolemic (5) BROOKE (acute kidney injury): Code(s): N17.9 - Acute kidney failure, unspecified Status: Acute Assessment and Plan: Patient presented with BROOKE which was Likely secondary to hypovolemia and hypotension Patient's creatinine has been fluctuating, requiring intermittent IV fluids with improvement in her renal function Creatinine continues to be stable. Monitor urine output creatinine electrolytes -anasarca started patient on albumin and Lasix with adequate urine, will continue diuresis (6) Type 2 cleo
--- NOTE | 2021-04-28 16:25 | PM.IMPN ---
Progress Note: A&P Assessment and Plan (1) Pneumonia due to COVID-19 virus: Code(s): U07.1 - COVID-19; J12.82 - Pneumonia due to coronavirus disease 2019 Status: Acute Assessment and Plan: 04/27 - continue current ventilator settings, assist/controlrate of 28, peep of 20, FiO2 100, tidal volume of 350; sedation with Versed and fentanyl; Q 6 scheduled nebulizer treatments; q.12 scheduled IV Lasix Noted that ICU service will try for tracheostomy when respiratory status allows, namely oxygen saturation and PEEP (2) Acute respiratory failure with hypoxia: Code(s): J96.01 - Acute respiratory failure with hypoxia Status: Acute Assessment and Plan: most likely secondary to COVID pneumonia (3) Sepsis: Qualifiers: Acute renal failure type: unspecified Sepsis acute organ dysfunction status: with acute organ dysfunction Sepsis type: sepsis due to unspecified organism Severe sepsis acute organ dysfunction type: acute renal failure Severe sepsis shock status: with septic shock Qualified Code(s): A41.9 - Sepsis, unspecified organism; R65.21 - Severe sepsis with septic shock; N17.9 - Acute kidney failure, unspecified Code(s): A41.9 - Sepsis, unspecified organism Status: Acute Assessment and Plan: sputum culture is growing Klebsiella oxytoca and urine culture is growing Klebsiella pneumonia and Enterococcus, blood cultures are negative so far patient is being treated with imipenem and vancomycin remains clinically stable (4) Shock: Code(s): R57.9 - Shock, unspecified Status: Acute Assessment and Plan: most likely secondary to UTI, patient was on Levophed been taken off a blood pressure remains stable (5) BROOKE (acute kidney injury): Code(s): N17.9 - Acute kidney failure, unspecified Status: Acute Assessment and Plan: resolved, most likely secondary to COVID and pre renal, in the setting of dehydration on presentation; continue to monitor creatinine Additional Plan Holding statin secondary to transaminitis; Continue Lovenox for DVT prophylaxis Continue Lantus and sliding scale insulin for diabetes Continue ulcer prophylaxis with PPI for patient with long-term mechanical ventilation Currently noted full code, understand the family is discussing patient's medical status Time Spent With Patient Time with patient: less than 15 minutes Subjective Date/time seen: 04/28/21 16:25 No meaningful interview possible Review of Systems Review of Systems: No meaningful interview possible Exam Narrative: No meaningful interview possible Neck: Neck: no JVD Resp: Other: Mechanical ventilation, peep of 20, 100% FiO2 Cardio: Rate: regular rate Rhythm: regular rhythm GI: GI Palp: Yes Soft to palpation and No Tenderness to palpation present (GI) Objective Data Vital Signs Vital Signs: Vital Signs - 24 hr 04/27/21 17:23 04/27/21 17:25 04/27/21 18:00 Temperature Pulse Rate 65 53 L 90 Respiratory Rate 28 H 28 H Blood Pressure 114/76 Pulse Oximetry 96 97 95 04/27/21 18:21 04/27/21 20:00 04/27/21 21:35 Temperature 96.5 F L Pulse Rate 72 84 88 Respiratory Rate 28 H 28 H 28 H Blood Pressure 112/68 Pulse Oximetry 95 96 95 04/27/21 21:56 04/27/21 22:00 04/27/21 23:07 Temperature 96.4 F L Pulse Rate 90 90 Respiratory Rate 20 28 H 28 H Blood Pressure 133/79 Pulse Oximetry 93 94 04/27/21 23:09 04/28/21 00:00 04/28/21 00:07 Temperature 97.9 F Pulse Rate 83 93 94 Respiratory Rate 28 H 28 H Blood Pressure 118/79 118/79 Pulse Oximetry 95 95 04/28/21 02:00 04/28/21 02:05 04/28/21 02:24 Temperature 98.4 F Pulse Rate 93 92 92 Respiratory Rate 28 H 28 H Blood Pressure 115/75 Pulse Oximetry 96 96 04/28/21 02:26 04/28/21 03:59 04/28/21 04:00 Temperature 97.9 F Pulse Rate 92 90 Respiratory Rate 28 H 28 H Blood Pressure 108/76 Pulse Oximetry 96 95 95 04/28/21 05:05 04/28/21 0
[2021-04-28] MEDS: VANCOMYCIN HCL 1,250 MG in SODIUM CHLORIDE 0.9% IV 250 ML 200 MG IVPB (17:36)
[2021-04-28 18:08] LABS: Glucose Point of Care 241 mg/dl (65-105)
[2021-04-29] VITALS (53 sets, daily range): BP systolic 132–182; BP diastolic 68–100; PULSE 1–107; RESP 28; TEMP 35.5–37; O2SAT 85–93
[2021-04-29] MEDS: INSULIN ASPART (*BKC) 100 UNITS/ML SUB-Q ×4 (00:06→17:36)
[2021-04-29 00:11] LABS: Glucose Point of Care 215 mg/dl (65-105)
[2021-04-29] MEDS: PROPOFOL IV EMULSION 100 ML 11.2 MG IV CONT ×4 (00:58→21:51)
[2021-04-29] MEDS: CISATRACURIUM BESYLATE 200 MG in SODIUM CHLORIDE 0.9% IV 80 ML 13.28 ML IV CONT ×3 (01:00→16:25)
[2021-04-29 04:13] LABS: Alveolar/Arterial O2 Gradient 590.3 mmHg; Base Excess ABG 10.6 mEq/l (+/-2.0); Carboxyhemoglobin 0.3 % THb (0-2.0); Fractional Inspired Oxygen 100 %; HCO3 ABG 37.8 mEq/l (22.0-26.0); Methemoglobin ABG 0.4 %THb (0-1.5); Oxygen Content ABG 12.2 %vol (16.0-22.0); Oxyhemoglobin 86.8 % THb (90.0-100.0); PO2 ABG 55.7 mmHg (80.0-100.0); PO2 FiO2 Ratio Arterial Blood 0.56 %; Reduced Hemoglobin 12.5 %THb (0-5.0); pH ABG 7.369 (7.350-7.450)
[2021-04-29 04:15] LABS: Site Drawn RIGHT RADIAL
[2021-04-29 04:16] LABS: Arterial Blood Gas Vent Mode CMV; Arterial Blood Gas Ventilator rate 28 /MIN; Device VENTILATOR; Modified Allen's Test Unable to perform
[2021-04-29 04:17] LABS: Arterial Blood Gas PEEP 18 cmH2O; Arterial Blood Gas Tidal Volume 350 ml
[2021-04-29 04:43] LABS: Hematocrit 30.2 % (37.0-47.0); Hemoglobin 8.6 g/dL (12.0-15.0); Mean Corpuscular HGB Conc 28.5 g/dl (32-36); Mean Corpuscular Hemoglobin 28.3 pg (26-34); Mean Corpuscular Volume 99.3 fl (80-100); Mean Platelet Volume 10.3 fl (7.4-10.4); Platelet Count Result 344 k/mm3 (150-375); Red Blood Count 3.04 M/mm3 (4.2-5.4); Red Cell Distribution Width 20.6 % (11.5-14.5); White Blood Count 12.5 K/mm3 (4.5-10.0)
[2021-04-29 04:56] LABS: Alanine Aminotransferase 9 U/L (4-35); Albumin Level 3.1 g/dL (3.5-5.1); Alkaline Phosphatase 125 U/L (38-126); Anion Gap 4 mmol/L (8-16); Aspartate Amino Transferase 27 U/L (14-36); Bilirubin,Total 0.7 mg/dL (0.2-1.3); Blood Urea Nitrogen 42 mg/dL (7-17); Calcium 8.9 mg/dL (8.4-10.2); Carbon Dioxide 38 mmol/L (22-30); Chloride 105 mmol/L (98-107); Estimated CRCL calculation 141 ml/min; Estimated Glomerular Filt Rate > 60; Glucose 227 mg/dL (65-110); Magnesium 1.9 mg/dL (1.6-2.3); Phosphorus 4.2 mg/dL (2.5-4.5); Potassium 3.1 mmol/L (3.4-5.0); Sodium 147 mmol/L (137-145)
[2021-04-29] MEDS: MIDAZOLAM 100MG/NS 100ML(*CRX) 100 MG/100 ML BAG 8 MG IV CONT ×2 (05:15→17:27)
[2021-04-29] MEDS: CENTRAL LINE FLUSH 10 ML IV PUSH ×3 (05:17→21:53)
[2021-04-29] MEDS: HEPARIN SODIUM 5,000 UNITS/ML VIAL 5000 UNITS SUB-Q ×3 (05:17→21:53)
[2021-04-29] MEDS: EPOPROSTENOL SODIUM 0.5 MG VIAL 1 MG INHALATION ×3 (06:20→18:18)
[2021-04-29] MEDS: PANTOPRAZOLE SODIUM IV 40 MG VIAL IV PUSH ×2 (08:56→20:08)
[2021-04-29] MEDS: POTASSIUM CHLORIDE 20 MEQ PACKET (FOR LIQUID) 40 MEQ FEED TUBE ×2 (08:56→15:40)
[2021-04-29] MEDS: INSULIN GLARGINE (*BKC) 100 UNITS/ML 10 UNITS SUB-Q (08:56)
[2021-04-29] MEDS: MINERAL OIL/WHITE PETROLATUM OINTMENT 1 APPLIC EACH EYE ×2 (08:57→20:06)
[2021-04-29] MEDS: FENTANYL 2,500MCG/NS250ML(*CRX 2,500 MCG/250 ML BAG 20 MCG IV CONT ×2 (10:19→23:25)
--- NOTE | 2021-04-29 10:58 | WPDINTPN ---
Progress Note: A&P Assessment and Plan (1) Acute respiratory failure with hypoxia: Code(s): J96.01 - Acute respiratory failure with hypoxia Status: Acute Assessment and Plan: Acute respiratory failure secondary to COVID-19 pneumonia 03/12 Admitted 03/15 Intermittent Bipap 03/20 Bipap dependent. 03/21 Intubated. -currently on 18 of PEEP and 100% FiO2 -on inhaled Flolan - -continue Versed, propofol and fentanyl infusion for sedation. Nimbex restarted on 04/23/2021 for ventilator synchrony as patient was receiving multiple doses of rocuronium p.r.n.. -patient was placed in prone position overnight but when she was placed on supine this morning her saturations dropped into 60s. Patient had to be placed back in prone position and sats are still in 80s. Patient appears to have become prone position dependent -chest x-ray and ABGs reviewed, -will continue to diurese with Lasix IV - low tidal volume ventilation - Continue bronchodilators -patient has been on ventilator for over 4 weeks now. She is a candidate for tracheostomy but currently too hypoxic along with high PEEP to allow safe procedure. 03/16/2021: Echo with EF 74%, normal diastolic function and no valvular disease. 03/16/2021: Venous doppler of all 4 extremities negative for DVT. 03/18/2021: CTA Chest negative for PE. (2) Pneumonia due to COVID-19 virus: Code(s): U07.1 - COVID-19; J12.82 - Pneumonia due to coronavirus disease 2018 Status: Acute Assessment and Plan: She has NOT been vaccinated for COVID Status post Remdesivir S/p Dexamethasone (20 mg IV q.day for 5 days then dexamethasone 10 mg IV q.day for additional 5 days.) Tocilizumab given once 03/14. Status post 5 days of Rocephin and azithromycin at the time of admission (3) Sepsis: Qualifiers: Sepsis type: sepsis due to unspecified organism Sepsis acute organ dysfunction status: with acute organ dysfunction Severe sepsis acute organ dysfunction type: acute renal failure Acute renal failure type: unspecified Severe sepsis shock status: with septic shock Qualified Code(s): A41.9 - Sepsis, unspecified organism; R65.21 - Severe sepsis with septic shock; N17.9 - Acute kidney failure, unspecified Code(s): A41.9 - Sepsis, unspecified organism Status: Acute Assessment and Plan: Patient was febrile and her WBC had increased Patient was started on empiric vancomycin and Rocephin on 04/10 for sepsis her urine grew Enterococcus and Klebsiella both are sensitive to Rocephin Blood cultures done on 04/07 and 04/13 have been negative till now 04/13 Sputum culture is growing out Klebsiella oxytoca which is ESBL 04/16 Rocephin was changed to to imipenem Her lipase was normal 04/14/2021: Bilateral upper and lower, extremity Dopplers were negative for DVT Patient at this time is too unstable for me to transport to CT She is afebrile over last 24 hours and white count improving 04/24/2021 sputum culture growing ESBL Klebsiella oxytoca, patient remains on imipenem -04/28/2021 infectious disease has been consulted, await recommendation (4) Shock: Code(s): R57.9 - Shock, unspecified Status: Acute Assessment and Plan: Resolved, patient is off Levophed Secondary to sepsis versus hypovolemic (5) BROOKE (acute kidney injury): Code(s): N17.9 - Acute kidney failure, unspecified Status: Acute Assessment and Plan: Patient presented with BROOKE which was Likely secondary to hypovolemia and hypotension Patient's creatinine has been fluctuating, requiring intermittent IV fluids with improvement in her renal function Creatinine continues to be stable. Monitor urine output creatinine electrolytes -anasarca started patient on albumin and Lasix with adequate urine, will continue diuresis (6) Type 2 diabetes mellitus with hyperglycemia: Qualifiers: Diabetes mellitus half-way insulin use: with neon molder use Qualified Code(s): E11.65 - Ty
[2021-04-29 12:10] LABS: Glucose Point of Care 261 mg/dl (65-105)
--- NOTE | 2021-04-29 12:14 | PCDIET ---
ICU Rounding Note: Patient tolerating Glucerna 1.2 at 40mL/hr with Pro-Stat flush BID and 100mL water flush every 4 hours. Last recorded weight is 116.8kg which is down from last review. Bowel Motility: BM x 1 today. Labs Reviewed: WBC (12.5), RBC (3.04), Hgb (8.6), Hct (30.2), Glu (227), BUN (42), Cr (0.4), K (3.1), Na (147), Alb (3.1) Meds Noted: Albumin, Nimbex, Flolan, Fentanyl, Lasix, Primaxin, Novolog, Lantus, Versed, Protonix, KCl, Propofol (rate of 11.2mL/hr provides 295kcal per day), Zemuron, Vancomycin, Lasix Additional Notes: No change in skin reported. Following daily in ICU rounds. Assessing/reassessing every Monday/Monday.
--- NOTE | 2021-04-29 12:52 | WPDINFPN2 ---
Progress Note: A&P Assessment and Plan (1) Pneumonia: Qualifiers: Laterality: bilateral Lung location: lower lobe of lung Pneumonia type: due to unspecified organism Qualified Code(s): J18.9 - Pneumonia, unspecified organism Code(s): J18.9 - Pneumonia, unspecified organism Status: Acute Assessment and Plan: 1. HCAP 2. Recent CoVid 19 viral pneumonia 3. Resp failure REC Imipenem #14, vanc #20, stop. Although the sputum yeast is probably a commensal, I asked the lab to identify, since her immunocompromise and worsened CXR lead to a concern over invasive fungal infection. No antifungal at present however. Subjective Date/time seen: 04/29/21 12:52 Objective Data Vital Signs Vital Signs: Vital Signs - 24 hr 04/28/21 13:16 04/28/21 13:25 04/28/21 13:36 Temperature Pulse Rate 97 100 105 H Respiratory Rate 28 H 28 H 28 H Blood Pressure 145/80 H Pulse Oximetry 92 04/28/21 14:00 04/28/21 15:40 04/28/21 16:00 Temperature 36.4 C 36.9 C Pulse Rate 100 110 H 106 H Respiratory Rate 28 H 28 H Blood Pressure 156/88 H 155/89 H Pulse Oximetry 88 L 90 92 04/28/21 17:26 04/28/21 17:27 04/28/21 17:45 Temperature Pulse Rate 107 H 102 H Respiratory Rate 28 H 28 H Blood Pressure Pulse Oximetry 94 92 04/28/21 18:00 04/28/21 19:15 04/28/21 19:33 Temperature 36.8 C 36.6 C Pulse Rate 99 94 94 Respiratory Rate 28 H 28 H 28 H Blood Pressure 132/78 147/90 H Pulse Oximetry 96 96 95 04/28/21 19:34 04/28/21 19:43 04/28/21 20:00 Temperature Pulse Rate 93 93 96 Respiratory Rate 28 H 28 H Blood Pressure 147/90 H Pulse Oximetry 93 04/28/21 22:00 04/28/21 22:17 04/28/21 22:26 Temperature 36.6 C Pulse Rate 97 96 97 Respiratory Rate 28 H 28 H 28 H Blood Pressure 154/80 H Pulse Oximetry 91 91 04/28/21 22:27 04/28/21 23:44 04/29/21 00:00 Temperature 36.4 C L Pulse Rate 97 91 92 Respiratory Rate 28 H 28 H Blood Pressure 163/84 H Pulse Oximetry 91 92 92 04/29/21 00:58 04/29/21 01:00 04/29/21 02:00 Temperature 36.2 C L Pulse Rate 93 93 91 Respiratory Rate 28 H 28 H 28 H Blood Pressure 171/88 H 176/89 H Pulse Oximetry 92 04/29/21 02:39 04/29/21 02:41 04/29/21 03:36 Temperature 36.2 C L Pulse Rate 92 92 93 Respiratory Rate 28 H 28 H Blood Pressure 182/93 H Pulse Oximetry 91 91 87 L 04/29/21 03:37 04/29/21 03:45 04/29/21 04:00 Temperature Pulse Rate 96 96 Respiratory Rate 28 H Blood Pressure Pulse Oximetry 87 L 87 L 04/29/21 05:15 04/29/21 06:00 04/29/21 06:25 Temperature 36.3 C L Pulse Rate 93 98 99 Respiratory Rate 28 H 28 H 28 H Blood Pressure 175/87 H Pulse Oximetry 88 L 85 L 04/29/21 06:26 04/29/21 06:29 04/29/21 08:00 Temperature 36.4 C L Pulse Rate 101 H 1 L 99 Respiratory Rate 28 H 28 H Blood Pressure 170/90 H Pulse Oximetry 85 L 89 L 04/29/21 08:12 04/29/21 08:32 04/29/21 08:52 Temperature Pulse Rate 98 101 H 101 H Respiratory Rate 28 H 28 H Blood Pressure 170/90 H 170/90 H Pulse Oximetry 89 L 04/29/21 09:43 04/29/21 10:00 04/29/21 10:19 Temperature 36.2 C L Pulse Rate 107 H 99 100 Respiratory Rate 28 H 28 H 28 H Blood Pressure 159/85 H Pulse Oximetry 86 L 85 L 04/29/21 12:33 04/29/21 12:34 Temperature Pulse Rate 100 100 Respiratory Rate 28 H Blood Pressure Pulse Oximetry 86 L 86 L Intake/Output Intake/Output: Intake & Output 04/26/21 04/27/21 04/28/21 04/29/21 23:59 23:59 23:59 23:59 Intake Total 4049 3209 3438 1650 Output Total 1575 1950 2750 2100 Balance 2474 1259 476 -475 Meds/Results Medications: Active Medications Generic Name Dose Route Start Last Admin Trade Name Freq PRN Reason Stop Dose Admin Acetaminophen 650 mg 04/07/21 22:18 04/15/21 15:14 Acetaminophen Elixir 325 Mg/10.15 Ml Udc PO 650 mg Q6H PRN Administration Mild Pain (1-3) or Fever Albuterol 2.5 mg 03/15/21 14:00 04/25/21
--- NOTE | 2021-04-29 14:52 | CONS_ITS ---
DATE OF CONSULTATION: 04/29/2021 REASON FOR CONSULTATION: Healthcare-associated pneumonia. HISTORY OF PRESENT ILLNESS: A 65-year-old female who cannot provide a history. She has been unvaccinated against coronavirus. She has had no previous coronavirus illness. She presented to the hospital on March 12 with cough, unsteadiness on her feet, and shortness of breath. She had a positive coronavirus assay and received tocilizumab, remdesivir, and dexamethasone, also a single dose of convalescent plasma. All the above has since been discontinued. For unknown reasons, she also received 5 days of ceftriaxone and azithromycin. Hospital course has been complicated by persistent respiratory failure. She had hypoxemia during her first week, which was progressive. She required positive-pressure ventilation, was intubated on March 21 for respiratory insufficiency. She has been on the ventilator since then. She has had intermittent episodes of fever as well as hyperthermia. The last fever was 14 days ago approximately. Her temperature is now in the normal range. She has had leukocytosis also since about April 14. Sputum culture during the time of fever did show ESBL-producing klebsiella. She has been on imipenem, now day #14. She also has been on vancomycin, now day #20, the latter being given empirically. She remains ventilator dependent, but apparently due to marked respiratory failure, cannot tolerate tracheostomy at the present time. Otherwise, her hospital course has been complicated by renal failure, not requiring dialysis, suspect a septic shock, but pressors have been off for a number of days, elevated transaminases, multiple electrolyte abnormalities, and hyperglycemia. PRESENT MEDICATIONS: List reviewed. No immunosuppressants. ALLERGIES: NONE KNOWN. HABITS: Ex-smoker. No alcohol. PAST MEDICAL HISTORY: Type 2 diabetes mellitus, hypertension, hyperlipidemia, asthma, previous appendectomy, laparoscopy, unknown details. FAMILY HISTORY: Diabetes, hypertension. SOCIAL HISTORY: No family at the bedside. She has a daughter who is a surrogate decision maker. She lives alone in [place]. REVIEW OF SYSTEMS: 14-point review otherwise negative per record, not obtainable from the patient due to sedation and paralysis. PHYSICAL EXAMINATION: GENERAL: This is a middle-aged female, who appears older than her actual age. She appears acutely ill. SKIN: Some skin dystrophy in the upper and lower extremities consistent with her diabetes. No rashes. Warm and dry. NODES: No posterior cervical adenopathy. EENT: She has marked palpebral edema on the left, less so on the right. She has no paranasal sinus erythema noted. She is orally intubated. NECK: Without mass or meningismus. LUNGS: Bilateral rales and bronchovesicular breath sounds throughout. No wheezing. No rhonchi. CARDIAC: Tachycardic at 100, afebrile, respirations 28, saturation 89% on the noted ventilator settings. Blood pressure 159/85. No pressors. No murmurs heard, although full exam not possible due to prone position. ABDOMEN: Flanks reveal no masses. She is prone positioned, so unable to examine anterior abdomen. BACK: No evidence of erythema, tenderness, or sinus tracts. EXTREMITIES: 3+ pitting and nonpitting edema, arms and legs. LAB: Sputum from April 08, ESBL-producing klebsiella. 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 Blood cultures from the time of admission and the following day, all no growth, also from the . Sputum from the with the same klebsiella along with the yeast, scant growth. White blood cell count has been high for the last 2 weeks, previously normal, currently 12.5; hemoglobin 8.6; platelets are 344. No differential done
[2021-04-29] MEDS: ALBUMIN HUMAN 25% 25 GM/100 ML 100 ML IVPB (17:36)
[2021-04-29] MEDS: FUROSEMIDE INJ 40 MG/4 ML VIAL IV PUSH (17:36)
[2021-04-29 18:17] LABS: Glucose Point of Care 252 mg/dl (65-105)
--- NOTE | 2021-04-29 18:21 | PM.IMPN ---
Progress Note: A&P Assessment and Plan (1) Pneumonia due to COVID-19 virus: Code(s): U07.1 - COVID-19; J12.82 - Pneumonia due to coronavirus disease 2019 Status: Acute Assessment and Plan: 04/27 - continue current ventilator settings, assist/controlrate of 28, peep of 20, FiO2 100, tidal volume of 350; sedation with Versed and fentanyl; Q 6 scheduled nebulizer treatments; q.12 scheduled IV Lasix Noted that ICU service will try for tracheostomy when respiratory status allows, namely oxygen saturation and PEEP (2) Acute respiratory failure with hypoxia: Code(s): J96.01 - Acute respiratory failure with hypoxia Status: Acute Assessment and Plan: most likely secondary to COVID pneumonia (3) Sepsis: Qualifiers: Sepsis type: sepsis due to unspecified organism Sepsis acute organ dysfunction status: with acute organ dysfunction Severe sepsis acute organ dysfunction type: acute renal failure Acute renal failure type: unspecified Severe sepsis shock status: with septic shock Qualified Code(s): A41.9 - Sepsis, unspecified organism; R65.21 - Severe sepsis with septic shock; N17.9 - Acute kidney failure, unspecified Code(s): A41.9 - Sepsis, unspecified organism Status: Acute Assessment and Plan: sputum culture is growing Klebsiella oxytoca and urine culture is growing Klebsiella pneumonia and Enterococcus, blood cultures are negative so far patient is being treated with imipenem and vancomycin remains clinically stable (4) Shock: Code(s): R57.9 - Shock, unspecified Status: Acute (5) BROOKE (acute kidney injury): Code(s): N17.9 - Acute kidney failure, unspecified Status: Acute Assessment and Plan: resolved, most likely secondary to COVID and pre renal, in the setting of dehydration on presentation; continue to monitor creatinine Additional Plan noted patient started on Nimbex drip today b.i.d. albumin to help maintain blood pressure noted ESBL Klebsiella in sputum from April 24, id consulted, believe to be airway colonizer recommending to stop vancomycin and imipenem; working with lab to identified yeast in sputum, currently holding off on antifungal Holding statin secondary to transaminitis; Continue Lovenox for DVT prophylaxis Continue Lantus and sliding scale insulin for diabetes Continue ulcer prophylaxis with PPI for patient with long-term mechanical ventilation Currently noted full code, understand the family is discussing patient's medical status Time Spent With Patient Time with patient: less than 15 minutes Subjective Date/time seen: 04/29/21 18:21 no meaningful interview possible Review of Systems Review of Systems: no meaningful interview possible Exam Narrative: patient in prone position Const: General: no acute distress Cardio: Rate: regular rate Rhythm: regular rhythm GI: GI Palp: Yes Soft to palpation and No Tenderness to palpation present (GI) : Other: deferred as patient is in prone position Objective Data Vital Signs Vital Signs: Vital Signs - 24 hr 04/28/21 19:15 04/28/21 19:33 04/28/21 19:34 Temperature 98 F Pulse Rate 94 94 93 Respiratory Rate 28 H 28 H 28 H Blood Pressure 147/90 H Pulse Oximetry 96 95 04/28/21 19:43 04/28/21 20:00 04/28/21 22:00 Temperature 97.8 F Pulse Rate 93 96 97 Respiratory Rate 28 H 28 H Blood Pressure 147/90 H 154/80 H Pulse Oximetry 93 91 04/28/21 22:17 04/28/21 22:26 04/28/21 22:27 Temperature Pulse Rate 96 97 97 Respiratory Rate 28 H 28 H Blood Pressure Pulse Oximetry 91 91 04/28/21 23:44 04/29/21 00:00 04/29/21 00:58 Temperature 97.5 F L Pulse Rate 91 92 93 Respiratory Rate 28 H 28 H 28 H Blood Pressure 163/84 H Pulse Oximetry 92 92 04/29/21 01:00 04/29/21 02:00 04/29/21 02:39 Temperature 97.1 F L Pulse Rate 93 91 92 Respiratory Rate 28 H 28 H 28 H Blood Pressure 171/88 H 176/89 H Pulse Oxim
[2021-04-29 23:40] LABS: Glucose Point of Care 197 mg/dl (65-105)
[2021-04-30] VITALS (61 sets, daily range): BP systolic 120–179; BP diastolic 69–93; PULSE 82–112; RESP 28–33; TEMP 35.5–37.1; O2SAT 87–95
[2021-04-30] MEDS: EPOPROSTENOL SODIUM 0.5 MG VIAL 1 MG INHALATION ×4 (00:24→17:55)
[2021-04-30] MEDS: CISATRACURIUM BESYLATE 200 MG in SODIUM CHLORIDE 0.9% IV 80 ML 13.28 ML IV CONT (01:05)
[2021-04-30] MEDS: PROPOFOL IV EMULSION 100 ML 11.2 MG IV CONT ×3 (04:27→17:29)
[2021-04-30 04:59] LABS: Hematocrit 28.3 % (37.0-47.0); Hemoglobin 7.9 g/dL (12.0-15.0); Mean Corpuscular HGB Conc 27.9 g/dl (32-36); Mean Corpuscular Hemoglobin 27.3 pg (26-34); Mean Corpuscular Volume 97.9 fl (80-100); Mean Platelet Volume 10.6 fl (7.4-10.4); Platelet Count Result 299 k/mm3 (150-375); Red Blood Count 2.89 M/mm3 (4.2-5.4); Red Cell Distribution Width 20.2 % (11.5-14.5); White Blood Count 10.8 K/mm3 (4.5-10.0)
[2021-04-30 05:03] LABS: Alveolar/Arterial O2 Gradient 593.4 mmHg; Base Excess ABG 11.6 mEq/l (+/-2.0); Carboxyhemoglobin 0.1 % THb (0-2.0); Fractional Inspired Oxygen 100 %; HCO3 ABG 38.9 mEq/l (22.0-26.0); Methemoglobin ABG 0.6 %THb (0-1.5); Oxygen Content ABG 10.8 %vol (16.0-22.0); PO2 FiO2 Ratio Arterial Blood 0.49 %; Reduced Hemoglobin 17.3 %THb (0-5.0); Total Hemoglobin 9.3 g/dL (12.0-18.0); pH ABG 7.362 (7.350-7.450)
[2021-04-30 05:05] LABS: PCO2 ABG 70.2 mmHg (35.0-45.0); PO2 ABG 49.4 mmHg (80.0-100.0)
[2021-04-30 05:06] LABS: Arterial Blood Gas Ventilator rate 26 /MIN; Device VENTILATOR; Modified Allen's Test Pass; Oxygen Saturation ABG 81.8 % (95.0-100.0); Site Drawn LEFT RADIAL
[2021-04-30 05:07] LABS: Arterial Blood Gas PEEP 18 cmH2O; Arterial Blood Gas Tidal Volume 350 ml; Arterial Blood Gas Vent Mode CMV
[2021-04-30 05:20] LABS: Alanine Aminotransferase 8 U/L (4-35); Albumin Level 3.1 g/dL (3.5-5.1); Alkaline Phosphatase 122 U/L (38-126); Aspartate Amino Transferase 25 U/L (14-36); Bilirubin,Total 0.6 mg/dL (0.2-1.3); Blood Urea Nitrogen 39 mg/dL (7-17); Calcium 9.1 mg/dL (8.4-10.2); Carbon Dioxide > 40 mmol/L (22-30); Chloride 105 mmol/L (98-107); Estimated CRCL calculation 116 ml/min; Estimated Glomerular Filt Rate > 60; Glucose 212 mg/dL (65-110); Magnesium 2.1 mg/dL (1.6-2.3); Phosphorus 3.9 mg/dL (2.5-4.5); Potassium 3.9 mmol/L (3.4-5.0); Sodium 149 mmol/L (137-145)
[2021-04-30] MEDS: INSULIN ASPART (*BKC) 100 UNITS/ML SUB-Q ×3 (06:17→17:33)
[2021-04-30] MEDS: HEPARIN SODIUM 5,000 UNITS/ML VIAL 5000 UNITS SUB-Q ×3 (06:19→20:30)
[2021-04-30] MEDS: CENTRAL LINE FLUSH 10 ML IV PUSH ×3 (06:20→20:31)
[2021-04-30] MEDS: MIDAZOLAM 100MG/NS 100ML(*CRX) 100 MG/100 ML BAG 8 MG IV CONT ×2 (06:21→17:26)
[2021-04-30 06:43] LABS: Glucose Point of Care 202 mg/dl (65-105)
[2021-04-30] MEDS: CISATRACURIUM BESYLATE 200 MG in SODIUM CHLORIDE 0.9% IV 80 ML 14.95 ML IV CONT ×3 (07:31→20:26)
[2021-04-30] MEDS: ALBUMIN HUMAN 25% 25 GM/100 ML 100 ML IVPB ×2 (08:43→17:22)
[2021-04-30] MEDS: DEXTROSE 5% 1,000 ML 1,000 ML 100 ML IV CONT (08:43)
[2021-04-30] MEDS: FUROSEMIDE INJ 40 MG/4 ML VIAL IV PUSH ×2 (08:43→17:33)
[2021-04-30] MEDS: PANTOPRAZOLE SODIUM IV 40 MG VIAL IV PUSH ×2 (08:44→20:30)
[2021-04-30] MEDS: MINERAL OIL/WHITE PETROLATUM OINTMENT 1 APPLIC EACH EYE ×2 (08:44→21:00)
[2021-04-30] MEDS: INSULIN GLARGINE (*BKC) 100 UNITS/ML 15 UNITS SUB-Q (08:44)
--- NOTE | 2021-04-30 11:20 | WPDINTPN ---
Progress Note: A&P Assessment and Plan (1) Acute respiratory failure with hypoxia: Code(s): J96.01 - Acute respiratory failure with hypoxia Status: Acute Assessment and Plan: Acute respiratory failure secondary to COVID-19 pneumonia 03/12 Admitted 03/15 Intermittent Bipap 03/20 Bipap dependent. 03/21 Intubated. -currently on 18 of PEEP and 100% FiO2 -on inhaled Flolan - continue Versed, propofol and fentanyl infusion for sedation. Nimbex restarted on 04/23/2021 for ventilator synchrony as patient was receiving multiple doses of rocuronium p.r.n.. -patient was placed in prone position overnight again today she did not tolerate supine position this morning this morning her saturations dropped into 70s. Patient had to be placed back in prone position and sats are now improved to 90s. Patient appears to have become prone position dependent over last 2 days -chest x-ray and ABGs reviewed, -will continue to diurese with Lasix IV - low tidal volume ventilation - Continue bronchodilators -patient has been on ventilator for over 4 weeks now. She is a candidate for tracheostomy but currently too hypoxic along with high PEEP to allow safe procedure. 03/16/2021: Echo with EF 74%, normal diastolic function and no valvular disease. 03/16/2021: Venous doppler of all 4 extremities negative for DVT. 03/18/2021: CTA Chest negative for PE. (2) Pneumonia due to COVID-19 virus: Code(s): U07.1 - COVID-19; J12.82 - Pneumonia due to coronavirus disease 2018 Status: Acute Assessment and Plan: She has NOT been vaccinated for COVID Status post Remdesivir S/p Dexamethasone (20 mg IV q.day for 5 days then dexamethasone 10 mg IV q.day for additional 5 days.) Tocilizumab given once 03/14. Status post 5 days of Rocephin and azithromycin at the time of admission (3) Sepsis: Qualifiers: Sepsis type: sepsis due to unspecified organism Sepsis acute organ dysfunction status: with acute organ dysfunction Severe sepsis acute organ dysfunction type: acute renal failure Acute renal failure type: unspecified Severe sepsis shock status: with septic shock Qualified Code(s): A41.9 - Sepsis, unspecified organism; R65.21 - Severe sepsis with septic shock; N17.9 - Acute kidney failure, unspecified Code(s): A41.9 - Sepsis, unspecified organism Status: Acute Assessment and Plan: Patient was febrile and her WBC had increased Patient was started on empiric vancomycin and Rocephin on 04/10 for sepsis her urine grew Enterococcus and Klebsiella both are sensitive to Rocephin Blood cultures done on 04/07 and 04/13 have been negative till now 04/13 Sputum culture is growing out Klebsiella oxytoca which is ESBL 04/16 Rocephin was changed to to imipenem Her lipase was normal 04/14/2021: Bilateral upper and lower, extremity Dopplers were negative for DVT Patient at this time is too unstable for me to transport to CT She is afebrile over last 24 hours and white count improving 04/24/2021 sputum culture growing ESBL Klebsiella oxytoca, patient remains on imipenem 04/28/2021 infectious disease saw the patient and recommended discontinuing vancomycin and imipenem. Lab has been requested to identify the yeast growing in her sputum (4) Shock: Code(s): R57.9 - Shock, unspecified Status: Acute Assessment and Plan: Resolved, patient is off Levophed Secondary to sepsis versus hypovolemic (5) BROOKE (acute kidney injury): Code(s): N17.9 - Acute kidney failure, unspecified Status: Acute Assessment and Plan: Patient presented with BROOKE which was Likely secondary to hypovolemia and hypotension Patient's creatinine has been fluctuating, requiring intermittent IV fluids with improvement in her renal function Creatinine continues to be stable. Monitor urine output creatinine electrolytes -anasarca started patient on albumin and Lasix with adequate urine, will continue diuresis (6) Type 2 diabetes m
--- NOTE | 2021-04-30 11:23 | PCDIET ---
Nutrition Follow-Up Complete: Nutrition Diagnosis: Inadequate oral intake related to decreased appetite as evidenced by intakes 50% or less at most meals x 1 week. Nutrition Goal: Patient to meet estimated nutritional needs. Goal met. Patient tolerating Glucerna 1.2 at 40mL/hr goal rate with 100mL water flush every 4 hours and Pro-Stat flush BID. Last recorded weight is 115.6 kg which is down from last review. Bowel Motility: BM x 5 documented today. Labs Reviewed: WBC (10.8), RBC (2.59), Hgb (7.9), Hct (28.3), Glu (212), BUN (39), Cr (0.5), Na (149), Alb (3.1) Meds Noted: Zemuron, Nimbex, Flolan, Fentanyl, Lasix, Lantus, Atrovent, Versed, Protonix, Albumin, D5/Water at 100mL/hr, Propofol (rate of 11.2mL/hr provides 295kcal per day) Additional Notes: Lantus increased from 10u to 15u daily. No change in skin reported. Will continue to monitor with same goal. Nutrition Monitoring and Evaluation: Follow up every Monday/Monday.
[2021-04-30] MEDS: FENTANYL 2,500MCG/NS250ML(*CRX 2,500 MCG/250 ML BAG 20 MCG IV CONT (12:01)
[2021-04-30 12:28] LABS: Glucose Point of Care 256 mg/dl (65-105)
--- NOTE | 2021-04-30 16:55 | PM.IMPN ---
Progress Note: A&P Assessment and Plan (1) Acute respiratory failure with hypoxia: Code(s): J96.01 - Acute respiratory failure with hypoxia Status: Acute Assessment and Plan: Acute respiratory failure secondary to COVID-19 pneumonia 03/12 Admitted 03/15 Intermittent Bipap 03/16: Echo with EF 74%, normal diastolic function and no valvular disease. 03/16: Venous doppler of all 4 extremities negative for DVT. 03/18: CTA Chest negative for PE. 03/20 Bipap dependent. 03/21 Intubated. -currently on 18 of PEEP and 100% FiO2 -on inhaled Flolan - continue Versed, propofol and fentanyl infusion for sedation. Nimbex restarted on 04/23/2021 -patient tolerates prone positioning but does not tolerate supine position due to hypoxia. -chest x-ray reviewed personally and shows severe diffuse airspace disease; ABG 7.36//49 - UOP has improved but not enough to prove a negative fluid balance past 2 days. continue to diurese with Lasix IV and albumin - Continue bronchodilators -patient has been on ventilator for over 4 weeks now. She is a candidate for tracheostomy but currently too hypoxic along with high PEEP to allow safe procedure. (2) Pneumonia due to COVID-19 virus: Code(s): U07.1 - COVID-19; J12.82 - Pneumonia due to coronavirus disease 2018 Status: Acute Assessment and Plan: She has NOT been vaccinated for COVID Status post Remdesivir S/p Dexamethasone (20 mg IV q.day for 5 days then dexamethasone 10 mg IV q.day for additional 5 days.) Tocilizumab given once 03/14. Status post 5 days of Rocephin and azithromycin at the time of admission As above. (3) Sepsis: Qualifiers: Sepsis type: sepsis due to unspecified organism Sepsis acute organ dysfunction status: with acute organ dysfunction Severe sepsis acute organ dysfunction type: acute renal failure Acute renal failure type: unspecified Severe sepsis shock status: with septic shock Qualified Code(s): A41.9 - Sepsis, unspecified organism; R65.21 - Severe sepsis with septic shock; N17.9 - Acute kidney failure, unspecified Code(s): A41.9 - Sepsis, unspecified organism Status: Acute Assessment and Plan: Patient was febrile and her WBC had increased Patient was started on empiric vancomycin and Rocephin on 04/10 for sepsis Urine Cx 04/08 grew Enterococcus and Klebsiella both are sensitive to Rocephin 04/14/2021: Bilateral upper and lower, extremity Dopplers were negative for DVT Blood cultures done on 04/07 and 04/13 are negative Sputum culture 04/13 is growing out ESBL Klebsiella oxytoca 04/16 Rocephin was changed to to imipenem Patient is too unstable to transport to CT She remains afebrile and WBC trending down 04/24/2021 sputum culture growing ESBL Klebsiella oxytoca 04/28/2021 infectious disease saw the patient and recommended discontinuing vancomycin and imipenem. Lab has been requested to identify the yeast growing in her sputum (4) Shock: Code(s): R57.9 - Shock, unspecified Status: Acute Assessment and Plan: Secondary to sepsis versus hypovolemic. Treated and now resolved, patient is off Levophed. Follow (5) BROOKE (acute kidney injury): Code(s): N17.9 - Acute kidney failure, unspecified Status: Acute Assessment and Plan: Patient presented with BROOKE which was likely secondary to hypovolemia and hypotension Patient's creatinine was fluctuating but has been normal now for many days. Agree with diuresis (6) Type 2 diabetes mellitus with hyperglycemia: Qualifiers: Diabetes mellitus prison insulin use: with prison use Qualified Code(s): E11.65 - Type 2 diabetes mellitus with hyperglycemia; Z79.4 - [facility] (current) use of insulin Code(s): E11.65 - Type 2 diabetes mellitus with hyperglycemia Status: Acute Assessment and Plan: HbA1c 12.8 to show poor control prior to admission. Continue Accu-Cheks and sliding scale insulin Continue Lantus;
[2021-04-30 18:01] LABS: Glucose Point of Care 212 mg/dl (65-105)
[2021-04-30 20:51] LABS: Glucose Point of Care 183 mg/dl (65-105)
--- NOTE | 2021-04-30 21:34 | PC.NURSE ---
Pt's daughter, Leatha, called for pt's prognosis. Explained to her that pt's prognosis has not changed in the past few weeks. Pt has grave prognosis, maxed out on ventilator, with worsening chest x-ray, and that pt has been prone for approximately 36 hours because she cannot tolerate supine position. Asked Leatha if they have considered a DNR for pt. Leatha states she will not consider that. States I will not accept anyone or anything trying to upset me. It is in God's hands and when he decides to take her, that is when I will be at peace with it. Explained that even if CPR were given to pt, that she will not likely survive that. Leatha states I am okay with that. Leatha plans to pickers material handlers pt's belongings tomorrow. Explained that belongings will be placed in a bag in the pt room, then in a clean bag outside of pt's room. Items should remained in clean bag for 7 days to limit COVID exposure to anyone touching items. Verbalized understanding of entire conversation.
[2021-04-30 23:53] LABS: Glucose Point of Care 175 mg/dl (65-105)
[2021-05-01] VITALS (51 sets, daily range): BP systolic 140–170; BP diastolic 74–103; PULSE 96–119; RESP 0–36; TEMP 37–37.4; O2SAT 85–92
[2021-05-01] MEDS: FENTANYL 2,500MCG/NS250ML(*CRX 2,500 MCG/250 ML BAG 20 MCG IV CONT ×2 (00:42→13:25)
[2021-05-01] MEDS: PROPOFOL IV EMULSION 100 ML 11.2 MG IV CONT ×4 (00:45→22:00)
[2021-05-01] MEDS: EPOPROSTENOL SODIUM 0.5 MG VIAL 1 MG INHALATION ×4 (00:48→18:36)
[2021-05-01] MEDS: CISATRACURIUM BESYLATE 200 MG in SODIUM CHLORIDE 0.9% IV 80 ML 16.61 ML IV CONT ×4 (03:22→20:31)
[2021-05-01 05:09] LABS: Base Excess ABG 11.8 mEq/l (+/-2.0); Carboxyhemoglobin 1.7 % THb (0-2.0); Fractional Inspired Oxygen 100 %; HCO3 ABG 38.9 mEq/l (22.0-26.0); Methemoglobin ABG 0.3 %THb (0-1.5); Oxygen Content ABG 10.9 %vol (16.0-22.0); Oxygen Saturation ABG 89.9 % (95.0-100.0); Oxyhemoglobin 88.9 % THb (90.0-100.0); PO2 FiO2 Ratio Arterial Blood 0.62 %; Reduced Hemoglobin 9.1 %THb (0-5.0); Total Hemoglobin 8.7 g/dL (12.0-18.0); pH ABG 7.362 (7.350-7.450)
[2021-05-01 05:18] LABS: Device VENTILATOR; Modified Allen's Test Pass; PCO2 ABG 70.2 mmHg (35.0-45.0); Site Drawn RIGHT RADIAL
[2021-05-01 05:19] LABS: Arterial Blood Gas PEEP 18 cmH2O; Arterial Blood Gas Vent Mode CMV; Arterial Blood Gas Ventilator rate 28 /MIN
[2021-05-01 05:20] LABS: Arterial Blood Gas Tidal Volume 350 ml
[2021-05-01] MEDS: MIDAZOLAM 100MG/NS 100ML(*CRX) 100 MG/100 ML BAG 8 MG IV CONT ×2 (06:07→19:01)
[2021-05-01] MEDS: CENTRAL LINE FLUSH 10 ML IV PUSH ×3 (06:09→20:34)
[2021-05-01] MEDS: HEPARIN SODIUM 5,000 UNITS/ML VIAL 5000 UNITS SUB-Q ×3 (06:10→20:33)
[2021-05-01 06:18] LABS: Glucose Point of Care 199 mg/dl (65-105)
[2021-05-01 06:24] LABS: Hematocrit 27.7 % (37.0-47.0); Hemoglobin 7.8 g/dL (12.0-15.0); Mean Corpuscular HGB Conc 28.2 g/dl (32-36); Mean Corpuscular Hemoglobin 27.7 pg (26-34); Mean Corpuscular Volume 98.2 fl (80-100); Mean Platelet Volume 10.5 fl (7.4-10.4); Platelet Count Result 306 k/mm3 (150-375); Red Blood Count 2.82 M/mm3 (4.2-5.4); Red Cell Distribution Width 20.1 % (11.5-14.5); White Blood Count 12.2 K/mm3 (4.5-10.0)
[2021-05-01] MEDS: INSULIN GLARGINE (*BKC) 100 UNITS/ML 15 UNITS SUB-Q (10:53)
[2021-05-01] MEDS: FUROSEMIDE INJ 40 MG/4 ML VIAL IV PUSH ×3 (10:55→20:33)
[2021-05-01] MEDS: ALBUMIN HUMAN 25% 25 GM/100 ML 100 ML IVPB (10:56)
[2021-05-01] MEDS: PANTOPRAZOLE SODIUM IV 40 MG VIAL IV PUSH ×2 (10:56→20:33)
[2021-05-01] MEDS: MINERAL OIL/WHITE PETROLATUM OINTMENT 1 APPLIC EACH EYE ×2 (10:56→20:34)
--- NOTE | 2021-05-01 11:57 | WPDINTPN ---
Progress Note: A&P Assessment and Plan (1) Acute respiratory failure with hypoxia: Code(s): J96.01 - Acute respiratory failure with hypoxia Status: Acute Assessment and Plan: Acute respiratory failure secondary to COVID-19 pneumonia 03/12 Admitted 03/15 Intermittent Bipap 03/20 Bipap dependent. 03/21 Intubated. -currently on 18 of PEEP and 100% FiO2 -on inhaled Flolan - continue Versed, propofol and fentanyl infusion for sedation. Nimbex restarted on 04/23/2021 for ventilator synchrony as patient was receiving multiple doses of rocuronium p.r.n.. -patient was placed in prone position overnight again today she did not tolerate supine position this morning this morning her saturations dropped into 70s. Patient had to be placed back in prone position and sats are now improved to 90s. Patient appears to have become prone position dependent over last 2 days -chest x-ray and ABGs reviewed -will advance ET tube by 3 cm -will continue to diurese with Lasix IV - low tidal volume ventilation - Continue bronchodilators -patient has been on ventilator for over 4 weeks now. She is a candidate for tracheostomy but currently too hypoxic along with high PEEP to allow safe procedure. 03/16/2021: Echo with EF 74%, normal diastolic function and no valvular disease. 03/16/2021: Venous doppler of all 4 extremities negative for DVT. 03/18/2021: CTA Chest negative for PE. (2) Pneumonia due to COVID-19 virus: Code(s): U07.1 - COVID-19; J12.82 - Pneumonia due to coronavirus disease 2018 Status: Acute Assessment and Plan: She has NOT been vaccinated for COVID Status post Remdesivir S/p Dexamethasone (20 mg IV q.day for 5 days then dexamethasone 10 mg IV q.day for additional 5 days.) Tocilizumab given once 03/14. Status post 5 days of Rocephin and azithromycin at the time of admission (3) Sepsis: Qualifiers: Sepsis type: sepsis due to unspecified organism Sepsis acute organ dysfunction status: with acute organ dysfunction Severe sepsis acute organ dysfunction type: acute renal failure Acute renal failure type: unspecified Severe sepsis shock status: with septic shock Qualified Code(s): A41.9 - Sepsis, unspecified organism; R65.21 - Severe sepsis with septic shock; N17.9 - Acute kidney failure, unspecified Code(s): A41.9 - Sepsis, unspecified organism Status: Acute Assessment and Plan: Patient was febrile and her WBC had increased Patient was started on empiric vancomycin and Rocephin on 04/10 for sepsis her urine grew Enterococcus and Klebsiella both are sensitive to Rocephin Blood cultures done on 04/07 and 04/13 have been negative till now 04/13 Sputum culture is growing out Klebsiella oxytoca which is ESBL 04/16 Rocephin was changed to to imipenem Her lipase was normal 04/14/2021: Bilateral upper and lower, extremity Dopplers were negative for DVT Patient at this time is too unstable for me to transport to CT She is afebrile over last 24 hours and white count improving 04/24/2021 sputum culture growing ESBL Klebsiella oxytoca, patient remains on imipenem 04/28/2021 infectious disease saw the patient and recommended discontinuing vancomycin and imipenem. Lab has been requested to identify the yeast growing in her sputum (4) Shock: Code(s): R57.9 - Shock, unspecified Status: Acute Assessment and Plan: Resolved, patient is off Levophed Secondary to sepsis versus hypovolemic (5) BROOKE (acute kidney injury): Code(s): N17.9 - Acute kidney failure, unspecified Status: Acute Assessment and Plan: Patient presented with BROOKE which was Likely secondary to hypovolemia and hypotension Patient's creatinine has been fluctuating, requiring intermittent IV fluids with improvement in her renal function Creatinine continues to be stable. Monitor urine output creatinine electrolytes -anasarca - will continue diuresis (6) Type 2 diabetes mellitus with hyperglycemia:
--- NOTE | 2021-05-01 13:09 | PM.IMPN ---
Progress Note: A&P Assessment and Plan (1) Acute respiratory failure with hypoxia: Code(s): J96.01 - Acute respiratory failure with hypoxia Status: Acute Assessment and Plan: Acute respiratory failure secondary to COVID-19 pneumonia Pt is on ventilator in icu (2) Pneumonia due to COVID-19 virus: Code(s): U07.1 - COVID-19; J12.82 - Pneumonia due to coronavirus disease 2019 Status: Acute Assessment and Plan: She has NOT been vaccinated for COVID Status post Remdesivir S/p Dexamethasone Tocilizumab given once 03/14. Status post 5 days of Rocephin and azithromycin (3) Sepsis: Qualifiers: Sepsis type: sepsis due to unspecified organism Sepsis acute organ dysfunction status: with acute organ dysfunction Severe sepsis acute organ dysfunction type: acute renal failure Acute renal failure type: unspecified Severe sepsis shock status: with septic shock Qualified Code(s): A41.9 - Sepsis, unspecified organism; R65.21 - Severe sepsis with septic shock; N17.9 - Acute kidney failure, unspecified Code(s): A41.9 - Sepsis, unspecified organism Status: Acute Assessment and Plan: Patient HR is high and temp is high normal. Patient was started on empiric vancomycin and Rocephin on 04/10 for sepsis her urine grew Enterococcus and Klebsiella both are sensitive to Rocephin Blood cultures done on 04/07 and 04/13 have been negative till now Pt is on levophed (4) Shock: Code(s): R57.9 - Shock, unspecified Status: Acute Assessment and Plan: Resolved, patient is off Levophed Secondary to sepsis versus hypovolemic (5) BROOKE (acute kidney injury): Code(s): N17.9 - Acute kidney failure, unspecified Status: Resolved Assessment and Plan: Patient presented with BROOKE which was Likely secondary to hypovolemia and hypotension (6) Type 2 diabetes mellitus with hyperglycemia: Qualifiers: Diabetes mellitus shelter insulin use: with shelter use Qualified Code(s): E11.65 - Type 2 diabetes mellitus with hyperglycemia; 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 Accu-Cheks and sliding scale insulin -continue Lantus but will increase the dose (7) Hyperlipidemia: Code(s): E78.5 - Hyperlipidemia, unspecified Status: Acute Assessment and Plan: Hold Pravastatin. Due to increase in LFTs (8) DVT prophylaxis: Code(s): Z29.9 - Encounter for prophylactic measures, unspecified Status: Acute Assessment and Plan: Continue Lovenox (9) Anemia: Qualifiers: Anemia type: unspecified type Qualified Code(s): D64.9 - Anemia, unspecified Code(s): D64.9 - Anemia, unspecified Status: Acute Assessment and Plan: No obvious bleeding. pt received two blood transfusions. She received 1 unit of packed red cells on 04/15 -04/24/2021: Patient hemoglobin was 6.5 and received 1 unit of packed RBCs Hb is again low 7.8 continue to monitor She is on Lovenox for DVT prophylaxis She is on PPI q.12 hours (10) Hyponatremia: Code(s): E87.1 - Hypo-osmolality and hyponatremia Status: Acute Assessment and Plan: RESOLVED patient is now hypernatremia Pt is on iv lasix and Dextrose fluids Subjective Date/time seen: 05/01/21 13:09 Interval history: 65yo female with HTN, DM and asthma her for cough and SOB and found to be in acute respiratory failure from COVID PNA. She was intubated on 03/21 for worsening respiratory status. Pt is on a vent. Pt is unvaccinated. Review of Systems Review of Systems: All systems reviewed & are unremarkable except as noted in HPI and below Exam Narrative: General: Pt is sedated, intubated and on mechanical ventilation Abdomen: Soft non tender Extremities:
[2021-05-01] MEDS: INSULIN GLARGINE (*BKC) 100 UNITS/ML 10 UNITS SUB-Q (13:10)
[2021-05-01] MEDS: INSULIN ASPART (*BKC) 100 UNITS/ML SUB-Q (13:10)
[2021-05-01 13:48] LABS: Alanine Aminotransferase 8 U/L (4-35); Albumin Level 3.6 g/dL (3.5-5.1); Alkaline Phosphatase 108 U/L (38-126); Aspartate Amino Transferase 27 U/L (14-36); Bilirubin,Total 0.7 mg/dL (0.2-1.3); Blood Urea Nitrogen 35 mg/dL (7-17); Chloride 100 mmol/L (98-107); Estimated CRCL calculation 116 ml/min; Estimated Glomerular Filt Rate > 60; Glucose 227 mg/dL (65-110); Potassium 3.6 mmol/L (3.4-5.0); Sodium 150 mmol/L (137-145)
[2021-05-01 14:12] LABS: Carbon Dioxide > 40 mmol/L (22-30)
[2021-05-01 14:12] LABS: Glucose Point of Care 226 mg/dl (65-105)
[2021-05-01] MEDS: POTASSIUM CHLORIDE 20 MEQ PACKET (FOR LIQUID) 40 MEQ FEED TUBE (15:11)
[2021-05-01 17:46] LABS: Glucose Point of Care 188 mg/dl (65-105)
[2021-05-01 23:46] LABS: Magnesium 2.1 mg/dL (1.6-2.3); Phosphorus 3.9 mg/dL (2.5-4.5)
[2021-05-02] VITALS (40 sets, daily range): BP systolic 141–171; BP diastolic 80–101; PULSE 83–103; RESP 28; TEMP 36.8–37.2; O2SAT 86–100
[2021-05-02] MEDS: EPOPROSTENOL SODIUM 0.5 MG VIAL 1 MG INHALATION ×4 (00:42→23:47)
[2021-05-02] MEDS: FENTANYL 2,500MCG/NS250ML(*CRX 2,500 MCG/250 ML BAG 20 MCG IV CONT ×2 (00:49→13:56)
[2021-05-02] MEDS: CISATRACURIUM BESYLATE 200 MG in SODIUM CHLORIDE 0.9% IV 80 ML 16.61 ML IV CONT ×4 (00:52→18:30)
[2021-05-02 01:03] LABS: Glucose Point of Care 152 mg/dl (65-105)
[2021-05-02] MEDS: FUROSEMIDE INJ 40 MG/4 ML VIAL IV PUSH ×3 (05:02→20:33)
[2021-05-02] MEDS: HEPARIN SODIUM 5,000 UNITS/ML VIAL 5000 UNITS SUB-Q ×3 (05:02→21:50)
[2021-05-02] MEDS: PROPOFOL IV EMULSION 100 ML 11.2 MG IV CONT ×3 (05:02→20:30)
[2021-05-02] MEDS: MIDAZOLAM 100MG/NS 100ML(*CRX) 100 MG/100 ML BAG 8 MG IV CONT ×2 (05:11→18:28)
[2021-05-02 05:22] LABS: Carboxyhemoglobin 0.4 % THb (0-2.0); Fractional Inspired Oxygen 100 %; HCO3 ABG 47.1 mEq/l (22.0-26.0); Methemoglobin ABG 0.9 %THb (0-1.5); Oxygen Content ABG 6.7 %vol (16.0-22.0); Oxygen Saturation ABG 94.7 % (95.0-100.0); Oxyhemoglobin 93.2 % THb (90.0-100.0); PO2 ABG 75.9 mmHg (80.0-100.0); PO2 FiO2 Ratio Arterial Blood 0.76 %; Reduced Hemoglobin 5.5 %THb (0-5.0); pH ABG 7.421 (7.350-7.450)
[2021-05-02 05:26] LABS: Device VENTILATOR; Modified Allen's Test Pass; PCO2 ABG 74.1 mmHg (35.0-45.0); Site Drawn LEFT RADIAL
[2021-05-02 05:27] LABS: Arterial Blood Gas PEEP 18 cmH2O; Arterial Blood Gas Tidal Volume 350 ml; Arterial Blood Gas Vent Mode CMV; Arterial Blood Gas Ventilator rate 28 /MIN
[2021-05-02 05:52] LABS: Alanine Aminotransferase 7 U/L (4-35); Albumin Level 3.3 g/dL (3.5-5.1); Alkaline Phosphatase 111 U/L (38-126); Aspartate Amino Transferase 28 U/L (14-36); Bilirubin,Total 0.7 mg/dL (0.2-1.3); Blood Urea Nitrogen 32 mg/dL (7-17); Calcium 8.9 mg/dL (8.4-10.2); Carbon Dioxide > 40 mmol/L (22-30); Chloride 99 mmol/L (98-107); Estimated CRCL calculation 114 ml/min; Estimated Glomerular Filt Rate > 60; Glucose 170 mg/dL (65-110); Phosphorus 3.6 mg/dL (2.5-4.5); Potassium 3.2 mmol/L (3.4-5.0); Sodium 151 mmol/L (137-145)
[2021-05-02] MEDS: CENTRAL LINE FLUSH 10 ML IV PUSH ×3 (05:53→21:51)
[2021-05-02 06:08] LABS: Glucose Point of Care 163 mg/dl (65-105)
[2021-05-02 06:24] LABS: Hemoglobin 8.2 g/dL (12.0-15.0); Mean Corpuscular HGB Conc 27.3 g/dl (32-36); Mean Corpuscular Hemoglobin 27.5 pg (26-34); Mean Corpuscular Volume 100.7 fl (80-100); Platelet Count Result 322 k/mm3 (150-375); Red Blood Count 2.98 M/mm3 (4.2-5.4); Red Cell Distribution Width 20.2 % (11.5-14.5); White Blood Count 8.8 K/mm3 (4.5-10.0)
[2021-05-02] MEDS: INSULIN GLARGINE (*BKC) 100 UNITS/ML 25 UNITS SUB-Q (08:41)
[2021-05-02] MEDS: PANTOPRAZOLE SODIUM IV 40 MG VIAL IV PUSH ×2 (08:53→20:33)
[2021-05-02] MEDS: MINERAL OIL/WHITE PETROLATUM OINTMENT 1 APPLIC EACH EYE ×2 (08:54→20:32)
[2021-05-02] MEDS: POTASSIUM CHLORIDE 20 MEQ PACKET (FOR LIQUID) 40 MEQ FEED TUBE (08:54)
[2021-05-02] MEDS: DEXTROSE 5% 1,000 ML 1,000 ML 100 ML IV CONT (09:01)
--- NOTE | 2021-05-02 09:22 | WPDINTPN ---
Progress Note: A&P Assessment and Plan (1) Acute respiratory failure with hypoxia: Code(s): J96.01 - Acute respiratory failure with hypoxia Status: Acute Assessment and Plan: Acute respiratory failure secondary to COVID-19 pneumonia 03/12 Admitted 03/15 Intermittent Bipap 03/20 Bipap dependent. 03/21 Intubated. -currently on 18 of PEEP and 100% FiO2 -on inhaled Flolan - continue Versed, propofol and fentanyl infusion for sedation. Nimbex restarted on 04/23/2021 for ventilator synchrony as patient was receiving multiple doses of rocuronium p.r.n.. -patient has become prone dependent and does not tolerate changing to supine position even for few minutes. Her sats dropped into 60s and 70s on changing of position. Unfortunately we have no choice but to keep her prone at this time. -chest x-ray and ABGs reviewed -will advance ET tube by 3 cm -will continue to diurese with Lasix IV - low tidal volume ventilation - Continue bronchodilators -patient has been on ventilator for over 4 weeks now. She is a candidate for tracheostomy but currently too hypoxic along with high PEEP to allow safe procedure. 03/16/2021: Echo with EF 74%, normal diastolic function and no valvular disease. 03/16/2021: Venous doppler of all 4 extremities negative for DVT. 03/18/2021: CTA Chest negative for PE. (2) Pneumonia due to COVID-19 virus: Code(s): U07.1 - COVID-19; J12.82 - Pneumonia due to coronavirus disease 2019 Status: Acute Assessment and Plan: She has NOT been vaccinated for COVID Status post Remdesivir S/p Dexamethasone (20 mg IV q.day for 5 days then dexamethasone 10 mg IV q.day for additional 5 days.) Tocilizumab given once 03/14. Status post 5 days of Rocephin and azithromycin at the time of admission (3) Sepsis: Qualifiers: Sepsis type: sepsis due to unspecified organism Sepsis acute organ dysfunction status: with acute organ dysfunction Severe sepsis acute organ dysfunction type: acute renal failure Acute renal failure type: unspecified Severe sepsis shock status: with septic shock Qualified Code(s): A41.9 - Sepsis, unspecified organism; R65.21 - Severe sepsis with septic shock; N17.9 - Acute kidney failure, unspecified Code(s): A41.9 - Sepsis, unspecified organism Status: Acute Assessment and Plan: Patient was febrile and her WBC had increased Patient was started on empiric vancomycin and Rocephin on 04/10 for sepsis her urine grew Enterococcus and Klebsiella both are sensitive to Rocephin Blood cultures done on 04/07 and 04/13 have been negative till now 04/13 Sputum culture is growing out Klebsiella oxytoca which is ESBL 04/16 Rocephin was changed to to imipenem Her lipase was normal 04/14/2021: Bilateral upper and lower, extremity Dopplers were negative for DVT Patient at this time is too unstable for me to transport to CT She is afebrile over last 24 hours and white count improving 04/24/2021 sputum culture growing ESBL Klebsiella oxytoca, patient remains on imipenem 04/28/2021 infectious disease saw the patient and recommended discontinuing vancomycin and imipenem. Lab has been requested to identify the yeast growing in her sputum (4) Shock: Code(s): R57.9 - Shock, unspecified Status: Acute Assessment and Plan: Resolved, patient is off Levophed Secondary to sepsis versus hypovolemic (5) BROOKE (acute kidney injury): Code(s): N17.9 - Acute kidney failure, unspecified Status: Resolved Assessment and Plan: Patient presented with BROOKE which was Likely secondary to hypovolemia and hypotension Patient's creatinine has been fluctuating, requiring intermittent IV fluids with improvement in her renal function Creatinine continues to be stable. 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
--- NOTE | 2021-05-02 10:56 | PM.IMPN ---
Progress Note: A&P Assessment and Plan (1) Acute respiratory failure with hypoxia: Code(s): J96.01 - Acute respiratory failure with hypoxia Status: Acute Assessment and Plan: Acute respiratory failure secondary to COVID-19 pneumonia Pt is on ventilator in icu (2) Pneumonia due to COVID-19 virus: Code(s): U07.1 - COVID-19; J12.82 - Pneumonia due to coronavirus disease 2018 Status: Acute Assessment and Plan: She has NOT been vaccinated for COVID Status post Remdesivir S/p Dexamethasone Tocilizumab given once 03/14. Status post 5 days of Rocephin and azithromycin (3) Sepsis: Qualifiers: Sepsis type: sepsis due to unspecified organism Sepsis acute organ dysfunction status: with acute organ dysfunction Severe sepsis acute organ dysfunction type: acute renal failure Acute renal failure type: unspecified Severe sepsis shock status: with septic shock Qualified Code(s): A41.9 - Sepsis, unspecified organism; R65.21 - Severe sepsis with septic shock; N17.9 - Acute kidney failure, unspecified Code(s): A41.9 - Sepsis, unspecified organism Status: Acute Assessment and Plan: Patient HR is high and temp is high normal. Patient was started on empiric vancomycin and Rocephin on 04/10 for sepsis her urine grew Enterococcus and Klebsiella both are sensitive to Rocephin Blood cultures done on 04/07 and 04/13 have been negative till now Pt is on levophed 04/28/2021 infectious disease saw the patient and recommended discontinuing vancomycin and imipenem. Pt is off Vancomycin and imipenem. (4) Shock: Code(s): R57.9 - Shock, unspecified Status: Acute Assessment and Plan: Resolved, patient is off Levophed Secondary to sepsis versus hypovolemic (5) BROOKE (acute kidney injury): Code(s): N17.9 - Acute kidney failure, unspecified Status: Resolved Assessment and Plan: Patient presented with BROOKE, Resolved now after fluid hydration. 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 Accu-Cheks and sliding scale insulin continue lantus. Pt had tube feeds. (7) Hyperlipidemia: Code(s): E78.5 - Hyperlipidemia, unspecified Status: Acute Assessment and Plan: Hold Pravastatin. Due to increase in LFTs (8) DVT prophylaxis: Code(s): Z29.9 - Encounter for prophylactic measures, unspecified Status: Acute Assessment and Plan: Continue Lovenox (9) Anemia: Qualifiers: Anemia type: unspecified type Qualified Code(s): D64.9 - Anemia, unspecified Code(s): D64.9 - Anemia, unspecified Status: Acute Assessment and Plan: No obvious bleeding. pt received two blood transfusions. She received 1 unit of packed red cells on 04/15 -04/24/2021: Patient hemoglobin was 6.5 and received 1 unit of packed RBCs Continue to monitor HB levels. (10) Hyponatremia: Code(s): E87.1 - Hypo-osmolality and hyponatremia Status: Acute Assessment and Plan: RESOLVED patient is now hypernatremia Pt is on iv lasix and Dextrose fluids Subjective Date/time seen: 05/02/21 10:56 Interval history: 65yo female with HTN, DM and asthma her for cough and SOB and found to be in acute respiratory failure from COVID PNA. She was intubated on 03/21 for worsening respiratory status. Pt is on a vent. Pt is unvaccinated. Much the same condition slow recovery. Review of Systems Review of Systems: ROS unobtainable: Yes unobtainable due to endotracheal tube Exam Narrative: General: Pt is sedated, intubated and o
[2021-05-02] MEDS: INSULIN ASPART (*BKC) 100 UNITS/ML SUB-Q (12:27)
[2021-05-02] MEDS: LABETALOL HCL INJ 100 MG/20 ML VIAL 20 MG IV PUSH ×2 (14:06→21:59)
[2021-05-02 15:44] LABS: Glucose Point of Care 217 mg/dl (65-105)
[2021-05-02 18:36] LABS: Glucose Point of Care 176 mg/dl (65-105)
[2021-05-03] VITALS (54 sets, daily range): BP systolic 137–180; BP diastolic 80–102; PULSE 9–99; RESP 28; TEMP 36.3–36.8; O2SAT 88–96
[2021-05-03 00:13] LABS: Glucose Point of Care 193 mg/dl (65-105)
[2021-05-03] MEDS: CISATRACURIUM BESYLATE 200 MG in SODIUM CHLORIDE 0.9% IV 80 ML 16.61 ML IV CONT ×4 (00:46→18:16)
[2021-05-03] MEDS: PROPOFOL IV EMULSION 100 ML 11.2 MG IV CONT ×4 (02:37→22:33)
[2021-05-03] MEDS: FENTANYL 2,500MCG/NS250ML(*CRX 2,500 MCG/250 ML BAG 20 MCG IV CONT ×2 (03:16→16:20)
[2021-05-03 05:23] LABS: Base Excess ABG 16.2 mEq/l (+/-2.0); Carboxyhemoglobin 0.5 % THb (0-2.0); Fractional Inspired Oxygen 100 %; HCO3 ABG 43.1 mEq/l (22.0-26.0); Methemoglobin ABG 0.4 %THb (0-1.5); Oxygen Content ABG 12.7 %vol (16.0-22.0); Oxygen Saturation ABG 91.9 % (95.0-100.0); Oxyhemoglobin 90.5 % THb (90.0-100.0); PO2 ABG 63.6 mmHg (80.0-100.0); PO2 FiO2 Ratio Arterial Blood 0.64 %; Reduced Hemoglobin 8.6 %THb (0-5.0); Total Hemoglobin 9.9 g/dL (12.0-18.0); pH ABG 7.424 (7.350-7.450)
[2021-05-03 05:25] LABS: Modified Allen's Test Unable to perform; PCO2 ABG 67.4 mmHg (35.0-45.0)
[2021-05-03 05:26] LABS: Hematocrit 29.9 % (37.0-47.0); Hemoglobin 8.3 g/dL (12.0-15.0); Mean Corpuscular HGB Conc 27.8 g/dl (32-36); Mean Corpuscular Hemoglobin 27.9 pg (26-34); Mean Corpuscular Volume 100.3 fl (80-100); Mean Platelet Volume 10.3 fl (7.4-10.4); Platelet Count Result 321 k/mm3 (150-375); Red Blood Count 2.98 M/mm3 (4.2-5.4); Red Cell Distribution Width 19.8 % (11.5-14.5); White Blood Count 9.8 K/mm3 (4.5-10.0)
[2021-05-03 05:26] LABS: Device VENTILATOR
[2021-05-03 05:27] LABS: Arterial Blood Gas PEEP 18 cmH2O; Arterial Blood Gas Vent Mode CMV; Arterial Blood Gas Ventilator rate 28 /MIN; Site Drawn LEFT RADIAL
[2021-05-03 05:28] LABS: Arterial Blood Gas Tidal Volume 350 ml
[2021-05-03 05:39] LABS: Alanine Aminotransferase 8 U/L (4-35); Albumin Level 3.1 g/dL (3.5-5.1); Alkaline Phosphatase 108 U/L (38-126); Aspartate Amino Transferase 26 U/L (14-36); Bilirubin,Total 0.6 mg/dL (0.2-1.3); Blood Urea Nitrogen 33 mg/dL (7-17); Calcium 8.9 mg/dL (8.4-10.2); Carbon Dioxide > 40 mmol/L (22-30); Chloride 96 mmol/L (98-107); Estimated CRCL calculation 111 ml/min; Estimated Glomerular Filt Rate > 60; Glucose 206 mg/dL (65-110); Phosphorus 3.6 mg/dL (2.5-4.5); Potassium 3.5 mmol/L (3.4-5.0); Sodium 149 mmol/L (137-145)
[2021-05-03] MEDS: EPOPROSTENOL SODIUM 0.5 MG VIAL 1 MG INHALATION ×4 (05:46→22:56)
[2021-05-03] MEDS: CENTRAL LINE FLUSH 10 ML IV PUSH ×3 (05:48→20:40)
[2021-05-03] MEDS: INSULIN ASPART (*BKC) 100 UNITS/ML SUB-Q (05:48)
[2021-05-03] MEDS: HEPARIN SODIUM 5,000 UNITS/ML VIAL 5000 UNITS SUB-Q ×3 (05:48→20:40)
[2021-05-03] MEDS: MIDAZOLAM 100MG/NS 100ML(*CRX) 100 MG/100 ML BAG 8 MG IV CONT ×2 (05:53→18:13)
[2021-05-03] MEDS: acetaZOLAMIDE SODIUM FOR INJ 500 MG VIAL 250 MG IV PUSH ×2 (09:07→20:41)
[2021-05-03] MEDS: PANTOPRAZOLE SODIUM IV 40 MG VIAL IV PUSH ×2 (09:10→20:39)
[2021-05-03] MEDS: INSULIN GLARGINE (*BKC) 100 UNITS/ML 25 UNITS SUB-Q (09:11)
[2021-05-03] MEDS: MINERAL OIL/WHITE PETROLATUM OINTMENT 1 APPLIC EACH EYE ×2 (09:12→20:39)
--- NOTE | 2021-05-03 09:16 | PM.IMPN ---
Progress Note: A&P Assessment and Plan (1) Acute respiratory failure with hypoxia: Code(s): J96.01 - Acute respiratory failure with hypoxia Status: Acute Assessment and Plan: Acute respiratory failure secondary to COVID-19 pneumonia 03/12 Admitted 03/15 Intermittent Bipap 03/16: Echo with EF 74%, normal diastolic function and no valvular disease. 03/16: Venous doppler of all 4 extremities negative for DVT. 03/18: CTA Chest negative for PE. 03/20 Bipap dependent. 03/21 Intubated. -currently on 18 of PEEP and 100% FiO2 -on inhaled Flolan - continue Versed, propofol and fentanyl infusion for sedation. Nimbex restarted on 04/23/2021 -patient tolerates prone positioning but does not tolerate supine position due to hypoxia. -chest x-ray reviewed personally and shows severe diffuse airspace disease -ABG 7.42/67/63.6 on 100% FiO2 -Patient very edematous and currently on IV diuretics. UOP has improved with negative fluid balance past 2 days. Continue to diurese with Lasix IV. Agree with Diamox. -patient has been on ventilator for over 4 weeks now. She is a candidate for tracheostomy but currently too hypoxic along with high PEEP to allow safe procedure. (2) Pneumonia due to COVID-19 virus: Code(s): U07.1 - COVID-19; J12.82 - Pneumonia due to coronavirus disease 2018 Status: Acute Assessment and Plan: She has NOT been vaccinated for COVID. Status post Remdesivir (03/14-03/19). Tocilizumab given once 03/14. Plasma given 03/16. Dexamethasone 6mg daily initially then changed to 20 mg IV q.day (03/20-03/24) then dropped to 10 mg IV q.day (03/25-03/29). Status post 5 days of Rocephin and azithromycin started at the time of admission. As above. Continue supportive care. (3) Sepsis: Qualifiers: Acute renal failure type: unspecified Sepsis acute organ dysfunction status: with acute organ dysfunction Sepsis type: sepsis due to unspecified organism Severe sepsis acute organ dysfunction type: acute renal failure Severe sepsis shock status: with septic shock Qualified Code(s): A41.9 - Sepsis, unspecified organism; R65.21 - Severe sepsis with septic shock; N17.9 - Acute kidney failure, unspecified Code(s): A41.9 - Sepsis, unspecified organism Status: Acute Assessment and Plan: Patient was febrile and her WBC had increased Patient was started on empiric vancomycin and Rocephin on 04/10 for sepsis Urine Cx 04/08 grew Enterococcus and Klebsiella both are sensitive to Rocephin 04/14/2021: Bilateral upper and lower, extremity Dopplers were negative for DVT Blood cultures done on 04/07 and 04/13 are negative Sputum culture 04/13 is growing out ESBL Klebsiella oxytoca and 04/16 Rocephin was changed to imipenem Patient is too unstable to transport to CT 04/24/2021 sputum culture growing ESBL Klebsiella oxytoca and yeast 04/28/2021 infectious disease saw the patient and recommended discontinuing vancomycin and imipenem. Lab has been requested to identify the yeast growing in her sputum. All abx stopped on 04/29/21. She remains afebrile and WBC normal now. Continue to monitor. (4) Shock: Code(s): R57.9 - Shock, unspecified Status: Acute Assessment and Plan: Secondary to sepsis versus hypovolemic. Treated and now resolved, patient is off Levophed. Follow (5) BROOKE (acute kidney injury): Code(s): N17.9 - Acute kidney failure, unspecified Status: Resolved Assessment and Plan: Patient presented with BROOKE which was likely secondary to hypovolemia and hypotension. Creatinine improved but has since waxed and waned at times. Creatinine has been normal since 04/17/21. BROOKE resolved. Agree with diuresis (6) Type 2 diabetes mellitus with hyperglycemia: Qualifiers: Diabetes mellitus care home insulin use: with care home use Qualified Code(s): E11.65 - Type 2 diabetes mellitus with hyperglycemia; Z79.4 - [facility] (current) use of insulin Code(s): E11.65 - T
--- NOTE | 2021-05-03 12:03 | PCDIET ---
ICU Rounding Note: Patient continues to receive Glucerna 1.2 at 40mL/hr with Pro-Stat flush BID and 100mL water flush every 4 hours. No issues reported. Last recorded weight is 108.0kg which is down from last review. Bowel Motility: Last documented BM on 04/30/21 x 1. Labs Reviewed: RBC (2.98), Hgb (8.3), Hct (29.9), Glu (206), BUN (33), Cr (0.50), Na (149), Alb (3.1) Meds Noted: Diamox, Nimbex, Flolan, Fentanyl, Lasix, Novolog, Lantus, Versed, Protonix, Propofol (rate of 11.2mL/hr provides 295kcal per day), Zemuron Additional Notes: Propofol at current rate with tube feedings (22 hours daily) and protein flushes provides 1551kcal per day. No change in skin reported. Following daily in ICU rounds. Assessing/reassessing every Monday/Monday.
[2021-05-03 12:51] LABS: Glucose Point of Care 149 mg/dl (65-105)
--- NOTE | 2021-05-03 13:33 | WPDINTPN ---
Progress Note: A&P Assessment and Plan (1) Acute respiratory failure with hypoxia: Code(s): J96.01 - Acute respiratory failure with hypoxia Status: Acute Assessment and Plan: Acute respiratory failure secondary to COVID-19 pneumonia 03/12 Admitted 03/15 Intermittent Bipap 03/20 Bipap dependent. 03/21 Intubated. -currently on 18 of PEEP and 100% FiO2 -on inhaled Flolan - continue Versed, propofol and fentanyl infusion for sedation. Nimbex restarted on 04/23/2021 for ventilator synchrony as patient was receiving multiple doses of rocuronium p.r.n.. -patient has become prone dependent since 04/28/2021 and does not tolerate changing to supine position even for few minutes. Her sats dropped into 60s and 70s on changing of position. Unfortunately we have no choice but to keep her prone at this time -05/03/[address] patient in supine position, will tolerate hypoxia given worsening of her chest x-ray. -chest x-ray and ABGs reviewed -HC03 > 40, contraction alkalosis likely related to diuresis with Lasix, will hold Lasix and diurese with Diamox - low tidal volume ventilation - Continue bronchodilators -patient has been on ventilator for over 4 weeks now. She is a candidate for tracheostomy but currently too hypoxic along with high PEEP to allow safe procedure. 03/16/2021: Echo with EF 74%, normal diastolic function and no valvular disease. 03/16/2021: Venous doppler of all 4 extremities negative for DVT. 03/18/2021: CTA Chest negative for PE. (2) Pneumonia due to COVID-19 virus: Code(s): U07.1 - COVID-19; J12.82 - Pneumonia due to coronavirus disease 2019 Status: Acute Assessment and Plan: She has NOT been vaccinated for COVID Status post Remdesivir S/p Dexamethasone (20 mg IV q.day for 5 days then dexamethasone 10 mg IV q.day for additional 5 days.) Tocilizumab given once 03/14. Status post 5 days of Rocephin and azithromycin at the time of admission (3) Sepsis: Qualifiers: Sepsis type: sepsis due to unspecified organism Sepsis acute organ dysfunction status: with acute organ dysfunction Severe sepsis acute organ dysfunction type: acute renal failure Acute renal failure type: unspecified Severe sepsis shock status: with septic shock Qualified Code(s): A41.9 - Sepsis, unspecified organism; R65.21 - Severe sepsis with septic shock; N17.9 - Acute kidney failure, unspecified Code(s): A41.9 - Sepsis, unspecified organism Status: Acute Assessment and Plan: Patient was febrile and her WBC had increased Patient was started on empiric vancomycin and Rocephin on 04/10 for sepsis her urine grew Enterococcus and Klebsiella both are sensitive to Rocephin Blood cultures done on 04/07 and 04/13 have been negative till now 04/13 Sputum culture is growing out Klebsiella oxytoca which is ESBL 04/16 Rocephin was changed to to imipenem Her lipase was normal 04/14/2021: Bilateral upper and lower, extremity Dopplers were negative for DVT Patient at this time is too unstable for me to transport to CT She is afebrile over last 24 hours and white count improving 04/24/2021 sputum culture growing ESBL Klebsiella oxytoca, status post 14 days of vancomycin and imipenem 04/28/2021 infectious disease saw the patient and recommended discontinuing vancomycin and imipenem. Lab has been requested to identify the yeast growing in her sputum (4) Shock: Code(s): R57.9 - Shock, unspecified Status: Acute Assessment and Plan: Resolved, patient is off Levophed Secondary to sepsis versus hypovolemic (5) BROOKE (acute kidney injury): Code(s): N17.9 - Acute kidney failure, unspecified Status: Resolved Assessment and Plan: Patient presented with BROOKE which was Likely secondary to hypovolemia and hypotension Patient's creatinine has been fluctuating, requiring intermittent IV fluids with improvement in her renal function Creatinine continues to be stable. Monitor
[2021-05-03 18:31] LABS: Glucose Point of Care 110 mg/dl (65-105)
--- NOTE | 2021-05-03 18:31 | WPDCN ---
Assessment and Plan Assessment and plan (1) Respiratory failure: Code(s): J96.90 - Respiratory failure, unspecified, unspecified whether with hypoxia or hypercapnia Status: Acute Assessment and Plan: In my opinion the chance of mortality is too great to perform tracheostomy given her ventilatory setting. Would recommend discussing with anesthesia as well. At this time I would recommend against tracheostomy. HPI Data of Consult Date/Time: 05/03/21 18:31 Requesting Physician: Cecile Berger MD Primary Care Provider: Juancarlos ContrerasFransisca Consult Narrative Narrative: Unique Cam is a 65 year old female with covid 19 and respiratory insufficiency peep of 20 and fio2 of 100 percent Review of Systems Review of Systems: ROS unobtainable: Yes unobtainable due to endotracheal tube PMFSH Past Medical History Medical History Asthma Hyperlipidemia Hypertension Type 2 diabetes mellitus Surgical History Surgical History History of appendectomy History of laparoscopy Removal of a benign tumor per patient report. Family History Family History Other Diabetes mellitus Hypertension Social History Social History Social History: Surrogate decision maker: Roxie Cam, daughter. Code status: Full code. Smoking status: Former smoker Second hand tobacco smoke exposure: No Alcohol intake: former Substance use: never Additional living arrangements comments: The patient lives alone in [place]. Additional occupation/education comments: Raised 4 children. Spiritual care concerns: No Meds Home Medications and Allergies Home Medications Medication Instructions Recorded Confirmed Type amlodipine 10 mg PO DAILY 03/12/21 03/12/21 History losartan-hydrochlorothiazide 1 tablet PO DAILY 03/12/21 03/12/21 History metformin 500 mg PO DAILY 03/12/21 03/12/21 History montelukast 10 mg PO DAILY 03/12/21 03/12/21 History pravastatin 40 mg PO DAILY 03/12/21 03/12/21 History Allergies Allergy/AdvReac Type Severity Reaction Status Date / Time No Known Allergies Allergy Unknown Verified 05/21/17 13:18 Vital Signs Vital Signs - 24 hr 05/02/21 20:00 05/02/21 20:30 05/02/21 20:54 Temperature 36.9 C Pulse Rate 95 97 97 Respiratory Rate 28 H 28 H 28 H Blood Pressure 163/96 H Pulse Oximetry 89 L 93 05/02/21 20:55 05/02/21 21:59 05/02/21 22:00 Temperature 36.8 C Pulse Rate 96 98 98 Respiratory Rate 28 H Blood Pressure 163/91 H Pulse Oximetry 88 L 05/02/21 22:07 05/02/21 22:11 05/02/21 23:50 Temperature Pulse Rate 83 83 87 Respiratory Rate 28 H 28 H Blood Pressure Pulse Oximetry 86 L 86 L 88 L 05/02/21 23:57 05/03/21 00:00 05/03/21 01:26 Temperature 36.7 C Pulse Rate 88 87 87 Respiratory Rate 28 H 28 H Blood Pressure 152/87 H Pulse Oximetry 89 L 90 05/03/21 02:00 05/03/21 02:37 05/03/21 02:38 Temperature 36.8 C Pulse Rate 93 94 94 Respiratory Rate 28 H 28 H 28 H Blood Pressure 162/101 H Pulse Oximetry 91 05/03/21 02:39 05/03/21 02:40 05/03/21 03:16 Temperature Pulse Rate 93 93 92 Respiratory Rate 28 H 28 H Blood Pressure Pulse Oximetry 95 95 05/03/21 04:00 05/03/21 04:11 05/03/21 04:15 Temperature 36.7 C Pulse Rate 94 93 93 Respiratory Rate 28 H 28 H Blood Pressure 152/87 H Pulse Oximetry 93 94 94 05/03/21 05:46 05/03/21 05:53 05/03/21 06:00 Temperature 36.6 C Pulse Rate 93 92 91 Respiratory Rate 28 H 28 H 28 H Blood Pressure 145/90 H Pulse Oximetry 95 95 95 05/03/21 08:00 05/03/21 08:35 05/03/21 09:06 Temperature 36.6 C Pulse Rate 94 94 93 Respiratory Rate 28 H 28 H 28 H Blood Pressure 159/92 H Pulse Oximetry 93 94 05/03/21 10:00 05/03/21 10:43 04/21
[2021-05-03] MEDS: CISATRACURIUM BESYLATE 200 MG in SODIUM CHLORIDE 0.9% IV 80 ML 24.91 ML IV CONT (23:52)
[2021-05-04] VITALS (66 sets, daily range): BP systolic 85–159; BP diastolic 57–86; PULSE 86–110; RESP 27–30; TEMP 35.1–36.9; O2SAT 65–100
[2021-05-04 00:57] LABS: Glucose Point of Care 132 mg/dl (65-105)
[2021-05-04] MEDS: CISATRACURIUM BESYLATE 200 MG in SODIUM CHLORIDE 0.9% IV 80 ML 31.55 ML IV CONT (03:06)
[2021-05-04 04:26] LABS: Base Excess ABG 17.7 mEq/l (+/-2.0); Carboxyhemoglobin 0.6 % THb (0-2.0); Fractional Inspired Oxygen 100 %; HCO3 ABG 47.3 mEq/l (22.0-26.0); Methemoglobin ABG 0.5 %THb (0-1.5); Oxygen Content ABG 13.2 %vol (16.0-22.0); Oxyhemoglobin 77.9 % THb (90.0-100.0); PO2 FiO2 Ratio Arterial Blood 0.46 %; Total Hemoglobin 12.1 g/dL (12.0-18.0); pH ABG 7.352 (7.350-7.450)
[2021-05-04 04:28] LABS: Device VENTILATOR; Modified Allen's Test Pass; Oxygen Saturation ABG 76.7 % (95.0-100.0); PCO2 ABG 87.2 mmHg (35.0-45.0); PO2 ABG 45.8 mmHg (80.0-100.0); Site Drawn LEFT RADIAL
[2021-05-04 04:29] LABS: Arterial Blood Gas PEEP 20 cmH2O; Arterial Blood Gas Tidal Volume 350 ml; Arterial Blood Gas Vent Mode CMV; Arterial Blood Gas Ventilator rate 28 /MIN
[2021-05-04] MEDS: EPOPROSTENOL SODIUM 0.5 MG VIAL 1 MG INHALATION ×4 (04:56→23:09)
[2021-05-04] MEDS: HEPARIN SODIUM 5,000 UNITS/ML VIAL 5000 UNITS SUB-Q ×3 (05:12→20:04)
[2021-05-04] MEDS: CENTRAL LINE FLUSH 10 ML IV PUSH ×3 (05:12→20:05)
[2021-05-04 05:17] LABS: Basophils Absolute Auto 0.1 K/mm3 (0.0-0.1); Basophils Percent Auto 0.3 % (0.2-1.2); Eosinophils Absolute Auto 0.5 K/mm3 (0-0.3); Eosinophils Percent Auto 2.6 % (0-4.4); Hematocrit 31.8 % (37.0-47.0); Hemoglobin 8.7 g/dL (12.0-15.0); Immature Granulocyte Absolute 0.14 K/mm3 (0.00-0.031); Immature Granulocyte Percent A 0.7 % (0-0.5); Lymphocytes Absolute Auto 0.75 K/mm3 (0.9-3.2); Lymphocytes Percent Auto 3.8 % (18.3-44.2); Mean Corpuscular HGB Conc 27.4 g/dl (32-36); Mean Corpuscular Hemoglobin 27.3 pg (26-34); Mean Corpuscular Volume 99.7 fl (80-100); Mean Platelet Volume 10.6 fl (7.4-10.4); Monocytes Absolute Auto 1.2 K/mm3 (0.1-0.6); Monocytes Percent Auto 6.3 % (2.6-8.5); Neutrophils Absolute Auto 17.1 K/mm3 (1.3-6.7); Neutrophils Percent Auto 86.3 % (45.5-73.1); Nucleated Red Blood Cells Perc 0.2 % (0.0-0.2); Platelet Count Result 383 k/mm3 (150-375); Red Blood Count 3.19 M/mm3 (4.2-5.4); Red Cell Distribution Width 19.9 % (11.5-14.5); White Blood Count 19.8 K/mm3 (4.5-10.0)
[2021-05-04 05:46] LABS: Macrocytosis 1+ (NORMAL); Platelet Estimate Adequate (Adequate)
[2021-05-04 05:47] LABS: Polychromasia 1+ (NORMAL); Stomatocytes 1+ (NORMAL)
[2021-05-04 05:49] LABS: Alanine Aminotransferase 7 U/L (4-35); Alkaline Phosphatase 120 U/L (38-126); Aspartate Amino Transferase 29 U/L (14-36); Bilirubin,Total 0.7 mg/dL (0.2-1.3); Blood Urea Nitrogen 32 mg/dL (7-17); Calcium 8.9 mg/dL (8.4-10.2); Carbon Dioxide > 40 mmol/L (22-30); Chloride 97 mmol/L (98-107); Estimated CRCL calculation 98 ml/min; Estimated Glomerular Filt Rate > 60; Glucose 151 mg/dL (65-110); Phosphorus 4.4 mg/dL (2.5-4.5); Potassium 3.3 mmol/L (3.4-5.0); Sodium 148 mmol/L (137-145)
[2021-05-04] MEDS: FENTANYL 2,500MCG/NS250ML(*CRX 2,500 MCG/250 ML BAG 20 MCG IV CONT ×2 (06:24→17:58)
[2021-05-04] MEDS: CISATRACURIUM BESYLATE 200 MG in SODIUM CHLORIDE 0.9% IV 80 ML 33.21 ML IV CONT ×6 (06:25→22:08)
[2021-05-04] MEDS: PROPOFOL IV EMULSION 100 ML 11.2 MG IV CONT ×3 (06:27→19:15)
[2021-05-04] MEDS: MIDAZOLAM 100MG/NS 100ML(*CRX) 100 MG/100 ML BAG 8 MG IV CONT ×2 (06:28→18:00)
--- NOTE | 2021-05-04 07:25 | PC.NURSE ---
Spoke with pt's daughter, Leatha [phone]. Notified her of the change in pt condition. Pt is currently on maximum ventilator support with O2 sats in the low 70s while prone. Leatha states they are going to have a family meeting with care coordination via phone at noon today, or maybe tomorrow. Told Leatha that the pt's condition is very serious and deteriorating rapidly. Leatha verbalized understanding.
[2021-05-04] MEDS: PANTOPRAZOLE SODIUM IV 40 MG VIAL IV PUSH ×2 (08:33→20:04)
[2021-05-04] MEDS: acetaZOLAMIDE SODIUM FOR INJ 500 MG VIAL IV PUSH (08:33)
[2021-05-04] MEDS: MINERAL OIL/WHITE PETROLATUM OINTMENT 1 APPLIC EACH EYE ×2 (08:33→20:04)
--- NOTE | 2021-05-04 08:58 | PM.IMPN ---
Progress Note: A&P Assessment and Plan (1) Acute respiratory failure with hypoxia: Code(s): J96.01 - Acute respiratory failure with hypoxia Status: Acute Assessment and Plan: Acute respiratory failure secondary to COVID-19 pneumonia. Patient admitted 03/12 on 2L O2 but had increasing oxygen requirements with intermittent Bipap. Echo 03/16 with EF 74% with normal diastolic function and no valvular disease. Venous doppler of all 4 extremities negative for DVT 03/16. CTA Chest negative for PE 03/18. She became BiPAP dependent and ultimately required Intubation 03/21/21. Currently: - She is of Pressure Control on 18 of PEEP and 100% FiO2. - Remains on inhaled Flolan - Remains on Versed, propofol and fentanyl infusion for sedation. - She remains paralyzed on Nimbex restarted on 04/23/2021 - Patient tolerates prone positioning but does not tolerate supine position due to hypoxia. - CXR reviewed personally and shows severe diffuse airspace disease without my change - ABG today .35//46 on 100% FiO2 - Patient remains very edematous and currently on IV diuretics. Was on Lasix IV but changed to Diamox due to the contraction alkalosis. - Patient has been on ventilator for over 4 weeks now. She is a candidate for tracheostomy but currently too hypoxic along with high PEEP to allow safe procedure. - Family wishing to keep current care plan despite the fact that the patient is on maximal therapy without much more that can be offered. (2) Pneumonia due to COVID-19 virus: Code(s): U07.1 - COVID-19; J12.82 - Pneumonia due to coronavirus disease 2019 Status: Acute Assessment and Plan: She has not been vaccinated for COVID. SARS-CoV-2 RNA positive 03/12/21. Status post Remdesivir (03/14-03/19). Tocilizumab given once 03/14. Plasma given 03/16. Dexamethasone 6mg daily initially then changed to 20 mg IV q.day (03/20-03/24) then dropped to 10 mg IV q.day (03/25-03/29). Status post 5 days of Rocephin and azithromycin started at the time of admission. As above. Continue supportive care. (3) Sepsis: Qualifiers: Acute renal failure type: unspecified Sepsis acute organ dysfunction status: with acute organ dysfunction Sepsis type: sepsis due to unspecified organism Severe sepsis acute organ dysfunction type: acute renal failure Severe sepsis shock status: with septic shock Qualified Code(s): A41.9 - Sepsis, unspecified organism; R65.21 - Severe sepsis with septic shock; N17.9 - Acute kidney failure, unspecified Code(s): A41.9 - Sepsis, unspecified organism Status: Acute Assessment and Plan: Patient was febrile and her WBC had increased. BCx 04/07 NGTD. UCx 04/08 grew Enterococcus and Klebsiella both are sensitive to Rocephin. She was started on empiric vancomycin and Rocephin for sepsis. Bilateral upper and lower, extremity Dopplers were negative for DVT 04/14. BCx 04/13 negative. Sputum culture 04/13 grew out ESBL Klebsiella oxytoca so Rocephin was changed to imipenem. Patient is too unstable to transport to CT. Repeat sputum Cx 04/24 growing ESBL Klebsiella oxytoca and yeast. ID 04/28 saw the patient and recommended discontinuing vancomycin and imipenem; All abx stopped on 04/29/21. Lab has been requested to identify the yeast growing in her sputum. She remains afebrile but now WBC up to 19.8K. Continue to monitor. Reculture if she develops fever or hypothermia. (4) Shock: Code(s): R57.9 - Shock, unspecified Status: Acute Assessment and Plan: Secondary to sepsis versus hypovolemic. Treated and now resolved, patient is off Levophed. Follow. (5) BROOKE (acute kidney injury): Code(s): N17.9 - Acute kidney failure, unspecified Status: Resolved Assessment and Plan: Patient presented with BROOKE which was likely secondary to hypovolemia and hypotension. Creatinine improved but has since waxed and waned at times. Creatinine has been normal since 04/17/21. BROOKE resolved. Diuresis darby
[2021-05-04 10:05] LABS: Alveolar/Arterial O2 Gradient 579.4 mmHg; Base Excess ABG 14.3 mEq/l (+/-2.0); Fractional Inspired Oxygen 100 %; HCO3 ABG 43.4 mEq/l (22.0-26.0); Oxygen Content ABG 10.1 %vol (16.0-22.0); Oxyhemoglobin 74.2 % THb (90.0-100.0); PO2 FiO2 Ratio Arterial Blood 0.45 %; Total Hemoglobin 9.7 g/dL (12.0-18.0); pH ABG 7.306 (7.350-7.450)
[2021-05-04 10:10] LABS: PCO2 ABG 88.9 mmHg (35.0-45.0)
[2021-05-04 10:11] LABS: PO2 ABG 44.7 mmHg (80.0-100.0)
[2021-05-04 10:12] LABS: Device VENTILATOR; Modified Allen's Test Pass; Oxygen Saturation ABG 73.1 % (95.0-100.0); Site Drawn RIGHT RADIAL
[2021-05-04 10:13] LABS: Arterial Blood Gas PEEP 18 cmH2O; Arterial Blood Gas Vent Mode PRESSURE CONTROL; Arterial Blood Gas Ventilator rate 30 /MIN
--- NOTE | 2021-05-04 10:55 | PC.NURSE ---
called daughter Yarelis Cam about patient continuing to do worse, asked if we could try to schedule a family meeting if not in person at least over the phone. Yarelis said she would talk with her family and let me know.
--- NOTE | 2021-05-04 10:59 | PC.NURSE ---
received a call from daughter Leatha; gave update on patient continuing to get worse and we are requesting a family meeting today if possible. Leatha said she would talk to her sisters but 3pm today conference call could work.
--- NOTE | 2021-05-04 11:34 | WPDINTPN ---
Progress Note: A&P Assessment and Plan (1) Acute respiratory failure with hypoxia: Code(s): J96.01 - Acute respiratory failure with hypoxia Status: Acute Assessment and Plan: Acute respiratory failure secondary to COVID-19 pneumonia 03/12 Admitted 03/15 Intermittent Bipap 03/20 Bipap dependent. 03/21 Intubated. -currently on 18 of PEEP and 100% FiO2 -on inhaled Flolan - continue Versed, propofol and fentanyl infusion for sedation. Nimbex restarted on 04/23/2021 for ventilator synchrony as patient was receiving multiple doses of rocuronium p.r.n.. -patient has become prone dependent since 04/28/2021 and does not tolerate changing to supine position even for few minutes. Her sats dropped into 60s and 70s on changing of position. Unfortunately we have no choice but to keep her prone at this time -05/03/2021: Placed in supine position after continuously being in prone position for 5 days. Patient did well until early this morning when she started to drop her O2 sats 70s. Patient was placed back in prone position early on 05/04/2021, on 100% FiO2, peep of 20, switched to pressure control ventilation due to increased peak airway pressures. -O2 sats remain in the mid 70s. -chest x-ray and ABGs reviewed -HC03 > 40, contraction alkalosis likely related to diuresis with Lasix, will hold Lasix and diurese with Diamox - low tidal volume ventilation - Continue bronchodilators Given severe hypoxia, patient's condition is guarded, family conference call has been scheduled for later today 03/16/2021: Echo with EF 74%, normal diastolic function and no valvular disease. 03/16/2021: Venous doppler of all 4 extremities negative for DVT. 03/18/2021: CTA Chest negative for PE. (2) Pneumonia due to COVID-19 virus: Code(s): U07.1 - COVID-19; J12.82 - Pneumonia due to coronavirus disease 2018 Status: Acute Assessment and Plan: She has NOT been vaccinated for COVID Status post Remdesivir S/p Dexamethasone (20 mg IV q.day for 5 days then dexamethasone 10 mg IV q.day for additional 5 days.) Tocilizumab given once 03/14. Status post 5 days of Rocephin and azithromycin at the time of admission (3) Sepsis: Qualifiers: Sepsis type: sepsis due to unspecified organism Sepsis acute organ dysfunction status: with acute organ dysfunction Severe sepsis acute organ dysfunction type: acute renal failure Acute renal failure type: unspecified Severe sepsis shock status: with septic shock Qualified Code(s): A41.9 - Sepsis, unspecified organism; R65.21 - Severe sepsis with septic shock; N17.9 - Acute kidney failure, unspecified Code(s): A41.9 - Sepsis, unspecified organism Status: Acute Assessment and Plan: Patient was febrile and her WBC had increased Patient was started on empiric vancomycin and Rocephin on 04/10 for sepsis her urine grew Enterococcus and Klebsiella both are sensitive to Rocephin Blood cultures done on 04/07 and 04/13 have been negative till now 04/13 Sputum culture is growing out Klebsiella oxytoca which is ESBL 04/16 Rocephin was changed to to imipenem Her lipase was normal 04/14/2021: Bilateral upper and lower, extremity Dopplers were negative for DVT Patient at this time is too unstable for me to transport to CT She is afebrile over last 24 hours and white count improving 04/24/2021 sputum culture growing ESBL Klebsiella oxytoca, status post 14 days of vancomycin and imipenem 04/28/2021 infectious disease saw the patient and recommended discontinuing vancomycin and imipenem. Lab has been requested to identify the yeast growing in her sputum 05/04/2021: WBC count jumped up to 19.8. Patient remains afebrile, will continue to monitor (4) Shock: Code(s): R57.9 - Shock, unspecified Status: Acute Assessment and Plan: Resolved, patient is off Levophed Secondary to sepsis versus hypovolemic (5) BROOKE (acute kidney injury): Code(s): N17.9 - Acute kidney failure
--- NOTE | 2021-05-04 11:35 | PCDIET ---
Nutrition Follow-Up Complete: Nutrition Diagnosis: Inadequate oral intake related to decreased appetite as evidenced by intakes 50% or less at most meals x 1 week. Nutrition Goal: Patient to meet estimated nutritional needs. Goal in progress. Tube feedings currently on hold due to patient positioning. Plan to set up family meeting later today. Last recorded weight is 114.3 kg which is increased from last review. +I/O. Bowel Motility: Last documented BM on 04/30/21. Labs Reviewed: WBC (19.8), RBC (3.19), Hgb (8.7), Hct (31.8), Glu (151), BUN (32), Cr (0.6), Na (148), Alb (3.0) Meds Noted: Diamox, Nimbex, Flolan, Fentanyl, Lasix, Lantus, Versed, Protonix, KCl, Zemuron, Propofol (rate of 11.2mL/hr provides 295kcal per day) Additional Notes: Right hand blister. Left cheek skin tear. Will continue to monitor with same goal. Nutrition Monitoring and Evaluation: Follow up every Monday/Monday.
[2021-05-04 13:12] LABS: Glucose Point of Care 145 mg/dl (65-105)
--- NOTE | 2021-05-04 15:29 | P.PNCROSS_ITS ---
Event Note Event Note Event Note: Discussed with Leatha and her sister Roxie on conference call with bedside RN Polly, care coordination Fina, pastoral Care Lowell Severino and myself in the conference room in the ICU. I explained them regarding patient dropping her in saturations overnight into the mid 70s despite her being on a PEEP of 20, 100% FiO2. I discussed with done and updated them regarding ABG results which showed hypoxemia and a PO2 level in the 40s on multiple occasions. I also discussed with them that I spoke to who is patient's primary care doctor. Leatha did agree her primary care doctor spoke to her this afternoon and told her that the patient is not doing too well despite being on very high ventilatory support. Leatha was deviating from hot sick the patient is an trying to blame the nurses at the call and update the family regarding she is not going to make it. She was also mentioning about that we are doing an induced coma to the patient which I corrected and sent via sedating her so that she can synchronous with the ventilator. Leatha stated that she wants to continue what we are doing and if God wants to take her he will take her. None of the should be playing God. Leatha kept on repeating and accusing the staff of calling and tiring the family that the patient is not going to make, in the ICU with patient's are stable all critical, it is normal for our staff call the family and provided update about how sick the patients are. My nurses were doi ng exactly the same. We will respect Leatha and her sister, Roxie thoughts and wishes and will continue with current treatment plan and continue what feet doing for now, Leatha an assisted Yarelis recognize that patient's oxygen levels are significantly low and I explained to them that her organs could be affected including but not limited to the heart, the brain, the kidneys, the liver. They voiced understanding. I asked if any of the sisters had any other questions or showed air in had any questions to which she said, they did not have any questions.
[2021-05-04] MEDS: NOREPINEPHRINE 8 MG/D5W 250 ML 8 MG/250 ML BAG 9.38 MG IV CONT (18:02)
[2021-05-04 18:48] LABS: Glucose Point of Care 136 mg/dl (65-105)
[2021-05-05] VITALS (68 sets, daily range): BP systolic 83–142; BP diastolic 45–81; PULSE 88–99; RESP 22–30; TEMP 35.9–36.5; O2SAT 30–94
[2021-05-05] MEDS: PROPOFOL IV EMULSION 100 ML 11.2 MG IV CONT ×2 (00:42→08:45)
[2021-05-05] MEDS: CISATRACURIUM BESYLATE 200 MG in SODIUM CHLORIDE 0.9% IV 80 ML 33.21 ML IV CONT ×5 (00:43→17:17)
[2021-05-05 01:52] LABS: Glucose Point of Care 142 mg/dl (65-105)
[2021-05-05] MEDS: EPOPROSTENOL SODIUM 0.5 MG VIAL 1 MG INHALATION ×3 (04:18→22:46)
[2021-05-05 04:38] LABS: Alveolar/Arterial O2 Gradient 572.6 mmHg; Base Excess ABG 14.4 mEq/l (+/-2.0); Fractional Inspired Oxygen 100 %; HCO3 ABG 43.4 mEq/l (22.0-26.0); Methemoglobin ABG 0.5 %THb (0-1.5); Oxygen Content ABG 10.3 %vol (16.0-22.0); Oxyhemoglobin 81.2 % THb (90.0-100.0); Reduced Hemoglobin 17.3 %THb (0-5.0)
[2021-05-05 04:43] LABS: pH ABG 7.299 (7.350-7.450)
[2021-05-05 04:44] LABS: Device VENTILATOR; Modified Allen's Test Pass; Oxygen Saturation ABG 78.7 % (95.0-100.0); PCO2 ABG 90.4 mmHg (35.0-45.0); Site Drawn RIGHT RADIAL
[2021-05-05 04:45] LABS: Arterial Blood Gas PEEP 20 cmH2O; Arterial Blood Gas Vent Mode PRESSURE CONTROL; Arterial Blood Gas Ventilator rate 30 /MIN
[2021-05-05] MEDS: HEPARIN SODIUM 5,000 UNITS/ML VIAL 5000 UNITS SUB-Q ×3 (05:35→19:54)
[2021-05-05] MEDS: CENTRAL LINE FLUSH 10 ML IV PUSH ×3 (05:36→21:06)
[2021-05-05 05:53] LABS: Hematocrit 29.2 % (37.0-47.0); Hemoglobin 7.6 g/dL (12.0-15.0); Mean Corpuscular Hemoglobin 27.3 pg (26-34); Mean Platelet Volume 11.2 fl (7.4-10.4); Platelet Count Result 364 k/mm3 (150-375); Red Blood Count 2.78 M/mm3 (4.2-5.4); Red Cell Distribution Width 19.4 % (11.5-14.5); White Blood Count 18.3 K/mm3 (4.5-10.0)
[2021-05-05] MEDS: MIDAZOLAM 100MG/NS 100ML(*CRX) 100 MG/100 ML BAG 8 MG IV CONT ×2 (06:33→19:47)
[2021-05-05] MEDS: FENTANYL 2,500MCG/NS250ML(*CRX 2,500 MCG/250 ML BAG 20 MCG IV CONT ×2 (06:35→19:48)
[2021-05-05 07:21] LABS: Alanine Aminotransferase 9 U/L (4-35); Albumin Level 2.8 g/dL (3.5-5.1); Alkaline Phosphatase 111 U/L (38-126); Aspartate Amino Transferase 31 U/L (14-36); Bilirubin,Total 0.7 mg/dL (0.2-1.3); Blood Urea Nitrogen 42 mg/dL (7-17); Calcium 8.8 mg/dL (8.4-10.2); Carbon Dioxide > 40 mmol/L (22-30); Chloride 96 mmol/L (98-107); Estimated CRCL calculation 50 ml/min; Estimated Glomerular Filt Rate 54; Glucose 145 mg/dL (65-110); Magnesium 2.1 mg/dL (1.6-2.3); Phosphorus 5.1 mg/dL (2.5-4.5); Potassium 3.6 mmol/L (3.4-5.0); Sodium 147 mmol/L (137-145)
[2021-05-05] MEDS: ALBUMIN HUMAN 25% 25 GM/100 ML 100 ML IVPB (08:47)
[2021-05-05] MEDS: MINERAL OIL/WHITE PETROLATUM OINTMENT 1 APPLIC EACH EYE ×2 (08:47→19:54)
[2021-05-05] MEDS: PANTOPRAZOLE SODIUM IV 40 MG VIAL IV PUSH ×2 (08:47→19:54)
--- NOTE | 2021-05-05 08:53 | PM.IMPN ---
Progress Note: A&P Assessment and Plan (1) Acute respiratory failure with hypoxia: Code(s): J96.01 - Acute respiratory failure with hypoxia Status: Acute Assessment and Plan: Acute respiratory failure secondary to COVID-19 pneumonia. Patient admitted 03/12 on 2L O2 but had increasing oxygen requirements with intermittent Bipap. Echo 03/16 with EF 74% with normal diastolic function and no valvular disease. Venous doppler of all 4 extremities negative for DVT 03/16. CTA Chest negative for PE 03/18. She became BiPAP dependent and ultimately required Intubation 03/21/21. Currently: - She is of PCV on 18 of PEEP and 100% FiO2. - Remains on inhaled Flolan - Remains on Versed, propofol and fentanyl infusion for sedation. - She remains paralyzed on Nimbex restarted on 04/23/2021 - Patient tolerates prone positioning but does not tolerate supine position due to hypoxia. - CXR reviewed personally and shows no change in the severe diffuse airspace disease - ABG today 7.30/90/50 on 100% FiO2 - Patient remains very edematous. Was on Lasix IV but changed to Diamox for a few doses. Off all diuretics now. Cr 1.2 now. - Patient has been on ventilator for over 4 weeks now. She is a candidate for tracheostomy but currently too hypoxic along with high PEEP to allow safe procedure. - Family wishing to keep current care plan despite the fact that the patient is on maximal therapy without much more that can be offered. [place] is grim. (2) Pneumonia due to COVID-19 virus: Code(s): U07.1 - COVID-19; J12.82 - Pneumonia due to coronavirus disease 2019 Status: Acute Assessment and Plan: She has not been vaccinated for COVID. SARS-CoV-2 RNA positive 03/12/21. Status post Remdesivir (03/14-03/19). Tocilizumab given once 03/14. Plasma given 03/16. Dexamethasone 6mg daily initially then changed to 20 mg IV q.day (03/20-03/24) then dropped to 10 mg IV q.day (03/25-03/29). Status post 5 days of Rocephin and azithromycin started at the time of admission. Inflammatory markers not checked since 04/03. As above. Continue supportive care. (3) Sepsis: Qualifiers: Acute renal failure type: unspecified Sepsis acute organ dysfunction status: with acute organ dysfunction Sepsis type: sepsis due to unspecified organism Severe sepsis acute organ dysfunction type: acute renal failure Severe sepsis shock status: with septic shock Qualified Code(s): A41.9 - Sepsis, unspecified organism; R65.21 - Severe sepsis with septic shock; N17.9 - Acute kidney failure, unspecified Code(s): A41.9 - Sepsis, unspecified organism Status: Acute Assessment and Plan: Patient was febrile and her WBC had increased. BCx 04/07 NGTD. UCx 04/08 grew Enterococcus and Klebsiella both are sensitive to Rocephin. She was started on empiric vancomycin and Rocephin for sepsis. Bilateral upper and lower, extremity Dopplers were negative for DVT 04/14. BCx 04/13 negative. Sputum culture 04/13 grew out ESBL Klebsiella oxytoca so Rocephin was changed to imipenem. Patient is too unstable to transport to CT. Repeat sputum Cx 04/24 growing ESBL Klebsiella oxytoca and yeast. ID 04/28 saw the patient and recommended discontinuing vancomycin and imipenem; All abx stopped on 04/29/21. Lab has been requested to identify the yeast growing in her sputum. She remains afebrile. WBC climbed to 19.8K but better today. Continue to monitor. Reculture if she develops fever or hypothermia. (4) Shock: Code(s): R57.9 - Shock, unspecified Status: Acute Assessment and Plan: Secondary to sepsis versus hypovolemic. She was supported with Levophed and able to be weaned off. Levophed added again yesterday for HoTN. Levophed was up to 8mcg/min but better now at 7mcg/min. Follow. Wean as tolerated. (5) BROOKE (acute kidney injury): Code(s): N17.9 - Acute kidney failure, unspecified Status: Resolved Assessment and Plan: Patient presented with BROOKE which wa
[2021-05-05] MEDS: INSULIN GLARGINE (*BKC) 100 UNITS/ML 25 UNITS SUB-Q (08:55)
--- NOTE | 2021-05-05 11:46 | PCDIET ---
ICU Rounding Note: Tube feedings remain on hold. Last recorded weight is 108.1kg which is down from last review. Bowel Motility: Last documented BM on 04/30/21 x 1. Labs Reviewed: WBC (18.3), RBC (2.78), Hgb (7.6), Hct (29.2), Glu (145), BUN (42), Cr (1.2), Na (147), Alb (2.8), PO4 (5.1) Meds Noted: Nimbex, Flolan, Fentanyl, Versed, Levophed, Lantus, Atrovent, Protonix, Zemuron, Propofol (rate of 11.2mL/hr provides 295kcal per day) Additional Notes: No change in skin reported. Recommend resuming tube feedings once medically appropriate. Following daily in ICU rounds. Assessing/reassessing every Monday/Monday.
[2021-05-05 12:36] LABS: Glucose Point of Care 126 mg/dl (65-105)
--- NOTE | 2021-05-05 13:42 | WPDINTPN ---
Progress Note: A&P Assessment and Plan (1) Acute respiratory failure with hypoxia: Code(s): J96.01 - Acute respiratory failure with hypoxia Status: Acute Assessment and Plan: Acute respiratory failure secondary to COVID-19 pneumonia 03/12 Admitted 03/15 Intermittent Bipap 03/20 Bipap dependent. 03/21 Intubated. -currently on 18 of PEEP and 100% FiO2 -on inhaled Flolan - continue Versed, propofol and fentanyl infusion for sedation. Nimbex restarted on 04/23/2021 for ventilator synchrony as patient was receiving multiple doses of rocuronium p.r.n.. -patient has become prone dependent since 04/28/2021 and does not tolerate changing to supine position even for few minutes. Her sats dropped into 60s and 70s on changing of position. The data from different studies show that patient should be prone for 16-18 hours and then placed on the back for the remaining hours today. -patient has been in prone position continuously since 04/28/2021. -05/05/2021 patient's O2 sats have been in the 70s yesterday and 80s overnight. Early this morning patient's O2 sats improved to 88-91% -patient with also increased airway pressures -ABG show hypercapnic respiratory failure -05/05: chest x-ray reviewed with no changes -HC03 > 40, contraction alkalosis from diuresis, will hold all diuretics due to low blood pressures and now patient on Levophed - low tidal volume ventilation - Continue bronchodilators -there is some data regarding cryptogenic organizing pneumonia in patients with prolonged COVID, will add steroids, discussed with pulmonology 03/16/2021: Echo with EF 74%, normal diastolic function and no valvular disease. 03/16/2021: Venous doppler of all 4 extremities negative for DVT. 03/18/2021: CTA Chest negative for PE. (2) Pneumonia due to COVID-19 virus: Code(s): U07.1 - COVID-19; J12.82 - Pneumonia due to coronavirus disease 2018 Status: Acute Assessment and Plan: She has NOT been vaccinated for COVID Status post Remdesivir S/p Dexamethasone (20 mg IV q.day for 5 days then dexamethasone 10 mg IV q.day for additional 5 days.) Tocilizumab given once 7/25. Status post 5 days of Rocephin and azithromycin at the time of admission (3) Sepsis: Qualifiers: Acute renal failure type: unspecified Sepsis acute organ dysfunction status: with acute organ dysfunction Sepsis type: sepsis due to unspecified organism Severe sepsis acute organ dysfunction type: acute renal failure Severe sepsis shock status: with septic shock Qualified Code(s): A41.9 - Sepsis, unspecified organism; R65.21 - Severe sepsis with septic shock; N17.9 - Acute kidney failure, unspecified Code(s): A41.9 - Sepsis, unspecified organism Status: Acute Assessment and Plan: Patient was febrile and her WBC had increased Patient was started on empiric vancomycin and Rocephin on 04/10 for sepsis her urine grew Enterococcus and Klebsiella both are sensitive to Rocephin Blood cultures done on 04/07 and 04/13 have been negative till now 04/13 Sputum culture is growing out Klebsiella oxytoca which is ESBL 04/16 Rocephin was changed to to imipenem Her lipase was normal 04/14/2021: Bilateral upper and lower, extremity Dopplers were negative for DVT Patient at this time is too unstable for me to transport to CT She is afebrile over last 24 hours and white count improving 04/24/2021 sputum culture growing ESBL Klebsiella oxytoca, status post 14 days of vancomycin and imipenem 04/28/2021 infectious disease saw the patient and recommended discontinuing vancomycin and imipenem. (4) Shock: Code(s): R57.9 - Shock, unspecified Status: Acute Assessment and Plan: 05/04/2021: Patient is WBC count increased, now in septic shock again with Levophed requirements, maintain arterial pressures greater than 65 mmHg. -will obtain panculture -blood, urine and sputum cultures -patient recently on vancomycin and imipenem for 14 days (w
[2021-05-05] MEDS: NOREPINEPHRINE 8 MG/D5W 250 ML 8 MG/250 ML BAG 13.13 MG IV CONT (16:22)
[2021-05-05] MEDS: methylPREDNISolone SOD SUCC 40 MG VIAL IV PUSH (17:20)
[2021-05-05 18:16] LABS: Glucose Point of Care 132 mg/dl (65-105)
[2021-05-05] MEDS: CISATRACURIUM BESYLATE 200 MG in SODIUM CHLORIDE 0.9% IV 80 ML 29.89 ML IV CONT (21:05)
[2021-05-06] VITALS (42 sets, daily range): BP systolic 107–132; BP diastolic 62–92; PULSE 80–95; RESP 18–32; TEMP 36.1–36.3; O2SAT 58–100
[2021-05-06] MEDS: CISATRACURIUM BESYLATE 200 MG in SODIUM CHLORIDE 0.9% IV 80 ML 33.21 ML IV CONT
[2021-05-06] MEDS: methylPREDNISolone SOD SUCC 40 MG VIAL IV PUSH ×4 (00:03→17:40)
[2021-05-06 00:08] LABS: Glucose Point of Care 125 mg/dl (65-105)
[2021-05-06] MEDS: CISATRACURIUM BESYLATE 200 MG in SODIUM CHLORIDE 0.9% IV 80 ML 31.55 ML IV CONT ×2 (03:10→06:09)
[2021-05-06 04:00] LABS: Alveolar/Arterial O2 Gradient 563.1 mmHg; Base Excess ABG 12.5 mEq/l (+/-2.0); Carboxyhemoglobin 0.5 % THb (0-2.0); Fractional Inspired Oxygen 100 %; HCO3 ABG 40.9 mEq/l (22.0-26.0); Methemoglobin ABG 0.6 %THb (0-1.5); Oxygen Content ABG 10.5 %vol (16.0-22.0); Oxygen Saturation ABG 89.4 % (95.0-100.0); Oxyhemoglobin 89.6 % THb (90.0-100.0); PO2 ABG 65.3 mmHg (80.0-100.0); PO2 FiO2 Ratio Arterial Blood 0.65 %; Reduced Hemoglobin 9.3 %THb (0-5.0); Total Hemoglobin 8.3 g/dL (12.0-18.0); pH ABG 7.302 (7.350-7.450)
[2021-05-06 04:03] LABS: Device VENTILATOR; Modified Allen's Test Pass; PCO2 ABG 84.6 mmHg (35.0-45.0); Site Drawn RIGHT RADIAL
[2021-05-06 04:04] LABS: Arterial Blood Gas PEEP 20 cmH2O; Arterial Blood Gas Tidal Volume 100 ml; Arterial Blood Gas Vent Mode CMV; Arterial Blood Gas Ventilator rate 30 /MIN
[2021-05-06 04:05] LABS: Arterial Blood Gas Pressure Support 32 cmH2O
[2021-05-06] MEDS: EPOPROSTENOL SODIUM 0.5 MG VIAL 1 MG INHALATION ×2 (04:17→15:39)
--- NOTE | 2021-05-06 05:00 | PC.NURSE ---
critical PaCO2 of 84.6 reported to RN at [address] Kaplan at 0500.
[2021-05-06] MEDS: CENTRAL LINE FLUSH 10 ML IV PUSH ×2 (06:12→13:27)
[2021-05-06 06:37] LABS: Hematocrit 28.3 % (37.0-47.0); Hemoglobin 7.4 g/dL (12.0-15.0); Mean Corpuscular HGB Conc 26.1 g/dl (32-36); Mean Corpuscular Hemoglobin 27.1 pg (26-34); Mean Corpuscular Volume 103.7 fl (80-100); Mean Platelet Volume 11.3 fl (7.4-10.4); Platelet Count Result 334 k/mm3 (150-375); Red Blood Count 2.73 M/mm3 (4.2-5.4); Red Cell Distribution Width 19.6 % (11.5-14.5); White Blood Count 14.5 K/mm3 (4.5-10.0)
[2021-05-06 06:50] LABS: Alanine Aminotransferase 8 U/L (4-35); Albumin Level 3.1 g/dL (3.5-5.1); Alkaline Phosphatase 114 U/L (38-126); Anion Gap 12 mmol/L (8-16); Aspartate Amino Transferase 25 U/L (14-36); Blood Urea Nitrogen 55 mg/dL (7-17); Calcium 8.7 mg/dL (8.4-10.2); Carbon Dioxide 38 mmol/L (22-30); Chloride 96 mmol/L (98-107); Estimated CRCL calculation 35 ml/min; Estimated Glomerular Filt Rate 34; Glucose 147 mg/dL (65-110); Magnesium 2.3 mg/dL (1.6-2.3); Phosphorus 7.1 mg/dL (2.5-4.5); Potassium 4.5 mmol/L (3.4-5.0); Sodium 146 mmol/L (137-145)
[2021-05-06 07:02] LABS: Glucose Point of Care 137 mg/dl (65-105)
--- NOTE | 2021-05-06 07:27 | WPDINTPN ---
Progress Note: A&P Assessment and Plan (1) Acute respiratory failure with hypoxia: Code(s): J96.01 - Acute respiratory failure with hypoxia Status: Acute Assessment and Plan: Acute respiratory failure secondary to COVID-19 pneumonia 03/12 Admitted 03/15 Intermittent Bipap 03/20 Bipap dependent. 03/21 Intubated. -currently on PCV mode of ventilation, patient has been on peep of 20 and 100% FiO2 for number of days -on inhaled Flolan -on Versed and fentanyl for sedation. Nimbex for neuromuscular blockade and ventilator synchron. Off propofol -patient has become prone dependent since 04/28/2021 and does not tolerate changing to supine position even for few minutes. Her sats dropped into 60s and 70s on changing of position. The data from different studies show that patient should be prone for 16-18 hours and then placed on the back for the remaining hours today. -given patient main prone position for for so many days, and increasing facial swelling will place patient in supine position -peak pressures have been elevated -ABG show hypercapnic respiratory failure -chest x-ray reviewed -diuretics have been held due to kidney injury - low tidal volume ventilation - Continue bronchodilators -there is some data regarding cryptogenic organizing pneumonia in patients with prolonged COVID, initiated steroids on 05/05/2021 03/16/2021: Echo with EF 74%, normal diastolic function and no valvular disease. 03/16/2021: Venous doppler of all 4 extremities negative for DVT. 03/18/2021: CTA Chest negative for PE. (2) Pneumonia due to COVID-19 virus: Code(s): U07.1 - COVID-19; J12.82 - Pneumonia due to coronavirus disease 2019 Status: Acute Assessment and Plan: She has NOT been vaccinated for COVID Status post Remdesivir S/p Dexamethasone (20 mg IV q.day for 5 days then dexamethasone 10 mg IV q.day for additional 5 days.) Tocilizumab given once 03/14. Status post 5 days of Rocephin and azithromycin at the time of admission (3) Sepsis: Qualifiers: Acute renal failure type: unspecified Sepsis acute organ dysfunction status: with acute organ dysfunction Sepsis type: sepsis due to unspecified organism Severe sepsis acute organ dysfunction type: acute renal failure Severe sepsis shock status: with septic shock Qualified Code(s): A41.9 - Sepsis, unspecified organism; R65.21 - Severe sepsis with septic shock; N17.9 - Acute kidney failure, unspecified Code(s): A41.9 - Sepsis, unspecified organism Status: Acute Assessment and Plan: Patient was febrile and her WBC had increased Patient was started on empiric vancomycin and Rocephin on 04/10 for sepsis her urine grew Enterococcus and Klebsiella both are sensitive to Rocephin Blood cultures done on 04/07 and 04/13 have been negative till now 04/13 Sputum culture is growing out Klebsiella oxytoca which is ESBL 04/16 Rocephin was changed to to imipenem Her lipase was normal 04/14/2021: Bilateral upper and lower, extremity Dopplers were negative for DVT Patient at this time is too unstable for me to transport to CT She is afebrile over last 24 hours and white count improving 04/24/2021 sputum culture growing ESBL Klebsiella oxytoca, status post 14 days of vancomycin and imipenem 04/28/2021 infectious disease saw the patient and recommended discontinuing vancomycin and imipenem. (4) Shock: Code(s): R57.9 - Shock, unspecified Status: Acute Assessment and Plan: 05/04/2021: Patient is WBC count increased, now in septic shock again with Levophed requirements, maintain arterial pressures greater than 65 mmHg. -05/04 blood culture negative x1 so far, sputum and urine cultures are pending -patient recently on vancomycin and imipenem for 14 days (which was discontinued on 04/28/2021) - (5) BROOKE (acute kidney injury): Code(s): N17.9 - Acute kidney failure, unspecified Status: Resolved Assessment and Plan: Maggie
--- NOTE | 2021-05-06 08:18 | PM.IMPN ---
Progress Note: A&P Assessment and Plan (1) Acute respiratory failure with hypoxia: Code(s): J96.01 - Acute respiratory failure with hypoxia Status: Acute Assessment and Plan: Acute respiratory failure secondary to COVID-19 pneumonia. Patient admitted 03/12 on 2L O2 but had increasing oxygen requirements with intermittent Bipap. Echo 03/16 with EF 74% with normal diastolic function and no valvular disease. Venous doppler of all 4 extremities negative for DVT 03/16. CTA Chest negative for PE 03/18. She became BiPAP dependent and ultimately required Intubation 03/21/21. Currently: - She is on 20 of PEEP and 100% FiO2. - Remains on inhaled Flolan - Remains on Versed, propofol and fentanyl infusion for sedation. - She remains paralyzed on Nimbex restarted on 04/23/2021 - Patient tolerates prone positioning but does not tolerate supine position due to hypoxia. - CXR reviewed personally and shows no change in the severe diffuse airspace disease - Concern for lung scarring with BOOP so Solu-Medrol started 05/05/21 - ABG today 7.30/90/50 on 100% FiO2 - Patient remains very edematous. Was on Lasix IV but changed to Diamox for a few doses. Off all diuretics now. Cr 1.8 now. - Patient has been on ventilator for over 4 weeks now. She is a candidate for tracheostomy but currently too hypoxic along with high PEEP to allow safe procedure. - Family wishing to keep current care plan despite the fact that the patient is on maximal therapy without much more that can be offered. [place] is grim. (2) Pneumonia due to COVID-19 virus: Code(s): U07.1 - COVID-19; J12.82 - Pneumonia due to coronavirus disease 2018 Status: Acute Assessment and Plan: She has not been vaccinated for COVID. SARS-CoV-2 RNA positive 03/12/21. Status post Remdesivir (03/14-03/19). Tocilizumab given once 03/14. Plasma given 03/16. Dexamethasone 6mg daily initially then changed to 20 mg IV q.day (03/20-03/24) then dropped to 10 mg IV q.day (03/25-03/29). Status post 5 days of Rocephin and azithromycin started at the time of admission. Inflammatory markers not checked since 04/03. As above. Continue supportive care. (3) Sepsis: Qualifiers: Acute renal failure type: unspecified Sepsis acute organ dysfunction status: with acute organ dysfunction Sepsis type: sepsis due to unspecified organism Severe sepsis acute organ dysfunction type: acute renal failure Severe sepsis shock status: with septic shock Qualified Code(s): A41.9 - Sepsis, unspecified organism; R65.21 - Severe sepsis with septic shock; N17.9 - Acute kidney failure, unspecified Code(s): A41.9 - Sepsis, unspecified organism Status: Acute Assessment and Plan: Patient was febrile and her WBC had increased. BCx 04/07 NGTD. UCx 04/08 grew Enterococcus and Klebsiella. She was started on empiric vancomycin and Rocephin for sepsis. Bilateral upper and lower, extremity Dopplers were negative for DVT 04/14. BCx 04/13 negative. Sputum culture 04/13 grew out ESBL Klebsiella oxytoca so Rocephin was changed to imipenem. Patient is too unstable to transport to CT. Repeat sputum Cx 04/24 growing ESBL Klebsiella oxytoca and yeast. ID 04/28 saw the patient and recommended discontinuing vancomycin and imipenem; All abx stopped on 04/29/21. Lab has been requested to identify the yeast growing in her sputum. She remains afebrile. WBC climbed to 19.8K but trending down now. Continue to monitor. Reculture if she develops fever or hypothermia. (4) Shock: Code(s): R57.9 - Shock, unspecified Status: Acute Assessment and Plan: Secondary to sepsis versus hypovolemic. She was supported with Levophed and able to be weaned off. Levophed added again 05/04 for HoTN. Levophed was up to 8mcg/min but able to weaned off again this morning. Follow. (5) BROOKE (acute kidney injury): Code(s): N17.9 - Acute kidney failure, unspecified Status: Resolved Assessment and Plan: Patient
[2021-05-06] MEDS: HEPARIN SODIUM 5,000 UNITS/ML VIAL 5000 UNITS SUB-Q (08:40)
[2021-05-06] MEDS: MINERAL OIL/WHITE PETROLATUM OINTMENT 1 APPLIC EACH EYE (08:41)
[2021-05-06] MEDS: INSULIN GLARGINE (*BKC) 100 UNITS/ML 25 UNITS SUB-Q (08:41)
[2021-05-06] MEDS: PANTOPRAZOLE SODIUM IV 40 MG VIAL IV PUSH (08:42)
[2021-05-06] MEDS: FENTANYL 2,500MCG/NS250ML(*CRX 2,500 MCG/250 ML BAG 20 MCG IV CONT (08:51)
[2021-05-06] MEDS: MIDAZOLAM 100MG/NS 100ML(*CRX) 100 MG/100 ML BAG 8 MG IV CONT (08:53)
[2021-05-06] MEDS: CISATRACURIUM BESYLATE 200 MG in SODIUM CHLORIDE 0.9% IV 80 ML 29.89 ML IV CONT ×2 (09:46→13:14)
--- NOTE | 2021-05-06 12:05 | PCDIET ---
ICU Rounding Note: Tube feedings on hold. RNs repositioning patient supine. Family meeting planned for today. Recommend resuming tube feedings when medically appropriate if aggressive care is continued. Last recorded weight is 114.1kg which is increased from last review. +I/O. Bowel Motility: Last documented BM on 05/01/21 x 3. Labs Reviewed: WBC (14.5), RBC (2.73), Hgb (7.4), Hct (28.3), BUN (55), Cr (1.8), Na (146), Alb (3.1), PO4 (7.1) Meds Noted: Nimbex, Flolan, Fentanyl, Lantus, Solu Medrol, Versed, Protonix, Zemuron Additional Notes: No change in skin condition reported. Following daily in ICU rounds. Assessing/reassessing every Monday/Monday.
[2021-05-06 12:50] LABS: Glucose Point of Care 140 mg/dl (65-105)
--- NOTE | 2021-05-06 14:58 | PM.PNNEP ---
Progress Note: A&P Assessment and Plan (1) BROOKE (acute kidney injury): Code(s): N17.9 - Acute kidney failure, unspecified Status: Resolved Assessment and Plan: another episode as noted by trend of labs now with declining urine output and worsening edema as well given current trend, I worry she is going to need renal replacement therapy/dialysis soon HOWEVER, given her current medical situation, I do not think she would tolerate dialysis and it may do further harm than good -- this is further complicated by the fact that playing a dialysis catheter given her tenuous respiratory status may lead to even more/further complications I agree with Dr. Kaplan that dialysis in this patient would be a futile endeavor. Will continue to follow from a distance as I do have not much else to add from a renal perspective. Subjective Date/time seen: 05/06/21 14:58 Chart reviewed since I last saw the patient several weeks ago -- unfortunately, the patient's overall condition has continued to deteriorate and she has developed BROOKE/ARF again; more concerning is her declined in urine output as well; has been on/off levophed but remains sedated/paralyzed on full ventilator support. Exam Narrative: General: WD/WN female in NAD - intubated/sedated Heart: normal S1 and S2; no rub Lungs: coarse breath sounds Abdomen: soft, nontender, nondistended, positive bowel sounds Extremities: no cyanosis or clubbing; diffuse edema noted Skin: edematous Objective Data Vital Signs Vital Signs: Vital Signs Temp Pulse Resp BP Pulse Ox 05/06/21 14:02 92 30 H 67 L 05/06/21 14:00 36.2 C L 91 28 H 109/68 66 L 05/06/21 13:14 89 28 H 115/64 05/06/21 13:07 89 28 H 115/64 05/06/21 12:24 90 30 H 68 L 05/06/21 12:00 36.1 C L 89 28 H 107/68 69 L 05/06/21 10:07 89 30 H 87 L 05/06/21 10:00 36.3 C L 89 28 H 115/64 87 L 05/06/21 09:46 85 30 H 121/66 05/06/21 09:20 85 30 H 121/66 05/06/21 08:53 85 30 H 05/06/21 08:51 85 30 H 05/06/21 08:36 85 30 H 05/06/21 08:00 36.2 C L 89 28 H 118/66 87 L 05/06/21 07:46 87 30 H 87 L 05/06/21 06:14 85 90 05/06/21 06:09 89 30 H 121/66 05/06/21 06:08 88 30 H 05/06/21 06:06 88 30 H 05/06/21 06:04 88 121/66 05/06/21 06:00 36.1 C L 88 30 H 121/66 87 L 05/06/21 04:25 87 91 05/06/21 04:23 88 30 H 90 05/06/21 04:00 88 05/06/21 03:46 89 30 H 89 L 05/06/21 03:12 89 121/66 05/06/21 03:10 89 30 H 121/66 05/06/21 03:01 89 30 H 121/66 05/06/21 02:33 92 30 H 05/06/21 02:32 92 30 H 122/62 05/06/21 02:31 30 H 122/62 05/06/21 02:29 36.2 C L 92 30 H 122/63 89 L 05/06/21 02:26 91 89 L 05/06/21 00:08 93 30 H 89 L 05/06/21 00:04 93 30 H 05/06/21 00:03 93 123/62 05/06/21 00:02 93 30 H 05/06/21 00:00 36.2 C L 94 30 H 123/62 100 05/05/21 22:47 94 30 H 87 L 05/05/21 22:34 94 30 H 88 L 05/05/21 22:31 93 30 H 142/81 H 05/05/21 22:30 94 30 H 127/66 05/05/21 22:20 91 91 05/05/21 22:19 91 30 H 91 05/05/21 22:00 36.3 C L 91 30 H 127/66 30 L 05/05/21 21:06 134/67 05/05/21 21:05 89 30 H 134/67 05/05/21 20:55 89 30 H 05/05/21 20:00 36.4 C L 93 30 H 134/75 88 L 05/05/21 19:52 130/70 05/05/21 19:51 94 30 H 130/70 05/05/21 19:48 94 30 H 05/05/21 19:47 93 30 H 05/05/21 19:46 94 30 H 05/05/21 19:45 94 30 H 05/05/21 19:37 94 90 05/05/21 19:35 94 30 H 90 05/05/21 18:00 36.2 C L 93 28 H 121/67 89 L Intake/Output Intake/Output: Intake & Output 05/03/21 05/04/21 05/05/21 05/06/21 23:59 23:59 23:59 23:59 Intake Total 3189 2823 2070 1230 Output Total 2850 1025 47 40 Balance 339 1798 2023 1190 Meds/Results Medications: Active Medications Generic Name Dose Route Start Last Admin Trade
[2021-05-06] MEDS: EPINEPHrine INJ 1 MG in DEXTROSE 5% IN WATER 250 ML 15.06 MG IV CONT (18:26)
--- NOTE | 2021-05-06 18:28 | PDCODEBLUE ---
[facility] Note [facility] Note Time Arrived at [facility]: [facility] called at 16:55. ED physician responded. Initially in PEA, return of sinus rhythm after 3 rounds of CPR. [facility] called at 17:45. Initially in PEA with return of sinus rhythm after 1 round of CPR though she went back into PEA within 7 minutes or so for which she received yet another 3 rounds of CPR with scientology of sinus bradycardia. Epinephrine drip ordered at that time though unfortunately she once again became bradycardic and went into PEA prior to that being started. Once ROSC was achieved the epinephrine drip was started. Despite being on epinephrine as well as norepinephrine, her blood pressures remained in the 80 systolic or below with very low SpO2 and bradycardia. Patient once again went into PEA at which time it was decided that despite heroic measures the patient was unfortunately not going to improve or survive with continued hypotension despite mutlipe pressors and SpO2 levels consistently under 50% when taken out of prone position (she had been prone for 8 days straight). Time of was called at 19:02.
--- NOTE | 2021-05-06 18:30 | PC.NURSE ---
see coode sheets after last epi given and epi gtt started, awaiting pt's results
--- NOTE | 2021-05-06 19:09 | ED.CPR ---
HPI - CPR General Chief Complaint: Weakness Stated Complaint: weakness Time Seen by Provider: 03/12/21 16:39 Related Data Home Medications Medication Instructions Recorded Confirmed amlodipine 10 mg PO DAILY 03/12/21 03/12/21 losartan-hydrochlorothiazide 1 tablet PO DAILY 03/12/21 03/12/21 metformin 500 mg PO DAILY 03/12/21 03/12/21 montelukast 10 mg PO DAILY 03/12/21 03/12/21 pravastatin 40 mg PO DAILY 03/12/21 03/12/21 Allergies Allergy/AdvReac Type Severity Reaction Status Date / Time No Known Allergies Allergy Unknown Verified 05/21/17 13:18 [facility] Past Medical History Medical History Asthma Hyperlipidemia Hypertension Type 2 diabetes mellitus Surgical History Surgical History History of appendectomy History of laparoscopy Removal of a benign tumor per patient report. Family History Family History Other Diabetes mellitus Hypertension Social History Social History Social History: Surrogate decision maker: Roxie Cam, daughter. Code status: Full code. Smoking status: Former smoker Second hand tobacco smoke exposure: No Alcohol intake: former Substance use: never Additional living arrangements comments: The patient lives alone in [place]. Additional occupation/education comments: Raised 4 children. Spiritual care concerns: No Course Course Emergency Course: Responded to CODE BLUE in the ICU with the patient with history COVID-19 is intubated with central line patient was noted to have increasing bradycardia and then lost a pulse. CPR performed 3 rounds of epinephrine were given with return of pulse please see code sheet for full details. Hospitalist service was contacted and JADA Saenz came to ICU and will take over care Vital Signs Vital signs: Vital Signs Temperature 99.2 F 03/12/21 15:29 Pulse Rate 103 H 03/12/21 15:29 Respiratory Rate 20 03/12/21 15:29 Blood Pressure 128/71 03/12/21 15:29 Pulse Oximetry 86 L 03/12/21 15:29 Temperature 97.1 F L 05/06/21 14:00 Pulse Rate 93 05/06/21 18:26 Respiratory Rate 18 05/06/21 16:00 Blood Pressure 132/76 05/06/21 18:26 Pulse Oximetry 90 05/06/21 16:00 MDM - Cardiac Arrest/CPR Lab Data Result diagrams: 05/06/21 06:20 05/06/21 06:20 Labs: Lab Results 03/12/21 03/12/21 03/12/21 Range/Units 15:41 15:41 15:41 WBC (4.5-10.0) K/mm3 RBC (4.2-5.4) M/mm3 Hgb (12.0-15.0) g/dL Hct (37.0-47.0) % MCV (80-100) fl MCH (26-34) pg MCHC (32-36) g/dl RDW (11.5-14.5) % Plt Count (150-375) k/mm3 MPV (7.4-10.4) fl Immature Gran % (Auto) (0-0.5) % Neut % (Auto) (45.5-73.1) % Lymph % (Auto) (18.3-44.2) % [place] % (Auto) (2.6-8.5) % Eos % (Auto) (0-4.4) % Baso % (Auto) (0.2-1.2) % Lymph # (Auto) (0.9-3.2) K/mm3 [place] # (Auto) (0.1-0.6) K/mm3 Eos # (Auto) (0-0.3) K/mm3 Baso # (Auto) (0.0-0.1) K/mm3 Abs Immat Gran (auto) (0.00-0.031) K/mm3 Absolute Neuts (auto) (1.3-6.7) K/mm3 Absolute Nucleated RBC (0.0-0.012) K/mm3 Nucleated RBC % (0.0-0.2) % D-Dimer 0.88 H (<0.48) ug/mL Sodium 132 L (137-145) mmol/L Potassium 3.4 (3.4-5.0) mmol/L Chloride 95 L (98-107) mmol/L Carbon Dioxide 24 (22-30) mmol/L Anion Gap 13 (8-16) mmol/L BUN 24 H (7-17) mg/dL Creatinine 1.10 H (0.7-1.0) mg/dL Estim Creat Clear Calc 47 ml/min Estimated GFR 60 (59 - ) Glucose 445 H (65-110) mg/dL POC Capillary Glucose (65-105) mg/dl Calcium 8.4 (8.4-10.2) mg/dL Phosphorus (2.5-4.5) mg/dL Magnesium (1.6-2.3) mg/dL Total Bilirubin 0.9 (0.2-1.3) mg/dL AST 37 H (14-36) U/L ALT 13 (4-35) U/L Alk
--- NOTE | 2021-05-06 21:30 | PC.NURSE ---
patients daughter Leatha here to view patient along with grand daughters family placed in gown n95 masks bonnets and gloves before entering room. after viewing, answered questions and discussed next steps for home and need to sign release of body form. Leatha states family has not decided on a home yet and she does not want to sign the release of body form until tomorrow. leatha verbalized understanding that Ba could not release body until the form was signedSharon given patients belongings which were double bagged. Items included but not limited to were a purse, cell phone, tablet, wig, and slippers
[2021-05-07 00:32] LABS: Glucose Point of Care 60 mg/dl (65-105)
--- NOTE | 2021-05-07 06:39 | PM.DDS ---
Discharge Summary Date and Time Date of : 05/06/21 Time of : 19:02 Probable Cause of Probable Cause of : Respiratory failure related to COVID Pneumonia Summary Hospital Course: Patient was not been vaccinated for COVID. SARS-CoV-2 RNA positive 03/12/21. Treated with Remdesivir, Tocilizumab, Convalescent Plasma and Dexamethasone. Also status post 5 days of Rocephin and azithromycin started at the time of admission. Patient developed acute respiratory failure secondary to COVID-19 pneumonia. She was admitted 03/12 on 2L O2 but had increasing oxygen requirements with intermittent Bipap. Workup revealed no other obvious etiology to explain her respiratory failure. She became BiPAP dependent and ultimately required Intubation 03/21/21. She worsened to the point that she was on 20 of PEEP and 100% FiO2, Flolan, sedation, and remained paralyzed. During her hospital course, she did have positive urine and sputum cultures that were treated appropriately. She also had episodes of hypotension requiring Levophed. CXR continued to show no change in the severe diffuse airspace disease. Patient was on mechanical ventilation for over 4 weeks now. She was a candidate for tracheostomy but currently too hypoxic along with high PEEP to allow for a safe procedure. Code Juan Manuel called at 1745 due to patient being in PEA. She had CPR performed multiple times with ROSC; Epinephrine added. Patient continued to have severe hypoxia, bradycardia and hypotension despite maximal therapy. She at 1902. Family notified. Additional Data Family: at bedside Hospice patient?: No
== END 2021-05-06 19:02 | disposition expired | DRG 130 ==
LOC: ANHED 19:21 → ANHIMU 03-15 14:36 → ANHICU 03-26 12:14 → ANH3MEDSUR 05-10 10:51 → ANHICU 05-10 10:51 → ANHIMU 05-10 10:51
PROVIDERS: Emergency Medicine; Internal Medicine; Internal Medicine Critical Care Medicine; Internal Medicine Nephrology; Physician Assistant; Admitting Provider Internal Medicine; Emergency Provider Emergency Medicine; PCP Internal Medicine Infectious Disease; Visit Provider Family Medicine
DX: U07.1 COVID-19 (principal); J12.82 Pneumonia due to coronavirus disease 2019; J80 Acute respiratory distress syndrome; E22.2 Syndrome of inappropriate secretion of antidiuretic hormone; J15.0 Pneumonia due to Klebsiella pneumoniae; N39.0 Urinary tract infection, site not specified; B96.1 Klebsiella pneumoniae [K. pneumoniae] as the cause of diseases classified elsewhere; B96.5 Pseudomonas (aeruginosa) (mallei) (pseudomallei) as the cause of diseases classified elsewhere; I46.9 Cardiac arrest, cause unspecified; E87.2 Acidosis; E87.3 Alkalosis; N17.9 Acute kidney failure, unspecified; A41.9 Sepsis, unspecified organism; R65.21 Severe sepsis with septic shock; E11.9 Type 2 diabetes mellitus without complications; I10 Essential (primary) hypertension; E78.5 Hyperlipidemia, unspecified; J45.909 Unspecified asthma, uncomplicated; E86.1 Hypovolemia; D64.9 Anemia, unspecified; E86.0 Dehydration
CPT/HCPCS: 31500; 36415; 36430; 36600; 71045; 71275; 76775; 80048; 80053; 80069; 80076; 80202; 81001; 82010; 82375; 82565; 82570; 82728; 82805; 82948; 83036; 83050; 83615; 83690; 83735; 83935; 84100; 84300; 84460; 84478; 85014; 85018; 85025; 85027; 85380; 85610; 86140; 86850; 86900; 86901; 86920; 87040; 87070; 87077; 87086; 87088; 87106; 87186; 87205; 92950; 93005; 93306; 93970; 94002; 94003; 94640; 94660; 96361; 96374; 99285; A9270; C1751; C9113; C9803; J0131; J0171; J0330; J0360; J0456; J0610; J0696; J0743; J1100; J1120; J1644; J1650; J1815; J1940; J2250; J2704; J2765; J2920; J2997; J3010; J3262; J3370; J3480; J7030; J7040; J7042; J7050; J7060; J7070; P9016; P9047; P9059; Q9967; U0003; U0005